=== PATIENT | male | born 1945 | race Caucasian/White ===

== ENCOUNTER 2017-08-14 20:48 | Inpatient (IN) | payer OTHER, MEDICARE ==
[~2017-08-14] VITALS: Ht 182.9 cm; Wt 111.9 kg
[2017-08-14 20:50] VITALS: BP 165/62; PULSE 80; RESP 16; TEMP 97.7; O2SAT 93
[2017-08-14 22:11] VITALS: BP 134/67; PULSE 71; RESP 20; O2SAT 95
--- NOTE | 2017-08-14 22:40 | PD ---
HPI Chief Complaint: Edema Time Seen by Provider: 22:05 Travel History International Travel<30 days: No Contact w/Intl Traveler<30days: No Traveled to known affect area: No History of Present Illness HPI The patient is a 72 year old male who presents to the [facility] emergency department with a history of developing swelling of his legs that began approximately one week ago. The patient reports that the swelling has progressed into scrotal swelling. He reports that he has occult he starting a stream of urine and feels like he is not completely evacuating his bladder. He denies having any prior history of prostate hypertrophy. He reports that his PSA is regularly checked and noted to be 1. The patient reports that he does have shortness of breath with exertion. He denies having any cough or congestion. He reports that he has been diagnosed with COPD in the past. 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 The patient is followed by the [facility] for his primary care. He incidentally also reports that over the last 1-2 months he's had increasing pain in his shoulders and arms that was diagnosed as being related to neuropathy. His [facility] doctor started him on gabapentin which she reports this health, however he then developed constipation. He reports that he last moved his bowels yesterday 5 times after using a stool softener. He denies having any blood in his stool or black or tarry stools. He denies having any numbness or tingling to his arms or legs currently. He denies having any weakness in his arms or legs. He reports that the pain in his shoulders and arms is made worse with lying flat. He reports that the pain comes and goes and is a 10 out of 10 in severity when it occurs. He reports that it feels like he is being stabbed over and over again in his extremities. He denies having any chest pain. On review of systems otherwise, the patient denies having any known recent fevers, abdominal pain, vomiting, or other neurologic symptoms. [facility] Past Medical History Narrative Medical The patient's past medical history is significant for recently being diagnosed with neuropathy, history of having a heart murmur, history of strabismus, history of hypertension, hyperlipidemia, alcohol abuse, COPD High Cholesterol: Yes COPD: Yes Hypertension: Yes Past Surgical History Narrative Surgical The patient's past surgical history is significant for an appendectomy. Appendectomy: Yes Social History Alcohol Use: Yes (2 drinks daily, however related to pain he's been drinking more than usual) Tobacco Use: No Substance Use: No Allergies-Medications (Allergen,Severity, Reaction): Coded Allergies: No Known Allergies (Unverified , 08/14/17) Reported Meds & Prescriptions Reported Meds & Active Scripts Active Review of Systems General / Constitutional: No: Fever Eyes: No: Visual changes HENT: No: Headaches Cardiovascular: Positive: Dyspnea on exertion, Edema, No: Chest Pain or Discomfort Respiratory: Positive: Shortness of Breath Gastrointestinal: Positive: Constipation, Changes in Bowel Habits, No: Nausea, Vomiting, Diarrhea, Abdominal Pain, Indigestion Genitourinary: No: Dysuria Musculoskeletal: Positive: Myalgias, Arthralgias, Edema, Pain, No: Limited ROM Skin: No Rash Neurologic: Positive: Paresthesia, No: Weakness, Focal Abnormalities, Change in Mentation, Slurred Speech, Sensory Disturbance Psychiatric: No: Depression Endocrine: No: Polydipsia Hematologic/Lymphatic: No: Easy Bruising Physical Exam Narrative General: The patient is a well-developed well-nourished male in no acute distress. Head and Neck exam: Head is normocephalic atraumatic. Eyes: Disconjugate gaze with a history of strabismus. Pupils are equal round and reactive to light. Nose: Midline septum with pink mucous membranes Mouth: Dentition unremarkable. Moist mucus membranes. Posterior oropharynx is not erythematous. No tonsillar hypertrophy. Uvula midline. Airway patent. Neck: No palpable lymphadenopathy. No nuchal rigidity. No thyromegaly. No spinous process tenderness to palpation. No step-off or crepitus. No erythema or ecchymosis. Cardiovascular: Irregularly irregular with a rate in the 80s with a 2/6 systolic murmur. The patient reports having a prior history of heart murmur. Lungs: The patient has decreased breath sounds in the right lower lung base. No wheezes, rhonchi, or crackles are audible. Abdomen: Soft, without tenderness to palpation in all 4 quadrants of the abdomen. No guarding, rebound, or rigidity. Normal bowel sounds are audible. No tenderness on palpation of McBurney's point. Extremities: No clubbing or cyanosis. The patient has 1+ nonpitting edema bilateral lower extremities. No calf tenderness on palpation. Back: No spinous process tenderness to palpation. No costovertebral angle tenderness to palpation. Neurologic Exam: Grossly nonfocal. Skin Exam: No rash noted. Intact skin that is warm and dry. Data Data Last Documented VS Vital Signs Date Time Temp Pulse Resp B/P (MAP) Pulse Ox O2 Delivery O2 Flow Rate FiO2 08/14/17 22:11 71 20 134/67 (89) 95 Room Air 08/14/17 20:[address] Brain W/O Iv Contrast(Rout) (08/14/17 22:20) Ct Cerv Spine W/O Contrast (08/14/17 22:20) Electrocardiogram (08/14/17 22:20) Complete Blood Count With Diff (08/14/17 22:20) Comprehensive Metabolic Panel (08/14/17 22:20) Creatine Kinase (Cpk) (08/14/17 22:20) Ckmb (Isoenzyme) Profile (08/14/17 22:20) Troponin I (08/14/17 22:20) B-Type Natriuretic Peptide (08/14/17 22:20) Prothrombin Time / Inr (Pt) (08/14/17 22:20) Act Partial Throm Time (Ptt) (08/14/17 22:20) Lipase (08/14/17 22:20) Urinalysis - C+S If Indicated (08/14/17 22:20) Magnesium (Mg) (08/14/17 22:20) Chest, Single Ap (08/14/17 22:20) Iv Access Insert/Monitor (08/14/17 22:20) Ecg Monitoring (08/14/17 22:20) Oximetry (08/14/17 22:20) Drug Screen, Random Urine (08/14/17 22:20) Alcohol (Ethanol) (08/14/17 22:20) CKMB (08/14/17 22:45) CKMB% (08/14/17 22:45) Furosemide Inj (Lasix Inj) (08/15/17 00:30) Nitroglycerin 2% Oint (Nitroglycerin 2% (08/15/17 00:30) Aspirin Chew (Aspirin Chew) (08/15/17 00:30) Admit Order (Ed Use Only) (08/15/17 00:23) Labs Laboratory Tests Test 08/14/17 22:45 White Blood Count 7.3 TH/MM3 Red Blood Count 3.16 MIL/MM3 Hemoglobin 10.6 GM/DL Hematocrit 31.6 % Mean Corpuscular Volume 100.0 FL Mean Corpuscular Hemoglobin 33.6 PG Mean Corpuscular Hemoglobin Concent 33.6 % Red Cell Distribution Width 15.5 % Platelet Count 214 TH/MM3 Mean Platelet Volume 6.6 FL Neutrophils (%) (Auto) 58.8 % Lymphocytes (%) (Auto) 21.5 % Monocytes (%) (Auto) 16.2 % Eosinophils (%) (Auto) 2.5 % Basophils (%) (Auto) 1.0 % Neutrophils # (Auto) 4.3 TH/MM3 Lymphocytes # (Auto) 1.6 TH/MM3 Monocytes # (Auto) 1.2 TH/MM3 Eosinophils # (Auto) 0.2 TH/MM3 Basophils # (Auto) 0.1 TH/MM3 CBC Comment DIFF FINAL Differential Comment Prothrombin Time 10.7 SEC Prothromb Time International Ratio 1.1 RATIO Activated Partial Thromboplast Time 26.3 SEC Blood Urea Nitrogen 47 MG/DL Creatinine 1.51 MG/DL Random Glucose 119 MG/DL Total Protein 8.2 GM/DL Albumin 3.5 GM/DL Calcium Level 8.2 MG/DL Magnesium Level 2.3 MG/DL Alkaline Phosphatase 123 U/L Aspartate Amino Transf (AST/SGOT) 35 U/L Alanine Aminotransferase (ALT/SGPT) 22 U/L Total Bilirubin 0.3 MG/DL Sodium Level 135 MEQ/L Potassium Level 4.5 MEQ/L Chloride Level 103 MEQ/L Carbon Dioxide Level 21.7 MEQ/L Anion Gap 10 MEQ/L Estimat Glomerular Filtration Rate 45 ML/MIN Total Creatine Kinase 524 U/L Creatine Kinase MB 13.7 NG/ML Creatine Kinase MB % 2.6 % Troponin I 0.14 NG/ML B-Type Natriuretic Peptide 253 PG/ML Lipase 569 U/L Ethyl Alcohol Level 110 MG/DL MDM Medical Decision Making Medical Screen Exam Complete: Yes Emergency Medical Condition: Yes Medical Record Reviewed: Yes Interpretation(s) Last Impressions Head CT 08/14/170 Signed Impressions: Service Date/Time: Monday, August 14, 2017 23:19 - CONCLUSION: Unremarkable noncontrast exam. Haja Bennett MD Chest X-Ray 08/14/172219 Signed Impressions: Service Date/Time: Monday, August 14, 2017 22:49 - CONCLUSION: Small to moderate right pleural effusion. Haja Bennett MD Cervical Spine CT 08/14/172219 Signed Impressions: Service Date/Time: Monday, August 14, 2017 23:19 - CONCLUSION: Negative trauma CT. Haja Bennett MD Differential Diagnosis New-onset congestive heart failure, versus cor pulmonale, versus renal failure, versus hypoalbuminemia, versus valvular abnormalities of the veins in the legs causing peripheral edema Narrative Course During the course of the patients emergency department visit, the patients history, examination, and differential diagnosis were reviewed with the patient. The patient was placed on a telemetry monitor with oximetry and frequent blood pressure monitoring. The patient had IV access obtained and blood work sent for analysis. An ECG was done on arrival that shows atrial fibrillation heart rate of 40, nonspecific ST-T wave abnormalities, no acute ST segment elevation. QRS duration is 106 ms, QTC [address] scan of the head and neck was ordered due to the patient's reported history of falls. The patients laboratory studies were reviewed and remarkable for a CBC that shows a white count of 7.3, hemoglobin 10.6, platelets 214 with 16.2 monocytes, CMP is remarkable for sodium of 135, BUN 47, creatinine 1.51, glucose 119, alkaline phosphatase 123, CPK 524, MB percent 2.6, troponin I is 0.14, lipase 569, PT 10.7, PTT 26.3, alcohol level in 110 The patient was provided aspirin 324 mg by mouth 1, Lasix 40 mg IV, nitroglycerin 1 inch the chest wall. Radiology studies were reviewed and remarkable for a chest x-ray that shows a small to moderate right pleural effusion, CT scan of the brain shows an unremarkable noncontrast exam. CT scan of the C-spine shows no acute traumatic abnormality. The patients results were discussed with the patient, including the plan of care. I explained that further testing and/ or monitoring is indicated based on the patients history, examination, and/ or laboratory findings. Therefore, I recommended admission for additional evaluation. The patient expressed understanding and was agreeable with this plan. The patient was admitted to the hospital in stable condition and [facility] Physician Communication Physician Communication The patient's case including history, pertinent physical examination findings, and laboratory studies were discussed with Dr. Farnsworth. It was agreed that the patient would be [facility]. Diagnosis Primary Impression: CHF (congestive heart failure) Qualified Codes: I50.9 - Heart failure, unspecified Additional Impressions: Elevated troponin A-fib Qualified Codes: I48.91 - Unspecified atrial fibrillation Admitting Information Admitting Physician Requests: Khushboo Summers MD Aug 14, 2017 22:40
[2017-08-14] MEDS ORDERED: ZOFR4TAB3 SL (22:43)
[2017-08-14] MEDS ORDERED: POTA1TAB4 PO (22:43)
[2017-08-14 23:01] LABS: AUTOMATED NEUTROPHIL # 4.3 TH/MM3 (1.8-7.7); BASOPHIL # 0.1 TH/MM3 (0-0.2); EOSINOPHIL # 0.2 TH/MM3 (0-0.4); EOSINOPHIL % 2.5 % (0.0-4.0); HEMATOCRIT 31.6 % (39.0-51.0); HEMO FLAGS DIFF FINAL; LYMPH % 21.5 % (9.0-44.0); LYMPHOCYTE # 1.6 TH/MM3 (1.0-4.8); MEAN CORPUSCULAR HEMOGLOBIN 33.6 PG (27.0-34.0); MEAN CORPUSCULAR HGB CONC 33.6 % (32.0-36.0); MONO % 16.2 % (0.0-8.0); NEUT % 58.8 % (16.0-70.0); PLATELET COUNT 214 TH/MM3 (150-450); RED BLOOD COUNT 3.16 MIL/MM3 (4.50-5.90); RED CELL DISTRIBUTION WIDTH 15.5 % (11.6-17.2); WHITE BLOOD COUNT 7.3 TH/MM3 (4.0-11.0)
[2017-08-14 23:11] LABS: APTT (PATIENT) 26.3 SEC (24.3-30.1); INTERNATIONAL NORMALIZED RATIO 1.1 RATIO; PROTHROMBIN TIME - PATIENT 10.7 SEC (9.8-11.6)
--- NOTE | 2017-08-14 23:12 | RADRPT ---
EXAM DATE/TIME: 08/14/2017 22:49 [facility] COMPARISON: No previous studies available for comparison. INDICATIONS : Shortness of breath. MEDICAL HISTORY : Chronic obstructive pulmonary disease. SURGICAL HISTORY : None. ENCOUNTER: Initial ACUITY: 1 day PAIN SCORE: 0/10 LOCATION: Bilateral chest FINDINGS: Single AP erect view of the chest was obtained and demonstrates a small to moderate right pleural eff usion with blunting of the right costophrenic angle. There is mild patchy opacity at the right lung b ase. Left lung is clear. The heart size appears mildly prominent but no definite perihilar edema. Mil d atherosclerotic calcifications are present in the aorta. The bony thorax is intact. There are overl genie electrocardiogram leads. CONCLUSION: Small to moderate right pleural effusion. Haja Bennett MD on August 14, 2017 at 23:10 Board Certified Radiologist. This report was verified electronically.
[2017-08-14 23:15] LABS: ANION GAP 10 MEQ/L (5-15); AST (GOT) 35 U/L (15-37); BICARBONATE 21.7 MEQ/L (21.0-32.0); BLOOD UREA NITROGEN 47 MG/DL (7-18); CHLORIDE 103 MEQ/L (98-107); GLOMERULAR FILTRATION RATE 45 ML/MIN (>89); MAGNESIUM 2.3 MG/DL (1.5-2.5); POTASSIUM 4.5 MEQ/L (3.5-5.1); SODIUM (NA) 135 MEQ/L (136-145)
[2017-08-14 23:16] LABS: ALT (GPT) 22 U/L (12-78)
[2017-08-14 23:19] LABS: ALKALINE PHOSPHATASE 123 U/L (45-117); CREATINE KINASE 524 U/L (39-308); TOTAL BILIRUBIN ADULT 0.3 MG/DL (0.2-1.0)
[2017-08-14 23:27] LABS: ALCOHOL 110 MG/DL (0-5)
--- NOTE | 2017-08-14 23:31 | RADRPT ---
EXAM DATE/TIME: 08/14/2017 23:19 [facility] COMPARISON: No previous studies available for comparison. INDICATIONS : Neck and shoulder pain. RADIATION DOSE: 52.54 CTDIvol (mGy) MEDICAL HISTORY : Hypertension. Chronic obstructive pulmonary disease. SURGICAL HISTORY : Appendectomy. ENCOUNTER: Initial ACUITY: 1 day PAIN SCALE: 7/10 LOCATION: cranial TECHNIQUE: Multiple contiguous axial images were obtained of the head. Using automated exposure control and adj ustment of the mA and/or kV according to patient size, radiation dose was kept as low as reasonably a chievable to obtain optimal diagnostic quality images. DICOM format image data is available electro nically for review and comparison. FINDINGS: CEREBRUM: The ventricles are normal for age. No evidence of midline shift, mass lesion, hemorrhage or acute in farction. No extra-axial fluid collections are seen. POSTERIOR FOSSA: The cerebellum and brainstem are intact. The 4th ventricle is midline. The cerebellopontine angle i s unremarkable. EXTRACRANIAL: The visualized portion of the orbits is intact. SKULL: The calvaria is intact. No evidence of skull fracture. CONCLUSION: Unremarkable noncontrast exam. Haja Bennett MD on August 14, 2017 at 23:29 Board Certified Radiologist. This report was verified electronically.
--- NOTE | 2017-08-14 23:39 | RADRPT ---
EXAM DATE/TIME: 08/14/2017 23:19 [facility] COMPARISON: No previous studies available for comparison. INDICATIONS : Neck and shoulder pain. Trauma. RADIATION DOSE: 30.64 CTDIvol (mGy) MEDICAL HISTORY : Hypertension. Chronic obstructive pulmonary disease. SURGICAL HISTORY : Appendectomy. ENCOUNTER: Initial ACUITY: 1 day PAIN SCALE: 7/10 LOCATION: neck TECHNIQUE: Volumetric scanning of the cervical spine was performed. Multiplanar reconstructions in the sagittal, coronal and oblique axial planes were performed. Using automated exposure control and adjustment o f the mA and/or kV according to patient size, radiation dose was kept as low as reasonably achievable to obtain optimal diagnostic quality images. DICOM format image data is available electronically f or review and comparison. FINDINGS: The sagittal reconstructions demonstrate normal alignment and normal prevertebral soft tissues. The d ens is intact and there is a normal atlantoaxial relationship. There are degenerative disc changes wi th mild disc space narrowing and hypertrophic change greatest at the C5-6 and C6-7 levels. There is n o osteopenia. Degenerative changes are noted involving the atlantoaxial joint. The axial images demonstrate that the vertebral bodies and posterior elements are intact. The soft ti ssues are within normal limits. There is no evidence of acute fracture or malalignment. There are mil d degenerative changes and facet joints. CONCLUSION: Negative trauma CT. Haja Bennett MD on August 14, 2017 at 23:35 Board Certified Radiologist. This report was verified electronically.
[2017-08-14 23:40] LABS: CKMB 13.7 NG/ML (0.5-3.6)
[2017-08-15] VITALS (14 sets, daily range): BP systolic 104–138; BP diastolic 53–80; PULSE 73–101; RESP 17–20; TEMP 97.2–98.3; O2SAT 92–99
[2017-08-15] MEDS ORDERED: ONDANSETRON HCL 4 MG/2 ML VIAL IVP PRN (00:30)
[2017-08-15] MEDS ORDERED: SODIUM CHLORIDE 0.9% FLUSH 10 ML FLUSH IV FLUSH PRN (00:30)
[2017-08-15] MEDS ORDERED: NITROGLYCERIN 2% OINT 1 GM PACKET TOPICAL ONE (00:30)
[2017-08-15] MEDS ORDERED: BISACODYL 10 MG SUPP RECTAL PRN (00:30)
[2017-08-15] MEDS ORDERED: LACTULOSE SYRUP 20 GM/30 ML CUP PO PRN (00:30)
[2017-08-15] MEDS ORDERED: SENNOSIDES 8.6 MG TAB PO PRN (00:30)
[2017-08-15] MEDS ORDERED: ACETAMINOPHEN 325 MG TAB PO PRN ×2 (00:30→13:15)
[2017-08-15] MEDS ORDERED: MORPHINE SULFATE 4 MG/ML INJ IV PUSH PRN ×2 (00:30→13:15)
[2017-08-15] MEDS ORDERED: ASPIRIN 81 MG CHEW TAB CHEW ONE (00:30)
[2017-08-15] MEDS ORDERED: MAGNESIUM HYDROXIDE SUSP 30 ML CUP PO PRN (00:30)
[2017-08-15] MEDS ORDERED: ACETAMINOPHEN/HYDROcodone 325 MG/5 MG TAB PO PRN (00:30)
[2017-08-15] MEDS ORDERED: FUROSEMIDE 40 MG/4 ML VIAL IV PUSH ONE (00:30)
--- NOTE | 2017-08-15 00:49 | HHI.HP ---
HPI Service [facility] Primary Care Physician [facility] Admission Diagnosis New onset afib, CHF Diagnoses: (1) CHF (congestive heart failure) Diagnosis: Principal (2) Elevated troponin Diagnosis: Principal (3) A-fib Diagnosis: Principal (4) HTN (hypertension) Diagnosis: Principal (5) Neuropathy Diagnosis: Principal (6) Renal insufficiency Diagnosis: Principal (7) Alcohol use Diagnosis: Principal Travel History International Travel<30 Days: No Contact w/Intl Traveler <30 Da: No Traveled to Known Affected Are: No History of Present Illness This is a 72-year-old male with PMH of HTN, Hyperlipidemia and COPD who presented to the ER w/ complaints of bilateral lower extremity and scrotal swelling x1 wk. Notes associated SOB, mostly with exertion. No c/o chest pain or cough. Denies h/o similar symptoms in the past. No fever, chills or sick contacts. On arrival, pt noted to be in A-fib, rate controlled. Pt cannot recall if this is new or if he's had a h/o A-fib in the past. BP 165/62, HR 80 , O2 sat 93% on RA, Afebrile. CBC essentially unremarkable. Creatinine 1.51, no previous labs for comparison. Troponin 0.14. CPK 524. BNP 253. Lipase 569. INR 1.1. Alcohol 110. Reports having 2-3 drinks/day, however has been drinking heavily in the past few days due to c/o shoulder pain for which he was started on Neurontin by the [facility]. CT Head unremarkable. CXR small to moderate right pleural effusion. CT Cervical spine negative. S/p Lasix IV in ER. Review of Systems Except as stated in HPI: all other systems reviewed are Neg ROS: 14 point review of systems otherwise negative. Past Family Social History Past Medical History PMH: HTN, Hyperlipidemia and COPD Past Surgical History PAST SURGICAL HISTORY: Appendectomy Allergies: Coded Allergies: No Known Allergies (Unverified , 08/14/17) Family History PAST FAMILY HISTORY: Reviewed. No h/o DM or CAD Social History PAST SOCIAL HISTORY: Drinks daily. Negative for tobacco or drugs. Physical Exam Vital Signs Vital Signs Date Time Temp Pulse Resp B/P (MAP) Pulse Ox O2 Delivery O2 Flow Rate FiO2 08/14/17 22:11 71 20 134/67 (89) 95 Room Air 08/14/17 20:50 97.7 80 16 165/62 (96) 93 Physical Exam PE: GENERAL: Pleasant elderly white male in no acute distress, looks younger than stated age. HEENT: PERRLA, EOMI. No scleral icterus or conjunctival pallor. No lid lag or facial droop. CARDIOVASCULAR: Irregularly irregular, in A. fib, rate controlled. No obvious murmurs to auscultation. No chest tenderness to palpation. RESPIRATORY: No obvious rhonchi or wheezing. Clear to auscultation. Breath sounds equal bilaterally. GASTROINTESTINAL: Abdomen soft, non-tender, nondistended. BS normal. MUSCULOSKELETAL: Extremities without clubbing, cyanosis, 1+ edema. No obvious deformities. NEUROLOGICAL: Awake, alert and oriented x4. No focal neurologic deficits. Moving both upper and lower extremities spontaneously. Laboratory Laboratory Tests Test 08/14/17 22:45 White Blood Count 7.3 Red Blood Count 3.16 Hemoglobin 10.6 Hematocrit 31.6 Mean Corpuscular Volume 100.0 Mean Corpuscular Hemoglobin 33.6 Mean Corpuscular Hemoglobin Concent 33.6 Red Cell Distribution Width 15.5 Platelet Count 214 Mean Platelet Volume 6.6 Neutrophils (%) (Auto) 58.8 Lymphocytes (%) (Auto) 21.5 Monocytes (%) (Auto) 16.2 Eosinophils (%) (Auto) 2.5 Basophils (%) (Auto) 1.0 Neutrophils # (Auto) 4.3 Lymphocytes # (Auto) 1.6 Monocytes # (Auto) 1.2 Eosinophils # (Auto) 0.2 Basophils # (Auto) 0.1 CBC Comment DIFF FINAL Differential Comment Prothrombin Time 10.7 Prothromb Time International Ratio 1.1 Activated Partial Thromboplast Time 26.3 Blood Urea Nitrogen 47 Creatinine 1.51 Random Glucose 119 Total Protein 8.2 Albumin 3.5 Calcium Level 8.2 Magnesium Level 2.3 Alkaline Phosphatase 123 Aspartate Amino Transf (AST/SGOT) 35 Alanine Aminotransferase (ALT/SGPT) 22 Total Bilirubin 0.3 Sodium Level 135 Potassium Level 4.5 Chloride Level 103 Carbon Dioxide Level 21.7 Anion Gap 10 Estimat Glomerular Filtration Rate 45 Total Creatine Kinase 524 Creatine Kinase MB 13.7 Creatine Kinase MB % 2.6 Troponin I 0.14 B-Type Natriuretic Peptide 253 Lipase 569 Ethyl Alcohol Level 110 Result Diagram: 08/14/17224408/14/172244 [facility] VTE Risk Assessment Caprin VTE Risk Assessment: Mod/High Risk (score >= 2) Caprini Risk Assessment Model Point Value = 1 Point Value = 2 Point Value = 3 Point Value = 5 Age 41-60 Minor surgery BMI > 25 kg/m2 Swollen legs Varicose veins or History of unexplained or recurrent spontaneous Oral contraceptives or hormone replacement Sepsis (< 1 month) Serious lung disease, including pneumonia (< 1 month) Abnormal pulmonary function Acute myocardial infarction Congestive heart failure (< 1 month) History of inflammatory bowel disease Medical patient at bed rest Age 61-74 Arthroscopic surgery Major open surgery (> 45 min) Laparoscopic surgery (> 45 min) Malignancy Confined to bed (> 72 hours) Immobilizing plaster cast Central venous access Age >= 75 History of VTE Family history of VTE Factor V Leiden Prothrombin [id number] Lupus anticoagulant Anticardiolipin antibodies Elevated serum homocysteine Heparin-induced thrombocytopenia Other congenital or acquired thrombophilia Stroke (< 1 month) Elective arthroplasty Hip, pelvis, or leg fracture Acute spinal cord injury (< 1 month) Prophylaxis Regimen Total Risk Factor Score Risk Level Prophylaxis Regimen 0-1 Low Early ambulation 2 Moderate Order ONE of the following: *Sequential Compression Device (SCD) *Heparin 5000 units SQ BID 3-4 Higher Order ONE of the following medications: *Heparin 5000 units SQ TID *Enoxaparin/Lovenox 40 mg SQ daily (WT < 150 kg, CrCl > 30 mL/min) *Enoxaparin/Lovenox 30 mg SQ daily (WT < 150 kg, CrCl > 10-29 mL/min) *Enoxaparin/Lovenox 30 mg SQ BID (WT < 150 kg, CrCl > 30 mL/min) AND/OR *Sequential Compression Device (SCD) 5 or more Highest Order ONE of the following medications: *Heparin 5000 units SQ TID (Preferred with Epidurals) *Enoxaparin/Lovenox 40 mg SQ daily (WT < 150 kg, CrCl > 30 mL/min) *Enoxaparin/Lovenox 30 mg SQ daily (WT < 150 kg, CrCl > 10-29 mL/min) *Enoxaparin/Lovenox 30 mg SQ BID (WT < 150 kg, CrCl > 30 mL/min) AND *Sequential Compression Device (SCD) Assessment and Plan Problem List: (1) CHF (congestive heart failure) ICD Code: I50.9 - Heart failure, unspecified (2) A-fib ICD Code: I48.91 - Unspecified atrial fibrillation (3) Elevated troponin ICD Code: R74.8 - Abnormal levels of other serum enzymes (4) Alcohol use ICD Code: Z78.9 - Other specified health status (5) HTN (hypertension) ICD Code: I10 - Essential (primary) hypertension (6) Renal insufficiency ICD Code: N28.9 - Disorder of kidney and ureter, unspecified (7) Neuropathy ICD Code: G62.9 - Polyneuropathy, unspecified Assessment and Plan A/P: 1. CHF: c/o bilateral lower extremity/scrotal edema x1 wk, BNP 253, CXR w/ right pleural effusion, unclear if previous h/o CHF. S/p Lasix in ER, continue w/ diuresis, monitor I/O. Check Echo. 2. A-fib: Rate Controlled. Unclear if h/o A-fib, pt cannot recall. Will monitor. Start Metoprolol. Check Echo as above. 3. Elevated Trop: Trop 0.14, EKG w/ no acute ischemia, no c/o chest pain, likely secondary to combination of A-fib, CHF and Renal Insufficiency however will r/o underlying ischemia. Check serial cardiac enzymes, Consult Cardiology , ASA, Statin, Metoprolol. NTG/Morphine if needed. 4. HTN: BP 160's on arrival, currently 130's, monitor BP, start Metoprolol as above. 5. Renal Insufficiency: Creatinine 1.51, no previous labs for comparison, will monitor, caution w/ diuresis in light of renal insufficiency, I/O. 6. Neuropathy: c/o neck/bilateral shoulder pain, recently [facility]/ [facility]. CT Head/C-spine w/ no acute findings, images reviewed by me. Continue w/ Neurontin. 7. Alcohol Use: Drinks daily, 2 beers/day however has had heavy alcohol ingestion in the last 1wk due to increased shoulder/neck pain. Alcohol 110. Start CIWA for possible withdrawal, Seizure Precautions, MVT/Thiamine/Folate replacement. 8. DVT Prophylaxis: Heparin 9. Social work for d/c planning as needed. 10. Case discussed w/ ER physician at length. Physician Certification 2 Midnight Certification Type: Admission for Inpatient Services Order for Inpatient Services The services are ordered in accordance with Medicare regulations or non- Medicare payer requirements, as applicable. In the case of services not specified as inpatient-only, they are appropriately provided as inpatient services in accordance with the 2-midnight benchmark. Estimated LOS (days): 2 days is the estimated time the patient will need to remain in the hospital, assuming treatment plan goals are met and no additional complications. Post-Hospital Plan: Not yet determined Quyen Farnsworth MD Aug 15, 2017 00:49
[2017-08-15] MEDS ORDERED: LORazepam 2 MG/ML VIAL IV PUSH PRN ×4 (01:00)
[2017-08-15] MEDS ORDERED: LORazepam 1 MG TAB PO PRN (01:00)
[2017-08-15] MEDS ORDERED: HALOPERIDOL LACTATE 5 MG/ML AMP IM PRN (01:00)
[2017-08-15] MEDS ORDERED: FLUMAZENIL 0.5 MG/5 ML VIAL IV PUSH PRN (01:00)
[2017-08-15] MEDS ORDERED: LORazepam 2 MG TAB PO PRN (01:00)
[2017-08-15] MEDS: DOCUSATE SODIUM 50 MG/SENNA 8.6 MG TAB PO SCH ×2 (08:27→20:54)
[2017-08-15] MEDS: GABAPENTIN 300 MG CAP PO SCH ×2 (08:27→20:54)
[2017-08-15] MEDS: PRAVASTATIN SOD 40 MG TAB PO SCH (08:27)
[2017-08-15] MEDS: MULTIVITAMINS/MINERALS THERAPEUTIC TAB PO SCH (08:27)
[2017-08-15] MEDS: THIAMINE HCL 100 MG TAB PO SCH (08:28)
[2017-08-15] MEDS: ASPIRIN EC 81 MG TABEC PO SCH (08:28)
[2017-08-15] MEDS: METOPROLOL TARTRATE 25 MG TAB PO SCH ×2 (08:29→20:53)
[2017-08-15] MEDS: FOLIC ACID 1 MG TAB PO SCH (08:29)
[2017-08-15] MEDS: FUROSEMIDE 40 MG/4 ML VIAL IV PUSH SCH ×2 (08:30→17:41)
[2017-08-15] MEDS: FAMOTIDINE 20 MG/2 ML VIAL IV PUSH SCH ×2 (08:30→20:53)
[2017-08-15] MEDS: SODIUM CHLORIDE 0.9% FLUSH 10 ML FLUSH IV FLUSH SCH ×2 (08:31→21:00)
[2017-08-15 08:39] LABS: AUTOMATED NEUTROPHIL # 4.7 TH/MM3 (1.8-7.7); BASOPHIL % 0.4 % (0.0-2.0); EOSINOPHIL # 0.1 TH/MM3 (0-0.4); EOSINOPHIL % 1.7 % (0.0-4.0); HEMATOCRIT 30.4 % (39.0-51.0); HEMO FLAGS DIFF FINAL; LYMPH % 15.2 % (9.0-44.0); LYMPHOCYTE # 1.1 TH/MM3 (1.0-4.8); MEAN CELL VOLUME 99.1 FL (80.0-100.0); MEAN CORPUSCULAR HEMOGLOBIN 32.7 PG (27.0-34.0); MONO % 15.2 % (0.0-8.0); NEUT % 67.5 % (16.0-70.0); PLATELET COUNT 216 TH/MM3 (150-450); RED BLOOD COUNT 3.07 MIL/MM3 (4.50-5.90); RED CELL DISTRIBUTION WIDTH 15.6 % (11.6-17.2)
[2017-08-15] MEDS ORDERED: HEPARIN SODIUM - SQ 10,000 UNITS/ML VIAL SQ SCH (09:00)
[2017-08-15 09:09] LABS: ANION GAP 11 MEQ/L (5-15); AST (GOT) 36 U/L (15-37); BICARBONATE 21.5 MEQ/L (21.0-32.0); BLOOD UREA NITROGEN 47 MG/DL (7-18); CHLORIDE 102 MEQ/L (98-107); GLOMERULAR FILTRATION RATE 52 ML/MIN (>89); POTASSIUM 4.3 MEQ/L (3.5-5.1); SODIUM (NA) 134 MEQ/L (136-145)
[2017-08-15 09:16] LABS: ALKALINE PHOSPHATASE 123 U/L (45-117); ALT (GPT) 22 U/L (12-78); TOTAL BILIRUBIN ADULT 0.5 MG/DL (0.2-1.0)
--- NOTE | 2017-08-15 09:41 | PD.CONS ---
HPI Consult Requested By Primary Care Physician [facility] History of Present Illness 72-year-old male with PMH of HTN, Hyperlipidemia and COPD who presented to the ER w/ complaints of bilateral lower extremity and scrotal swelling x1 wk. Notes associated SOB, mostly with exertion. No c/o chest pain or cough. Denies h/o similar symptoms in the past. No fever, chills or sick contacts. On arrival, pt noted to be in A-fib, with adequate ventricular response. CBC essentially unremarkable. Creatinine 1.51. Troponin 0.14. BNP 253. Lipase 569. INR 1.1. Alcohol 110. Reports having 2-3 drinks/day, however has been drinking heavily in the past few days. CT Head unremarkable. CXR small to moderate right pleural effusion. Cardiology consulted because of elevated troponin and new onset HF and Afib. Review of Systems Consitutional: COMPLAINS OF: Weight gain, DENIES: Fatigue, Fever, Chills, Weight loss Eyes: DENIES: Amaurosis Fugax, Change in vision HEENT: DENIES: Lightheadedness, Change in hearing Respiratory: DENIES: See HPI, Cough, Snoring, Shortness of breath, Wheezing, Sputum production Cardiovascular: DENIES: See HPI, Chest pain, Palpitations, Syncope, Tachycardia Gastrointestinal: DENIES: Nausea, Vomiting, Change in bowel habits, Reflux, Bloody stools, Melena Genitourinary: DENIES: Urinary incontinence, Difficulty voiding Integumentary: DENIES: Rash Neurologic: DENIES: Tingling or numbness, Memory problems, Poor Balance, Stroke symptoms Musculoskeletal: DENIES: Joint pain, Muscle pain, Limited range of motion, Back pain Psychiatric: DENIES: Anxiety, Depression, Sleep disturbances Hematologic: DENIES: Bruising tendencies, Bleeding tendencies Endocrine: COMPLAINS OF: Weight gain, DENIES: Weight loss, Thyroid disease Past Family Social History Allergies: Coded Allergies: No Known Allergies (Unverified , 08/14/17) Past Medical History HTN, Hyperlipidemia and COPD Past Surgical History Appendectomy Reported Medications Reported Meds & Active Scripts Active Active Ordered Medications Current Medications Medications (Trade) Dose Ordered Sig/Alejo Route Start Time Stop Time Status Last Admin (Ecotrin Ec) 81 mg DAILY PO 08/15/17 09:00 08/15/17 08:28 (Pravachol) 40 mg DAILY PO 08/15/17 09:00 12/4/17 08:27 (Lopressor) 12.5 mg Q12HR PO 08/15/17 09:00 08/15/17 08:29 (NS Flush) 2 ml UNSCH PRN IV FLUSH 08/15/17 00:30 (NS Flush) 2 ml BID IV FLUSH 08/15/17 09:00 08/15/17 08:31 (Zofran Inj) 4 mg Q6H PRN IVP 08/15/17 00:30 (Heparin Inj) 5,000 units Q12H SQ 08/15/17 09:00 08/15/17 08:31 (Tylenol) 650 mg Q6H PRN PO 08/15/17 00:30 (Cerrillos 5-325 Mg) 1 tab Q4H PRN PO 08/15/17 00:30 (Morphine Inj) 2 mg Q3H PRN IV PUSH 08/15/17 00:30 (Tonya-Colace) 1 tab BID PO 08/15/17 09:00 08/15/17 08:27 (Milk Of Magnesia Liq) 30 ml Q12H PRN PO 08/15/17 00:30 (Senokot) 17.2 mg Q12H PRN PO 08/15/17 00:30 (Dulcolax Supp) 10 mg DAILY PRN RECTAL 08/15/17 00:30 (Lactulose Liq) 30 ml DAILY PRN PO 08/15/17 00:30 (Neurontin) 300 mg Q12H PO 08/15/17 09:00 08/15/17 08:27 (Lasix Inj) 40 mg BID@,18 IV PUSH 08/15/17 09:00 08/15/17 08:30 (Folate) 1 mg DAILY PO 08/15/17 09:00 08/20/17 08:59 08/15/17 08:29 (Vitamin B1) 100 mg DAILY PO 08/15/17 09:00 08/15/17 08:28 (Theragran M Tab) 1 tab DAILY PO 08/15/17 09:00 08/20/17 08:59 08/15/17 08:27 (Romazicon Inj) 0.2 mg Q1M PRN IV PUSH 08/15/17 01:00 (Ativan) 1 mg Q4H PRN PO 08/15/17 01:00 (Ativan Inj) 1 mg Q4H PRN IV PUSH 08/15/17 01:00 (Ativan) 2 mg Q2H PRN PO 08/15/17 01:00 (Ativan Inj) 2 mg Q2H PRN IV PUSH 08/15/17 01:00 (Ativan Inj) 2 mg Q1H PRN IV PUSH 08/15/17 01:00 (Ativan Inj) 2 mg Q15M PRN IV PUSH 08/15/17 01:00 (Haldol Inj) 2 mg Q15M PRN IM 08/15/17 01:00 (Pepcid Inj) 10 mg Q12H IV PUSH 08/15/17 09:00 08/15/17 08:30 (Flu (Quadrivalent) Vaccine Inj) 0.5 ml ONCE ONCE IM 08/16/17 10:00 08/16/17 10:01 Family History No h/o DM or CAD Social History Drinks daily. Negative for tobacco or drugs. Physical Exam Vital Signs Vital Signs Date Time Temp Pulse Resp B/P (MAP) Pulse Ox O2 Delivery O2 Flow Rate FiO2 08/15/17 08:04 97.2 87 20 138/72 (94) 93 08/15/17 05:05 Room Air 08/15/17 04:00 98.2 75 17 104/53 (70) 92 08/15/17 02:49 75 08/15/17 01:15 98.0 73 17 131/65 (87) 95 08/15/17 01:04 08/15/17 01:03 76 18 125/61 (82) 94 Room Air 08/14/17 22:11 71 20 134/67 (89) 95 Room Air 08/14/17 20:50 97.7 80 16 165/62 (96) 93 Physical Exam GENERAL: Well-nourished, well-developed patient. SKIN: Warm and dry. HEAD: Normocephalic. EYES: No scleral icterus. No injection or drainage. NECK: Supple, trachea midline. No JVD or lymphadenopathy. CARDIOVASCULAR: Regular rate and rhythm without murmurs, gallops, or rubs. RESPIRATORY: Breath sounds equal bilaterally. No accessory muscle use. GASTROINTESTINAL: Abdomen soft, non-tender, nondistended. EXTREMITIES: No cyanosis, or + edema. NEUROLOGICAL: Awake, alert, and oriented x 3. Non-focal. Laboratory Laboratory Tests Test 08/14/17 22:45 08/15/17 07:44 White Blood Count 7.3 7.0 Red Blood Count 3.16 3.07 Hemoglobin 10.6 10.0 Hematocrit 31.6 30.4 Mean Corpuscular Volume 100.0 99.1 Mean Corpuscular Hemoglobin 33.6 32.7 Mean Corpuscular Hemoglobin Concent 33.6 33.0 Red Cell Distribution Width 15.5 15.6 Platelet Count 214 216 Mean Platelet Volume 6.6 6.5 Neutrophils (%) (Auto) 58.8 67.5 Lymphocytes (%) (Auto) 21.5 15.2 Monocytes (%) (Auto) 16.2 15.2 Eosinophils (%) (Auto) 2.5 1.7 Basophils (%) (Auto) 1.0 0.4 Neutrophils # (Auto) 4.3 4.7 Lymphocytes # (Auto) 1.6 1.1 Monocytes # (Auto) 1.2 1.1 Eosinophils # (Auto) 0.2 0.1 Basophils # (Auto) 0.1 0.0 CBC Comment DIFF FINAL DIFF FINAL Differential Comment Prothrombin Time 10.7 Prothromb Time International Ratio 1.1 Activated Partial Thromboplast Time 26.3 Blood Urea Nitrogen 47 47 Creatinine 1.51 1.34 Random Glucose 119 110 Total Protein 8.2 8.0 Albumin 3.5 3.4 Calcium Level 8.2 8.4 Magnesium Level 2.3 Alkaline Phosphatase 123 123 Aspartate Amino Transf (AST/SGOT) 35 36 Alanine Aminotransferase (ALT/SGPT) 22 22 Total Bilirubin 0.3 0.5 Sodium Level 135 134 Potassium Level 4.5 4.3 Chloride Level 103 102 Carbon Dioxide Level 21.7 21.5 Anion Gap 10 11 Estimat Glomerular Filtration Rate 45 52 Total Creatine Kinase 524 Creatine Kinase MB 13.7 Creatine Kinase MB % 2.6 Troponin I 0.14 0.21 B-Type Natriuretic Peptide 253 Lipase 569 444 Ethyl Alcohol Level 110 Result Diagram: 08/15/17 0744 08/15/17 0744 Imaging Last Impressions Head CT 08/14/172219 Signed Impressions: Service Date/Time: Monday, August 14, 2017 23:19 - CONCLUSION: Unremarkable noncontrast exam. Haja Bennett MD Chest X-Ray 08/14/172219 Signed Impressions: Service Date/Time: Monday, August 14, 2017 22:49 - CONCLUSION: Small to moderate right pleural effusion. Haja Bennett MD Cervical Spine CT 08/14/172219 Signed Impressions: Service Date/Time: Monday, August 14, 2017 23:19 - CONCLUSION: Negative trauma CT. Haja Bennett MD Assessment and Plan Problem List: (1) CHF (congestive heart failure) ICD Codes: I50.9 - Heart failure, unspecified Plan: 72 y/o M with cardiac risk factors that include HTN, obesity, HLD and age admitted with complaints of overall fatigue, SOB on minimal exertion and LE edema. 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 He reports inhalers does not help his symptoms. EKG Afib. Troponin trending up. Given pt CAD risk factors, elevated troponin and ongoing SOB/?angina equivalent. Recommend LHC for CAD risk stratification. Risk benefits of LHC +/- PCI including but not limited to bleeding, infection, neurovascular trauma, stroke, MILLER, CABG and have been explain to patient. he understand risk and is willing to proceed. Regarding Afib. Cont rate control. Start OAC after cath with Coumadin Plan: Keep NPO for LHC today Cont aggressive medical management for CAD (2) A-fib ICD Codes: I48.91 - Unspecified atrial fibrillation (3) Renal insufficiency ICD Codes: N28.9 - Disorder of kidney and ureter, unspecified (4) HTN (hypertension) ICD Codes: I10 - Essential (primary) hypertension (5) Neuropathy ICD Codes: G62.9 - Polyneuropathy, unspecified (6) Elevated troponin ICD Codes: R74.8 - Abnormal levels of other serum enzymes Jag Tarango MD Aug 15, 2017 09:41
[2017-08-15] MEDS ORDERED: VERAPAMIL HCL 5 MG/2 ML VIAL ONE (11:24)
[2017-08-15] MEDS ORDERED: MIDAZOLAM HCL 2 MG/2 ML VIAL ONE ×2 (11:24→11:59)
[2017-08-15] MEDS ORDERED: HEPARIN-NS/PF INJ 1,000 ML ONE ×2 (11:24→11:56)
[2017-08-15] MEDS ORDERED: NITROGLYCERIN INJ 5 ML ONE (11:25)
[2017-08-15] MEDS ORDERED: HEPARIN SODIUM - IV 10,000 UNITS/10 ML VIAL ONE (11:25)
[2017-08-15] MEDS ORDERED: PROTAMINE SULFATE 50 MG/5 ML VIAL ONE (13:00)
[2017-08-15] MEDS ORDERED: PRASUGREL 10 MG TAB ONE (13:05)
[2017-08-15] MEDS ORDERED: SODIUM CHLOR 0.9% 1000 ML INJ 1,000 ML IV SCH (13:13)
[2017-08-15] MEDS ORDERED: MISC INFORMATION XX ONE (13:15)
[2017-08-15] MEDS ORDERED: PRASUGREL 10 MG TAB PO ONE (13:15)
--- NOTE | 2017-08-15 13:30 | CATHPROC ---
[facility] HIS Report Study Information Study Number Admission Scheduled Start Study Start [id number] Aug 15 2017 12:24AM 08/15/2017 Aug 15 2017 11:10AM [place] [facility] Cardiac Catheterization Admit Source Facility Department Emergency department [facility] - [facility] Physician and Clinical Staff Initial Jag Juarez Candy Spreader Helper Zachery Bermeo,LAURA Candy Spreader HelperWindy Matt RN Candy Spreader Helper Miles SANCHEZ, Nilam Oconnell,RT(R) (BS) Scrub Jere Odell RCIS(BS) Procedures Performed Procedure Location (Site) Vessel Name Coronary Angiograms LCA Left Coronary Coronary Angiograms RCA Right Coronary Drug Eluting Inflatio LAD Prox Left Coronary Drug Eluting Inflatio RCA Mid Right Coronary L Heart Cath LV Gram-hand inj. LV LV Ventricle PTCA ADD ON'S Wire insertion Fem Art (right) Femoral Art Wire insertion Radial (right) Radial Art. Equipment Time Beaver Trapper Description Size Mfg Part Number Used/Scraped COPILOT VALVE, BLEEDBACK [id number] 11:50 [employer] Used CONTROL *[id number] COPILOT VALVE, BLEEDBACK [id number] 13:25 [employer] Used CONTROL *[id number] COPILOT VALVE, BLEEDBACK [id number] 13:25 [employer] Used CONTROL *[id number] COPILOT VALVE, BLEEDBACK [id number] 13:25 [employer] Used CONTROL *[id number] PERCLOSE, PRO GLIDE CLOSER 12:58 [employer] FR 6 78635 *[id number] Used DEVICE PERCLOSE, PRO GLIDE CLOSER 13:04 [employer] FR 6 [id number] *[id number] Used DEVICE [id number] 11:51 [employer] WIRE, ASAHI PROWATER 180CM 180CM Used *[id number] WIRE, BALANCE MIDDLEWEIGHT [id number] 12:17 [employer] 190CM Used 190CM *[id number] 12:26 [employer] WIRE, DOC EXTENSION 145CM 145CM 47033 *[id number] Used [id number] 13:03 [employer] WIRE, SUPERCORE 190CM Used *[id number] TRANSDUCER, TRUWAVE [id number] 11:13 BEAR GUIDRY * Used W/STOCKCOCK *[id number] CARDIOVASCULAR CATHETER, CORONARY CLASSIC DBEC-125 12:31 Used SYSTEM[employer] INC. 1.25MM *[id number] CARDIOVASCULAR WIRE, VIPER ADVANCE [facility]-03100BP- 12:30 Used [employer] CORONARY FLP *[id number] INTRODUCER SET, 12:01 [employer]. FR 5 [id number] *[id number] Used MICROPUNCTURE, STIFFENED 534-520T *0290600 [id number] *[id number] 534-521T *2209314 [id number] 11:13 MOLI [employer] PACK, CCL CUSTOM * Used *2758873 11:13 [employer] SUPPORT, ARTERIAL ADULT 92614 *2280227 Used [id number] 11:54 MEDTRONIC BALLOON, 2.5 X 15MM EUPHORA 15MM Used *0664390 [id number] 12:56 MEDTRONIC STENT, 2.5 18MM [place] 2.5 18MM Used *8107712 12:45 MEDTRONIC STENT, 3.5 22MM [place] 3.5 22MM [id number] Used 12:49 MEDTRONIC STENT, 3.5 26MM [place] 3.5 26MM [id number] Used [id number] 11:50 MEDTR[employer]IC/AVE EBU 3.5 Z2 GUIDE CATHETER FR 6 Used *2651624 [id number] 11:50 [employer] MEDICAL 30 SHERIN INDEFLATOR Used *6244874 BAND, RADIAL COMPRESSION TR [id number] 12:02 [employer] MEDICAL 29CM Used LARGE 29 *6489339 [id number] 11:13 Fierce [employer] Frugal WIRE, 3MMJ .035 180CM 180CM Used *0263411 [id number] 11:13 NAMIC MANIFOLD, 4 PORT * Used *7231088 11:13 NYCOMED OMNIPAQUE, 350 MG, 150ML 150ML [id number] Used [id number] 11:13 JAVIER MEDICAL BLANKET,WARM AIR CCL * Used *[id number] UCT214 12:01 TERUMO [employer] SHEATH, FR6 TERUMO (10CM) FR 6 Used *8708792 SHEATH, FR6 TRANSRADIAL RM*[id number] 11:13 [employer] MEDICAL FR 6 Used SLENDER 10CM *[id number] WIRE, RUNTHROUGH NS FLOPPY 25-1011 11:53 [employer]ICAL 180CM Used .014 180CM *0282309 35-1450 12:27 TERUM[employer] MEDICAL/VARUN CATHETER, FINECROSS 150CM FR 5 Used *[id number] Equipment Model, Serial, Lot Number and Expiration Data Description Model Number Serial Number Lot Number Expiration Da te CATHETER, FINECROSS 150CM [id number] 05-12-2019 INTRODUCER SET, [id number] 06-27-2020 MICROPUNCTURE, STIFFENED STENT, 2.5 18MM [place] [id number] 05-09-2019 [id number] STENT, 3.5 26MM [place] [id number] 05-22-2019 038425` WIRE, VIPER ADVANCE CORONARY [id number] 10-12-2018 History: Current Medications Medication Dosage/Unit Route Frequency Last Date/Time Taken ASA History: Allergies Allergy Reaction No Known Allergies History: Risk Factors Family History of Hypertension Dyslipidemia Previous SC Previous Heart Failure Premature CAD Yes Yes No No No Prior Valve Prior PCI Prior CABG Surgery No No No Cerebrovascular Peripheral Artery Chronic Lung On Dialysis Diabetes Disease Disease Disease No No No Yes No History: Stress Tests Stress or Imaging Studies Performed No History: Other Current Smoker Method Quit Packs a Day Years Used Pack Years No Cigarettes 46 Years Ago 2 15 30 Labs Hgb (g/dl) Hct (%) WBC (l/cumm) Platelets (thousands) 11.60-17.00 35.00-51.00 4.00-11.00 150.00-450.00 10.0 30.4 7 216 Glucose (mg/dl) BUN (mg/dl) Creatinine (mg/dl) BUN:Creatinine (1:x) 74.00-106.00 7.00-18.00 0.50-1.30 10.00-20.00 110 47 1.3 36.2 Na (meq/l) K (meq/l) 136.00-145.00 3.50-5.10 134 4.3 INR (PTT:PT) 0.90-1.10 1.1 Troponin I (ng/ml) CPK-MB (ng/ML) 0.02-0.05 0.50-3.60 0.21 Not Drawn Medication Medication Total Dose (Bolus/Oral) Medication Total Dosage/Unit 1% XYLOCAINE 21 mL EFFIENT 60 mg FENTANYL 200 mcg HEPARIN 8000 units OXYGEN 2 l/min PROTAMINE 50 mg RADIAL COCKTAIL 1 units VERSED 4 mg Medications (Bolus/Oral) Medication Time Given Dosage/Unit Administered By Reason OXYGEN 08/15/2017 11:34:04 AM 2 l/min Windy Hancock 2 l/min OXYGEN given in lab by Windy Hancock RN via Nasal. VERSED 08/15/2017 11:39:16 AM 2 mg Adamy, Windy 2 mg VERSED given in lab by Windy Hancock RN in Left Antecubital via Peripheral IV. FENTANYL 08/15/2017 11:40:19 AM 50 mcg Adamy, Windy 50 mcg FENTANYL given in lab by Windy Hancock RN in Left Antecubital via Peripheral IV. 1% XYLOCAINE 08/15/2017 11:41:07 AM 1 mL Augustin-Lucas, Jag 1 mL 1% XYLOCAINE given in lab by AlemLucas, Jag in Right Radial via Subcutaneous. Ntg 200mcg Verapamil 2.5mg Heparin RADIAL COCKTAIL 08/15/2017 11:42:17 AM 1 units Augustin-Lucas, Jag 2000U 1 units RADIAL COCKTAIL given in lab by Grabiel Tarangoro via Radial. Reason: Ntg 200mcg Verapamil 2. 5mg Heparin 2500U. HEPARIN 08/15/2017 11:52:14 AM 6000 units Janet Hancockfer 6000 units HEPARIN given in lab by Windy Hancock RN in Left Antecubital via Peripheral IV. FENTANYL 08/15/2017 11:55:18 AM 50 mcg Emilianoy, Windy 50 mcg FENTANYL given in lab by Windy Hancock RN in Left Antecubital via Peripheral IV. VERSED 08/15/2017 12:00:14 PM 1 mg Adamy, Windy 1 mg VERSED given in lab by Windy Hancock RN in Left Antecubital via Peripheral IV. 1% XYLOCAINE 08/15/2017 12:06:42 PM 20 mL Augustin-Lucas, Jag 20 mL 1% XYLOCAINE given in lab by Grabiel Tarangoro in Right Groin via Subcutaneous. VERSED 08/15/2017 12:15:43 PM 1 mg Adamy, Windy 1 mg VERSED given in lab by Windy Hancock, LAURA in Left Antecubital via Peripheral IV. FENTANYL 08/15/2017 12:16:50 PM 50 mcg Emilianoy, Windy 50 mcg FENTANYL given in lab by Windy Hancock RN in Left Antecubital via Peripheral IV. HEPARIN 08/15/2017 12:18:44 PM 2000 units Windy Hancock 2000 units HEPARIN given in lab by Windy Hancock RN in Left Antecubital via Peripheral IV. FENTANYL 08/15/2017 12:41:56 PM 25 mcg Joaquin Aquino RN 25 mcg FENTANYL given in lab by Joaquin Aquino RN in Left Antecubital via Peripheral IV. FENTANYL 08/15/2017 12:56:53 PM 25 mcg Joaquin Aquino RN 25 mcg FENTANYL given in lab by Joaquin Aquino RN in Left Antecubital via Peripheral IV. PROTAMINE 08/15/2017 1:04:00 PM 50 mg Joaquin Aquino RN 50 mg PROTAMINE given in lab by Joaquin Aquino RN in Left Antecubital via Peripheral IV. EFFIENT 08/15/2017 1:11:25 PM 60 mg Joaquin Aquino RN 60 mg EFFIENT given in lab by Joaquin Aquino RN via Oral. Medication (Drip) Medication Time Given Dosage/Unit Concentration/Unit Diluent (ml) Solutio n IV Solutions 08/15/2017 11:20:47 AM 0 mL (IV) 500 NaCl .9 IV Solutions given in lab by Zachery Bermeo RN in Left Antecubital via Peripheral IV. Pump/Drip Flow = 30 ml/hr using NaCl .9. Initial Case Assessment Cardiovascular HR Rhythm NIBP Chest Pain 78 a-fib 145/86 0 Edema Present Skin color Skin Severe Normal Warm Dry Circulatory - Right Pulses Dorsalis Pedis Femoral Radial 2 2 2 Scale (0,1,2,3,4,d) Scale (0,1,2,3,4,d) Circulatory - Lower Extremities Color Lower Right Color Lower Left Normal Normal Neurological State Oriented to time-place- Alert Moves all extremities person Respiration - General Respiration Rate SpO2 (%) O2 (lpm) (B/min) 19 95 2 Chronological Log Time Study Chronological Log 11:20:16 Patient arrived via Bed. 11:20:17 Patient Name, D.O.B, / Armband Verified By R.N. 11:20:18 Consent signed by the physician and the patient and verified by the [facility] staff. 11:20:19 Pre-op and post- op instructions given; patient acknowledges understanding of instructions. 11:20:20 Verbal Stimulation=2 Physical Stimulation=2 Airway=2 Respiration=2 TOTAL=8. (0=absent, 1=li mited, 2=present) 11:20:22 Presedation assessment performed by Pig Farmer RN. 11:20:25 Allens test performed on the right radial and ulnar artery. 11:20:40 Patient has been NPO for More than 6Hrs. 11:20:41 Skin Breakdown BLE edema. 11:20:42 Patient Warmer Placed on the Table. 11:20:43 Benji Prominences Protected 11:20:46 A # 20 IV was noted in the Antecubital (left). Grade = 0 IV Solutions given in lab by Zachery Bermeo, RN in Left Antecubital via Peripheral IV. Pump/Dri p Flow = 30 ml/hr using 11:20:47 NaCl .9. 11:20:48 History and physical on the chart or being dictated. Assessment: Initial Case, HR=78 BPM, Rhythm=a-fib, ZBSU=347/86 mmhg, Chest Pain=0, Edema=Severe , Color=Normal, Skin = Warm, Dry Right Pulses: Kirill Ped=2, Femoral=2, Radial=2 11:20:50 Lower Right Extremities: Color=Normal Lower Left Extremities: Color=Normal Neurological: State=Alert, Ox3, CHEUNG Respiration: Resp=19 B/min, SpO2=95 %, O2=2 lpm Vitals capture started with the following parameters, Patient=Adult, Interval=5 min, Initial Pr zhpnsp=298 mmHg, 11:28:19 Deflation Rate=5 mmHg, Cuff placed on Right Arm 11:29:01 HR=75 bpm, MUJW=846/86 mmhg, Resp=8 B/min, Pain=0, Moi=10, Montalvo=2 11:29:03 Reference ECG taken 11:33:56 HR=82 bpm, FXZQ=928/102 mmhg, SpO2=92.0 %, Resp=30 B/min, Pain=0, Moi=10, Montalvo=2 11:34:04 2 l/min OXYGEN given in lab by Windy Hancock, RN via Nasal. 11:34:20 Right Radial and right groin prepped with 2% chlorhexidine, and draped after a 3 min. waiti ng time. 11:36:47 paged 11:38:12 MD responded 11:38:34 MD arrived 11:38:59 HR=71 bpm, LDMK=717/88 mmhg, SpO2=94.0 %, Resp=23 B/min, Pain=0, Moi=10, Montalvo=2 11:39:01 Pressure channel 1 zeroed. 11:39:16 2 mg VERSED given in lab by Windy Hancock, RN in Left Antecubital via Peripheral IV. 11:40:19 50 mcg FENTANYL given in lab by Windy Hancock, LAURA in Left Antecubital via Peripheral IV. Time Out. Correct patient, correct procedure, correct physician, power injector not loaded with contrast with surgical 11:40:24 team present. Time Out Concurred by MD and individual staff in procedure. :40:38 Case Start 11:41:07 1 mL 1% XYLOCAINE given in lab by Jag Tarango in Right Radial via Subcutaneous. 11:41:18 Access site was right Radial Artery. A SHEATH, FR6 TRANSRADIAL SLENDER 10CM FR 6 was advanced into the Radial (right) using the Perc utaneous 11:42:05 technique. 1 units RADIAL COCKTAIL given in lab by Jag Tarango via Radial. Reason: Ntg 200mcg Verapa mil 2.5mg Heparin 11:42:17 2500U. A JR 4.0 INFINITI CATHETER FR 5 was advanced over a wire. OMNIPAQUE, 350 MG, 150ML 150ML was us ed for 11:42:44 injections. 11:44:00 HR=75 bpm, GMYQ=013/69 mmhg, SpO2=91.0 %, Resp=15 B/min, Pain=0, Moi=10, Montalvo=2 11:45:03 The RCA was injected and visualized at various angles. OMNIPAQUE, 350 MG, 150ML 150ML used . Recorded Pressure: Ao, HR=82, Condition=Condition 1 11:45:24 (Aorta) Ao 126/71/96 Recorded Pressure: LV, HR=76, Condition=Condition 1 11:46:18 (Left Ventricle) LV 127/8/26 11:46:24 The LV was manually injected with 8 cc's and visualized. OMNIPAQUE, 350 MG, 150ML 150ML use d. Recorded Pressure: LV, Ao, HR=88, Condition=Condition 1 11:46:49 (Left Ventricle) LV 136/23/26, (Aorta) Ao 120/56/87 After removing the current catheter a JL 4.0 INFINITI CATHETER FR 5 was advanced over a WIRE, 3 MMJ .035 180CM 11:47:33 180CM. 11:48:26 The LCA was injected and visualized at various angles. OMNIPAQUE, 350 MG, 150ML 150ML used . 11:48:57 HR=66 bpm, XCAT=955/68 mmhg, SpO2=94.0 %, Resp=14 B/min, Pain=0, Moi=10, Montalvo=2 11:50:16 Catheter was removed 11:50:24 contrast and 30 SHERIN INDEFLATOR added. A EBU 3.5 Z2 GUIDE CATHETER FR 6 was advanced over a wire. OMNIPAQUE, 350 MG, 150ML 150ML was u sed for 11:52:09 injections. 11:52:14 6000 units HEPARIN given in lab by Windy Hancock RN in Left Antecubital via Peripheral I V. 11:54:31 HR=67 bpm, AHMQ=012/70 mmhg, SpO2=95.0 %, Resp=15 B/min, Pain=0, Moi=10, Montalvo=2 11:55:18 50 mcg FENTANYL given in lab by Windy Hancock RN in Left Antecubital via Peripheral IV. 11:56:26 A WIRE, RUNTHROUGH NS FLOPPY .014 180CM 180CM was inserted via Radial (right). 11:58:57 HR=82 bpm, CJUZ=774/73 mmhg, SpO2=97.0 %, Resp=14 B/min, Pain=0, Moi=10, Montalvo=2 12:00:14 1 mg VERSED given in lab by Windy Hancock, LAURA in Left Antecubital via Peripheral IV. 12:00:56 Wire removed 12:01:01 Catheter was removed 12:02:31 Activated Clotting Time Drawn 12:04:03 HR=72 bpm, OVCA=728/67 mmhg, SpO2=96.0 %, Resp=13 B/min, Pain=0, Moi=10, Montalvo=2 Radial Compression Device Used. 14 mLs of air placed in BAND, RADIAL COMPRESSION TR LARGE 29 29 CM. Affected 12:06:02 hand ~O2 SATURATION~ % O2 saturation. 12:06:42 20 mL 1% XYLOCAINE given in lab by Jag Tarango in Right Groin via Subcutaneous. 12:07:24 ACT (Normal Range 90-180) = 272 12:08:55 HR=66 bpm, ICUA=298/81 mmhg, SpO2=97.0 %, Resp=16 B/min, Pain=0, Moi=10, Montalvo=2 12:12:48 Access site was Right Femoral Artery. A INTRODUCER SET, MICROPUNCTURE, STIFFENED FR 5 was advanced into the Fem Art (right) using the :13:07 Percutaneous technique. A SHEATH, FR6 TERUMO (10CM) FR 6 was exchanged in the Fem Art (right). This was necessary in or caty to 12:13:12 accomodate a larger catheter. 12:14:22 An injection in the Fem Art (right) was made through the SHEATH, FR6 TERUMO (10CM) FR 6. 12:14:27 HR=75 bpm, TMWI=852/82 mmhg, SpO2=98.0 %, Resp=16 B/min, Pain=0, Moi=10, Montalvo=2 A EBU 3.5 Z2 GUIDE CATHETER FR 6 was advanced over a wire. OMNIPAQUE, 350 MG, 150ML 150ML was u sed for 12:14:56 injections. 12:15:43 1 mg VERSED given in lab by Windy Hancock, LAURA in Left Antecubital via Peripheral IV. 12:16:50 50 mcg FENTANYL given in lab by Windy Hancock, LAURA in Left Antecubital via Peripheral IV. 12:17:22 A WIRE, BALANCE MIDDLEWEIGHT 190CM 190CM was inserted via Fem Art (right). 12:18:44 2000 units HEPARIN given in lab by Windy Hancock, LAURA in Left Antecubital via Peripheral I V. 12:19:02 HR=69 bpm, LWAY=253/66 mmhg, SpO2=96.0 %, Resp=11 B/min, Pain=0, Moi=10, Montalvo=2 12:23:57 HR=75 bpm, VTHP=301/81 mmhg, Resp=10 B/min, Pain=0, Moi=10, Montalvo=2 12:28:26 A WIRE, DOC EXTENSION 145CM 145CM was inserted via Fem Art (right). A CATHETER, FINECROSS 150CM FR 5 was advanced over a wire. OMNIPAQUE, 350 MG, 150ML 150ML was u sed for 12:28:46 injections. 12:29:00 HR=77 bpm, TMMZ=872/73 mmhg, SpO2=82.0 %, Resp=11 B/min, Pain=0, Moi=10, Montalvo=2 12:29:47 The previous wire was exchanged for a WIRE, VIPER ADVANCE CORONARY. 12:34:01 HR=66 bpm, GMMK=064/74 mmhg, SpO2=96.0 %, Resp=11 B/min, Pain=0, Moi=10, Montalvo=2 12:35:16 A CSI catheter was advanced over a wire. OMNIPAQUE, 350 MG, 150ML 150ML was used for inject ions. 12:35:41 Activated Clotting Time Drawn 12:37:54 CSI in progress. 12:38:46 CSI in progress. 12:39:02 HR=71 bpm, YARX=407/74 mmhg, SpO2=99.0 %, Resp=12 B/min, Pain=0, Moi=10, Montalvo=2 12:40:17 CSI in progress. 12:40:32 ACT (Normal Range 90-180) = 312 12:41:56 25 mcg FENTANYL given in lab by Joaquin Aquino RN in Left Antecubital via Peripheral IV. 12:43:42 Catheter was removed CSI 12:44:01 HR=74 bpm, NBGN=188/78 mmhg, SpO2=97.0 %, Resp=13 B/min, Pain=0, Moi=10, Montalvo=2 A STENT, 3.5 22MM [place] 3.5 22MM was advanced through a EBU 3.5 Z2 GUIDE CATHETER FR 6 over a WI RE, VIPER 12:44:08 ADVANCE CORONARY. 12:44:40 Stent not deployed. Stent removed and intact. A STENT, 3.5 26MM [place] 3.5 26MM was advanced through a EBU 3.5 Z2 GUIDE CATHETER FR 6 over a WI RE, VIPER 12:46:35 ADVANCE CORONARY. A STENT, 3.5 26MM [place] 3.5 26MM was deployed using a 30 SHERIN INDEFLATOR at 12 atmospheres for 20 seconds in 12:48:45 the LAD Prox. 12:49:02 HR=85 bpm, UUNT=514/80 mmhg, SpO2=87.0 %, Resp=14 B/min, Pain=0, Moi=10, Montalvo=2 12:50:43 Delivery device removed 12:54:03 HR=80 bpm, VIYX=722/71 mmhg, SpO2=98.0 %, Resp=15 B/min, Pain=0, Moi=10, Montalvo=2 A JR 4.0 GUIDE CATHETER FR 6 was advanced over a wire. OMNIPAQUE, 350 MG, 150ML 150ML was used for 12:54:30 injections. 12:54:58 A WIRE, BALANCE MIDDLEWEIGHT 190CM 190CM was inserted via Fem Art (right). A STENT, 2.5 18MM [place] 2.5 18MM was advanced through a JR 4.0 GUIDE CATHETER FR 6 over a WIRE, BALANCE 12:55:49 MIDDLEWEIGHT 190CM 190CM. A STENT, 2.5 18MM [place] 2.5 18MM was deployed using a 30 SHERIN INDEFLATOR at 14 atmospheres for 15 seconds in 12:56:14 the RCA Mid. 12:56:53 25 mcg FENTANYL given in lab by Joaquin Aquino RN in Left Antecubital via Peripheral IV. 12:56:58 Delivery device removed 12:58:04 Wire removed 12:58:10 Catheter was removed 12:59:00 HR=78 bpm, BSCY=956/90 mmhg, SpO2=98.0 %, Resp=23 B/min, Pain=0, Moi=10, Montalvo=2 13:00:26 Catheter(s) removed without difficulty 13:00:31 No case complications noted. 13:04:00 50 mg PROTAMINE given in lab by Joaquin Aquino RN in Left Antecubital via Peripheral IV. 13:04:01 HR=81 bpm, GIDZ=320/90 mmhg, SpO2=98.0 %, Resp=12 B/min, Pain=0, Moi=10, Montalvo=2 13:04:18 PERCLOSE, PRO GLIDE CLOSER DEVICE FR 6 placement in the Fem Art (right) 13:08:41 Case End 13:08:50 Bedside Report will be given. 13:08:51 Implantable Device card placed in patient's chart. 13:08:54 A Left Heart Cath was performed. 13:09:02 HR=83 bpm, LPFD=007/84 mmhg, SpO2=98.0 %, Resp=16 B/min, Pain=0, Moi=10, Montalvo=2 13:11:25 60 mg EFFIENT given in lab by Joaquin Aquino RN via Oral. 13:11:56 DOCU called. Spoke to Raúl. 13:14:03 HR=80 bpm, YLYU=343/92 mmhg, SpO2=97.0 %, Resp=18 B/min, Pain=0, Moi=10, Montalvo=2 13:14:46 KF holding pressure 13:19:02 HR=90 bpm, NEXP=699/93 mmhg, SpO2=96.0 %, Resp=23 B/min, Pain=0, Moi=10, Montalvo=2 13:23:18 Sterile dressing applied to site 13:25:32 [facility] - Contrast Media Used In Study Contrast Total Opened (mL) Total Used (mL) Total Wasted (mL) Omnipaque 150 150 0 End Study - Maximum Contrast Load Max Contrast Load (mL) 425.0 End Study - Radiation Exposure Fluoro Time (minutes) 29.7 End Study - Sheaths Sheaths Pulled By Sheath Hold Time (min) Jag Tarango End Study - Patient Disposition Complications Transferred To Interventional Outcome No [facility] Holding successful
--- NOTE | 2017-08-15 14:49 | MA ---
cc: ROSEANNASHLEE Pang DATE: 08/15/2017 DATE OF : 1945 PROCEDURE PERFORMED 1. Left heart catheterization. 2. Selective right and left coronary angiography. 3. Left ventriculogram. 4. Successful atherectomy with CSI to proximal LAD. 5. Successful PCI to proximal LAD. 6. Successful PCI to the right coronary artery. INDICATION New-onset atrial fibrillation, heart failure and elevated troponins. PROCEDURE DESCRIPTION Consent was signed. The patient was brought into the cardiac laboratory technology teacher in a fasting state. The right groin was prepped and draped in sterile fashion. Using 1% lidocaine for local anesthesia and a micropuncture kit a 5 Icelandic sheath was inserted in the right common femoral artery. Right common femoral angiography was performed to confirm position of the sheath, then selective right and left coronary angiography was performed with JR4 and JL4 diagnostic catheters. Angiography was taken in multiple views. A JR4 diagnostic catheter was introduced to the ventricle over a wire followed by pressure recordings, left ventriculogram and pullback. We identified two significant lesions, one in the mid right coronary artery which is a small vessel, and one in the proximal LAD. The lesion in the LAD was significantly calcified and long measuring 24 mm with heavy calcification. Both lesions were amenable to intervention. Thus we proceeded to fix. For this the 5 Icelandic sheath was upsized to a 6 Icelandic sheath in the right common femoral artery. The left main was engaged with an EBU 3.5 guide. The vessel was wired with a BMW wire which was anchored distally into the LAD. Given the calcification of the artery we exchanged the system over a micro catheter with an Viper wire. This was followed by an atherectomy with a 1.25 CSI device. We performed three passes. We then stented the lesion with a 3.5 x 26 drug-eluting stent. Final angiographic views revealed good apposition and expansion with ZENON-III flow. For the right coronary artery lesion we engaged the RCA with a JR4 guide. This was followed by wiring the vessel with a BMW wire which was anchored distally. Then we directly stented the lesion with 2.5 x 18 drug-eluting stent. Final angiographic views revealed good stent apposition and expansion with ZENON-III flow, nonobstructive coronary artery. The patient tolerated the procedure without complication. Estimated blood loss was less than 20 cc. Total contrast was 150 cc. The right groin access site was closed with a Perclose device. IV heparin was used for anticoagulation during the whole procedure. RESULTS LEFT VENTRICLE The left ventricular pressure was 136/23 with an LVEDP of 26. The aortic pressure was 120/56 with a mean of 87. Left ventriculogram revealed symmetrically jessenia ventricle. Estimated ejection fraction of 50%. There was no gradient upon pullback from the left ventricle to the aorta. ANGIOGRAPHY 1. The right coronary artery is a co-dominant vessel. It has a significant 80% lesion in its midsection. The right coronary artery has proximal calcification throughout from the proximal to the mid right coronary artery. 2. The left main is short, patent, is giving off the left circumflex artery that is a small, ramus and the LAD. 3. The left circumflex artery is a co-dominant vessel giving blood supply to the PDA. It has two OM branches which are small and diffusely diseased, however , patent. The AV groove segment of the left circumflex artery is a prominent artery with minimal luminal irregularities. There is a 10% lesion proximally and no significant obstructive disease. 4. The LAD is a transapical vessel of significant size, is giving off two main diagonal vessels. These diagonals are patent and small. The LAD has a significant proximal calcification from the ostial LAD to the first diagonal. There is a narrowing of 90%. CONCLUSIONS 1. Successful atherectomy to ostial and proximal LAD. 2. Successful PCI/JÚNIOR to proximal LAD. 3. Successful PCI/JÚNIOR to mid right coronary artery. 4. Elevated LVEDP. RECOMMENDATIONS The patient will go back to his room for post-cath care. Will give 125 cc of normal saline for the next 4 hours for hydration. Will continue dual- antiplatelet agents with aspirin and Effient as well as aggressive medical management for secondary prevention of CAD with JASWANT inhibitors, statins, beta blockers as tolerated by blood pressure and heart rate. The patient will be referred to cardiac rehab. He should have an echocardiogram before discharge. MD YAZMIN Post/NEENA /1:21 PM /2:21 PM ANDERSON
[2017-08-15] MEDS ORDERED: IOHEXOL 350 MG/ML 100 ML BTL (for Cath Lab) OTHER ONE (14:52)
[2017-08-15] MEDS ORDERED: IOHEXOL 350 MG/ML 50 ML BTL (for Cath Lab) OTHER ONE (14:52)
--- NOTE | 2017-08-15 18:41 | EKG ---
Date Performed: 08/14/2017 Time Performed: 22:29:38 PTAGE: 72 years EKG: ATRIAL FIBRILLATION NONSPECIFIC ST & T-WAVE ABNORMALITY ABNORMAL RHYTHM ECG NO PREVIOUS TRACING DOCTOR: Comfort Baker Interpretating Date/Time 08/15/2017 18:39:42
[2017-08-16] VITALS (24 sets, daily range): BP systolic 127–150; BP diastolic 65–73; PULSE 78–120; RESP 18–22; TEMP 97.4–98; O2SAT 92–97
--- NOTE | 2017-08-16 07:35 | PD.CARD.PN ---
Subjective Subjective Remarks no complaints no overnight events Objective Medications Current Medications Medications (Trade) Dose Ordered Sig/Alejo Route Start Time Stop Time Status Last Admin (Ecotrin Ec) 81 mg DAILY PO 08/15/17 09:00 08/15/17 08:28 (Pravachol) 40 mg DAILY PO 08/15/17 09:00 08/15/17 08:27 (Lopressor) 12.5 mg Q12HR PO 08/15/17 09:00 08/15/17 20:53 (NS Flush) 2 ml UNSCH PRN IV FLUSH 08/15/17 00:30 (NS Flush) 2 ml BID IV FLUSH 08/15/17 09:00 08/15/17 21:00 (Zofran Inj) 4 mg Q6H PRN IVP 08/15/17 00:30 (Tylenol) 650 mg Q6H PRN PO 08/15/17 00:30 ([place] 5-325 Mg) 1 tab Q4H PRN PO 08/15/17 00:30 (Morphine Inj) 2 mg Q3H PRN IV PUSH 08/15/17 00:30 (Tonya-Colace) 1 tab BID PO 08/15/17 09:00 08/15/17 08:27 (Milk Of Magnesia Liq) 30 ml Q12H PRN PO 08/15/17 00:30 (Senokot) 17.2 mg Q12H PRN PO 08/15/17 00:30 (Dulcolax Supp) 10 mg DAILY PRN RECTAL 08/15/17 00:30 (Lactulose Liq) 30 ml DAILY PRN PO 08/15/17 00:30 (Neurontin) 300 mg Q12H PO 08/15/17 09:00 08/15/17 20:54 (Lasix Inj) 40 mg BID@09,18 IV PUSH 08/15/17 09:00 08/15/17 17:41 (Folate) 1 mg DAILY PO 08/15/17 09:00 08/20/17 08:59 08/15/17 08:29 (Vitamin B1) 100 mg DAILY PO 08/15/17 09:00 08/15/17 08:28 (Theragran M Tab) 1 tab DAILY PO 08/15/17 09:00 08/20/17 08:59 08/15/17 08:27 (Romazicon Inj) 0.2 mg Q1M PRN IV PUSH 08/15/17 01:00 (Ativan) 1 mg Q4H PRN PO 08/15/17 01:00 (Ativan Inj) 1 mg Q4H PRN IV PUSH 08/15/17 01:00 (Ativan) 2 mg Q2H PRN PO 08/15/17 01:00 (Ativan Inj) 2 mg Q2H PRN IV PUSH 08/15/17 01:00 (Ativan Inj) 2 mg Q1H PRN IV PUSH 08/15/17 01:00 (Ativan Inj) 2 mg Q15M PRN IV PUSH 08/15/17 01:00 (Haldol Inj) 2 mg Q15M PRN IM 08/15/17 01:00 (Pepcid Inj) 10 mg Q12H IV PUSH 08/15/17 09:00 08/15/17 20:53 (Flu (Quadrivalent) Vaccine Inj) 0.5 ml ONCE ONCE IM 08/16/17 10:00 08/16/17 10:01 (Tylenol) 325 mg Q4H PRN PO 08/15/17 13:15 (Morphine Inj) 2 mg Q30M PRN IV PUSH 08/15/17 13:15 (Aspirin Chew) 81 mg DAILY PO 08/15/17 13:15 (Effient) 10 mg DAILY PO 08/16/17 09:00 Vital Signs / I&O Vital Signs Date Time Temp Pulse Resp B/P (MAP) Pulse Ox O2 Delivery O2 Flow Rate FiO2 08/16/17 06:00 82 08/16/17 05:00 78 08/16/17 04:00 81 08/16/17 03:00 97.6 103 22 127/72 (90) 93 08/15/17 23:00 81 08/15/17 23:00 97.9 81 20 126/74 (91) 97 08/15/17 19:00 98.3 94 18 124/79 (94) 95 08/15/17 19:00 94 08/15/17 18:00 83 08/15/17 17:00 77 08/15/17 16:00 73 08/15/17 15:30 97.8 81 18 122/80 (94) 96 08/15/17 15:00 76 08/15/17 13:40 93 3.00 08/15/17 12:01 97.6 95 20 107/62 (77) 99 08/15/17 08:04 97.2 87 20 138/72 (94) 93 08/15/17 08:00 101 I/O 08/15/17 08/15/17 08/15/17 08/16/17 08/16/17 08/16/17 07:00 15:00 23:00 07:00 15:00 23:00 Intake Total 240 ml 480 ml 480 ml Output Total 750 ml 1400 ml Balance 240 ml -270 ml -920 ml Intake Oral 240 ml 480 ml 480 ml Output Urine Total 750 ml 1400 ml # Voids 0 # Bowel Movements 0 0 Physical Exam GENERAL: Well-nourished, well-developed patient. SKIN: Warm and dry. HEAD: Normocephalic. EYES: No scleral icterus. No injection or drainage. NECK: Supple, trachea midline. No JVD or lymphadenopathy. CARDIOVASCULAR: Regular rate and rhythm without murmurs, gallops, or rubs. RESPIRATORY: Breath sounds equal bilaterally. No accessory muscle use. GASTROINTESTINAL: Abdomen soft, non-tender, nondistended. EXTREMITIES: No cyanosis, or edema. NEUROLOGICAL: Awake, alert, and oriented x 3. Non-focal. Laboratory Laboratory Tests Test 08/15/17 07:44 White Blood Count 7.0 TH/MM3 Red Blood Count 3.07 MIL/MM3 Hemoglobin 10.0 GM/DL Hematocrit 30.4 % Mean Corpuscular Volume 99.1 FL Mean Corpuscular Hemoglobin 32.7 PG Mean Corpuscular Hemoglobin Concent 33.0 % Red Cell Distribution Width 15.6 % Platelet Count 216 TH/MM3 Mean Platelet Volume 6.5 FL Neutrophils (%) (Auto) 67.5 % Lymphocytes (%) (Auto) 15.2 % Monocytes (%) (Auto) 15.2 % Eosinophils (%) (Auto) 1.7 % Basophils (%) (Auto) 0.4 % Neutrophils # (Auto) 4.7 TH/MM3 Lymphocytes # (Auto) 1.1 TH/MM3 Monocytes # (Auto) 1.1 TH/MM3 Eosinophils # (Auto) 0.1 TH/MM3 Basophils # (Auto) 0.0 TH/MM3 CBC Comment DIFF FINAL Differential Comment Blood Urea Nitrogen 47 MG/DL Creatinine 1.34 MG/DL Random Glucose 110 MG/DL Total Protein 8.0 GM/DL Albumin 3.4 GM/DL Calcium Level 8.4 MG/DL Alkaline Phosphatase 123 U/L Aspartate Amino Transf (AST/SGOT) 36 U/L Alanine Aminotransferase (ALT/SGPT) 22 U/L Total Bilirubin 0.5 MG/DL Sodium Level 134 MEQ/L Potassium Level 4.3 MEQ/L Chloride Level 102 MEQ/L Carbon Dioxide Level 21.5 MEQ/L Anion Gap 11 MEQ/L Estimat Glomerular Filtration Rate 52 ML/MIN Troponin I 0.21 NG/ML Lipase 444 U/L Imaging Last Impressions Head CT 08/14/172219 Signed Impressions: Service Date/Time: Monday, August 14, 2017 23:19 - CONCLUSION: Unremarkable noncontrast exam. Haja Bennett MD Chest X-Ray 08/14/172219 Signed Impressions: Service Date/Time: Monday, August 14, 2017 22:49 - CONCLUSION: Small to moderate right pleural effusion. Haja Bennett MD Cervical Spine CT 08/14/172219 Signed Impressions: Service Date/Time: Monday, August 14, 2017 23:19 - CONCLUSION: Negative trauma CT. Haja Bennett MD Assessment and Plan Problem List: (1) Elevated troponin ICD Codes: R74.8 - Abnormal levels of other serum enzymes Plan: s/p PCI/JÚNIOR to LAD s/p PCI/JÚNIOR to RCA RECS: Cont DAPT BB, statin and Imdur 2decho Cont IV diuresis Cont rate control for Afib Strict I&O Daily weight Encourage ambulation and incentive spirometry (2) CHF (congestive heart failure) ICD Codes: I50.9 - Heart failure, unspecified Status: Acute (3) A-fib ICD Codes: I48.91 - Unspecified atrial fibrillation (4) Renal insufficiency ICD Codes: N28.9 - Disorder of kidney and ureter, unspecified (5) HTN (hypertension) ICD Codes: I10 - Essential (primary) hypertension Status: Chronic (6) Neuropathy ICD Codes: G62.9 - Polyneuropathy, unspecified Status: Chronic Augustin-Jag Zavala MD Aug 16, 2017 07:35
[2017-08-16] MEDS: SODIUM CHLORIDE 0.9% FLUSH 10 ML FLUSH IV FLUSH SCH ×2 (08:57→20:49)
[2017-08-16] MEDS: PRASUGREL 10 MG TAB PO SCH (08:57)
[2017-08-16] MEDS: FUROSEMIDE 40 MG/4 ML VIAL IV PUSH SCH ×2 (08:57→18:01)
[2017-08-16] MEDS: DOCUSATE SODIUM 50 MG/SENNA 8.6 MG TAB PO SCH ×2 (08:57→21:00)
[2017-08-16] MEDS: THIAMINE HCL 100 MG TAB PO SCH (08:58)
[2017-08-16] MEDS: FOLIC ACID 1 MG TAB PO SCH (08:58)
[2017-08-16] MEDS: GABAPENTIN 300 MG CAP PO SCH ×2 (08:58→20:48)
[2017-08-16] MEDS: PRAVASTATIN SOD 40 MG TAB PO SCH (08:58)
[2017-08-16] MEDS: METOPROLOL TARTRATE 25 MG TAB PO SCH ×2 (08:58→20:48)
[2017-08-16] MEDS: MULTIVITAMINS/MINERALS THERAPEUTIC TAB PO SCH (08:58)
[2017-08-16] MEDS: FAMOTIDINE 20 MG/2 ML VIAL IV PUSH SCH ×2 (09:00→20:49)
[2017-08-16] MEDS: ASPIRIN EC 81 MG TABEC PO SCH (09:00)
[2017-08-16] MEDS: ASPIRIN 81 MG CHEW TAB PO SCH (09:00)
[2017-08-16] MEDS ORDERED: INFLUENZA VIRUS VACCINE (QUADRIVALENT) 0.5 ML SYR IM ONE (10:00)
--- NOTE | 2017-08-16 10:10 | HHI.PR ---
Subjective Remarks Mildly short of breath with exertion. Scrotum and legs still edematous. Denies chest pain. Had some right nasal bleeding this morning after nasal cannula was removed has stopped with gauze placed. Objective Vitals Vital Signs Date Time Temp Pulse Resp B/P (MAP) Pulse Ox O2 Delivery O2 Flow Rate FiO2 08/16/17 07:50 97.7 92 19 148/70 (96) 93 08/16/17 07:00 92 08/16/17 06:00 82 08/16/17 05:00 78 08/16/17 04:00 81 08/16/17 03:00 97.6 103 22 127/72 (90) 93 08/15/17 23:00 81 08/15/17 23:00 97.9 81 20 126/74 (91) 97 08/15/17 19:00 98.3 94 18 124/79 (94) 95 08/15/17 19:00 94 08/15/17 18:00 83 08/15/17 17:00 77 08/15/17 16:00 73 08/15/17 15:30 97.8 81 18 122/80 (94) 96 08/15/17 15:00 76 08/15/17 13:40 93 3.00 08/15/17 12:01 97.6 95 20 107/62 (77) 99 I/O 08/15/17 08/15/17 08/15/17 08/16/17 08/16/17 08/16/17 07:00 15:00 23:00 07:00 15:00 23:00 Intake Total 240 ml 480 ml 480 ml Output Total 750 ml 1400 ml Balance 240 ml -270 ml -920 ml Intake Oral 240 ml 480 ml 480 ml Output Urine Total 750 ml 1400 ml # Voids 0 # Bowel Movements 0 0 Result Diagram: 08/15/1774308/15/17743 Objective Remarks GENERAL: Well-nourished, well-developed male patient. SKIN: Warm and dry. HEAD: Normocephalic. EYES: No scleral icterus. No injection or drainage. NECK: Supple, trachea midline. No JVD or lymphadenopathy. CARDIOVASCULAR: Irregularly irregular rate and rhythm without murmurs, gallops, or rubs. RESPIRATORY: Breath sounds equal bilaterally. No wheezes or Rales. No accessory muscle use. GASTROINTESTINAL: Abdomen soft, non-tender, nondistended. EXTREMITIES: 1+ scrotal edema and edema of lower extremities. NEUROLOGICAL: Awake, alert, and oriented x 3. Non-focal. A/P Problem List: (1) CHF (congestive heart failure) ICD Code: I50.9 - Heart failure, unspecified Status: Acute (2) A-fib ICD Code: I48.91 - Unspecified atrial fibrillation (3) Alcohol use ICD Code: Z78.9 - Other specified health status Status: Chronic (4) HTN (hypertension) ICD Code: I10 - Essential (primary) hypertension Status: Chronic (5) Renal insufficiency ICD Code: N28.9 - Disorder of kidney and ureter, unspecified (6) Neuropathy ICD Code: G62.9 - Polyneuropathy, unspecified Status: Chronic (7) NSTEMI (non-ST elevated myocardial infarction) ICD Code: I21.4 - Non-ST elevation (NSTEMI) myocardial infarction Status: Acute Assessment and Plan 1. NSTEMI - s/p stent to RCA, atherectomy with CSI to LAD yesterday with Dr. Augustin. On asa, effient, metoprolol, pravastatin. check lipid profile. 2. Acute CHF: c/o bilateral lower extremity/scrotal edema x1 wk, BNP 253, CXR w / right pleural effusion, unclear if previous h/o CHF. Cont w/ diuresis lasix 40 mg IV BID, monitor I/O and electrolytes. Check Echo. EF 50% per [facility]. 3. A-fib: unknown if new unset or chronic. Rate Controlled. Cont metoprolol. Check TSH and f/u 2d echo. 4. HTN: BP improved. cont metoprolol. consider ACEi if renal function improves. 5. kidney injury, acute vs chronic: Creatinine 1.51, now 1.34. repeat BMP a.m. 6. Neuropathy: c/o neck/bilateral shoulder pain, recently started [facility] w/ some improvement. CT Head/C-spine w/ no acute findings. Continue w/ Neurontin. 7. Alcohol Use: Drinks daily, 2 beers/day however has had heavy alcohol ingestion in the last 1wk due to increased shoulder/neck pain. Alcohol 110. No evidence of withdrawal. on CIWA protocol. 8. +hx tobacco use and 2ndhand exposure - was told he had COPD in [facility] ER - informed patient he needs PFTs as outpatient. no wheezing on exam. 9. DVT Prophylaxis: SCDs. Lala Luna MD Aug 16, 2017 10:10
[2017-08-16] MEDS ORDERED: CHOL10008 PO (11:04)
[2017-08-16] MEDS ORDERED: LISI40TA PO (11:04)
[2017-08-16] MEDS ORDERED: ASCO500T PO (11:04)
[2017-08-16] MEDS ORDERED: PRAV40TA2 PO (11:04)
[2017-08-16] MEDS ORDERED: MAGN400T2 PO (11:04)
[2017-08-16] MEDS ORDERED: FURO20TA PO (11:04)
[2017-08-16] MEDS ORDERED: METO50TA PO (11:04)
[2017-08-16] MEDS ORDERED: FOLI1TAB6 (11:04)
[2017-08-16] MEDS ORDERED: ALLO300T2 PO (11:04)
[2017-08-16] MEDS ORDERED: VIAG100T PO (11:04)
[2017-08-16] MEDS ORDERED: ALBU1AER5 INH (11:04)
[2017-08-16] MEDS ORDERED: CYAN100025 SL (11:04)
[2017-08-16] MEDS ORDERED: MELO15TA20 PO (11:04)
[2017-08-16] MEDS ORDERED: COLE5GRA5 PO (11:04)
[2017-08-16] MEDS ORDERED: VITA100T54 PO (11:04)
[2017-08-16] MEDS ORDERED: ASPI81TA23 PO (11:04)
--- NOTE | 2017-08-16 13:22 | ECHRPT ---
Indication: atrial fib CONCLUSIONS The left ventricular systolic function is mildly reduced with an estimated ejection fraction in the range of 45- 50%. Mild concentric left ventricular hypertrophy. Trace mitral valve regurgitation. Severe calcification of the aortic valve leaflets. Moderate to severe aortic valve stenosis (peak 48, mean 25, SKIP 0.96). There is mild tricuspid valve regurgitation. Mild pulmonary valve regurgitation. BP: / HR: Rhythm: Atrial fibrillation MEASUREMENTS (Male / Female) Normal Values Technical Quality:Fair 2D ECHO LV Diastolic Diameter PLAX 4.1 cm 4.2 - 5.9 / 3.9 - 5.3 cm LV Systolic Diameter PLAX 3.3 cm IVS Diastolic Thickness 1.3 cm 0.6 - 1.0 / 0.6 - 0.9 cm LVPW Diastolic Thickness 1.3 cm 0.6 - 1.0 / 0.6 - 0.9 cm LV Relative Wall Thickness 0.6 LVOT Diameter 1.8 cm LA Systolic Diameter LX 4.1 cm 3.0 - 4.0 / 2.7 - 3.8 cm LV Ejection Fraction MOD 4C 43.8 % LV Ejection Fraction 4C AL 47.2 % M-MODE Aortic Root Diameter MM 2.7 cm LA Systolic Diameter MM 4.1 cm LA Ao Ratio MM 1.5 AV Cusp Separation MM 1.3 cm DOPPLER AV Peak Velocity 336.4 cm/s AV Peak Gradient 45.3 mmHg AV Mean Gradient 22.2 mmHg AV Velocity Time Integral 68.8 cm AI Peak Velocity 133.0 cm/s AI Peak Gradient 7.1 mmHg AI Pressure Half Time 49.0 ms LVOT Peak Velocity 115.0 cm/s LVOT Peak Gradient 5.3 mmHg LVOT Velocity Time Integral 21.6 cm AV Area Cont Eq vti 0.8 cm AV Area Cont Eq pk 0.9 cm TR Peak Velocity 298.7 cm/s TR Peak Gradient 35.7 mmHg Right Atrial Pressure 10.0 mmHg Pulmonary Artery Systolic Pressu 45.7 mmHg Right Ventricular Systolic Press 45.7 mmHg PV Peak Velocity 96.4 cm/s PV Peak Gradient 3.7 mmHg FINDINGS LEFT VENTRICLE The left ventricular systolic function is mildly reduced with an estimated ejection fraction in the range of 45- 50%. Normal left ventricular size. Mild concentric left ventricular hypertrophy. No regional wall motion abnormalities are present. This study was not technically sufficient to allow for evaluation of left ventricular diastolic func tion. RIGHT VENTRICLE The right ventricular size is normal. The right ventricular systoilc function is mildly decreased. LEFT ATRIUM The left atrial size is mildly dilated. RIGHT ATRIUM The right atrial size is normal. ATRIAL SEPTUM Normal atrial septal thickness without atrial level shunting by limited color doppler interrogation. AORTA The aortic root and proximal ascending aorta are normal in size on limited imaging. MITRAL VALVE Mild thickening of the mitral valve leaflets. Trace mitral valve regurgitation. No mitral valve stenosis. AORTIC VALVE Trileaflet aortic valve. Severe calcification of the aortic valve leaflets. Moderate to severe aortic valve stenosis (peak 48, mean 25, SKIP 0.96) No aortic valve regurgitation. TRICUSPID VALVE Structurally normal tricuspid valve. There is mild tricuspid valve regurgitation. The estimated pulmonary arterial pressure is 45.7 mmHg. PULMONARY VALVE Mild pulmonary valve regurgitation. VESSELS The inferior vena cava is normal in size. PERICARDIUM No pericardial effusion. Manuel Jones DO (Electronically Signed) Final Date:16 August 2017 13:21
[2017-08-16 16:31] LABS: HDL CHOLESTEROL 73.5 MG/DL (40.0-60.0)
[2017-08-17] VITALS (11 sets, daily range): BP systolic 124–137; BP diastolic 62–66; PULSE 78–102; RESP 18–20; TEMP 97.7–98.2; O2SAT 93–97
--- NOTE | 2017-08-17 08:49 | PD.CARD.PN ---
Subjective Subjective Remarks no complaints no overnight events Objective Medications Current Medications Medications (Trade) Dose Ordered Sig/Alejo Route Start Time Stop Time Status Last Admin (Ecotrin Ec) 81 mg DAILY PO 08/15/17 09:00 08/15/17 08:28 (Pravachol) 40 mg DAILY PO 08/15/17 09:00 08/16/17 08:58 (Lopressor) 12.5 mg Q12HR PO 08/15/17 09:00 08/16/17 20:48 (NS Flush) 2 ml UNSCH PRN IV FLUSH 08/15/17 00:30 (NS Flush) 2 ml BID IV FLUSH 08/15/17 09:00 08/16/17 20:49 (Zofran Inj) 4 mg Q6H PRN IVP 08/15/17 00:30 (Tylenol) 650 mg Q6H PRN PO 08/15/17 00:30 ([place] 5-325 Mg) 1 tab Q4H PRN PO 08/15/17 00:30 (Morphine Inj) 2 mg Q3H PRN IV PUSH 08/15/17 00:30 (Tonya-Colace) 1 tab BID PO 08/15/17 09:00 08/16/17 08:57 (Milk Of Magnesia Liq) 30 ml Q12H PRN PO 08/15/17 00:30 (Senokot) 17.2 mg Q12H PRN PO 08/15/17 00:30 (Dulcolax Supp) 10 mg DAILY PRN RECTAL 08/15/17 00:30 (Lactulose Liq) 30 ml DAILY PRN PO 08/15/17 00:30 (Neurontin) 300 mg Q12H PO 08/15/17 09:00 08/16/17 20:48 (Lasix Inj) 40 mg BID@09,18 IV PUSH 08/15/17 09:00 08/16/17 18:01 (Folate) 1 mg DAILY PO 08/15/17 09:00 08/20/17 08:59 08/16/17 08:58 (Vitamin B1) 100 mg DAILY PO 08/15/17 09:00 08/16/17 08:58 (Theragran M Tab) 1 tab DAILY PO 08/15/17 09:00 08/20/17 08:59 08/16/17 08:58 (Romazicon Inj) 0.2 mg Q1M PRN IV PUSH 08/15/17 01:00 (Ativan) 1 mg Q4H PRN PO 08/15/17 01:00 (Ativan Inj) 1 mg Q4H PRN IV PUSH 08/15/17 01:00 (Ativan) 2 mg Q2H PRN PO 08/15/17 01:00 (Ativan Inj) 2 mg Q2H PRN IV PUSH 08/15/17 01:00 (Ativan Inj) 2 mg Q1H PRN IV PUSH 08/15/17 01:00 (Ativan Inj) 2 mg Q15M PRN IV PUSH 08/15/17 01:00 (Haldol Inj) 2 mg Q15M PRN IM 08/15/17 01:00 (Tylenol) 325 mg Q4H PRN PO 08/15/17 13:15 (Morphine Inj) 2 mg Q30M PRN IV PUSH 08/15/17 13:15 (Aspirin Chew) 81 mg DAILY PO 08/15/17 13:15 08/16/17 09:00 (Effient) 10 mg DAILY PO 08/16/17 09:00 08/16/17 08:57 (Pepcid Inj) 20 mg Q12H IV PUSH 08/16/17 21:00 08/16/17 20:49 Vital Signs / I&O Vital Signs Date Time Temp Pulse Resp B/P (MAP) Pulse Ox O2 Delivery O2 Flow Rate FiO2 08/17/17 07:47 97.7 91 20 137/66 (89) 93 08/17/17 06:00 90 08/17/17 04:00 102 08/17/17 04:00 98.2 95 18 124/62 (82) 97 08/17/17 03:00 78 08/17/17 02:00 90 08/17/17 01:00 82 08/17/17 00:00 79 08/16/17 23:00 101 08/16/17 22:00 90 08/16/17 21:00 94 08/16/17 20:00 88 08/16/17 20:00 98.0 103 18 139/65 (89) 97 08/16/17 19:00 103 08/16/17 18:12 99 08/16/17 17:45 120 08/16/17 16:05 106 08/16/17 15:25 97.4 98 18 150/65 (93) 92 08/16/17 15:00 95 08/16/17 14:00 86 08/16/17 13:00 104 08/16/17 12:00 84 08/16/17 11:49 97.9 100 18 148/73 (98) 92 08/16/17 11:00 103 08/16/17 10:00 82 08/16/17 09:00 96 I/O 08/16/17 08/16/17 08/16/17 08/17/17 08/17/17 08/17/17 06:59 14:59 22:59 06:59 14:59 22:59 Intake Total 480 ml 1200 ml 480 ml Output Total 1400 ml 1225 ml Balance -920 ml 1200 ml -745 ml Intake Oral 480 ml 1200 ml 480 ml Output Urine Total 1400 ml 1225 ml # Voids 10 # Bowel Movements 0 1 0 Physical Exam GENERAL: Well-nourished, well-developed patient. SKIN: Warm and dry. HEAD: Normocephalic. EYES: No scleral icterus. No injection or drainage. NECK: Supple, trachea midline. No JVD or lymphadenopathy. CARDIOVASCULAR: Regular rate and rhythm without murmurs, gallops, or rubs. RESPIRATORY: Breath sounds equal bilaterally. No accessory muscle use. GASTROINTESTINAL: Abdomen soft, non-tender, nondistended. EXTREMITIES: No cyanosis, or edema. NEUROLOGICAL: Awake, alert, and oriented x 3. Non-focal. Laboratory Laboratory Tests Test 08/16/17 15:43 Triglycerides Level 51 MG/DL Cholesterol Level 111 MG/DL LDL Cholesterol 27 MG/DL HDL Cholesterol 73.5 MG/DL Cholesterol/HDL Ratio 1.51 RATIO Thyroid Stimulating Hormone 3rd Gen 2.260 uIU/ML Imaging Last Impressions Head CT 08/14/172219 Signed Impressions: Service Date/Time: Monday, August 14, 2017 23:19 - CONCLUSION: Unremarkable noncontrast exam. Haja Bennett MD Chest X-Ray 08/14/172219 Signed Impressions: Service Date/Time: Monday, August 14, 2017 22:49 - CONCLUSION: Small to moderate right pleural effusion. Haja Bennett MD Cervical Spine CT 12/3/17 2220 Signed Impressions: Service Date/Time: Monday, August 14, 2017 23:19 - CONCLUSION: Negative trauma CT. Haja Bennett MD Assessment and Plan Problem List: (1) Elevated troponin ICD Codes: R74.8 - Abnormal levels of other serum enzymes Plan: Plan: s/p atherectomy and PCI/JÚNIOR to LAD s/p PCI/JÚNIOR to RCA ECHO shows Preserved EF with Moderate . Off O2 Creat trending down RECS: Cont DAPT ASA and Effient BB, statin and Imdur 2decho Transition to PO diuresis Cont rate control for Afib. CHADS2 >2. Start Coumadin Goal (INR 2-2.5). Strict I&O Daily weight Encourage ambulation and incentive spirometry Follow up with Cardiology upon discharge Tx CIC (2) CHF (congestive heart failure) ICD Codes: I50.9 - Heart failure, unspecified Status: Acute (3) A-fib ICD Codes: I48.91 - Unspecified atrial fibrillation (4) Renal insufficiency ICD Codes: N28.9 - Disorder of kidney and ureter, unspecified (5) HTN (hypertension) ICD Codes: I10 - Essential (primary) hypertension Status: Chronic (6) Neuropathy ICD Codes: G62.9 - Polyneuropathy, unspecified Status: Chronic Augustin-Jag Zavala MD Aug 17, 2017 08:49
[2017-08-17] MEDS: FOLIC ACID 1 MG TAB PO SCH (09:00)
[2017-08-17] MEDS: FUROSEMIDE 40 MG/4 ML VIAL IV PUSH SCH (09:00)
[2017-08-17] MEDS: DOCUSATE SODIUM 50 MG/SENNA 8.6 MG TAB PO SCH (09:00)
[2017-08-17] MEDS: GABAPENTIN 300 MG CAP PO SCH (09:00)
[2017-08-17] MEDS: ASPIRIN EC 81 MG TABEC PO SCH (09:00)
[2017-08-17] MEDS: PRAVASTATIN SOD 40 MG TAB PO SCH (09:00)
[2017-08-17] MEDS: MULTIVITAMINS/MINERALS THERAPEUTIC TAB PO SCH (09:00)
[2017-08-17] MEDS: THIAMINE HCL 100 MG TAB PO SCH (09:00)
[2017-08-17] MEDS: FAMOTIDINE 20 MG/2 ML VIAL IV PUSH SCH (09:00)
[2017-08-17] MEDS: SODIUM CHLORIDE 0.9% FLUSH 10 ML FLUSH IV FLUSH SCH (09:00)
[2017-08-17] MEDS: PRASUGREL 10 MG TAB PO SCH (09:00)
[2017-08-17] MEDS: METOPROLOL TARTRATE 25 MG TAB PO SCH (09:00)
[2017-08-17] MEDS: ASPIRIN 81 MG CHEW TAB PO SCH (09:00)
[2017-08-17] MEDS ORDERED: COUM5TAB PO (09:35)
[2017-08-17] MEDS ORDERED: PRAS10TA PO (09:35)
[2017-08-17] MEDS ORDERED: NEUR300C PO (09:35)
--- NOTE | 2017-08-17 09:37 | HHI.DS ---
Discharge Summary Admission Date Aug 15, 2017 at 00:24 Discharge Date: Aug 17, 2017 Admitting Diagnosis New onset afib, CHF (1) CHF (congestive heart failure) ICD Code: I50.9 - Heart failure, unspecified Status: Acute (2) A-fib ICD Code: I48.91 - Unspecified atrial fibrillation (3) Alcohol use ICD Code: Z78.9 - Other specified health status Status: Chronic (4) HTN (hypertension) ICD Code: I10 - Essential (primary) hypertension Status: Chronic (5) Renal insufficiency ICD Code: N28.9 - Disorder of kidney and ureter, unspecified (6) Neuropathy ICD Code: G62.9 - Polyneuropathy, unspecified Status: Chronic (7) NSTEMI (non-ST elevated myocardial infarction) ICD Code: I21.4 - Non-ST elevation (NSTEMI) myocardial infarction Status: Acute Brief History - From Admission This is a 72-year-old male with PMH of HTN, Hyperlipidemia and COPD who presented to the ER w/ complaints of bilateral lower extremity and scrotal swelling x1 wk. Notes associated SOB, mostly with exertion. No c/o chest pain or cough. Denies h/o similar symptoms in the past. No fever, chills or sick contacts. On arrival, pt noted to be in A-fib, rate controlled. Pt cannot recall if this is new or if he's had a h/o A-fib in the past. BP 165/62, HR 80 , O2 sat 93% on RA, Afebrile. CBC essentially unremarkable. Creatinine 1.51, no previous labs for comparison. Troponin 0.14. CPK 524. BNP 253. Lipase 569. INR 1.1. Alcohol 110. Reports having 2-3 drinks/day, however has been drinking heavily in the past few days due to c/o shoulder pain for which he was [facility] Head unremarkable. CXR small to moderate right pleural effusion. CT Cervical spine negative. S/p Lasix IV in ER. CBC/BMP: 08/15/17 0744 08/15/17 0744 Significant Findings Laboratory Tests Test 08/14/17 22:45 08/15/17 07:44 08/16/17 15:43 Red Blood Count 3.16 MIL/MM3 (4.50-5.90) 3.07 MIL/MM3 (4.50-5.90) Hemoglobin 10.6 GM/DL (13.0-17.0) 10.0 GM/DL (13.0-17.0) Hematocrit 31.6 % (39.0-51.0) 30.4 % (39.0-51.0) Mean Platelet Volume 6.6 FL (7.0-11.0) 6.5 FL (7.0-11.0) Monocytes (%) (Auto) 16.2 % (0.0-8.0) 15.2 % (0.0-8.0) Monocytes # (Auto) 1.2 TH/MM3 (0-0.9) 1.1 TH/MM3 (0-0.9) Blood Urea Nitrogen 47 MG/DL (7-18) 47 MG/DL (7-18) Creatinine 1.51 MG/DL (0.60-1.30) 1.34 MG/DL (0.60-1.30) Random Glucose 119 MG/DL (74-106) 110 MG/DL (74-106) Calcium Level 8.2 MG/DL (8.5-10.1) 8.4 MG/DL (8.5-10.1) Alkaline Phosphatase 123 U/L (45-117) 123 U/L (45-117) Sodium Level 135 MEQ/L (136-145) 134 MEQ/L (136-145) Estimat Glomerular Filtration Rate 45 ML/MIN (>89) 52 ML/MIN (>89) Total Creatine Kinase 524 U/L (39-308) Creatine Kinase MB 13.7 NG/ML (0.5-3.6) Troponin I 0.14 NG/ML (0.02-0.05) 0.21 NG/ML (0.02-0.05) B-Type Natriuretic Peptide 253 PG/ML (0-100) Lipase 569 U/L (73-393) 444 U/L (73-393) Ethyl Alcohol Level 110 MG/DL (0-5) Cholesterol Level 111 MG/DL (120-200) HDL Cholesterol 73.5 MG/DL (40.0-60.0) PE at Discharge GENERAL: Well-nourished, well-developed male patient. SKIN: Warm and dry. HEAD: Normocephalic. EYES: No scleral icterus. No injection or drainage. NECK: Supple, trachea midline. No JVD or lymphadenopathy. CARDIOVASCULAR: Irregularly irregular rate and rhythm without murmurs, gallops, or rubs. RESPIRATORY: Breath sounds equal bilaterally. No wheezes or Rales. No accessory muscle use. GASTROINTESTINAL: Abdomen soft, non-tender, nondistended. EXTREMITIES: 1+ scrotal edema and edema of lower extremities. NEUROLOGICAL: Awake, alert, and oriented x 3. Non-focal. Pt Condition on Discharge: Stable Discharge Disposition: Discharge Home Discharge Instructions DIET: Follow Instructions for: Heart Healthy Diet, Coumadin (Warfarin) Diet Activities you can perform: Regular-No Restrictions Lala Luna MD Aug 17, 2017 09:37
--- NOTE | 2017-08-17 13:28 | HHI.DS ---
Discharge Summary Admission Date Aug 15, 2017 at 00:24 Discharge Date: Aug 17, 2017 Admitting Diagnosis New onset afib, CHF (1) CHF (congestive heart failure) ICD Code: I50.9 - Heart failure, unspecified Status: Acute (2) A-fib ICD Code: I48.91 - Unspecified atrial fibrillation (3) Alcohol use ICD Code: Z78.9 - Other specified health status Status: Chronic (4) HTN (hypertension) ICD Code: I10 - Essential (primary) hypertension Status: Chronic (5) Renal insufficiency ICD Code: N28.9 - Disorder of kidney and ureter, unspecified (6) Neuropathy ICD Code: G62.9 - Polyneuropathy, unspecified Status: Chronic (7) NSTEMI (non-ST elevated myocardial infarction) ICD Code: I21.4 - Non-ST elevation (NSTEMI) myocardial infarction Status: Acute Procedures [facility] Brief History - From Admission This is a 72-year-old male with PMH of HTN, Hyperlipidemia and COPD who presented to the ER w/ complaints of bilateral lower extremity and scrotal swelling x1 wk. Notes associated SOB, mostly with exertion. No c/o chest pain or cough. Denies h/o similar symptoms in the past. No fever, chills or sick contacts. On arrival, pt noted to be in A-fib, rate controlled. Pt cannot recall if this is new or if he's had a h/o A-fib in the past. BP 165/62, HR 80 , O2 sat 93% on RA, Afebrile. CBC essentially unremarkable. Creatinine 1.51, no previous labs for comparison. Troponin 0.14. CPK 524. BNP 253. Lipase 569. INR 1.1. Alcohol 110. Reports having 2-3 drinks/day, however has been drinking heavily in the past few days due to c/o shoulder pain for which he was [facility] Head unremarkable. CXR small to moderate right pleural effusion. CT Cervical spine negative. S/p Lasix IV in ER. CBC/BMP: 08/15/17 0744 08/15/17 0744 Significant Findings Laboratory Tests Test 08/14/17 22:45 08/15/17 07:44 08/16/17 15:43 Red Blood Count 3.16 MIL/MM3 (4.50-5.90) 3.07 MIL/MM3 (4.50-5.90) Hemoglobin 10.6 GM/DL (13.0-17.0) 10.0 GM/DL (13.0-17.0) Hematocrit 31.6 % (39.0-51.0) 30.4 % (39.0-51.0) Mean Platelet Volume 6.6 FL (7.0-11.0) 6.5 FL (7.0-11.0) Monocytes (%) (Auto) 16.2 % (0.0-8.0) 15.2 % (0.0-8.0) Monocytes # (Auto) 1.2 TH/MM3 (0-0.9) 1.1 TH/MM3 (0-0.9) Blood Urea Nitrogen 47 MG/DL (7-18) 47 MG/DL (7-18) Creatinine 1.51 MG/DL (0.60-1.30) 1.34 MG/DL (0.60-1.30) Random Glucose 119 MG/DL (74-106) 110 MG/DL (74-106) Calcium Level 8.2 MG/DL (8.5-10.1) 8.4 MG/DL (8.5-10.1) Alkaline Phosphatase 123 U/L (45-117) 123 U/L (45-117) Sodium Level 135 MEQ/L (136-145) 134 MEQ/L (136-145) Estimat Glomerular Filtration Rate 45 ML/MIN (>89) 52 ML/MIN (>89) Total Creatine Kinase 524 U/L (39-308) Creatine Kinase MB 13.7 NG/ML (0.5-3.6) Troponin I 0.14 NG/ML (0.02-0.05) 0.21 NG/ML (0.02-0.05) B-Type Natriuretic Peptide 253 PG/ML (0-100) Lipase 569 U/L (73-393) 444 U/L (73-393) Ethyl Alcohol Level 110 MG/DL (0-5) Cholesterol Level 111 MG/DL (120-200) HDL Cholesterol 73.5 MG/DL (40.0-60.0) Imaging Last Impressions Head CT 08/14/172219 Signed Impressions: Service Date/Time: Monday, August 14, 2017 23:19 - CONCLUSION: Unremarkable noncontrast exam. Haja Bennett MD Chest X-Ray 08/14/172219 Signed Impressions: Service Date/Time: Monday, August 14, 2017 22:49 - CONCLUSION: Small to moderate right pleural effusion. Haja Bennett MD Cervical Spine CT 08/14/172219 Signed Impressions: Service Date/Time: Monday, August 14, 2017 23:19 - CONCLUSION: Negative trauma CT. Haja Bennett MD PE at Discharge GENERAL: Well-nourished, well-developed male patient. SKIN: Warm and dry. HEAD: Normocephalic. EYES: No scleral icterus. No injection or drainage. NECK: Supple, trachea midline. No JVD or lymphadenopathy. CARDIOVASCULAR: Irregularly irregular rate and rhythm without murmurs, gallops, or rubs. RESPIRATORY: Breath sounds equal bilaterally. No wheezes or Rales. No accessory muscle use. GASTROINTESTINAL: Abdomen soft, non-tender, nondistended. EXTREMITIES: 1+ scrotal edema and edema of lower extremities. NEUROLOGICAL: Awake, alert, and oriented x 3. Non-focal. Hospital Course Patient was admitted to the hospital and underwent left heart catheterization on August [address] Augustin and underwent atherectomy with CSI and a stent to the LAD as well as a stent to the RCA. Patient was diuresed. Patient will need to be on Coumadin in addition to aspirin and Effient as he also has atrial fibrillation. I discussed him with Dr. Augustin today. Patient also on metoprolol and pravastatin. And continued on Lasix. Kidney function remains stable. Patient was counseled on alcohol cessation. Patient will have his INR monitored by the [facility]. He is to follow-up at the [facility] clinic today to obtain his medications. He will follow-up with Dr. Augustin within one week. Pt Condition on Discharge: Stable Discharge Disposition: Discharge Home Discharge Time: > 30 minutes Discharge Instructions DIET: Follow Instructions for: Heart Healthy Diet, Coumadin (Warfarin) Diet Activities you can perform: Regular-No Restrictions Follow up Referrals: PCP Follow-up - 08/17/17 New Medications: Warfarin (Coumadin) 5 Mg Tab 5 MG PO DAILY for Blood Clot Prevention, #30 TAB 0 Refills Gabapentin (Neurontin) 300 Mg Cap 300 MG PO Q12H for Pain Management, #60 CAP Prasugrel (Effient) 10 Mg Tab 10 MG PO DAILY for prevent heart attack, #30 TAB Continued Medications: Albuterol Powder Inh (Proair Respiclick Inh) 90 Mcg/Act Aerp 2 PUFF INH Q6H PRN for SHORTNESS OF BREATH, #1 INHALER 0 Refills Allopurinol (Allopurinol) 300 Mg Tab 300 MG PO DAILY for Gout, #30 TAB 0 Refills Ascorbic Acid (Ascorbic Acid) 500 Mg Tab 1000 MG PO DAILY, TAB Aspirin DR (Aspirin EC) 81 Mg Tabdr 81 MG PO DAILY, TAB 0 Refills Cholecalciferol (Vitamin D3) 1,000 Unit Cap 4000 UNITS PO DAILY for Nutritional Supplement, #1 BOTTLE 0 Refills Colestipol (Colestipol) 5 Gm Pkt 5 GM PO DAILY for Cholesterol Management, #30 PKT 0 Refills 1 packet of granules contains 5 gm of colestipol. Cyanocobalamin (B-12) 1,000 Mcg Subl 1000 MCG SL DAILY for Nutritional Supplement, TAB.SL 0 Refills Folic Acid (Folic Acid) 1 Mg Tablet Furosemide (Furosemide) 20 Mg Tab 60 MG PO DAILY, #30 TAB 0 Refills Lisinopril (Lisinopril) 40 Mg Tab 40 MG PO DAILY for Blood Pressure Management, #30 TAB 0 Refills Magnesium Oxide (Magnesium Oxide) 400 Mg Tab 400 MG PO DAILY for Nutritional Supplement, TAB 0 Refills Metoprolol Tartrate (Metoprolol Tartrate) 50 Mg Tab 25 MG PO BID, #60 TAB 0 Refills Pravastatin (Pravastatin) 40 Mg Tab 40 MG PO HS for Cholesterol Management, #30 TAB 0 Refills Sildenafil (Viagra) 100 Mg Tab 50 MG PO DAILY PRN for ERECTILE DYSFUNCTION, TAB 0 Refills Thiamine (Vitamin B-1) 100 Mg Tab 100 MG PO DAILY for Nutritional Supplement, TAB 0 Refills Discontinued Medications: Meloxicam (Meloxicam) 15 Mg Tab 15 MG PO DAILY for Arthritis Pain, #30 TAB 0 Refills Lala Luna MD Aug 17, 2017 13:28
[2017-08-17] MEDS ORDERED: WARFARIN SOD 5 MG TAB PO SCH (16:00)
== END 2017-08-17 11:40 | disposition home or self-care (01) | DRG 246 ==
LOC: NEPE 20:48 → NEDA 08-15 00:24 → N04B 08-15 01:07 → HCIS 08-15 11:58 → HCPC 08-15 15:20
PROVIDERS: ADMIT Family Medicine; ATTEND Family Medicine
PROC: 02C03ZZ Extirpation of Matter from Coronary Artery, One Artery, Percutaneous Approach (ICD-10-PCS; 2017-08-15)
PROC: 4A023N7 Measurement of Cardiac Sampling and Pressure, Left Heart, Percutaneous Approach (ICD-10-PCS; 2017-08-15)
PROC: B2111ZZ Fluoroscopy of Multiple Coronary Arteries using Low Osmolar Contrast (ICD-10-PCS; 2017-08-15)
PROC: B2151ZZ Fluoroscopy of Left Heart using Low Osmolar Contrast (ICD-10-PCS; 2017-08-15)
PROC: 027135Z Dilation of Coronary Artery, Two Arteries with Two Drug-eluting Intraluminal Devices, Percutaneous Approach (ICD-10-PCS; principal; 2017-08-15 12:30)
DX: I11.0 Hypertensive heart disease with heart failure (principal); I21.4 Non-ST elevation (NSTEMI) myocardial infarction; G62.9 Polyneuropathy, unspecified; I48.91 Unspecified atrial fibrillation; J44.9 Chronic obstructive pulmonary disease, unspecified; E78.5 Hyperlipidemia, unspecified; E66.9 Obesity, unspecified; F10.10 Alcohol abuse, uncomplicated; H50.9 Unspecified strabismus; I50.9 Heart failure, unspecified; I25.118 Atherosclerotic heart disease of native coronary artery with other forms of angina pectoris; R01.1 Cardiac murmur, unspecified; N28.9 Disorder of kidney and ureter, unspecified; I35.0 Nonrheumatic aortic (valve) stenosis; M25.511 Pain in right shoulder; M25.512 Pain in left shoulder; M54.2 Cervicalgia; Y90.5 Blood alcohol level of 100-119 mg/100 ml; R04.0 Epistaxis; Z77.22 Contact with and (suspected) exposure to environmental tobacco smoke (acute) (chronic); Z68.33 Body mass index [BMI] 33.0-33.9, adult; Z91.81 History of falling; Z87.891 Personal history of nicotine dependence
CPT/HCPCS: 70450; 71010; 72125; 80053; 80061; 80307; 82550; 82552; 82948; 83690; 83735; 83880; 84443; 84484; 85002; 85025; 85610; 85730; 92924; 92925; 93005; 93306; 93458; C1714; C1725; C1760; C1769; C1874; C1887; C1893; G0269; J1644; J1940; J2250; J2720; J3010; Q9967

== ENCOUNTER 2017-09-10 09:48 | Observation (INO) | payer MEDICARE, OTHER ==
[~2017-09-10] VITALS: Ht 182.9 cm; Wt 103.0 kg
[~2017-09-10 09:48] MED LIST: ALBU1AER5 INH; ALLO300T2 PO; ASCO500T PO; ASPI81TA23 PO; CHOL10008 PO; COLE5GRA5 PO; COUM5TAB PO; CYAN100025 SL; FOLI1TAB6; FURO20TA PO; LISI40TA PO; MAGN400T2 PO; METO50TA PO; NEUR300C PO; PRAS10TA PO; PRAV40TA2 PO; VIAG100T PO; VITA100T54 PO
[2017-09-10 09:51] VITALS: BP 142/76; PULSE 80; RESP 18; TEMP 97.6; O2SAT 98
[2017-09-10 10:06] VITALS: BP 139/73; PULSE 77; RESP 18; O2SAT 99
[2017-09-10] MEDS ORDERED: SODIUM CHLOR 0.9% 1000 ML INJ 1,000 ML IV SCH (10:12)
[2017-09-10] MEDS ORDERED: SODIUM CHLORIDE 0.9% FLUSH 10 ML FLUSH IVF PRN (10:15)
--- NOTE | 2017-09-10 10:20 | PD ---
HPI Chief Complaint: GI Complaint Time Seen by Provider: 09:59 Travel History International Travel<30 days: No Contact w/Intl Traveler<30days: No Traveled to known affect area: No History of Present Illness HPI The patient is a 72-year-old male who presents emergency department for black tarry stools. The patient has a recent history of cardiac catheterization was performed by Dr. Augustin with placement of 2 stents. The patient was also noted to have atrial fibrillation was placed on Coumadin. The patient states he is mostly vegetarian except for fish products, has difficulty regulating his INR. The patient states his INR recently was 5 on an outpatient basis. The patient had 2 black tarry stools this morning and 5 and 5:30 AM. He denies any vomiting or hematemesis. He denies any lightheadedness, dizziness , shortness of breath with exertion, or orthostatic changes. The patient's primary physician is at the [facility]. He denies any history of previous GI bleed. Symptoms are moderate, possibly exacerbated by oropharynx, and there are no current alleviating factors. PFSH Past Medical History Hx Anticoagulant Therapy: Yes Cancer: No Cardiac Catheterization: Yes (with 2 stents) Cardiovascular Problems: Yes High Cholesterol: Yes COPD: Yes Endocrine: No GERD: Yes Genitourinary: No Hypertension: Yes Immune Disorder: No Musculoskeletal: Yes Neurologic: No Psychiatric: No Reproductive: No Respiratory: Yes Past Surgical History Abdominal Surgery: Yes Appendectomy: Yes Other Surgery: Yes (appendectomy) Social History Alcohol Use: Yes Tobacco Use: No Substance Use: No Allergies-Medications (Allergen,Severity, Reaction): Coded Allergies: No Known Allergies (Unverified , 09/10/17) Reported Meds & Prescriptions Reported Meds & Active Scripts Active Coumadin (Warfarin) 5 Mg Tab 5 Mg PO DAILY Effient (Prasugrel) 10 Mg Tab 10 Mg PO DAILY Neurontin (Gabapentin) 300 Mg Cap 300 Mg PO Q12H Reported Vitamin B-1 (Thiamine HCl) 100 Mg Tab 100 Mg PO DAILY Viagra (Sildenafil Citrate) 100 Mg Tab 50 Mg PO DAILY PRN Pravastatin 40 Mg Tab 40 Mg PO HS Metoprolol Tartrate 50 Mg Tab 25 Mg PO BID Magnesium Oxide 400 Mg Tab 400 Mg PO DAILY Lisinopril 40 Mg Tab 40 Mg PO DAILY Furosemide 20 Mg Tab 60 Mg PO DAILY Folic Acid 1 Mg Tablet B-12 (Cyanocobalamin) 1,000 Mcg Subl 1,000 Mcg SL DAILY Colestipol (Colestipol HCl) 5 Gm Pkt 5 Gm PO DAILY 1 packet of granules contains 5 gm of colestipol. Vitamin D3 (Cholecalciferol) 1,000 Unit Cap 4,000 Units PO DAILY Aspirin EC (Aspirin) 81 Mg Tabdr 81 Mg PO DAILY Ascorbic Acid 500 Mg Tab 1,000 Mg PO DAILY Allopurinol 300 Mg Tab 300 Mg PO DAILY Proair Respiclick Inh (Albuterol Sulfate) 90 Mcg/Act Aerp 2 Puff INH Q6H PRN Review of Systems Except as stated in HPI: all other systems reviewed are Neg HENT: No: Lightheadedness Cardiovascular: No: Chest Pain or Discomfort, Dyspnea on exertion Respiratory: No: Shortness of Breath Gastrointestinal: Positive: Changes in Bowel Habits, No: Nausea, Vomiting, Abdominal Pain, Hematemesis Genitourinary: No: Hematuria Musculoskeletal: Positive: Edema, No: Weakness Neurologic: No: Dizziness Physical Exam Narrative GENERAL: Awake, alert, pleasant 72-year-old male who appears his stated age and is in no acute respiratory distress. SKIN: Focused skin assessment warm/dry. HEAD: Atraumatic. Normocephalic. EYES: No injection or drainage. ENT: No nasal bleeding or discharge. Mucous membranes pink and moist. NECK: Trachea midline. No JVD. CARDIOVASCULAR: Irregularly irregular. No audible murmur. RESPIRATORY: No accessory muscle use. Clear to auscultation. Breath sounds equal bilaterally. GASTROINTESTINAL: Abdomen soft, non-tender, nondistended. No rebound tenderness. Rectal: Dark stool on digital exam, but no gross blood. However, grossly guaiac positive. MUSCULOSKELETAL: No obvious deformities. No clubbing. No cyanosis. No edema. NEUROLOGICAL: Awake and alert. No obvious cranial nerve deficits. Motor grossly within normal limits. Normal speech. PSYCHIATRIC: Appropriate mood and affect; insight and judgment normal. Data Data Last Documented VS Vital Signs Date Time Temp Pulse Resp B/P (MAP) Pulse Ox O2 Delivery O2 Flow Rate FiO2 09/10/17 10:49 74 139/73 (95) 09/10/17 10:06 18 99 09/10/17 09:51 97.6 Room Air Orders Orders Complete Blood Count With Diff (09/10/17 10:12) Comprehensive Metabolic Panel (09/10/17 10:12) Prothrombin Time / Inr (Pt) (09/10/17 10:12) Act Partial Throm Time (Ptt) (09/10/17 10:12) Type And Screen (09/10/17 10:12) Ecg Monitoring (09/10/17 10:12) Iv Access Insert/Monitor (09/10/17 10:12) Oximetry (09/10/17 10:12) Sodium Chlor 0.9% 1000 Ml Inj (Ns 1000 M (09/10/17 10:12) Sodium Chloride 0.9% Flush (Ns Flush) (09/10/17 10:15) Electrocardiogram (09/10/17 ) Pantoprazole Inj (Protonix Inj) (09/10/17 11:30) Admit Order (Ed Use Only) (09/10/17 12:13) Labs Laboratory Tests Test 09/10/17 10:20 White Blood Count 10.1 TH/MM3 Red Blood Count 3.42 MIL/MM3 Hemoglobin 10.7 GM/DL Hematocrit 32.6 % Mean Corpuscular Volume 95.3 FL Mean Corpuscular Hemoglobin 31.2 PG Mean Corpuscular Hemoglobin Concent 32.7 % Red Cell Distribution Width 15.9 % Platelet Count 216 TH/MM3 Mean Platelet Volume 6.8 FL Neutrophils (%) (Auto) 66.7 % Lymphocytes (%) (Auto) 20.3 % Monocytes (%) (Auto) 10.5 % Eosinophils (%) (Auto) 1.8 % Basophils (%) (Auto) 0.7 % Neutrophils # (Auto) 6.7 TH/MM3 Lymphocytes # (Auto) 2.0 TH/MM3 Monocytes # (Auto) 1.1 TH/MM3 Eosinophils # (Auto) 0.2 TH/MM3 Basophils # (Auto) 0.1 TH/MM3 CBC Comment DIFF FINAL Differential Comment Prothrombin Time 37.0 SEC Prothromb Time International Ratio 3.7 RATIO Activated Partial Thromboplast Time 39.3 SEC Blood Urea Nitrogen 38 MG/DL Creatinine 1.28 MG/DL Random Glucose 116 MG/DL Total Protein 8.9 GM/DL Albumin 3.8 GM/DL Calcium Level 9.0 MG/DL Alkaline Phosphatase 123 U/L Aspartate Amino Transf (AST/SGOT) 28 U/L Alanine Aminotransferase (ALT/SGPT) 22 U/L Total Bilirubin 0.5 MG/DL Sodium Level 135 MEQ/L Potassium Level 4.9 MEQ/L Chloride Level 104 MEQ/L Carbon Dioxide Level 24.5 MEQ/L Anion Gap 7 MEQ/L Estimat Glomerular Filtration Rate 55 ML/MIN [facility] Medical Decision Making Medical Screen Exam Complete: Yes Emergency Medical Condition: Yes Medical Record Reviewed: Yes Interpretation(s) EKG reveals atrial fibrillation with a heart rate of 68. Q wave noted in lead 3., R-wave in V2. Nonspecific T wave changes. Laboratory Tests Test 09/10/17 10:20 White Blood Count 10.1 TH/MM3 Red Blood Count 3.42 MIL/MM3 Hemoglobin 10.7 GM/DL Hematocrit 32.6 % Mean Corpuscular Volume 95.3 FL Mean Corpuscular Hemoglobin 31.2 PG Mean Corpuscular Hemoglobin Concent 32.7 % Red Cell Distribution Width 15.9 % Platelet Count 216 TH/MM3 Mean Platelet Volume 6.8 FL Neutrophils (%) (Auto) 66.7 % Lymphocytes (%) (Auto) 20.3 % Monocytes (%) (Auto) 10.5 % Eosinophils (%) (Auto) 1.8 % Basophils (%) (Auto) 0.7 % Neutrophils # (Auto) 6.7 TH/MM3 Lymphocytes # (Auto) 2.0 TH/MM3 Monocytes # (Auto) 1.1 TH/MM3 Eosinophils # (Auto) 0.2 TH/MM3 Basophils # (Auto) 0.1 TH/MM3 CBC Comment DIFF FINAL Differential Comment Prothrombin Time 37.0 SEC Prothromb Time International Ratio 3.7 RATIO Activated Partial Thromboplast Time 39.3 SEC Blood Urea Nitrogen 38 MG/DL Creatinine 1.28 MG/DL Random Glucose 116 MG/DL Total Protein 8.9 GM/DL Albumin 3.8 GM/DL Calcium Level 9.0 MG/DL Alkaline Phosphatase 123 U/L Aspartate Amino Transf (AST/SGOT) 28 U/L Alanine Aminotransferase (ALT/SGPT) 22 U/L Total Bilirubin 0.5 MG/DL Sodium Level 135 MEQ/L Potassium Level 4.9 MEQ/L Chloride Level 104 MEQ/L Carbon Dioxide Level 24.5 MEQ/L Anion Gap 7 MEQ/L Estimat Glomerular Filtration Rate 55 ML/MIN Differential Diagnosis Differential diagnosis includes upper GI bleed, lower GI bleed, coagulopathy, Coumadin toxicity, anemia, peptic ulcer disease, diverticulosis, AV malformation. Narrative Course IV was established, labs are drawn and sent, and the patient was placed on cardiac telemetry monitoring and continuous pulse oximetry monitoring. Rectal exam was performed, dark stool noted on the finger with no visible blood. However, grossly guaiac positive. Therefore, type and screen and CBC were sent to lab. The patient's hemoglobin was 10.7, I reviewed the EMR, this appears to be his baseline. BUN is elevated at 38, previous BUN was elevated at 47, unsure if this is secondary to prerenal azotemia versus upper GI bleed. The patient does have black tarry stools are grossly guaiac positive with elevated INR 3.7. The patient may have bleeding gastritis versus peptic ulcer disease. The patient was administered Protonix 40 mg intravenously. As the patient is currently on Coumadin with elevated INR and grossly guaiac positive with black tarry stools, patient will be 23 hour observation for serial CBC. The patient may benefit from GI evaluation if he continues to have dark colored stools for possible endoscopy. The patient is comfortable with this plan of care. The on- call medical service was paged for admission. [facility] Point of Care Internal Pos. & Neg. Controls: Passed Fecal Specimen Occult Blood: Positive Physician Communication Physician Communication The on-call medical service was paged for 23 hour observation. I discussed the patient with Dr. Rivas who agrees with 23 hour observation. Diagnosis Primary Impression: Upper GI bleed Additional Impression: Coumadin toxicity Qualified Codes: T45.511A - Poisoning by anticoagulants, accidental ( unintentional), initial encounter Admitting Information Admitting Physician Requests: Observation Condition: Stable Ernesto Wayne MD Sep 10, 2017 10:20
[2017-09-10 10:46] LABS: AUTOMATED NEUTROPHIL # 6.7 TH/MM3 (1.8-7.7); BASOPHIL # 0.1 TH/MM3 (0-0.2); BASOPHIL % 0.7 % (0.0-2.0); EOSINOPHIL # 0.2 TH/MM3 (0-0.4); EOSINOPHIL % 1.8 % (0.0-4.0); HEMATOCRIT 32.6 % (39.0-51.0); HEMOGLOBIN 10.7 GM/DL (13.0-17.0); LYMPH % 20.3 % (9.0-44.0); MEAN CELL VOLUME 95.3 FL (80.0-100.0); MEAN CORPUSCULAR HEMOGLOBIN 31.2 PG (27.0-34.0); MEAN CORPUSCULAR HGB CONC 32.7 % (32.0-36.0); MEAN PLATELET VOLUME 6.8 FL (7.0-11.0); MONO % 10.5 % (0.0-8.0); MONOCYTE # 1.1 TH/MM3 (0-0.9); NEUT % 66.7 % (16.0-70.0); PLATELET COUNT 216 TH/MM3 (150-450); RED BLOOD COUNT 3.42 MIL/MM3 (4.50-5.90); RED CELL DISTRIBUTION WIDTH 15.9 % (11.6-17.2); WHITE BLOOD COUNT 10.1 TH/MM3 (4.0-11.0)
[2017-09-10 10:49] VITALS: BP 139/73; PULSE 74
[2017-09-10 10:56] LABS: INTERNATIONAL NORMALIZED RATIO 3.7 RATIO
[2017-09-10 11:07] LABS: ALBUMIN 3.8 GM/DL (3.4-5.0); AST (GOT) 28 U/L (15-37); BICARBONATE 24.5 MEQ/L (21.0-32.0); BLOOD UREA NITROGEN 38 MG/DL (7-18); CHLORIDE 104 MEQ/L (98-107); CREATININE 1.28 MG/DL (0.60-1.30); GLOMERULAR FILTRATION RATE 55 ML/MIN (>89); GLUCOSE,RANDOM 116 MG/DL (74-106); SODIUM (NA) 135 MEQ/L (136-145)
[2017-09-10 11:09] LABS: ALT (GPT) 22 U/L (12-78)
[2017-09-10 11:10] LABS: ALKALINE PHOSPHATASE 123 U/L (45-117); TOTAL BILIRUBIN ADULT 0.5 MG/DL (0.2-1.0); TOTAL PROTEIN 8.9 GM/DL (6.4-8.2)
[2017-09-10] MEDS ORDERED: PANTOPRAZOLE SODIUM 40 MG VIAL IV PUSH ONE (11:30)
--- NOTE | 2017-09-10 12:27 | HHI.HP ---
[facility] Service [facility] Primary Care Physician [facility] Admission Diagnosis Diagnoses: Travel History International Travel<30 Days: No Contact w/Intl Traveler <30 Da: No Traveled to Known Affected Are: No History of Present Illness This is a 72-year-old male who presented to the hospital with the chief complaint of black tarry stools. The patient was admitted to [facility] on August 15 in which she underwent a cardiac catheterization by Dr. Augustin, with placement of 2 stents. Patient was diagnosed with A. fib at that time and was started on Coumadin. He is primarily a vegetarian and so has had a difficult time controlling his INR. Recently had an outpatient his INR was found to be greater than 6, then he held the coumadin and it went down to 5. His INR today is 3.7. States he has been holding his coumadin and is suppose to resume 2.5 mg tomorrow. He notes 2 black tarry stools early this morning, rectal exam performed in the ER was significant for black tarry stools. She denies any abdominal pain, no vomiting, or bright red blood per rectum. Hemoglobin and ER was 10.7, this is the same as his previous hospitalization. BUNs also elevated, but again appears to be a around the patient's baseline. Review of Systems Constitutional: DENIES: Fever, Chills Eyes: DENIES: Blurred vision, Vision loss Respiratory: DENIES: Cough, Hemoptysis, Shortness of breath Cardiovascular: DENIES: Chest pain, Syncope Gastrointestinal: COMPLAINS OF: Black stools, DENIES: Abdominal pain, Bloody stools, Nausea, Vomiting Genitourinary: DENIES: Hematuria Musculoskeletal: DENIES: Joint pain, Muscle aches Hematologic/lymphatic: DENIES: Bruising Neurologic: DENIES: Abnormal gait, Localized weakness Psychiatric: DENIES: Mood changes, Suicidal Ideation Past Family Social History Past Medical History CHF Hypertension Renal insufficiency Neuropathy COPD Past Surgical History Appendectomy Allergies: Coded Allergies: No Known Allergies (Unverified , 09/10/17) Family History Significant family history of coronary artery disease or diabetes Social History Alcohol use daily. Negative for tobacco or illicit drugs. Physical Exam Vital Signs Vital Signs Date Time Temp Pulse Resp B/P (MAP) Pulse Ox O2 Delivery O2 Flow Rate FiO2 09/10/17 10:49 74 139/73 (95) 09/10/17 10:06 77 18 139/73 (95) 99 09/10/17 09:51 97.6 80 18 142/76 (98) 98 Room Air Physical Exam GENERAL: This is a well-nourished, well-developed patient, in no apparent distress. SKIN: No rashes, ecchymoses or lesions. Cool and dry. HEAD: Atraumatic. Normocephalic. No temporal or scalp tenderness. EYES: Pupils equal round and reactive. Extraocular motions intact. No scleral icterus. No injection or drainage. ENT: Nose without bleeding, purulent drainage or septal hematoma. Throat without erythema, tonsillar hypertrophy or exudate. Uvula midline. Airway patent. Hearing aids in place, wearing glasses. NECK: Trachea midline.. Supple, nontender, no meningeal signs. CARDIOVASCULAR: Irregular rhythm without murmurs, gallops, or rubs. RESPIRATORY: Clear to auscultation. Breath sounds equal bilaterally. No wheezes , rales, or rhonchi. GASTROINTESTINAL: Abdomen soft, non-tender, nondistended. No hepato-splenomegaly , or palpable masses. No guarding. MUSCULOSKELETAL: Extremities without clubbing, cyanosis, or edema. No joint tenderness, effusion, or edema noted. No calf tenderness. NEUROLOGICAL: Awake and alert. Motor and sensory grossly within normal limits. Normal speech. Laboratory Laboratory Tests Test 09/10/17 10:20 White Blood Count 10.1 Red Blood Count 3.42 Hemoglobin 10.7 Hematocrit 32.6 Mean Corpuscular Volume 95.3 Mean Corpuscular Hemoglobin 31.2 Mean Corpuscular Hemoglobin Concent 32.7 Red Cell Distribution Width 15.9 Platelet Count 216 Mean Platelet Volume 6.8 Neutrophils (%) (Auto) 66.7 Lymphocytes (%) (Auto) 20.3 Monocytes (%) (Auto) 10.5 Eosinophils (%) (Auto) 1.8 Basophils (%) (Auto) 0.7 Neutrophils # (Auto) 6.7 Lymphocytes # (Auto) 2.0 Monocytes # (Auto) 1.1 Eosinophils # (Auto) 0.2 Basophils # (Auto) 0.1 CBC Comment DIFF FINAL Differential Comment Prothrombin Time 37.0 Prothromb Time International Ratio 3.7 Activated Partial Thromboplast Time 39.3 Blood Urea Nitrogen 38 Creatinine 1.28 Random Glucose 116 Total Protein 8.9 Albumin 3.8 Calcium Level 9.0 Alkaline Phosphatase 123 Aspartate Amino Transf (AST/SGOT) 28 Alanine Aminotransferase (ALT/SGPT) 22 Total Bilirubin 0.5 Sodium Level 135 Potassium Level 4.9 Chloride Level 104 Carbon Dioxide Level 24.5 Anion Gap 7 Estimat Glomerular Filtration Rate 55 Result Diagram: 09/10/17 1020 09/10/17 1020 Caprini VTE Risk Assessment Caprini VTE Risk Assessment: No/Low Risk (score <= 1) VTE Pharm Contraindication: Coagulopathy,INR elevated Caprini Risk Assessment Model Point Value = 1 Point Value = 2 Point Value = 3 Point Value = 5 Age 41-60 Minor surgery BMI > 25 kg/m2 Swollen legs Varicose veins or History of unexplained or recurrent spontaneous Oral contraceptives or hormone replacement Sepsis (< 1 month) Serious lung disease, including pneumonia (< 1 month) Abnormal pulmonary function Acute myocardial infarction Congestive heart failure (< 1 month) History of inflammatory bowel disease Medical patient at bed rest Age 61-74 Arthroscopic surgery Major open surgery (> 45 min) Laparoscopic surgery (> 45 min) Malignancy Confined to bed (> 72 hours) Immobilizing plaster cast Central venous access Age >= 75 History of VTE Family history of VTE Factor V Leiden Prothrombin [id number] Lupus anticoagulant Anticardiolipin antibodies Elevated serum homocysteine Heparin-induced thrombocytopenia Other congenital or acquired thrombophilia Stroke (< 1 month) Elective arthroplasty Hip, pelvis, or leg fracture Acute spinal cord injury (< 1 month) Prophylaxis Regimen Total Risk Factor Score Risk Level Prophylaxis Regimen 0-1 Low Early ambulation 2 Moderate Order ONE of the following: *Sequential Compression Device (SCD) *Heparin 5000 units SQ BID 3-4 Higher Order ONE of the following medications: *Heparin 5000 units SQ TID *Enoxaparin/Lovenox 40 mg SQ daily (WT < 150 kg, CrCl > 30 mL/min) *Enoxaparin/Lovenox 30 mg SQ daily (WT < 150 kg, CrCl > 10-29 mL/min) *Enoxaparin/Lovenox 30 mg SQ BID (WT < 150 kg, CrCl > 30 mL/min) AND/OR *Sequential Compression Device (SCD) 5 or more Highest Order ONE of the following medications: *Heparin 5000 units SQ TID (Preferred with Epidurals) *Enoxaparin/Lovenox 40 mg SQ daily (WT < 150 kg, CrCl > 30 mL/min) *Enoxaparin/Lovenox 30 mg SQ daily (WT < 150 kg, CrCl > 10-29 mL/min) *Enoxaparin/Lovenox 30 mg SQ BID (WT < 150 kg, CrCl > 30 mL/min) AND *Sequential Compression Device (SCD) Assessment and Plan Problem List: (1) CHF (congestive heart failure) ICD Code: I50.9 - Heart failure, unspecified Status: Acute (2) HTN (hypertension) ICD Code: I10 - Essential (primary) hypertension Status: Chronic (3) Coumadin toxicity ICD Code: T45.511A - Poisoning by anticoagulants, accidental (unintentional), initial encounter Status: Acute (4) A-fib ICD Code: I48.91 - Unspecified atrial fibrillation (5) Neuropathy ICD Code: G62.9 - Polyneuropathy, unspecified Status: Chronic Assessment and Plan This is a 72-year-old male with a history of hypertension, coronary disease, with recent heart catheter and recent diagnosis of A. fib on Coumadin, he presented to the ER for black tarry stools Black tarry stools - Hemoglobin is stable - INR supratherapeutic - Protonix 40 mg daily - Patient without any abdominal symptoms at this time - Hold Coumadin, recheck CBC q8hr and INR tomorrow - If hemoglobin remains stable, INR therapeutic between 2-3, he can likely be discharged and followed up as an outpatient with the [facility]. If any drop in hemoglobin will need to consult GI for further workup. COPD - Patient without any symptoms, in fact believes he does not have COPD and shortness of breath was previously due to his cardiac condition. Since his heart catheter with dental placement he has no breathing complaints or concerns. Plan for repeat PFTs as an outpatient Coronary artery disease & CHF - s/p stent to RCA, atherectomy with CSI to LAD in early August - Continue Effient, statin, metoprolol, lisinopril, lasix - Hold aspirin, hold Coumadin Neuropathy - Continue gabapentin DVT prophy: hold chemical prophylaxis given ?GI bleed, supertherapeutic on coumadin, bilat SCDs GI: protonix 40 mg daily Code Status Full Discussed Condition With Dr. Wayne and patient. Problem Qualifiers (1) Coumadin toxicity: Qualified Codes: T45.511A - Poisoning by anticoagulants, accidental ( unintentional), initial encounter Yola Rivas MD Sep 10, 2017 12:27
[2017-09-10] MEDS ORDERED: SODIUM CHLORIDE 0.9% FLUSH 10 ML FLUSH IV FLUSH PRN (12:30)
[2017-09-10] MEDS ORDERED: ONDANSETRON HCL 4 MG/2 ML VIAL IV PUSH PRN (12:30)
[2017-09-10] MEDS ORDERED: ALBUTEROL SULFATE 90 MCG/ACT HFA 8 GM INHALER INH PRN (12:30)
[2017-09-10] MEDS ORDERED: PANTOPRAZOLE SODIUM 40 MG VIAL IV PUSH SCH (12:30)
[2017-09-10] MEDS: GABAPENTIN 300 MG CAP PO SCH (13:00)
[2017-09-10 14:57] VITALS: BP 130/61; PULSE 75; RESP 24; TEMP 97.4; O2SAT 98
[2017-09-10 19:50] VITALS: O2SAT 99
[2017-09-10 20:52] VITALS: BP 123/56; PULSE 85; RESP 16; TEMP 98.3; O2SAT 98
[2017-09-10 20:58] LABS: HEMATOCRIT 28.3 % (39.0-51.0); HEMOGLOBIN 9.4 GM/DL (13.0-17.0)
[2017-09-10] MEDS: METOPROLOL TARTRATE 25 MG TAB PO SCH (21:00)
[2017-09-10] MEDS: SODIUM CHLORIDE 0.9% FLUSH 10 ML FLUSH IV FLUSH SCH (21:00)
[2017-09-10] MEDS ORDERED: PRAVASTATIN SOD 40 MG TAB PO SCH (21:00)
--- NOTE | 2017-09-10 22:24 | EKG ---
Date Performed: 09/10/2017 Time Performed: 11:00:28 PTAGE: 72 years EKG: ATRIAL FIBRILLATION POSSIBLE INFERIOR MYOCARDIAL INFARCTION ABNORMAL RHYTHM ECG PREVIOUS TRACING : 08/14/2017 22.29 Compared to prior tracing no significant change DOCTOR: Manuel Jones Interpretating Date/Time 09/10/2017 22:22:54
[2017-09-11 00:51] VITALS: BP 117/62; PULSE 78; RESP 18; TEMP 97.9; O2SAT 97
[2017-09-11] MEDS: GABAPENTIN 300 MG CAP PO SCH (01:00)
[2017-09-11 03:26] LABS: HEMATOCRIT 28.4 % (39.0-51.0); HEMOGLOBIN 9.6 GM/DL (13.0-17.0)
[2017-09-11 03:35] LABS: INTERNATIONAL NORMALIZED RATIO 2.6 RATIO; PROTHROMBIN TIME - PATIENT 26.2 SEC (9.8-11.6)
[2017-09-11 03:44] LABS: BICARBONATE 25.9 MEQ/L (21.0-32.0); CALCIUM 8.6 MG/DL (8.5-10.1); CREATININE 1.1 MG/DL (0.60-1.30)
[2017-09-11 04:13] VITALS: BP 125/58; PULSE 72; RESP 18; TEMP 98; O2SAT 96
[2017-09-11 07:31] VITALS: BP 137/73; PULSE 75; RESP 18; TEMP 98.2; O2SAT 98
[2017-09-11] MEDS ORDERED: LISINOPRIL 20 MG TAB PO SCH (09:00)
[2017-09-11] MEDS ORDERED: PRASUGREL 10 MG TAB PO SCH (09:00)
[2017-09-11] MEDS ORDERED: FUROSEMIDE 20 MG TAB PO SCH (09:00)
[2017-09-11 09:08] LABS: HEMATOCRIT 30.6 % (39.0-51.0); HEMOGLOBIN 10.2 GM/DL (13.0-17.0)
[2017-09-11] MEDS ORDERED: COUM2.5T PO (09:18)
--- NOTE | 2017-09-11 09:19 | HHI.DCPOC ---
Discharge Care Plan Diagnosis: (1) Coumadin toxicity (2) Upper GI bleed Goals to Promote Your Health * To prevent worsening of your condition and complications * To maintain your health at the optimal level Directions to Meet Your Goals Take your medications as prescribed Follow your dietary instruction Follow activity as directed Keep your appointments as scheduled Take your immunizations and boosters as scheduled If your symptoms worsen call your PCP, if no PCP go to Urgent Care Center or Emergency Room Smoking is Dangerous to Your Health. Avoid second hand smoke Call the 24-hour hour crisis hotline for domestic abuse at Layne Valle PA-C Sep 11, 2017 09:19
--- NOTE | 2017-09-11 09:31 | HHI.PR ---
Subjective Remarks Follow up for coumadin toxicity, GI bleeding. The patient reports feeling well today. He has not had another bowel movement since prior to arrival. He denies any abdominal pain, nausea, or vomiting. He denies any lightheadedness, dizziness, chest pain, or shortness of breath. He wants to go home. He plans to take half his dosing of coumadin today and tomorrow, then has an appointment for INR check on Wednesday 09/13 at the IN. Objective Vitals Vital Signs Date Time Temp Pulse Resp B/P (MAP) Pulse Ox O2 Delivery O2 Flow Rate FiO2 09/11/17 07:31 98.2 75 18 137/73 (94) 98 09/11/17 04:13 98.0 72 18 125/58 (80) 96 09/11/17 00:51 97.9 78 18 117/62 (80) 97 09/10/17 20:52 98.3 85 16 123/56 (78) 98 09/10/17 19:50 99 09/10/17 15:00 09/10/17 14:57 97.4 75 24 130/61 (84) 98 09/10/17 10:49 74 139/73 (95) 09/10/17 10:06 77 18 139/73 (95) 99 09/10/17 09:51 97.6 80 18 142/76 (98) 98 Room Air I/O 09/10/17 09/10/17 09/10/17 09/11/17 09/11/17 09/11/17 07:00 15:00 23:00 07:00 15:00 23:00 Output Total 800 ml Balance -800 ml Output Urine Total 800 ml Result Diagram: 09/11/1730 09/11/17 0215 Objective Remarks GENERAL: Well-nourished, well-developed pleasant elderly male patient in [facility]. SKIN: Warm and dry. No rash. HEENT: Normocephalic. Atraumatic.Pupils equal and round. Mucous membranes pink and moist. CARDIOVASCULAR: Irregular rate and rhythm. S1, S2 noted. No murmur appreciated. RESPIRATORY: No accessory muscle use. Clear to auscultation. Breath sounds equal bilaterally. GASTROINTESTINAL: Abdomen soft, non-tender, nondistended. Normoactive bowel sounds x4. MUSCULOSKELETAL: No obvious deformities. Extremities without clubbing, cyanosis , or edema. NEUROLOGICAL: Awake and alert. No obvious cranial nerve deficits. Motor grossly within normal limits. Normal speech. PSYCHIATRIC: Appropriate mood and affect; insight and judgment normal. Medications and IVs Current Medications Medications (Trade) Dose Ordered Sig/Alejo Route Start Time Stop Time Status Last Admin (NS Flush) 2 ml UNSCH PRN IVF 09/10/17 10:15 (Neurontin) 300 mg Q12H PO 09/10/17 13:00 (Lopressor) 25 mg BID PO 09/10/17 21:00 09/10/17 21:00 (Effient) 10 mg DAILY PO 09/11/17 09:00 (Pravachol) 40 mg HS PO 09/10/17 21:00 09/10/17 21:00 (Proair Hfa Inh) 2 puff Q6H PRN INH 09/10/17 12:30 (Prinivil) 40 mg DAILY PO 09/11/17 09:00 (Lasix) 60 mg DAILY PO 09/11/17 09:00 (NS Flush) 2 ml UNSCH PRN IV FLUSH 09/10/17 12:30 (NS Flush) 2 ml BID IV FLUSH 09/10/17 21:00 09/10/17 21:00 (Zofran Inj) 4 mg Q6H PRN IV PUSH 09/10/17 12:30 (Protonix Inj) 40 mg DAILY IV PUSH 09/11/17 13:00 (Flu (Quadrivalent) Vaccine Inj) 0.5 ml ONCE ONCE IM 09/11/17 10:00 09/11/17 10:01 A/P Problem List: (1) CHF (congestive heart failure) ICD Code: I50.9 - Heart failure, unspecified Status: Acute (2) HTN (hypertension) ICD Code: I10 - Essential (primary) hypertension Status: Chronic (3) Coumadin toxicity ICD Code: T45.511A - Poisoning by anticoagulants, accidental (unintentional), initial encounter Status: Acute (4) A-fib ICD Code: I48.91 - Unspecified atrial fibrillation (5) Neuropathy ICD Code: G62.9 - Polyneuropathy, unspecified Status: Chronic Assessment and Plan 72-year-old male with a history of hypertension, coronary disease, with recent heart catheter and recent diagnosis of A. fib on Coumadin, he presented to the ER for black tarry stools Black tarry stools: suspect secondary to coumadin toxicity - INR supratherapeutic at 3.7, previously over 6 prior to arrival - Hemoglobin monitored x24hrs, stable, Hgb 10.7 --> 9.4 --> 9.6 --> 10.2 - Protonix 40 mg daily - Patient without any abdominal symptoms at this time - Held Coumadin, repeat INR therapeutic at 2.6. - Patient's Hemoglobin stable at 10.2, no further episodes of melena, will discharge, patient plans to take 1/2 of his Coumadin dosing, and has follow up appt scheduled at the IN in 2 days on 09/13/17 COPD - Patient without any symptoms, he believes he does not have COPD and dyspnea was previously due to his cardiac condition. Since his stent placement, he has no breathing complaints or concerns. - Recommend repeat PFTs as an outpatient Coronary artery disease & CHF - s/p stent to RCA, atherectomy with CSI to LAD in early August - Continue Effient, statin, metoprolol, lisinopril, lasix - Initially held aspirin and Coumadin, will restart at discharge Neuropathy - Continue gabapentin DVT prophylaxis: therapeutic on coumadin, SCDs GI: protonix 40 mg daily Discharge Planning Discharge patient to home Condition on discharge: Stable Heart Healthy Diet as tolerated Ad Carolann activity Rx written: Coumadin 2.5mg qd Follow-up with primary care physician within 2-3 days Problem Qualifiers (1) Coumadin toxicity: Qualified Codes: T45.511A - Poisoning by anticoagulants, accidental ( unintentional), initial encounter Layne Valle PA-C Sep 11, 2017 09:31
[2017-09-11] MEDS: METOPROLOL TARTRATE 25 MG TAB PO SCH (09:43)
[2017-09-11] MEDS: SODIUM CHLORIDE 0.9% FLUSH 10 ML FLUSH IV FLUSH SCH (09:45)
[2017-09-11] MEDS ORDERED: INFLUENZA VIRUS VACCINE (QUADRIVALENT) 0.5 ML SYR IM ONE (10:00)
[2017-09-11] MEDS ORDERED: PANTOPRAZOLE SODIUM 40 MG VIAL IV PUSH SCH (13:00)
== END 2017-09-11 10:34 | disposition home or self-care (01) ==
LOC: NEPE 09:48 → NEDA 12:14 → NEPFCDU 14:51
PROVIDERS: ADMIT Hospitalist; ATTEND Hospitalist
DX: T45.511A Poisoning by anticoagulants, accidental (unintentional), initial encounter (principal); K92.2 Gastrointestinal hemorrhage, unspecified; I50.9 Heart failure, unspecified; I11.0 Hypertensive heart disease with heart failure; I48.91 Unspecified atrial fibrillation; J44.9 Chronic obstructive pulmonary disease, unspecified; I25.10 Atherosclerotic heart disease of native coronary artery without angina pectoris; G62.9 Polyneuropathy, unspecified; K21.9 Gastro-esophageal reflux disease without esophagitis; E78.00 Pure hypercholesterolemia, unspecified; Z79.01 Long term (current) use of anticoagulants; Z95.5 Presence of coronary angioplasty implant and graft
CPT/HCPCS: 80048; 80053; 85014; 85018; 85025; 85610; 85730; 86850; 86900; 86901; 93005; 96361; 96374; 99285; C9113; G0378; J7030

== ENCOUNTER 2017-09-13 11:43 | Observation (INO) | payer OTHER ==
[2017-09-13] VITALS (7 sets, daily range): BP systolic 101–134; BP diastolic 56–69; PULSE 64–80; RESP 13–18; TEMP 96.1–98.4; O2SAT 95–99
[~2017-09-13] VITALS: Ht 182.9 cm; Wt 103.2 kg
[~2017-09-13 11:43] MED LIST changes: +COUM2.5T PO; -COUM5TAB PO
[2017-09-13] MEDS ORDERED: PANTOPRAZOLE SODIUM 40 MG VIAL IVP ONE (12:30)
[2017-09-13 12:41] LABS: AUTOMATED NEUTROPHIL # 5.1 TH/MM3 (1.8-7.7); BASOPHIL % 0.4 % (0.0-2.0); EOSINOPHIL # 0.2 TH/MM3 (0-0.4); EOSINOPHIL % 2.2 % (0.0-4.0); HEMATOCRIT 31.9 % (39.0-51.0); HEMOGLOBIN 10.5 GM/DL (13.0-17.0); LYMPH % 19.5 % (9.0-44.0); LYMPHOCYTE # 1.5 TH/MM3 (1.0-4.8); MEAN CELL VOLUME 95.8 FL (80.0-100.0); MEAN CORPUSCULAR HEMOGLOBIN 31.5 PG (27.0-34.0); MEAN CORPUSCULAR HGB CONC 32.8 % (32.0-36.0); MEAN PLATELET VOLUME 6.7 FL (7.0-11.0); MONO % 11.7 % (0.0-8.0); MONOCYTE # 0.9 TH/MM3 (0-0.9); NEUT % 66.2 % (16.0-70.0); PLATELET COUNT 194 TH/MM3 (150-450); RED BLOOD COUNT 3.33 MIL/MM3 (4.50-5.90); RED CELL DISTRIBUTION WIDTH 16.6 % (11.6-17.2); WHITE BLOOD COUNT 7.7 TH/MM3 (4.0-11.0)
[2017-09-13 12:50] LABS: PROTHROMBIN TIME - PATIENT 30.7 SEC (9.8-11.6)
[2017-09-13 12:56] LABS: ALBUMIN 3.8 GM/DL (3.4-5.0); AST (GOT) 29 U/L (15-37); BICARBONATE 24.5 MEQ/L (21.0-32.0); BLOOD UREA NITROGEN 38 MG/DL (7-18); CALCIUM 8.6 MG/DL (8.5-10.1); CHLORIDE 104 MEQ/L (98-107); CREATININE 1.57 MG/DL (0.60-1.30); GLOMERULAR FILTRATION RATE 43 ML/MIN (>89); GLUCOSE,RANDOM 99 MG/DL (74-106); SODIUM (NA) 136 MEQ/L (136-145)
[2017-09-13 12:59] LABS: ALKALINE PHOSPHATASE 117 U/L (45-117); ALT (GPT) 21 U/L (12-78); TOTAL BILIRUBIN ADULT 0.5 MG/DL (0.2-1.0); TOTAL PROTEIN 8.6 GM/DL (6.4-8.2)
[2017-09-13] MEDS ORDERED: NALOXONE HCL 0.4 MG/ML AMP IV PUSH PRN (14:00)
[2017-09-13] MEDS ORDERED: SODIUM CHLORIDE 0.9% FLUSH 10 ML FLUSH IV FLUSH PRN (14:00)
--- NOTE | 2017-09-13 15:28 | PD.CONS ---
HPI History of Present Illness This is a 72 year old M who presented to the ER with complaints of black, tarry stool. Pt was recently evaluated in the hospital last week and discharged on , he was found to have a severely elevated INR after recent adjustment of his Coumadin. Pt thinks he was started on Coumadin approx 3 weeks ago, has been having trouble getting to a therapeutic level of INR, was found to be as high as 6 before his previous admission. Pt was complaining of black, tarry stools during his last admission, however, states he never had a BM during his hospitalization and an EGD was never done. His INR improved and his H/H returned to normal prior to discharge. Pt went to the ID today and was complaining of continued black stools, they sent him to the ER. Pt denies abdominal pain, nausea, vomiting, acid reflux, bright red blood in stool. Pt does report some weight loss but states he has been eating less and thinks it is secondary to this. Pt was found to have positive Hemoccult in the ER. H/H is low, however similar to last H/H the day he was discharged. He denies ever having EGD. Has had colonoscopy approx 4-5 years ago at [facility], he reports exam was normal. He is unsure which doctor preformed the procedure. (Corry Medrano) PFSH Past Medical History Atrial fibrillation COPD HTN Renal insufficiency neuropathy Past Surgical History Appendectomy (Corry Medrano) Coded Allergies: No Known Allergies (Unverified , 09/10/17) Social History Daily ETOH Denies smoking Denies illicit drug use (Corry Medrano) Review of Systems Gastrointestinal: COMPLAINS OF: Black stools, DENIES: Abdominal pain, Bloody stools, Constipation, Diarrhea, Nausea, Vomiting, Difficulty Swallowing, Swelling of Abdomen, Heartburn, Hematemesis (Corry Medrano) GI Exam Vitals I&O Vital Signs Date Time Temp Pulse Resp B/P (MAP) Pulse Ox O2 Delivery O2 Flow Rate FiO2 09/13/17 15:00 09/13/17 11:46 97.7 80 13 132/63 (86) 95 Laboratory Test 09/13/17 12:26 White Blood Count 7.7 TH/MM3 Red Blood Count 3.33 MIL/MM3 Hemoglobin 10.5 GM/DL Hematocrit 31.9 % Mean Corpuscular Volume 95.8 FL Mean Corpuscular Hemoglobin 31.5 PG Mean Corpuscular Hemoglobin Concent 32.8 % Red Cell Distribution Width 16.6 % Platelet Count 194 TH/MM3 Mean Platelet Volume 6.7 FL Neutrophils (%) (Auto) 66.2 % Lymphocytes (%) (Auto) 19.5 % Monocytes (%) (Auto) 11.7 % Eosinophils (%) (Auto) 2.2 % Basophils (%) (Auto) 0.4 % Neutrophils # (Auto) 5.1 TH/MM3 Lymphocytes # (Auto) 1.5 TH/MM3 Monocytes # (Auto) 0.9 TH/MM3 Eosinophils # (Auto) 0.2 TH/MM3 Basophils # (Auto) 0.0 TH/MM3 CBC Comment DIFF FINAL Differential Comment Prothrombin Time 30.7 SEC Prothromb Time International Ratio 3.0 RATIO Activated Partial Thromboplast Time 34.5 SEC Blood Urea Nitrogen 38 MG/DL Creatinine 1.57 MG/DL Random Glucose 99 MG/DL Total Protein 8.6 GM/DL Albumin 3.8 GM/DL Calcium Level 8.6 MG/DL Alkaline Phosphatase 117 U/L Aspartate Amino Transf (AST/SGOT) 29 U/L Alanine Aminotransferase (ALT/SGPT) 21 U/L Total Bilirubin 0.5 MG/DL Sodium Level 136 MEQ/L Potassium Level 4.4 MEQ/L Chloride Level 104 MEQ/L Carbon Dioxide Level 24.5 MEQ/L Anion Gap 8 MEQ/L Estimat Glomerular Filtration Rate 43 ML/MIN Physical Examination HEENT: Normocephalic; atraumatic CHEST: Even/unlabored CARDIAC: Irregular ABDOMEN: Soft, nontender; bowel sounds active x 4. EXTREMITIES: No clubbing, cyanosis, or edema. SKIN: Normal; no rash; no jaundice. 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 (Corry Medrano) Assessment and Plan Plan Assessment: - GIB- Pt complaining of black, tarry stools. Started on Coumadin approx 3 weeks ago for a-fib. INR was recently elevated at 6 before his last admission. INR 3 at this time but continued complaints of black, tarry stool. H/H low but stable since last admission. Currently 10.5/31.9. Denies ever having EGD. Protonix. Plan: - 2 Units of FFP - Repeat INR tomorroinrw - EGD tomorrow - Obtain consents - NPO after MN - Monitor H/H - Transfuse as needed - Continue Protonix - Supportive care - Further recommendations to follow based on results of above Pt has been seen and examined by myself and Dr. Vilchis (Corry Medrano) Physician Comments Seen and examined with DEEPTHI, no active bleeding at this time. Correct INR, egd planned for tomorrow, if -ve colonoscopy. Discussed with pt. Thank you (Yue Greene MD) Corry Medrano Sep 13, 2017 15:28 Yue Greene MD Sep 13, 2017 19:20
[2017-09-13] MEDS ORDERED: diphenhydrAMINE HCL 25 MG CAP PO PRN (15:30)
[2017-09-13] MEDS ORDERED: ACETAMINOPHEN 325 MG TAB PO PRN (15:30)
[2017-09-13] MEDS ORDERED: SODIUM CHLOR 0.9% 250 ML INJ 250 ML IV ONE (15:30)
--- NOTE | 2017-09-13 16:01 | HHI.HP ---
HPI Service [facility] Primary Care Physician [facility] Admission Diagnosis gi bleed Diagnoses: Chief Complaint: Dark stools Travel History International Travel<30 Days: No Contact w/Intl Traveler <30 Da: No Traveled to Known Affected Are: No History of Present Illness Written by Liz Quintana, acting as scribe for Dr. Patrick on 09/13/17 at 16:01. This is a 72-year-old male with a past medical history significant for atrial fibrillation started on Coumadin 3 weeks ago, coronary artery disease status post recent cardiac stent implantation 08/15/17, hypertension, COPD, CHF and renal insufficiency who presents to [facility] with complaints of dark stools. Patient was just admitted to our facility on September 10 with similar complaints of black tarry stools and was found to have a supratherapeutic INR of 3.7. Patient is basically a vegetarian has had difficult time controlling his INR while on Coumadin. Patient's hemoglobin remained stable, his INR decreased to 2.6 and as he was asymptomatic he was discharged the following day with instructions to follow-up as an outpatient with the [place]. Patient states he went to the [facility] today to have his INR drawn and while there mention that he had another episode of black stools yesterday. He was then sent over to our facility from the [place]. Patient has already been seen in consultation by GI who is planning to perform a EGD in the morning. Patient' s hemoglobin remains stable at 10.5 and his INR today is 3.0. He is asymptomatic and denies any complaints of chest pain, dizziness, lightheadedness , shortness of breath, nausea/vomiting, coffee-ground emesis, abdominal pain or hematuria. He has not had any dark stools today. He's never had a previous EGD. Patient reports long history of alcohol consumption but states that he has cut back considerably and now only drinks 4 ounces of vodka daily. Review of Systems Except as stated in HPI: all other systems reviewed are Neg Past Family Social History Past Medical History Atrial fibrillation COPD HTN Renal insufficiency neuropathy Past Surgical History Appendectomy Reported Medications Coumadin (Warfarin) 5 Mg Tab 5 Mg PO DAILY Effient (Prasugrel) 10 Mg Tab 10 Mg PO DAILY Neurontin (Gabapentin) 300 Mg Cap 300 Mg PO Q12H Vitamin B-1 (Thiamine HCl) 100 Mg Tab 100 Mg PO DAILY Viagra (Sildenafil Citrate) 100 Mg Tab 50 Mg PO DAILY PRN Pravastatin 40 Mg Tab 40 Mg PO HS Metoprolol Tartrate 50 Mg Tab 25 Mg PO BID Magnesium Oxide 400 Mg Tab 400 Mg PO DAILY Lisinopril 40 Mg Tab 40 Mg PO DAILY Furosemide 20 Mg Tab 60 Mg PO DAILY Folic Acid 1 Mg Tablet B-12 (Cyanocobalamin) 1,000 Mcg Subl 1,000 Mcg SL DAILY Colestipol (Colestipol HCl) 5 Gm Pkt 5 Gm PO DAILY 1 packet of granules contains 5 gm of colestipol. Vitamin D3 (Cholecalciferol) 1,000 Unit Cap 4,000 Units PO DAILY Aspirin EC (Aspirin) 81 Mg Tabdr 81 Mg PO DAILY Ascorbic Acid 500 Mg Tab 1,000 Mg PO DAILY Allopurinol 300 Mg Tab 300 Mg PO DAILY Proair Respiclick Inh (Albuterol Sulfate) 90 Mcg/Act Aerp 2 Puff INH Q6H PRN Allergies: Coded Allergies: No Known Allergies (Unverified , 09/10/17) Active Ordered Medications Current Medications Medications (Trade) Dose Ordered Sig/Alejo Route Start Time Stop Time Status Last Admin (NS Flush) 2 ml UNSCH PRN IV FLUSH 09/13/17 14:00 (NS Flush) 2 ml BID IV FLUSH 09/13/17 21:00 (Narcan Inj) 0.4 mg UNSCH PRN IV PUSH 09/13/17 14:00 (Protonix Inj) 40 mg Q12H IV PUSH 09/14/17 02:00 Sodium Chloride 250 ml @ 15 mls/hr ONCE ONCE IV 09/13/17 15:30 09/14/17 08:09 (Tylenol) 650 mg Q4H PRN PO 09/13/17 15:30 09/14/17 15:29 (Benadryl) 25 mg Q4H PRN PO 09/13/17 15:30 09/14/17 15:29 Family History Mother, in her 90s, dementia, hypertension Sister, hypertension Social History Daily ETOH use of 4 ounces of vodka He reports remote history tobacco use having quit in 1979. Denies illicit drug use Physical Exam Vital Signs Vital Signs Date Time Temp Pulse Resp B/P (MAP) Pulse Ox O2 Delivery O2 Flow Rate FiO2 09/13/17 15:00 09/13/17 15:00 97.4 64 18 126/59 (81) 99 09/13/17 11:46 97.7 80 13 132/63 (86) 95 Physical Exam GENERAL: This is a well-nourished, well-developed male patient, in no apparent distress. Awake and alert. Appears comfortable. SKIN: No rashes, ecchymoses or lesions. Cool and dry. HEAD: Atraumatic. Normocephalic. No temporal or scalp tenderness. EYES: No scleral icterus. No injection or drainage. ENT: Nose without bleeding or purulent drainage.Airway patent. NECK: Trachea midline. Supple, nontender, no meningeal signs. CARDIOVASCULAR: Regular rate and rhythm. (+) Systolic murmur. RESPIRATORY: Clear to auscultation. Breath sounds equal bilaterally. No wheezes , rales, or rhonchi. GASTROINTESTINAL: Abdomen soft, non-tender, nondistended. no guarding. MUSCULOSKELETAL: Extremities without clubbing or cyanosis. Bilateral lower extremity nonpitting edema. No joint tenderness, effusion, or edema noted. No calf tenderness. NEUROLOGICAL: Awake and alert. Motor and sensory grossly within normal limits. No focal neurologic findings appreciated. Normal speech. Laboratory Laboratory Tests Test 09/13/17 12:26 White Blood Count 7.7 Red Blood Count 3.33 Hemoglobin 10.5 Hematocrit 31.9 Mean Corpuscular Volume 95.8 Mean Corpuscular Hemoglobin 31.5 Mean Corpuscular Hemoglobin Concent 32.8 Red Cell Distribution Width 16.6 Platelet Count 194 Mean Platelet Volume 6.7 Neutrophils (%) (Auto) 66.2 Lymphocytes (%) (Auto) 19.5 Monocytes (%) (Auto) 11.7 Eosinophils (%) (Auto) 2.2 Basophils (%) (Auto) 0.4 Neutrophils # (Auto) 5.1 Lymphocytes # (Auto) 1.5 Monocytes # (Auto) 0.9 Eosinophils # (Auto) 0.2 Basophils # (Auto) 0.0 CBC Comment DIFF FINAL Differential Comment Prothrombin Time 30.7 Prothromb Time International Ratio 3.0 Activated Partial Thromboplast Time 34.5 Blood Urea Nitrogen 38 Creatinine 1.57 Random Glucose 99 Total Protein 8.6 Albumin 3.8 Calcium Level 8.6 Alkaline Phosphatase 117 Aspartate Amino Transf (AST/SGOT) 29 Alanine Aminotransferase (ALT/SGPT) 21 Total Bilirubin 0.5 Sodium Level 136 Potassium Level 4.4 Chloride Level 104 Carbon Dioxide Level 24.5 Anion Gap 8 Estimat Glomerular Filtration Rate 43 Result Diagram: 09/13/17 1226 09/13/17 1226 Caprini VTE Risk Assessment Caprini VTE Risk Assessment: Mod/High Risk (score >= 2) VTE Pharm Contraindication: Active bleeding Caprini Risk Assessment Model Point Value = 1 Point Value = 2 Point Value = 3 Point Value = 5 Age 41-60 Minor surgery BMI > 25 kg/m2 Swollen legs Varicose veins or History of unexplained or recurrent spontaneous Oral contraceptives or hormone replacement Sepsis (< 1 month) Serious lung disease, including pneumonia (< 1 month) Abnormal pulmonary function Acute myocardial infarction Congestive heart failure (< 1 month) History of inflammatory bowel disease Medical patient at bed rest Age 61-74 Arthroscopic surgery Major open surgery (> 45 min) Laparoscopic surgery (> 45 min) Malignancy Confined to bed (> 72 hours) Immobilizing plaster cast Central venous access Age >= 75 History of VTE Family history of VTE Factor V Leiden Prothrombin [id number] Lupus anticoagulant Anticardiolipin antibodies Elevated serum homocysteine Heparin-induced thrombocytopenia Other congenital or acquired thrombophilia Stroke (< 1 month) Elective arthroplasty Hip, pelvis, or leg fracture Acute spinal cord injury (< 1 month) Prophylaxis Regimen Total Risk Factor Score Risk Level Prophylaxis Regimen 0-1 Low Early ambulation 2 Moderate Order ONE of the following: *Sequential Compression Device (SCD) *Heparin 5000 units SQ BID 3-4 Higher Order ONE of the following medications: *Heparin 5000 units SQ TID *Enoxaparin/Lovenox 40 mg SQ daily (WT < 150 kg, CrCl > 30 mL/min) *Enoxaparin/Lovenox 30 mg SQ daily (WT < 150 kg, CrCl > 10-29 mL/min) *Enoxaparin/Lovenox 30 mg SQ BID (WT < 150 kg, CrCl > 30 mL/min) AND/OR *Sequential Compression Device (SCD) 5 or more Highest Order ONE of the following medications: *Heparin 5000 units SQ TID (Preferred with Epidurals) *Enoxaparin/Lovenox 40 mg SQ daily (WT < 150 kg, CrCl > 30 mL/min) *Enoxaparin/Lovenox 30 mg SQ daily (WT < 150 kg, CrCl > 10-29 mL/min) *Enoxaparin/Lovenox 30 mg SQ BID (WT < 150 kg, CrCl > 30 mL/min) AND *Sequential Compression Device (SCD) Assessment and Plan Assessment and Plan 72-year-old male with a past medical history significant for atrial fibrillation started on Coumadin 3 weeks ago, coronary artery disease status post recent cardiac stent implantation 08/15/17, hypertension, COPD, CHF and renal insufficiency who presents to [facility] with complaints of dark stools. GI bleed - Patient reports dark stools yesterday but none today. He is asymptomatic. - GI following, plan for EGD in the a.m. Appreciate assistance. GI has ordered 2 units of FFP. - Monitor H&H closely. Appears stable. - Hold Coumadin and aspirin for now CAD status post recent cardiac stent implants 08/15/17 - Patient has no cardiac complaints at present - Continue patient on Effient - Continuous cardiac monitoring Atrial fibrillation on Coumadin Rate controlled - Hold Coumadin for now secondary to GI bleed - INR 3.0. - Continue to monitor heart rate CHF, chronic, compensated - Continue patient on home dose of metoprolol 25 mg twice a day, lisinopril 40 mg daily and furosemide 60 mg daily. Monitor electrolytes - Monitor for any evidence of fluid overload MILLER on CKD - creatinine 1.57, unsure of patient's baseline but previous creatinine level 1.10 09/11/17 - Avoid nephrotoxic agent - Continue to monitor kidney function Hypertension - Well-controlled - Continue patient on antihypertensives as stated above - Monitor BP and adjust treatment accordingly COPD, not in acute exacerbation - DuoNeb nebs as needed - Monitor respiratory status Neuropathy - Continue patient on home dose of gabapentin 300 mg by mouth twice a day Dyslipidemia - Continue patient on home dose of pravastatin 40 mg daily and Colestipol 5gm daily Hypomagnesemia - Patient on magnesium supplementation at home. Repeat mag level. Daily alcohol use - [facility] protocol - Monitor for signs of DTs - Multivitamin/folic acid/vitamin daily DVT prophylaxis - Chemoprophylaxis contraindicated secondary to active GI bleed - Bilateral SCD/DIMA shortye This note was transcribed by scribe [Liz Mittal]. I, Dr. Jesica Patrick personally performed the history, physical exam, and medical decision making; and confirmed the accuracy of the information in the transcribed note. Authenticated by Dr. Jesica Patrick on 09/13/17 at 16:01. Discussed Condition With Patient, nursing staff, ER Liz Ybarra Sep 13, 2017 16:01 Jesica Patrick MD Sep 13, 2017 19:39
[2017-09-13] MEDS ORDERED: LORazepam 2 MG TAB PO PRN (16:30)
[2017-09-13] MEDS ORDERED: FLUMAZENIL 0.5 MG/5 ML VIAL IV PUSH PRN (16:30)
[2017-09-13] MEDS ORDERED: LORazepam 1 MG TAB PO PRN (16:30)
[2017-09-13] MEDS ORDERED: LORazepam 2 MG/ML VIAL IV PUSH PRN ×4 (16:30)
[2017-09-13] MEDS ORDERED: GABAPENTIN 300 MG CAP PO SCH (16:30)
[2017-09-13] MEDS ORDERED: RESP: ALBUTEROL 2.5 MG/IPRATROPIUM 0.5 MG NEB (PRN) NEB (16:45)
[2017-09-13] MEDS ORDERED: METOPROLOL TARTRATE 25 MG TAB PO PRN (17:00)
[2017-09-13] MEDS ORDERED: POVIDONE IODINE 5% (ANTISEPSIS KIT) 4 APPLICATIONS EACH NARE PRN (17:00)
[2017-09-13] MEDS ORDERED: CHLORHEXIDINE GLUCONATE 2 % 1 PACK (2 CLOTHS) TOPICAL PRN (17:00)
[2017-09-13] MEDS ORDERED: SODIUM CHLORID 0.9% 500 ML IV PRN (17:00)
[2017-09-13] MEDS ORDERED: LACTATED RINGER'S 1000 ML IV PRN (17:00)
[2017-09-13] MEDS ORDERED: GABA300C5 PO (17:11)
--- NOTE | 2017-09-13 17:24 | PD ---
HPI Chief Complaint: Medical Clearance Time Seen by Provider: 12:06 Travel History International Travel<30 days: No Contact w/Intl Traveler<30days: No Traveled to known affect area: No History of Present Illness HPI This is a 72-year-old male was recently started on Coumadin who presents to the emergency department with dark black stools, the last episode being yesterday, moderate severity, intermittent, with no associated abdominal pain, lightheadedness or dizziness. He was just hospitalized for this. It was thought to be due to his supratherapeutic INR is his INR was 6 at the time. His INR normalized and his hemoglobin stayed stable so he was discharged. He went back to the [place] and reported his continued black stools and was sent here for further evaluation. PFSH Past Medical History Hx Anticoagulant Therapy: Yes (on coumadin) Asthma: No Blood Disorders: No Anxiety: No Depression: Yes Heart Rhythm Problems: Yes (AFIB) Cancer: No Cardiac Catheterization: Yes (with 2 stents) Cardiovascular Problems: Yes (CARIDAC CATH 08/15 W/2 STENTS PLACED) High Cholesterol: Yes Chemotherapy: No Chest Pain: No Congestive Heart Failure: No COPD: No Diabetes: No Endocrine: No Gastrointestinal Disorders: Yes GERD: Yes Genitourinary: Yes (RENAL INSUFFICIENCY) Hypertension: Yes Immune Disorder: No Musculoskeletal: Yes Neurologic: No Psychiatric: No Reproductive: No Respiratory: Yes Radiation Therapy: No Sleep Apnea: No Thyroid Disease: No Past Surgical History Abdominal Surgery: Yes Appendectomy: Yes Other Surgery: Yes (appendectomy) Social History Alcohol Use: Yes Tobacco Use: No Substance Use: No Allergies-Medications (Allergen,Severity, Reaction): Coded Allergies: No Known Allergies (Unverified , 09/10/17) Reported Meds & Prescriptions Reported Meds & Active Scripts Active Coumadin (Warfarin) 2.5 Mg Tab 2.5 Mg PO DAILY Effient (Prasugrel) 10 Mg Tab 10 Mg PO DAILY Reported Gabapentin 300 Mg Cap 300 Mg PO DAILY Vitamin B-1 (Thiamine HCl) 100 Mg Tab 100 Mg PO DAILY Viagra (Sildenafil Citrate) 100 Mg Tab 50 Mg PO DAILY PRN Pravastatin 40 Mg Tab 40 Mg PO HS Metoprolol Tartrate 50 Mg Tab 25 Mg PO BID Magnesium Oxide 400 Mg Tab 400 Mg PO DAILY Lisinopril 40 Mg Tab 20 Mg PO BID Furosemide 20 Mg Tab 60 Mg PO DAILY Folic Acid 1 Mg Tablet B-12 (Cyanocobalamin) 1,000 Mcg Subl 1,000 Mcg SL DAILY Colestipol (Colestipol HCl) 5 Gm Pkt 5 Gm PO DAILY 1 packet of granules contains 5 gm of colestipol. Vitamin D3 (Cholecalciferol) 1,000 Unit Cap 4,000 Units PO DAILY Aspirin EC (Aspirin) 81 Mg Tabdr 81 Mg PO DAILY Ascorbic Acid 500 Mg Tab 1,000 Mg PO DAILY Allopurinol 300 Mg Tab 300 Mg PO DAILY Proair Respiclick Inh (Albuterol Sulfate) 90 Mcg/Act Aerp 2 Puff INH Q6H PRN Review of Systems Except as stated in HPI: all other systems reviewed are Neg Physical Exam Narrative GENERAL:Well appearing, no acute distress SKIN: Focused skin assessment warm and dry. HEAD: Atraumatic. Normocephalic. EYES: Pupils equal and round. No injection or drainage. ENT: Moist mucous membranes NECK: Trachea midline. CARDIOVASCULAR: Regular rate and rhythm. No murmur appreciated. RESPIRATORY: Clear to auscultation. Breath sounds equal bilaterally. GASTROINTESTINAL: Abdomen soft, non-tender, nondistended. MUSCULOSKELETAL: No obvious deformities. NEUROLOGICAL: Awake and alert. No obvious cranial nerve deficits. Moving all extremities. PSYCHIATRIC: Appropriate mood and affect; insight and judgment normal. Data Data Last Documented VS Vital Signs Date Time Temp Pulse Resp B/P (MAP) Pulse Ox O2 Delivery O2 Flow Rate FiO2 09/13/17 11:46 97.7 80 13 132/63 (86) 95 Orders Orders Complete Blood Count With Diff (09/13/17 12:21) Comprehensive Metabolic Panel (09/13/17 12:21) Prothrombin Time / Inr (Pt) (09/13/17 12:21) Act Partial Throm Time (Ptt) (09/13/17 12:21) Pantoprazole Inj (Protonix Inj) (09/13/17 12:30) ^ Insert Iv (09/13/17 12:21) Admit Order (Ed Use Only) (09/13/17 13:56) Labs Laboratory Tests Test 09/13/17 12:26 White Blood Count 7.7 TH/MM3 Red Blood Count 3.33 MIL/MM3 Hemoglobin 10.5 GM/DL Hematocrit 31.9 % Mean Corpuscular Volume 95.8 FL Mean Corpuscular Hemoglobin 31.5 PG Mean Corpuscular Hemoglobin Concent 32.8 % Red Cell Distribution Width 16.6 % Platelet Count 194 TH/MM3 Mean Platelet Volume 6.7 FL Neutrophils (%) (Auto) 66.2 % Lymphocytes (%) (Auto) 19.5 % Monocytes (%) (Auto) 11.7 % Eosinophils (%) (Auto) 2.2 % Basophils (%) (Auto) 0.4 % Neutrophils # (Auto) 5.1 TH/MM3 Lymphocytes # (Auto) 1.5 TH/MM3 Monocytes # (Auto) 0.9 TH/MM3 Eosinophils # (Auto) 0.2 TH/MM3 Basophils # (Auto) 0.0 TH/MM3 CBC Comment DIFF FINAL Differential Comment Prothrombin Time 30.7 SEC Prothromb Time International Ratio 3.0 RATIO Activated Partial Thromboplast Time 34.5 SEC Blood Urea Nitrogen 38 MG/DL Creatinine 1.57 MG/DL Random Glucose 99 MG/DL Total Protein 8.6 GM/DL Albumin 3.8 GM/DL Calcium Level 8.6 MG/DL Alkaline Phosphatase 117 U/L Aspartate Amino Transf (AST/SGOT) 29 U/L Alanine Aminotransferase (ALT/SGPT) 21 U/L Total Bilirubin 0.5 MG/DL Sodium Level 136 MEQ/L Potassium Level 4.4 MEQ/L Chloride Level 104 MEQ/L Carbon Dioxide Level 24.5 MEQ/L Anion Gap 8 MEQ/L Estimat Glomerular Filtration Rate 43 ML/MIN MDM Medical Decision Making Medical Screen Exam Complete: Yes Emergency Medical Condition: Yes Interpretation(s) Afebrile, no tachycardia, normotensive Anemia Renal insufficiency BUN is 38 INR is 3 Differential Diagnosis Peptic ulcer disease, gastritis, polyp, diverticulosis, AVM Narrative Course This is a 72-year-old male who presents to the emergency department with dark stools. He is on Coumadin. He was placed on a monitor and an IV was established. Labs were obtained which demonstrate anemia which is similar to prior. Patient's Hemoccult was positive today. His INR is 3. Given his INR has normalized and the patient continues to have bleeding, I think patient requires GI evaluation. He'll be admitted Diagnosis Primary Impression: GI bleed Qualified Codes: K92.2 - Gastrointestinal hemorrhage, unspecified Admitting Information Admitting Physician Requests: Katerin Ramon MD Sep 13, 2017 17:24
[2017-09-13] MEDS: SODIUM CHLORIDE 0.9% FLUSH 10 ML FLUSH IV FLUSH SCH (19:23)
[2017-09-13] MEDS: METOPROLOL TARTRATE 25 MG TAB PO SCH (20:14)
[2017-09-13] MEDS: PRAVASTATIN SOD 40 MG TAB PO SCH (20:15)
[2017-09-14] VITALS (9 sets, daily range): BP systolic 99–128; BP diastolic 56–74; PULSE 59–79; RESP 17–18; TEMP 97.4–97.8; O2SAT 94–98
[2017-09-14] MEDS: PANTOPRAZOLE SODIUM 40 MG VIAL IV PUSH SCH ×2 (03:16→14:00)
[2017-09-14 05:57] LABS: AUTOMATED NEUTROPHIL # 2.9 TH/MM3 (1.8-7.7); BASOPHIL % 0.5 % (0.0-2.0); EOSINOPHIL # 0.2 TH/MM3 (0-0.4); EOSINOPHIL % 3.4 % (0.0-4.0); HEMATOCRIT 27.8 % (39.0-51.0); HEMOGLOBIN 9.2 GM/DL (13.0-17.0); LYMPHOCYTE # 1.4 TH/MM3 (1.0-4.8); MEAN CELL VOLUME 96.1 FL (80.0-100.0); MEAN CORPUSCULAR HEMOGLOBIN 31.9 PG (27.0-34.0); MEAN CORPUSCULAR HGB CONC 33.2 % (32.0-36.0); MEAN PLATELET VOLUME 6.7 FL (7.0-11.0); MONO % 13.9 % (0.0-8.0); MONOCYTE # 0.7 TH/MM3 (0-0.9); NEUT % 55.2 % (16.0-70.0); PLATELET COUNT 171 TH/MM3 (150-450); RED CELL DISTRIBUTION WIDTH 16.1 % (11.6-17.2); WHITE BLOOD COUNT 5.2 TH/MM3 (4.0-11.0)
[2017-09-14 06:07] LABS: PROTHROMBIN TIME - PATIENT 20.3 SEC (9.8-11.6)
[2017-09-14 06:18] LABS: BICARBONATE 26.8 MEQ/L (21.0-32.0); CALCIUM 8.6 MG/DL (8.5-10.1); CREATININE 1.43 MG/DL (0.60-1.30); MAGNESIUM 2.3 MG/DL (1.5-2.5)
[2017-09-14] MEDS ORDERED: LISINOPRIL 20 MG TAB PO SCH (09:00)
[2017-09-14] MEDS: COLESTIPOL HCL 5 GM PACKET PO SCH (09:00)
[2017-09-14] MEDS: PRASUGREL 10 MG TAB PO SCH (09:00)
[2017-09-14] MEDS ORDERED: INFLUENZA VIRUS VACCINE (QUADRIVALENT) 0.5 ML SYR IM ONE (10:00)
[2017-09-14] MEDS: FOLIC ACID 1 MG TAB PO SCH (12:00)
[2017-09-14] MEDS: SODIUM CHLORIDE 0.9% FLUSH 10 ML FLUSH IV FLUSH SCH ×2 (12:00→21:15)
[2017-09-14] MEDS: PRAVASTATIN SOD 40 MG TAB PO SCH (12:01)
[2017-09-14] MEDS: ALLOPURINOL 300 MG TAB PO SCH (12:01)
[2017-09-14] MEDS: LISINOPRIL 20 MG TAB PO SCH (12:01)
[2017-09-14] MEDS: METOPROLOL TARTRATE 25 MG TAB PO SCH ×2 (12:01→21:15)
[2017-09-14] MEDS: MULTIVITAMIN TAB PO SCH (12:01)
[2017-09-14] MEDS: THIAMINE HCL 100 MG TAB PO SCH (12:01)
[2017-09-14] MEDS: GABAPENTIN 300 MG CAP PO SCH (12:02)
[2017-09-14] MEDS: FUROSEMIDE 20 MG TAB PO SCH (12:03)
--- NOTE | 2017-09-14 12:06 | HHI.PR ---
Subjective Remarks in no acute distress. no abdominal pain. says that had a couple of bowel movements earlier today with no blood. no nausea or vomiting. Objective Vitals Vital Signs Date Time Temp Pulse Resp B/P (MAP) Pulse Ox O2 Delivery O2 Flow Rate FiO2 09/14/17 11:45 97.5 79 18 127/63 (84) 97 09/14/17 07:29 97.8 78 18 99/74 (82) 98 09/14/17 03:17 97.7 69 17 116/61 (79) 97 09/14/17 00:00 66 09/13/17 23:47 98.4 68 17 101/58 (72) 96 09/13/17 21:45 97.0 72 18 134/69 97 09/13/17 21:29 96.1 65 16 115/56 95 09/13/17 20:00 78 09/13/17 19:25 97.2 72 18 134/61 98 09/13/17 15:00 09/13/17 15:00 97.4 64 18 126/59 (81) 99 I/O 09/13/17 09/13/17 09/13/17 09/14/17 09/14/17 09/14/17 07:00 15:00 23:00 07:00 15:00 23:00 Intake Total 232 ml 938 ml Balance 232 ml 938 ml Intake IV Total 15 ml FFP 223 ml 923 ml Blood Product IV Normal Saline Flush 9 ml # Voids 1 Result Diagram: 09/14/17 0530 09/14/17 0530 Objective Remarks GENERAL: This is a well-nourished, well-developed patient, in no apparent distress. CARDIOVASCULAR: Regular rate and regular rhythm without murmurs, gallops, or rubs. RESPIRATORY: Clear to auscultation. Breath sounds equal bilaterally. No wheezes , rales, or rhonchi. GASTROINTESTINAL: Abdomen soft, non-tender, nondistended. Normal, active bowel sounds MUSCULOSKELETAL: Extremities without clubbing, cyanosis, or edema. NEURO: Alert & Oriented x4 to person, place, time, situation. Moves all ext x4 Medications and IVs Inpatient Medications Acetaminophen (Tylenol) 650 mg Q4H PRN PO SEE LABEL COMMENTS Last administered on 09/13/17at 20:14; Start 09/13/17 at 15:30; Stop 09/14/17 at 15:29 Albuterol/ Ipratropium (Duoneb Neb) 1 ampule Q6HR NEB PRN NEB cough, wheezing, dyspnea; Start 09/13/17 at 16:45 Allopurinol (Zyloprim) 300 mg DAILY PO ; Start 09/14/17 at 09:00 Chlorhexidine Gluconate (Chlorhexidine 2% Cloth) 3 pack RAILROAD CRANE OPERATOR PRN TOPICAL SEE LABEL COMMENTS; Start 09/13/17 at 17:00; Stop 09/16/17 at 16:59 Colestipol HCl (Colestipol Pkt) 5 gm DAILY PO ; Start 09/14/17 at 09:00 Diphenhydramine HCl (Benadryl) 25 mg Q4H PRN PO SEE LABEL COMMENTS Last administered on 09/13/17at 20:14; Start 09/13/17 at 15:30; Stop 09/14/17 at 15:29 Flumazenil (Romazicon Inj) 0.2 mg Q1M PRN IV PUSH SEE LABEL COMMENTS; Start 09/13/17 at 16:30 Folic Acid (Folate) 1 mg DAILY PO ; Start 09/14/17 at 09:00 Furosemide (Lasix) 60 mg DAILY PO ; Start 09/14/17 at 09:00 Gabapentin (Neurontin) 300 mg DAILY PO ; Start 09/14/17 at 09:00 Lactated Ringer's 1,000 ml @ 30 mls/hr Q24H PRN IV SEE LABEL COMMENTS; Start at 17:00; Stop 09/16/17 at 16:59 Lisinopril (Prinivil) 20 mg DAILY PO ; Start 09/14/17 at 09:00 Lorazepam (Ativan Inj) 2 mg Q15M PRN IV PUSH CIWA > 20; Start 09/13/17 at 16:30 Lorazepam (Ativan) 2 mg Q2H PRN PO CIWA 11-14; Start 09/13/17 at 16:30 Metoprolol Tartrate (Lopressor) 25 mg RAILROAD CRANE OPERATOR PRN PO SEE LABEL COMMENTS; Start 09/13/17 at 17:00; Stop 09/16/17 at 16:59 Multivitamins (Theragran) 1 tab DAILY PO ; Start 09/14/17 at 09:00 Naloxone HCl (Narcan Inj) 0.4 mg UNSCH PRN IV PUSH SEE LABEL COMMENTS; Start at 14:00 Pantoprazole Sodium (Protonix Inj) 40 mg Q12H IV PUSH Last administered on at 03:16; Start 09/14/17 at 02:00 Povidone Iodine (Betadine 5% Antisepsis Kit) 1 applic RAILROAD CRANE OPERATOR PRN EACH NARE SEE LABEL COMMENTS; Start 09/13/17 at 17:00; Stop 09/16/17 at 16:59 Prasugrel (Effient) 10 mg DAILY PO ; Start 09/14/17 at 09:00 Pravastatin Sodium (Pravachol) 40 mg HS PO Last administered on 09/13/17at 20:15 ; Start 09/13/17 at 21:00 Sodium Chloride 500 ml @ 30 mls/hr [id number] PRN IV SEE LABEL COMMENTS; Start 09/13/17 at 17:00; Stop 09/16/17 at 16:59 Sodium Chloride (NS Flush) 2 ml BID IV FLUSH Last administered on 09/13/17at 19: 23; Start 09/13/17 at 21:00 Thiamine HCl (Vitamin B1) 100 mg DAILY PO ; Start 09/14/17 at 09:00 A/P Assessment and Plan A/P GI bleed - Patient reports dark stools but none today. He is asymptomatic. - GI following, plan for EGD. Appreciate assistance. - Monitor H&H closely. Appears stable. - Hold Coumadin and aspirin for now CAD status post recent cardiac stent implants 08/15/17 - Patient has no cardiac complaints at present - Continue patient on Effient - Continuous cardiac monitoring -cardiology consulted for clearance prior to the procedure. Atrial fibrillation on Coumadin Rate controlled - Hold Coumadin for now secondary to GI bleed -received FFP. - INR 2 today. - Continue to monitor heart rate CHF, chronic, compensated - Continue patient on home dose of metoprolol 25 mg twice a day, lisinopril 40 mg daily and furosemide 60 mg daily. Monitor electrolytes - Monitor for any evidence of fluid overload MILLER on CKD - creatinine 1.57, unsure of patient's baseline but previous creatinine level 1.10 09/11/17 - Avoid nephrotoxic agent - Continue to monitor kidney function Hypertension - Well-controlled - Continue patient on antihypertensives as stated above - Monitor BP and adjust treatment accordingly COPD, not in acute exacerbation - DuoNeb nebs as needed - Monitor respiratory status Neuropathy - Continue patient on home dose of gabapentin 300 mg by mouth twice a day Dyslipidemia - Continue patient on home dose of pravastatin 40 mg daily and Colestipol 5gm daily Hypomagnesemia - Patient on magnesium supplementation at home. Repeat mag level. Daily alcohol use - [facility] protocol - Monitor for signs of DTs - Multivitamin/folic acid/vitamin daily DVT prophylaxis - Chemoprophylaxis contraindicated secondary to active GI bleed - Bilateral SCD/DIMA hose Discharge Planning when cleared by GI. Brad Castellano MD Sep 14, 2017 12:06
--- NOTE | 2017-09-14 12:23 | PD.CONS ---
HPI Consult Requested By Primary Care Physician [facility] History of Present Illness This is a 72 year old M, known to me, who presented to the ER with complaints of black, tarry stools. Past medical history significant for CAD s/p PCI to LAD and RCA in the setting of new onset HF and Afib at that time discharged on ASA, Effient and Warfarin. He was recently evaluated in the hospital last week for severely elevated INR. He is complaining of black, tarry stools. Pt denies abdominal pain, nausea, vomiting, acid reflux, bright red blood in stool. Pt was found to have positive Hemoccult in the ER. H/H is low. Had had colonoscopy approx 4-5 years ago at [facility], he reports exam was normal. He denies chest pain, SOB, palpitations, syncope, nausea, vomiting. Review of Systems Consitutional: DENIES: Fatigue, Fever, Chills, Weight gain, Weight loss Eyes: DENIES: Amaurosis Fugax, Change in vision HEENT: DENIES: Lightheadedness, Change in hearing Respiratory: DENIES: See HPI, Cough, Snoring, Shortness of breath, Wheezing, Sputum production Cardiovascular: DENIES: See HPI, Chest pain, Palpitations, Syncope, Tachycardia Gastrointestinal: DENIES: Nausea, Vomiting, Change in bowel habits, Reflux, Bloody stools, Melena Genitourinary: DENIES: Urinary incontinence, Difficulty voiding Integumentary: DENIES: Rash Neurologic: DENIES: Tingling or numbness, Memory problems, Poor Balance, Stroke symptoms Musculoskeletal: DENIES: Joint pain, Muscle pain, Limited range of motion, Back pain Psychiatric: DENIES: Anxiety, Depression, Sleep disturbances Hematologic: DENIES: Bruising tendencies, Bleeding tendencies Endocrine: DENIES: Weight gain, Weight loss, Thyroid disease Past Family Social History Allergies: Coded Allergies: No Known Allergies (Unverified , 09/10/17) Past Medical History HTN, Hyperlipidemia COPD CAD PCI to LAD and RCA . Past Surgical History Appendectomy Reported Medications Reported Meds & Active Scripts Active Coumadin (Warfarin) 2.5 Mg Tab 2.5 Mg PO DAILY Effient (Prasugrel) 10 Mg Tab 10 Mg PO DAILY Reported Gabapentin 300 Mg Cap 300 Mg PO DAILY Vitamin B-1 (Thiamine HCl) 100 Mg Tab 100 Mg PO DAILY Viagra (Sildenafil Citrate) 100 Mg Tab 50 Mg PO DAILY PRN Pravastatin 40 Mg Tab 40 Mg PO HS Metoprolol Tartrate 50 Mg Tab 25 Mg PO BID Magnesium Oxide 400 Mg Tab 400 Mg PO DAILY Lisinopril 40 Mg Tab 20 Mg PO BID Furosemide 20 Mg Tab 60 Mg PO DAILY Folic Acid 1 Mg Tablet B-12 (Cyanocobalamin) 1,000 Mcg Subl 1,000 Mcg SL DAILY Colestipol (Colestipol HCl) 5 Gm Pkt 5 Gm PO DAILY 1 packet of granules contains 5 gm of colestipol. Vitamin D3 (Cholecalciferol) 1,000 Unit Cap 4,000 Units PO DAILY Aspirin EC (Aspirin) 81 Mg Tabdr 81 Mg PO DAILY Ascorbic Acid 500 Mg Tab 1,000 Mg PO DAILY Allopurinol 300 Mg Tab 300 Mg PO DAILY Proair Respiclick Inh (Albuterol Sulfate) 90 Mcg/Act Aerp 2 Puff INH Q6H PRN Active Ordered Medications Current Medications Medications (Trade) Dose Ordered Sig/Alejo Route Start Time Stop Time Status Last Admin (NS Flush) 2 ml UNSCH PRN IV FLUSH 09/13/17 14:00 (NS Flush) 2 ml BID IV FLUSH 09/13/17 21:00 09/14/17 12:00 (Narcan Inj) 0.4 mg UNSCH PRN IV PUSH 09/13/17 14:00 (Protonix Inj) 40 mg Q12H IV PUSH 09/14/17 02:00 09/14/17 03:16 (Tylenol) 650 mg Q4H PRN PO 09/13/17 15:30 09/14/17 15:29 09/13/17 20:14 (Benadryl) 25 mg Q4H PRN PO 09/13/17 15:30 09/14/17 15:29 09/13/17 20:14 (Zyloprim) 300 mg DAILY PO 09/14/17 09:00 09/14/17 12:01 (Colestipol Pkt) 5 gm DAILY PO 09/14/17 09:00 (Lasix) 60 mg DAILY PO 09/14/17 09:00 09/14/17 12:03 (Lopressor) 25 mg BID PO 09/13/17 21:00 09/14/17 12:01 (Effient) 10 mg DAILY PO 1/3/18 09:00 09/14/17 09:00 (Pravachol) 40 mg HS PO 09/13/17 21:00 09/14/17 12:01 (Romazicon Inj) 0.2 mg Q1M PRN IV PUSH 09/13/17 16:30 (Ativan) 1 mg Q4H PRN PO 09/13/17 16:30 (Ativan Inj) 1 mg Q4H PRN IV PUSH 09/13/17 16:30 (Ativan) 2 mg Q2H PRN PO 09/13/17 16:30 (Ativan Inj) 2 mg Q2H PRN IV PUSH 09/13/17 16:30 (Ativan Inj) 2 mg Q1H PRN IV PUSH 09/13/17 16:30 (Ativan Inj) 2 mg Q15M PRN IV PUSH 09/13/17 16:30 (Vitamin B1) 100 mg DAILY PO 09/14/17 09:00 09/14/17 12:01 (Folate) 1 mg DAILY PO 09/14/17 09:00 09/14/17 12:00 (Theragran) 1 tab DAILY PO 09/14/17 09:00 09/14/17 12:01 (Duoneb Neb) 1 ampule Q6HR NEB PRN NEB 09/13/17 16:45 Lactated Ringer's 1,000 ml @ 30 mls/hr Q24H PRN IV 09/13/17 17:00 09/16/17 16:59 Sodium Chloride 500 ml @ 30 mls/hr [id number] PRN IV 09/13/17 17:00 09/16/17 16:59 (Lopressor) 25 mg PROGRAM DIRECTOR/TRAFFIC DIRECTOR PRN PO 09/13/17 17:00 09/16/17 16:59 (Betadine 5% Antisepsis Kit) 1 applic PROGRAM DIRECTOR/TRAFFIC DIRECTOR PRN EACH NARE 09/13/17 17:00 09/16/17 16:59 (Chlorhexidine 2% Cloth) 3 pack PROGRAM DIRECTOR/TRAFFIC DIRECTOR PRN TOPICAL 09/13/17 17:00 09/16/17 16:59 (Neurontin) 300 mg DAILY PO 09/14/17 09:00 09/14/17 12:02 (Prinivil) 20 mg DAILY PO 09/14/17 09:00 09/14/17 12:01 Family History No h/o DM or CAD Social History Drinks daily. Negative for tobacco or drugs Physical Exam Vital Signs Vital Signs Date Time Temp Pulse Resp B/P (MAP) Pulse Ox O2 Delivery O2 Flow Rate FiO2 09/14/17 11:45 97.5 79 18 127/63 (84) 97 09/14/17 07:29 97.8 78 18 99/74 (82) 98 09/14/17 03:17 97.7 69 17 116/61 (79) 97 09/14/17 00:00 66 09/13/17 23:47 98.4 68 17 101/58 (72) 96 09/13/17 21:45 97.0 72 18 134/69 97 09/13/17 21:29 96.1 65 16 115/56 95 09/13/17 20:00 78 09/13/17 19:25 97.2 72 18 134/61 98 09/13/17 15:00 09/13/17 15:00 97.4 64 18 126/59 (81) 99 Physical Exam GENERAL: Well-nourished, well-developed patient. SKIN: Warm and dry. HEAD: Normocephalic. EYES: No scleral icterus. No injection or drainage. NECK: Supple, trachea midline. No JVD or lymphadenopathy. CARDIOVASCULAR: Regular rate and rhythm without murmurs, gallops, or rubs. RESPIRATORY: Breath sounds equal bilaterally. No accessory muscle use. GASTROINTESTINAL: Abdomen soft, non-tender, nondistended. EXTREMITIES: No cyanosis, or edema. NEUROLOGICAL: Awake, alert, and oriented x 3. Non-focal. Laboratory Laboratory Tests Test 09/13/17 12:26 09/14/17 05:30 White Blood Count 7.7 5.2 Red Blood Count 3.33 2.90 Hemoglobin 10.5 9.2 Hematocrit 31.9 27.8 Mean Corpuscular Volume 95.8 96.1 Mean Corpuscular Hemoglobin 31.5 31.9 Mean Corpuscular Hemoglobin Concent 32.8 33.2 Red Cell Distribution Width 16.6 16.1 Platelet Count 194 171 Mean Platelet Volume 6.7 6.7 Neutrophils (%) (Auto) 66.2 55.2 Lymphocytes (%) (Auto) 19.5 27.0 Monocytes (%) (Auto) 11.7 13.9 Eosinophils (%) (Auto) 2.2 3.4 Basophils (%) (Auto) 0.4 0.5 Neutrophils # (Auto) 5.1 2.9 Lymphocytes # (Auto) 1.5 1.4 Monocytes # (Auto) 0.9 0.7 Eosinophils # (Auto) 0.2 0.2 Basophils # (Auto) 0.0 0.0 CBC Comment DIFF FINAL DIFF FINAL Differential Comment Prothrombin Time 30.7 20.3 Prothromb Time International Ratio 3.0 2.0 Activated Partial Thromboplast Time 34.5 Blood Urea Nitrogen 38 34 Creatinine 1.57 1.43 Random Glucose 99 97 Total Protein 8.6 Albumin 3.8 Calcium Level 8.6 8.6 Alkaline Phosphatase 117 Aspartate Amino Transf (AST/SGOT) 29 Alanine Aminotransferase (ALT/SGPT) 21 Total Bilirubin 0.5 Sodium Level 136 140 Potassium Level 4.4 4.2 Chloride Level 104 105 Carbon Dioxide Level 24.5 26.8 Anion Gap 8 8 Estimat Glomerular Filtration Rate 43 48 Magnesium Level 2.3 Result Diagram: 09/14/1730 09/14/17 0530 Assessment and Plan Problem List: (1) GI bleed ICD Codes: K92.2 - Gastrointestinal hemorrhage, unspecified Status: Acute Plan: 72 y/o M s/p PCI/JÚNIOR to LAD and RCA and Afib on triple anticoagulation therapy (ASA, Effient and Coumadin) complaining of GI bleeding. Hemodynamically stable. No CV complaints. Scheduled for EGD. Appreciate GI recs. Recommendations: 1. Must continue DAPT, ASA and Effient, given recent STENTS 2. HOLD WARFARIN 3. Agree with EGD/Colonoscopy. 4. Follow H&H and transfuse was needed (2) HTN (hypertension) ICD Codes: I10 - Essential (primary) hypertension Status: Chronic (3) A-fib ICD Codes: I48.91 - Unspecified atrial fibrillation Problem Qualifiers (1) GI bleed: Qualified Codes: K92.2 - Gastrointestinal hemorrhage, unspecified Jag Tarango MD Sep 14, 2017 12:22
[2017-09-14] MEDS: ASPIRIN EC 81 MG TABEC PO SCH (14:00)
--- NOTE | 2017-09-14 14:26 | HHI.GIFU ---
Subjective Remarks Pt resting in bed. No black stool today. Objective Vitals I&O Vital Signs Date Time Temp Pulse Resp B/P (MAP) Pulse Ox O2 Delivery O2 Flow Rate FiO2 09/14/17 11:45 97.5 79 18 127/63 (84) 97 09/14/17 07:29 97.8 78 18 99/74 (82) 98 09/14/17 03:17 97.7 69 17 116/61 (79) 97 09/14/17 00:00 66 09/13/17 23:47 98.4 68 17 101/58 (72) 96 09/13/17 21:45 97.0 72 18 134/69 97 09/13/17 21:29 96.1 65 16 115/56 95 09/13/17 20:00 78 09/13/17 19:25 97.2 72 18 134/61 98 09/13/17 15:00 09/13/17 15:00 97.4 64 18 126/59 (81) 99 I/O 09/13/17 09/13/17 09/13/17 09/14/17 09/14/17 09/14/17 07:00 15:00 23:00 07:00 15:00 23:00 Intake Total 232 ml 938 ml Balance 232 ml 938 ml Intake IV Total 15 ml FFP 223 ml 923 ml Blood Product IV Normal Saline Flush 9 ml # Voids 1 Laboratory Laboratory Tests Test 09/14/17 05:30 White Blood Count 5.2 Red Blood Count 2.90 Hemoglobin 9.2 Hematocrit 27.8 Mean Corpuscular Volume 96.1 Mean Corpuscular Hemoglobin 31.9 Mean Corpuscular Hemoglobin Concent 33.2 Red Cell Distribution Width 16.1 Platelet Count 171 Mean Platelet Volume 6.7 Neutrophils (%) (Auto) 55.2 Lymphocytes (%) (Auto) 27.0 Monocytes (%) (Auto) 13.9 Eosinophils (%) (Auto) 3.4 Basophils (%) (Auto) 0.5 Neutrophils # (Auto) 2.9 Lymphocytes # (Auto) 1.4 Monocytes # (Auto) 0.7 Eosinophils # (Auto) 0.2 Basophils # (Auto) 0.0 CBC Comment DIFF FINAL Differential Comment Prothrombin Time 20.3 Prothromb Time International Ratio 2.0 Blood Urea Nitrogen 34 Creatinine 1.43 Random Glucose 97 Calcium Level 8.6 Magnesium Level 2.3 Sodium Level 140 Potassium Level 4.2 Chloride Level 105 Carbon Dioxide Level 26.8 Anion Gap 8 Estimat Glomerular Filtration Rate 48 Physical Exam HEENT: PERRL; normocephalic; atraumatic; no jaundice. CHEST: CTA CARDIAC: irr HR + murmur ABDOMEN: Soft, protuberant, nontender; no hepatosplenomegaly; bowel sounds are present in all four quadrants. EXTREMITIES: No clubbing, cyanosis SKIN: Normal; no rash; no jaundice. BOARD SAW RUNNER: No focal deficits; alert and oriented times three. Assessment and Plan Plan Assessment: - GIB- Pt complaining of black, tarry stools. Started on Coumadin approx 3 weeks ago for a-fib. INR was recently elevated at 6 before his last admission. Never had EGD. no black tarry stool today, BM was brown. mild decrease Hgb. INR 2.0 cardiology has cleared for endoscopy with recs to d/c coumadin and continue on DAPT w/ asa and effient. will do EGD tomorrow. Plan: - EGD tomorrow - Obtain consents - NPO after MN - Monitor H/H - Transfuse as needed - Continue Protonix - Supportive care - Further recommendations to follow based on results of above Pt discussed with Dr Celestin and this note written on his behalf Charisse Abbott Sep 14, 2017 14:26
[2017-09-14 15:06] LABS: HEMATOCRIT 29.5 % (39.0-51.0); HEMOGLOBIN 9.6 GM/DL (13.0-17.0)
[2017-09-15] VITALS (9 sets, daily range): BP systolic 99–116; BP diastolic 55–74; PULSE 59–78; RESP 12–20; TEMP 95.6–97.8; O2SAT 96–98
[2017-09-15] MEDS: PANTOPRAZOLE SODIUM 40 MG VIAL IV PUSH SCH ×2 (03:19→13:51)
[2017-09-15] MEDS: PRASUGREL 10 MG TAB PO SCH (08:36)
[2017-09-15] MEDS: LISINOPRIL 20 MG TAB PO SCH (08:36)
[2017-09-15] MEDS: FUROSEMIDE 20 MG TAB PO SCH (08:36)
[2017-09-15] MEDS: ASPIRIN EC 81 MG TABEC PO SCH (08:37)
[2017-09-15] MEDS: METOPROLOL TARTRATE 25 MG TAB PO SCH (08:37)
[2017-09-15] MEDS: SODIUM CHLORIDE 0.9% FLUSH 10 ML FLUSH IV FLUSH SCH (08:37)
[2017-09-15] MEDS: GABAPENTIN 300 MG CAP PO SCH (10:30)
[2017-09-15] MEDS: MULTIVITAMIN TAB PO SCH (10:30)
[2017-09-15] MEDS: FOLIC ACID 1 MG TAB PO SCH (10:31)
[2017-09-15] MEDS: THIAMINE HCL 100 MG TAB PO SCH (10:31)
[2017-09-15] MEDS: ALLOPURINOL 300 MG TAB PO SCH (10:31)
[2017-09-15] MEDS ORDERED: ZANT300T PO (11:43)
[2017-09-15] MEDS ORDERED: PROT40TA PO (11:44)
[2017-09-15] MEDS ORDERED: PHENYLEPH/NS 1000 MCG/10 ML SYR IV ONE (12:00)
[2017-09-15] MEDS ORDERED: PROPOFOL 200 MG/20 ML AMP IV ONE (12:00)
[2017-09-15] MEDS: COLESTIPOL HCL 5 GM PACKET PO SCH (12:08)
[2017-09-15] MEDS ORDERED: WARFARIN SOD 2.5 MG TAB PO ONE (13:00)
--- NOTE | 2017-09-15 13:00 | HHI.PR ---
Subjective Remarks in no acute distress. no further GI bleed. no chest pain or sob. wants to go home today. Objective Vitals Vital Signs Date Time Temp Pulse Resp B/P (MAP) Pulse Ox O2 Delivery O2 Flow Rate FiO2 09/15/17 12:27 95.6 68 15 114/57 (76) 98 09/15/17 10:05 96/47 (63) 09/15/17 10:01 97.5 64 18 90/51 (64) 97 09/15/17 08:45 97.8 78 20 99/74 (82) 98 09/15/17 07:29 96.0 71 12 116/55 (75) 98 09/15/17 04:36 97.8 70 18 112/66 (81) 96 09/15/17 04:00 66 09/15/17 00:39 97.8 68 18 111/57 (75) 96 09/15/17 00:00 66 09/14/17 21:51 97.6 65 18 111/56 (74) 98 09/14/17 20:00 78 09/14/17 17:07 97.4 78 18 128/60 (82) 94 I/O 09/14/17 09/14/17 09/14/17 09/15/17 09/15/17 09/15/17 07:00 15:00 23:00 07:00 15:00 23:00 Intake Total 938 ml 600 ml Balance 938 ml 600 ml Intake IV Total 15 ml 200 ml FFP 923 ml Other 400 ml # Voids 1 2 Result Diagram: 09/14/17 1447 09/14/17 0530 Objective Remarks GENERAL: This is a well-nourished, well-developed patient, in no apparent distress. CARDIOVASCULAR: Regular rate and regular rhythm without murmurs, gallops, or rubs. RESPIRATORY: Clear to auscultation. Breath sounds equal bilaterally. No wheezes , rales, or rhonchi. GASTROINTESTINAL: Abdomen soft, non-tender, nondistended. Normal, active bowel sounds MUSCULOSKELETAL: Extremities without clubbing, cyanosis, or edema. NEURO: Alert & Oriented x4 to person, place, time, situation. Moves all ext x4 Medications and IVs Inpatient Medications Acetaminophen (Tylenol) 650 mg Q4H PRN PO SEE LABEL COMMENTS Last administered on 09/13/17at 20:14; Start 09/13/17 at 15:30; Stop 09/14/17 at 15:29; Status DC Albuterol/ Ipratropium (Duoneb Neb) 1 ampule Q6HR NEB PRN NEB cough, wheezing, dyspnea; Start 09/13/17 at 16:45 Allopurinol (Zyloprim) 300 mg DAILY PO Last administered on 09/15/17 10:31; Start 09/14/17 at 09:00 Aspirin (Ecotrin Ec) 81 mg DAILY PO Last administered on 09/15/17at 08:37; Start 09/14/17 at 14:00 Chlorhexidine Gluconate (Chlorhexidine 2% Cloth) 3 pack BASKET MACHINE OPERATOR PRN TOPICAL SEE LABEL COMMENTS; Start 09/13/17 at 17:00; Stop 09/16/17 at 16:59 Colestipol HCl (Colestipol Pkt) 5 gm DAILY PO Last administered on 09/15/17at 12: 08; Start 09/14/17 at 09:00 Diphenhydramine HCl (Benadryl) 25 mg Q4H PRN PO SEE LABEL COMMENTS Last administered on 09/13/17 20:14; Start 09/13/17 at 15:30; Stop 09/14/17 at 15:29; Status DC Flumazenil (Romazicon Inj) 0.2 mg Q1M PRN IV PUSH SEE LABEL COMMENTS; Start 09/13/17 at 16:30 Folic Acid (Folate) 1 mg DAILY PO Last administered on 09/15/17 10:31; Start at 09:00 Furosemide (Lasix) 60 mg DAILY PO Last administered on 09/15/17at 08:36; Start at 09:00 Gabapentin (Neurontin) 300 mg DAILY PO Last administered on 09/15/17 10:30; Start 09/14/17 at 09:00 Lactated Ringer's 1,000 ml @ 30 mls/hr Q24H PRN IV SEE LABEL COMMENTS Last administered on 09/15/17 08:37; Start 09/13/17 at 17:00; Stop 09/16/17 at 16:59 Lisinopril (Prinivil) 20 mg DAILY PO Last administered on 09/15/17at 08:36; Start 09/14/17 at 09:00 Lorazepam (Ativan Inj) 2 mg Q15M PRN IV PUSH CIWA > 20; Start 09/13/17 at 16:30 Lorazepam (Ativan) 2 mg Q2H PRN PO CIWA 11-14; Start 09/13/17 at 16:30 Metoprolol Tartrate (Lopressor) 25 mg BASKET MACHINE OPERATOR PRN PO SEE LABEL COMMENTS; Start 09/13/17 at 17:00; Stop 09/16/17 at 16:59 Multivitamins (Theragran) 1 tab DAILY PO Last administered on 09/15/17at 10:30; Start 09/14/17 at 09:00 Naloxone HCl (Narcan Inj) 0.4 mg UNSCH PRN IV PUSH SEE LABEL COMMENTS; Start at 14:00 Pantoprazole Sodium (Protonix Inj) 40 mg Q12H IV PUSH Last administered on at 03:19; Start 09/14/17 at 02:00 Patient Medication Teaching (Coumadin Booklet) 1 ONCE ONCE OTHER ; Start at 13:00; Stop 09/15/17 at 13:01 Povidone Iodine (Betadine 5% Antisepsis Kit) 1 applic BASKET MACHINE OPERATOR PRN EACH NARE SEE LABEL COMMENTS; Start 09/13/17 at 17:00; Stop 09/16/17 at 16:59 Prasugrel (Effient) 10 mg DAILY PO Last administered on 09/15/17at 08:36; Start 09/14/17 at 09:00 Pravastatin Sodium (Pravachol) 40 mg HS PO Last administered on 09/14/17at 12:01 ; Start 09/13/17 at 21:00 Sodium Chloride 500 ml @ 30 mls/hr [id number] PRN IV SEE LABEL COMMENTS; Start 09/13/17 at 17:00; Stop 09/16/17 at 16:59 Sodium Chloride (NS Flush) 2 ml BID IV FLUSH Last administered on 09/15/17at 08: 37; Start 09/13/17 at 21:00 Thiamine HCl (Vitamin B1) 100 mg DAILY PO Last administered on 09/15/17at 10:31; Start 09/14/17 at 09:00 Warfarin Sodium (Coumadin) 2.5 mg ONCE ONCE PO ; Start 09/15/17 at 13:00; Stop 09/15/17 at 13:01 A/P Assessment and Plan A/P GI bleed - Patient reports dark stools but none today. He is asymptomatic. -s/p EGD with duodenal ulcer. -continue PPI -f/u with GI as outpatient. - H/H stable. -ok to resume coumadin per GI. CAD status post recent cardiac stent implants 08/15/17 - Patient has no cardiac complaints at present - Continue patient on Effient - Continuous cardiac monitoring -cardiology consult appreciated. Atrial fibrillation on Coumadin Rate controlled - resume Coumadin . -PT/INR monitoring as outpatient. CHF, chronic, compensated - Continue patient on home dose of metoprolol 25 mg twice a day, lisinopril 40 mg daily and furosemide 60 mg daily. Monitor electrolytes - Monitor for any evidence of fluid overload MILLER on CKD - creatinine 1.57, unsure of patient's baseline but previous creatinine level 1.10 09/11/17 - Avoid nephrotoxic agent - Continue to monitor kidney function Hypertension - Well-controlled - Continue patient on antihypertensives as stated above - Monitor BP and adjust treatment accordingly COPD, not in acute exacerbation - DuoNeb nebs as needed - Monitor respiratory status Neuropathy - Continue patient on home dose of gabapentin 300 mg by mouth twice a day Dyslipidemia - Continue patient on home dose of pravastatin 40 mg daily and Colestipol 5gm daily Hypomagnesemia - Patient on magnesium supplementation at home. Repeat mag level. Daily alcohol use - [facility] protocol - Monitor for signs of DTs - Multivitamin/folic acid/vitamin daily DVT prophylaxis - Chemoprophylaxis contraindicated secondary to active GI bleed - Bilateral SCD/DIMA hose Discharge Planning dc home today. f/u;pcp, GI and cardiology. see med list. d/w the patient and his . d/w the GI. Brad Castellano MD Sep 15, 2017 13:00
== END 2017-09-15 14:33 | disposition home or self-care (01) ==
LOC: NEPD 11:43 → NEDA 13:57 → NEPGCP 15:09
PROVIDERS: ADMIT Internal Medicine; ATTEND Internal Medicine
DX: K92.1 Melena (principal); Z95.5 Presence of coronary angioplasty implant and graft; I25.10 Atherosclerotic heart disease of native coronary artery without angina pectoris; I48.91 Unspecified atrial fibrillation; Z79.01 Long term (current) use of anticoagulants; Z79.899 Other long term (current) drug therapy; I50.9 Heart failure, unspecified; I13.0 Hypertensive heart and chronic kidney disease with heart failure and stage 1 through stage 4 chronic kidney disease, or unspecified chronic kidney disease; J44.9 Chronic obstructive pulmonary disease, unspecified; G62.9 Polyneuropathy, unspecified; E78.5 Hyperlipidemia, unspecified; E83.42 Hypomagnesemia; F32.9 Major depressive disorder, single episode, unspecified; E78.00 Pure hypercholesterolemia, unspecified; K21.9 Gastro-esophageal reflux disease without esophagitis; R79.1 Abnormal coagulation profile; D50.9 Iron deficiency anemia, unspecified; K29.70 Gastritis, unspecified, without bleeding; K26.9 Duodenal ulcer, unspecified as acute or chronic, without hemorrhage or perforation
CPT/HCPCS: 00731; 36430; 43235; 80048; 80053; 83735; 85014; 85018; 85025; 85610; 85730; 86850; 86900; 86901; 86927; 96361; 96374; 96376; 97161; 99285; C9113; G0378; G8987; G8988; J2370; J7050; J7120; P9017

== ENCOUNTER 2017-10-11 10:17 | Inpatient (IN) | payer OTHER ==
[~2017-10-11] VITALS: Ht 182.9 cm; Wt 104.0 kg
[2017-10-11] VITALS (10 sets, daily range): BP systolic 104–158; BP diastolic 50–96; PULSE 70–92; RESP 14–20; TEMP 96.2–97.5; O2SAT 93–98
[~2017-10-11 10:17] MED LIST changes: +GABA300C5 PO; -NEUR300C PO; +PROT40TA PO; +ZANT300T PO
--- NOTE | 2017-10-11 10:46 | PD ---
HPI Chief Complaint: Abnormal Results Time Seen by Provider: 10:44 Travel History International Travel<30 days: No Contact w/Intl Traveler<30days: No Traveled to known affect area: No History of Present Illness HPI 72-year-old male came to the emergency room with history of abnormal blood test result [facility] him here because his hemoglobin was down to 7. Patient is on Coumadin. Patient says that he has been short of breath and feeling weak for past few days. Patient has atrial fibrillation for which he takes Coumadin. His is there was giving additional history and mentions that today he was diagnosed with gastric ulcer. Patient himself has not noticed any blood in his stool or vomit. No history of abdominal pain. Vital signs were relatively stable. No history of chest pain. PFSH Past Medical History Narrative Medical List of his past medical, surgical, social and family history is reviewed from the nursing note. Hx Anticoagulant Therapy: Yes (on coumadin) Asthma: No Blood Disorders: No Anxiety: No Depression: Yes Heart Rhythm Problems: Yes (AFIB) Cancer: No Cardiac Catheterization: Yes (with 2 stents) Cardiovascular Problems: Yes (CARIDAC CATH 08/15 W/2 STENTS PLACED) High Cholesterol: Yes Chemotherapy: No Chest Pain: No Congestive Heart Failure: No COPD: No Diabetes: No Endocrine: No Gastrointestinal Disorders: Yes GERD: Yes Genitourinary: Yes (RENAL INSUFFICIENCY) Hypertension: Yes Immune Disorder: No Musculoskeletal: Yes Neurologic: No Psychiatric: No Reproductive: No Respiratory: Yes Radiation Therapy: No Sleep Apnea: No Thyroid Disease: No Past Surgical History Abdominal Surgery: Yes Appendectomy: Yes Other Surgery: Yes (appendectomy) Social History Alcohol Use: Yes Tobacco Use: No Substance Use: No Allergies-Medications (Allergen,Severity, Reaction): Coded Allergies: No Known Allergies (Unverified , 10/11/17) Comments No known drug allergies. Reported Meds & Prescriptions Reported Meds & Active Scripts Active Reported Gabapentin 300 Mg Cap 300 Mg PO DAILY Vitamin B-1 (Thiamine HCl) 100 Mg Tab 100 Mg PO DAILY Pravastatin 40 Mg Tab 40 Mg PO HS Metoprolol Tartrate 50 Mg Tab 25 Mg PO BID Magnesium Oxide 400 Mg Tab 400 Mg PO DAILY Lisinopril 40 Mg Tab 40 Mg PO DAILY Folic Acid 1 Mg Tablet B-12 (Cyanocobalamin) 1,000 Mcg Subl 1,000 Mcg SL DAILY Colestipol (Colestipol HCl) 5 Gm Pkt 5 Gm PO DAILY 1 packet of granules contains 5 gm of colestipol. Vitamin D3 (Cholecalciferol) 1,000 Unit Cap 4,000 Units PO DAILY Ascorbic Acid 500 Mg Tab 1,000 Mg PO DAILY Allopurinol 300 Mg Tab 300 Mg PO DAILY Narrative Medication List of his home medications reviewed from the nursing note. Review of Systems Except as stated in HPI: all other systems reviewed are Neg Respiratory: Positive: Shortness of Breath Physical Exam Narrative GENERAL: Awake, alert, obese, mild distress SKIN: Focused skin assessment warm/dry. HEAD: Atraumatic. Normocephalic. EYES: Pupils equal and round. No scleral icterus. No injection or drainage. ENT: No nasal bleeding or discharge. Mucous membranes pink and moist. NECK: Trachea midline. No JVD. CARDIOVASCULAR: Regular rate and rhythm. No murmur appreciated. RESPIRATORY: No accessory muscle use. Clear to auscultation. Breath sounds equal bilaterally. GASTROINTESTINAL: Abdomen soft, non-tender, nondistended. Hepatic and splenic margins not palpable. MUSCULOSKELETAL: No obvious deformities. No clubbing. No cyanosis. Pedal edema. NEUROLOGICAL: Awake and alert. No obvious cranial nerve deficits. Motor grossly within normal limits. Normal speech. PSYCHIATRIC: Appropriate mood and affect; insight and judgment normal. Data Data Last Documented VS Vital Signs Date Time Temp Pulse Resp B/P (MAP) Pulse Ox O2 Delivery O2 Flow Rate FiO2 10/11/17 10:21 87 18 142/67 (92) 93 Orders Orders Basic Metabolic Panel (Bmp) (10/11/17 10:59) Complete Blood Count With Diff (10/11/17 10:59) Type And Screen (10/11/17 10:59) Red Blood Cells (Rbc) (10/11/17 10:59) Ecg Monitoring (10/11/17 10:59) Iv Access Insert/Monitor (10/11/17 10:59) Oximetry (10/11/17 10:59) Sodium Chloride 0.9% Flush (Ns Flush) (10/11/17 11:00) Prothrombin Time / Inr (Pt) (10/11/17 12:04) Sodium Chloride 0.9... W/Pantoprazole In (10/11/17 13:05) Sodium Chloride 0.9... W/Pantoprazole In (10/11/17 13:05) Admit Order (Ed Use Only) (10/11/17 12:32) Labs Laboratory Tests Test 10/11/17 11:30 White Blood Count 9.1 TH/MM3 Red Blood Count 2.39 MIL/MM3 Hemoglobin 7.8 GM/DL Hematocrit 23.3 % Mean Corpuscular Volume 97.2 FL Mean Corpuscular Hemoglobin 32.7 PG Mean Corpuscular Hemoglobin Concent 33.6 % Red Cell Distribution Width 20.2 % Platelet Count 217 TH/MM3 Mean Platelet Volume 6.7 FL Neutrophils (%) (Auto) 72.6 % Lymphocytes (%) (Auto) 15.2 % Monocytes (%) (Auto) 10.1 % Eosinophils (%) (Auto) 1.5 % Basophils (%) (Auto) 0.6 % Neutrophils # (Auto) 6.6 TH/MM3 Lymphocytes # (Auto) 1.4 TH/MM3 Monocytes # (Auto) 0.9 TH/MM3 Eosinophils # (Auto) 0.1 TH/MM3 Basophils # (Auto) 0.1 TH/MM3 CBC Comment DIFF FINAL Differential Comment Prothrombin Time 26.1 SEC Prothromb Time International Ratio 2.6 RATIO Blood Urea Nitrogen 49 MG/DL Creatinine 1.53 MG/DL Random Glucose 108 MG/DL Calcium Level 8.2 MG/DL Sodium Level 136 MEQ/L Potassium Level 5.0 MEQ/L Chloride Level 104 MEQ/L Carbon Dioxide Level 25.2 MEQ/L Anion Gap 7 MEQ/L Estimat Glomerular Filtration Rate 45 ML/MIN MDM Medical Decision Making Medical Screen Exam Complete: Yes Emergency Medical Condition: Yes Medical Record Reviewed: Yes Differential Diagnosis Symptomatic anemia, GI bleed Narrative Course 12:03 PM blood test results of back and hemoglobin is 7.8. Given his cardiac history of have ordered 2 units of blood transfusion. I will order Protonix bolus and drip as well. Patient will need to be admitted so that he can be seen by GI and scoped. Critical Care Narrative Aggregate critical care time was 30 minutes. Time to perform other separately billable procedures was not included in the critical care time. My time did not include minutes spent treating any other patients simultaneously or on activities that did not directly contribute to the patient's treatment. The services I provided to this patient were to treat and/or prevent clinically significant deterioration that could result in: Symptomatic anemia, blood transfusion, GI bleed, Protonix bolus and drip I provided critical care services requiring my management, as noted below: Chart data review, documentation time, medication orders and management, vital sign assessments/reviewing monitor data, ordering and reviewing lab tests, ordering and interpreting/reviewing x-rays and diagnostic studies, care of the patient and discussion of the patient with the admitting physicians. Procedures EKG Prior to Arrival: No HemaPrompt Point of Care Internal Pos. & Neg. Controls: Passed Fecal Specimen Occult Blood: Positive Diagnosis Primary Impression: GI bleed Qualified Codes: K92.2 - Gastrointestinal hemorrhage, unspecified Additional Impression: Symptomatic anemia Admitting Information Admitting Physician Requests: Admit Scripts Torsemide (Torsemide) 10 Mg Tab 10 MG PO BID for Fluid, #60 TAB 0 Refills Prov: Uche Georges DO 10/12/17 Pantoprazole (Protonix) 40 Mg Tab 40 MG PO DAILY for Ulcer Prevention, #30 TAB 6 Refills Prov: Uche Georges DO 10/12/17 Ferrous Sulfate (Ferrous Sulfate) 325 Mg (65 Mg Iron) Tablet 325 MG PO BID for Nutritional Supplement, #60 TAB 6 Refills Take it with small amount of orange juice. Prov: Uche Georges DO 10/12/17 Apixaban (Eliquis) 5 Mg Tab 5 MG PO BID for Blood Clot Prevention, #60 TAB 6 Refills START on 10/13/2017 Prov: Uche Georges DO 10/12/17 Prasugrel (Effient) 10 Mg Tab 10 MG PO DAILY for Blood Clot Prevention, #90 TAB 3 Refills Prov: Uche Georges DO 10/12/17 Colleen Colon MD Oct 11, 2017 10:46
[2017-10-11] MEDS ORDERED: SODIUM CHLORIDE 0.9% FLUSH 10 ML FLUSH IVF PRN (11:00)
[2017-10-11 11:41] LABS: AUTOMATED NEUTROPHIL # 6.6 TH/MM3 (1.8-7.7); BASOPHIL # 0.1 TH/MM3 (0-0.2); BASOPHIL % 0.6 % (0.0-2.0); EOSINOPHIL # 0.1 TH/MM3 (0-0.4); EOSINOPHIL % 1.5 % (0.0-4.0); HEMATOCRIT 23.3 % (39.0-51.0); HEMOGLOBIN 7.8 GM/DL (13.0-17.0); LYMPH % 15.2 % (9.0-44.0); LYMPHOCYTE # 1.4 TH/MM3 (1.0-4.8); MEAN CELL VOLUME 97.2 FL (80.0-100.0); MEAN CORPUSCULAR HEMOGLOBIN 32.7 PG (27.0-34.0); MEAN CORPUSCULAR HGB CONC 33.6 % (32.0-36.0); MEAN PLATELET VOLUME 6.7 FL (7.0-11.0); MONO % 10.1 % (0.0-8.0); MONOCYTE # 0.9 TH/MM3 (0-0.9); NEUT % 72.6 % (16.0-70.0); PLATELET COUNT 217 TH/MM3 (150-450); RED BLOOD COUNT 2.39 MIL/MM3 (4.50-5.90); RED CELL DISTRIBUTION WIDTH 20.2 % (11.6-17.2); WHITE BLOOD COUNT 9.1 TH/MM3 (4.0-11.0)
[2017-10-11 11:54] LABS: BICARBONATE 25.2 MEQ/L (21.0-32.0); CALCIUM 8.2 MG/DL (8.5-10.1); CREATININE 1.53 MG/DL (0.60-1.30)
[2017-10-11 12:25] LABS: INTERNATIONAL NORMALIZED RATIO 2.6 RATIO; PROTHROMBIN TIME - PATIENT 26.1 SEC (9.8-11.6)
[2017-10-11] MEDS ORDERED: LACTULOSE SYRUP 20 GM/30 ML CUP PO PRN (12:45)
[2017-10-11] MEDS ORDERED: NALOXONE HCL 0.4 MG/ML AMP IV PUSH PRN (12:45)
[2017-10-11] MEDS ORDERED: ACETAMINOPHEN 325 MG TAB PO PRN (12:45)
[2017-10-11] MEDS ORDERED: MAGNESIUM HYDROXIDE SUSP 30 ML CUP PO PRN (12:45)
[2017-10-11] MEDS ORDERED: SENNOSIDES 8.6 MG TAB PO PRN (12:45)
[2017-10-11] MEDS ORDERED: SODIUM CHLORIDE 0.9% FLUSH 10 ML FLUSH IV FLUSH PRN (12:45)
[2017-10-11] MEDS ORDERED: BISACODYL 10 MG SUPP RECTAL PRN (12:45)
[2017-10-11] MEDS ORDERED: ONDANSETRON HCL 4 MG/2 ML VIAL IVP PRN (12:45)
[2017-10-11] MEDS ORDERED: PANTOPRAZOLE INJ 80 MG in SODIUM CHLORIDE 0.9% INJ 100 ML IV SCH (13:05)
[2017-10-11] MEDS ORDERED: PANTOPRAZOLE INJ 80 MG in SODIUM CHLORIDE 0.9% INJ 35 ML IV ONE (13:05)
[2017-10-11] MEDS ORDERED: FERR325T18 PO (13:20)
[2017-10-11] MEDS ORDERED: OMEP20TA93 PO (13:20)
[2017-10-11] MEDS ORDERED: COUM1TAB PO ×2 (13:20)
[2017-10-11] MEDS ORDERED: MELO15TA20 PO (13:20)
[2017-10-11] MEDS ORDERED: PLAV75TA29 PO (13:20)
--- NOTE | 2017-10-11 16:13 | PD.CONS ---
HPI History of Present Illness This is a 72 year old male with hx duodenal ulcer and AF on coumadin and effient and ASA, stent placement 6 weeks ago, who [facility] His hgb here is 7.8 on admission. Admits intermittent dark stool, takes iron. Denies jose l red blood in stool. Denies n/v, abd pain. He was evaluated by us earlier this month for blood in stool, says he had supratherapeutic INR at that time, and had EGD with Dr Celestin 09/15/17 found mild gastritis, small duodenal ulcer. Last colonoscopy 2013 at [facility] was normal. (Charisse Abbott) PFSH Past Medical History AF duodenal ulcer HLD HTN Past Surgical History stent placement 6 wks go appendectomy (Charisse Abbott) Coded Allergies: No Known Allergies (Unverified , 10/11/17) Family History denies Social History daily ETOH consumption amt varies denies tobacco, quit smoking 1979 denies illicit drug use (Charisse Abbott) Review of Systems Constitutional: DENIES: Fever, Weight loss Endocrine: DENIES: Polydipsia Eyes: DENIES: Blurred vision Ears, nose, mouth, throat: DENIES: Hearing loss Respiratory: DENIES: Cough Cardiovascular: DENIES: Chest pain Gastrointestinal: COMPLAINS OF: Black stools, DENIES: Abdominal pain, Bloody stools, Constipation, Diarrhea, Nausea, Vomiting, Hematemesis Genitourinary: DENIES: Hematuria Musculoskeletal: DENIES: Joint Swelling Hematologic/lymphatic: DENIES: Bruising Neurologic: DENIES: Abnormal gait Psychiatric: DENIES: Confusion (Charisse Abbott) GI Exam Vitals I&O Vital Signs Date Time Temp Pulse Resp B/P (MAP) Pulse Ox O2 Delivery O2 Flow Rate FiO2 10/11/17 15:35 97.5 72 20 153/74 98 10/11/17 15:23 97.5 71 16 150/76 98 10/11/17 13:57 97.5 92 18 104/50 98 10/11/17 13:42 97.5 70 16 158/85 98 10/11/17 13:37 97.5 80 14 158/58 (91) 97 10/11/17 13:10 88 16 135/61 (85) 95 10/11/17 10:21 87 18 142/67 (92) 93 I/O 10/10/17 10/10/17 10/10/17 10/11/17 10/11/17 10/11/17 07:00 15:00 23:00 07:00 15:00 23:00 Intake Total 50 ml 480 ml Balance 50 ml 480 ml Intake Packed Cells 400 ml Blood Product IV Normal Saline Flush 50 ml 80 ml Laboratory Test 10/11/17 11:30 White Blood Count 9.1 TH/MM3 Red Blood Count 2.39 MIL/MM3 Hemoglobin 7.8 GM/DL Hematocrit 23.3 % Mean Corpuscular Volume 97.2 FL Mean Corpuscular Hemoglobin 32.7 PG Mean Corpuscular Hemoglobin Concent 33.6 % Red Cell Distribution Width 20.2 % Platelet Count 217 TH/MM3 Mean Platelet Volume 6.7 FL Neutrophils (%) (Auto) 72.6 % Lymphocytes (%) (Auto) 15.2 % Monocytes (%) (Auto) 10.1 % Eosinophils (%) (Auto) 1.5 % Basophils (%) (Auto) 0.6 % Neutrophils # (Auto) 6.6 TH/MM3 Lymphocytes # (Auto) 1.4 TH/MM3 Monocytes # (Auto) 0.9 TH/MM3 Eosinophils # (Auto) 0.1 TH/MM3 Basophils # (Auto) 0.1 TH/MM3 CBC Comment DIFF FINAL Differential Comment Prothrombin Time 26.1 SEC Prothromb Time International Ratio 2.6 RATIO Blood Urea Nitrogen 49 MG/DL Creatinine 1.53 MG/DL Random Glucose 108 MG/DL Calcium Level 8.2 MG/DL Sodium Level 136 MEQ/L Potassium Level 5.0 MEQ/L Chloride Level 104 MEQ/L Carbon Dioxide Level 25.2 MEQ/L Anion Gap 7 MEQ/L Estimat Glomerular Filtration Rate 45 ML/MIN Physical Examination HEENT: PERRL; normocephalic; atraumatic; no jaundice. CHEST: CTA CARDIAC: RRR ABDOMEN: Soft, protuberant, nontender; no hepatosplenomegaly; bowel sounds are present in all four quadrants. EXTREMITIES: No clubbing, cyanosis, or edema. SKIN: Normal; no rash; no jaundice. WEB WORKER: No focal deficits; alert and oriented times three. (Charisse Abbott) Assessment and Plan Plan ASSESSMENT - anemia, heme pos stool - hgb 7.8 on admission. anemia symptomatic, normocytic. EGD 09/14/17 showed duodenal ulcer. has been on BID PPI and carafate. intermittent black stools but takes iron. has been on coumadin, efffient, ASA since cardiac stent placement 6 weeks ago blood transfusion pending. INR 2.6 PLAN - EGD - obtain consent - NPO after MN tuesday - BID protonix - hold his coumadin - continue DAPT with effient and ASA - monitor HH - await transfusion - PRABHU - further recs to follow pt seen by myself and Dr Mcconnell and this note is written on his behalf (Charisse Abbott) Plan patient was seen and examined, agree with above note, plan for EGD, off anticoagulation (Royal Mcconnell MD) Charisse Abbott Oct 11, 2017 16:13 Royal Mcconnell MD Oct 12, 2017 15:11
[2017-10-11] MEDS ORDERED: PHYTONADIONE 5 MG TAB PO ONE (16:30)
--- NOTE | 2017-10-11 17:25 | HHI.HP ---
HPI Service [facility] Primary Care Physician [facility] Admission Diagnosis symptomatic anemia, GI bleed Diagnoses: Chief Complaint: Anemia Travel History International Travel<30 Days: No Contact w/Intl Traveler <30 Da: No Traveled to Known Affected Are: No History of Present Illness Written by Adeline Crocker, acting as scribe for Dr. Georges on 10/11/17 at 17:25. This note was transcribed by [email or web address] Garces. I, Dr. Navneet Georges personally performed the history, physical exam, and medical decision making; and confirmed the accuracy of the information in the transcribed note. Authenticated by Dr. Navneet Georges on 10/11/17 at 17:35. Patient is a 72-year-old male with primary medical history of A. fib, CHF, HTN, renal insufficiency, COPD, hyperlipidemia came into the hospital as advised by the [facility] secondary to low H&H at 7. Patient states he is on Coumadin, Effient, aspirin. States that he has no dizziness, no headaches and feeling fine. He complains about shortness of breath that has been ongoing for the past days and weeks. States he has previous history of GI bleed the last one was September or in he came in with his Coumadin level was on the high side. Patient states he had an EGD done prior. Patient reports he is 95% vegetarian and has difficulty controlling his INR. Reports he noticed dark stools but it becomes normal again. He was started on iron pills and was told that his stools will be dark and he doesn't know how to distinguish between bleeding or not. Denies pain and discomfort. Denies chest pain, palpitations. Denies fevers, chills, n/v/d. Denies hematuria, dysuria. Review of Systems Except as stated in HPI: all other systems reviewed are Neg Past Family Social History Past Medical History AF duodenal ulcer HLD HTN Past Surgical History stent placement 6 wks go appendectomy Allergies: Coded Allergies: No Known Allergies (Unverified , 10/11/17) Active Ordered Medications Current Medications Medications (Trade) Dose Ordered Sig/Alejo Route Start Time Stop Time Status Last Admin (NS Flush) 2 ml UNSCH PRN IV FLUSH 10/11/17 12:45 (NS Flush) 2 ml BID IV FLUSH 10/11/17 21:00 (Tylenol) 650 mg Q4H PRN PO 10/11/17 12:45 (Zofran Inj) 4 mg Q6H PRN IVP 10/11/17 12:45 (Narcan Inj) 0.4 mg UNSCH PRN IV PUSH 10/11/17 12:45 (Milk Of Magnesia Liq) 30 ml Q12H PRN PO 10/11/17 12:45 (Senokot) 17.2 mg Q12H PRN PO 10/11/17 12:45 (Dulcolax Supp) 10 mg DAILY PRN RECTAL 10/11/17 12:45 (Lactulose Liq) 30 ml DAILY PRN PO 10/11/17 12:45 (Protonix) 40 mg Q12HR PO 10/11/17 21:00 Family History denies CAD or family history of diabetes. Mother age 94 with dementia. Father in an operation for abdominal surgery. Social History daily ETOH consumption amt varies denies tobacco, quit smoking 1979 denies illicit drug use Physical Exam Vital Signs Vital Signs Date Time Temp Pulse Resp B/P (MAP) Pulse Ox O2 Delivery O2 Flow Rate FiO2 10/11/17 15:54 97.5 83 16 141/61 95 10/11/17 15:35 97.5 72 20 153/74 98 10/11/17 15:23 97.5 71 16 150/76 98 10/11/17 13:57 97.5 92 18 104/50 98 10/11/17 13:42 97.5 70 16 158/85 98 10/11/17 13:37 97.5 80 14 158/58 (91) 97 10/11/17 13:10 88 16 135/61 (85) 95 10/11/17 10:21 87 18 142/67 (92) 93 Physical Exam GENERAL: This is a well-nourished, well-developed patient, in no apparent distress. SKIN: Warm and dry. Bilateral lower extremity appears to have chronic stasis dermatitis. HEAD: Normocephalic. EYES: Pupils equal round and reactive. Extraocular motions intact. No scleral icterus. No injection or drainage. ENT: Nose without bleeding. Throat without erythema. Uvula midline. Airway patent. NECK: Trachea midline. No JVD or lymphadenopathy. Supple, nontender, no meningeal signs. CARDIOVASCULAR: Regular rate and rhythm without murmurs, gallops, or rubs. RESPIRATORY: Clear to auscultation. Breath sounds equal bilaterally. No wheezes , rales, or rhonchi. GASTROINTESTINAL: Abdomen soft, non-tender. Bowel sounds active 4 No guarding. MUSCULOSKELETAL: Extremities without clubbing, cyanosis. Bilateral lower extremity trace edema. NEUROLOGICAL: Awake and alert. Motor and sensory grossly within normal limits. Normal speech. Laboratory Laboratory Tests Test 10/11/17 11:30 White Blood Count 9.1 Red Blood Count 2.39 Hemoglobin 7.8 Hematocrit 23.3 Mean Corpuscular Volume 97.2 Mean Corpuscular Hemoglobin 32.7 Mean Corpuscular Hemoglobin Concent 33.6 Red Cell Distribution Width 20.2 Platelet Count 217 Mean Platelet Volume 6.7 Neutrophils (%) (Auto) 72.6 Lymphocytes (%) (Auto) 15.2 Monocytes (%) (Auto) 10.1 Eosinophils (%) (Auto) 1.5 Basophils (%) (Auto) 0.6 Neutrophils # (Auto) 6.6 Lymphocytes # (Auto) 1.4 Monocytes # (Auto) 0.9 Eosinophils # (Auto) 0.1 Basophils # (Auto) 0.1 CBC Comment DIFF FINAL Differential Comment Prothrombin Time 26.1 Prothromb Time International Ratio 2.6 Blood Urea Nitrogen 49 Creatinine 1.53 Random Glucose 108 Calcium Level 8.2 Sodium Level 136 Potassium Level 5.0 Chloride Level 104 Carbon Dioxide Level 25.2 Anion Gap 7 Estimat Glomerular Filtration Rate 45 Result Diagram: 10/11/17 1130 10/11/17 1130 Caprini VTE Risk Assessment Caprini VTE Risk Assessment: Mod/High Risk (score >= 2) VTE Pharm Contraindication: High risk for bleeding Caprini Risk Assessment Model Point Value = 1 Point Value = 2 Point Value = 3 Point Value = 5 Age 41-60 Minor surgery BMI > 25 kg/m2 Swollen legs Varicose veins or History of unexplained or recurrent spontaneous Oral contraceptives or hormone replacement Sepsis (< 1 month) Serious lung disease, including pneumonia (< 1 month) Abnormal pulmonary function Acute myocardial infarction Congestive heart failure (< 1 month) History of inflammatory bowel disease Medical patient at bed rest Age 61-74 Arthroscopic surgery Major open surgery (> 45 min) Laparoscopic surgery (> 45 min) Malignancy Confined to bed (> 72 hours) Immobilizing plaster cast Central venous access Age >= 75 History of VTE Family history of VTE Factor V Leiden Prothrombin [id number] Lupus anticoagulant Anticardiolipin antibodies Elevated serum homocysteine Heparin-induced thrombocytopenia Other congenital or acquired thrombophilia Stroke (< 1 month) Elective arthroplasty Hip, pelvis, or leg fracture Acute spinal cord injury (< 1 month) Prophylaxis Regimen Total Risk Factor Score Risk Level Prophylaxis Regimen 0-1 Low Early ambulation 2 Moderate Order ONE of the following: *Sequential Compression Device (SCD) *Heparin 5000 units SQ BID 3-4 Higher Order ONE of the following medications: *Heparin 5000 units SQ TID *Enoxaparin/Lovenox 40 mg SQ daily (WT < 150 kg, CrCl > 30 mL/min) *Enoxaparin/Lovenox 30 mg SQ daily (WT < 150 kg, CrCl > 10-29 mL/min) *Enoxaparin/Lovenox 30 mg SQ BID (WT < 150 kg, CrCl > 30 mL/min) AND/OR *Sequential Compression Device (SCD) 5 or more Highest Order ONE of the following medications: *Heparin 5000 units SQ TID (Preferred with Epidurals) *Enoxaparin/Lovenox 40 mg SQ daily (WT < 150 kg, CrCl > 30 mL/min) *Enoxaparin/Lovenox 30 mg SQ daily (WT < 150 kg, CrCl > 10-29 mL/min) *Enoxaparin/Lovenox 30 mg SQ BID (WT < 150 kg, CrCl > 30 mL/min) AND *Sequential Compression Device (SCD) Assessment and Plan Problem List: (1) Symptomatic anemia ICD Code: D64.9 - Anemia, unspecified Status: Acute (2) GI bleed ICD Code: K92.2 - Gastrointestinal hemorrhage, unspecified Status: Acute (3) A-fib ICD Code: I48.91 - Unspecified atrial fibrillation (4) HTN (hypertension) ICD Code: I10 - Essential (primary) hypertension Status: Chronic (5) Alcohol use ICD Code: Z78.9 - Other specified health status Status: Chronic Assessment and Plan Patient is a 72-year-old male with primary medical history of A. fib, CHF, HTN, renal insufficiency, COPD, hyperlipidemia [facility] H&H at 7. Acute GI bleed - Patient's H&H 7.8/23.3. Increasing shortness of breath - Patient is on Coumadin, Prasugrel, aspirin for A. fib and stent - Hold Coumadin. - Will continue Prasugrel. GI is okay with this as well. Since patient has had more than 4 weeks (since 08/15/2017) DAPT (Prasugrel and ASA), we may be able to d/c Aspirin. - 2 units packed RBC - Protonix drip can be discontinued. We will continue Protonix BID. - GI consult. EGD tomorrow - Nothing by mouth after midnight - Monitor H&H A. fib, chronic HTN HLD CHF, not on exacerbation Chronic anticoagulation - Will hold Coumadin. Discuss with patient possible switching over from Coumadin to continue other anticoagulants. - It may be reasonable to switch from Warfarin to Apixaban given better safety profile and more predictable anticoagulation. - Continue metoprolol 50 mg, lisinopril 40 mg - Monitor BP trend CAD s/p JÚNIOR stents in Prox LAD and RCA - Patient has been on Warfarin as well as DAPT since 08/15/2017. - Given risk of GI bleed, it would be reasonable to stop Aspirin (usual recommendations is to continue tripple therapy for 1-3 months). Full code. On warfarin. INR 2.6. Code Status Full code Discussed Condition With Patient, nursing, ED attending Physician Certification 2 Midnight Certification Type: Admission for Inpatient Services Order for Inpatient Services The services are ordered in accordance with Medicare regulations or non- Medicare payer requirements, as applicable. In the case of services not specified as inpatient-only, they are appropriately provided as inpatient services in accordance with the 2-midnight benchmark. Estimated LOS (days): 2 days is the estimated time the patient will need to remain in the hospital, assuming treatment plan goals are met and no additional complications. Post-Hospital Plan: Home Problem Qualifiers (1) GI bleed: Qualified Codes: K92.2 - Gastrointestinal hemorrhage, unspecified Adeline Batista Oct 11, 2017 17:25 Uche Georges DO Oct 11, 2017 17:25
[2017-10-11] MEDS: PANTOPRAZOLE SOD 40 MG DELAYED RELEASE TAB PO SCH (20:59)
[2017-10-11] MEDS: METOPROLOL TARTRATE 50 MG TAB PO SCH (20:59)
[2017-10-11] MEDS ORDERED: PRAVASTATIN SOD 40 MG TAB PO SCH (21:00)
[2017-10-11] MEDS: SODIUM CHLORIDE 0.9% FLUSH 10 ML FLUSH IV FLUSH SCH (21:02)
[2017-10-11] MEDS ORDERED: METOPROLOL TARTRATE 25 MG TAB PO PRN (22:15)
[2017-10-11] MEDS ORDERED: SODIUM CHLORID 0.9% 500 ML IV PRN (22:15)
[2017-10-11] MEDS ORDERED: POVIDONE IODINE 5% (ANTISEPSIS KIT) 4 APPLICATIONS EACH NARE PRN (22:15)
[2017-10-11] MEDS ORDERED: LACTATED RINGER'S 1000 ML IV PRN (22:15)
[2017-10-11] MEDS ORDERED: INSULIN HUMAN REGULAR 1,000 UNITS/10 ML VIAL SQ PRN (22:15)
[2017-10-11] MEDS ORDERED: CHLORHEXIDINE GLUCONATE 2 % 1 PACK (2 CLOTHS) TOPICAL PRN (22:15)
[2017-10-12] VITALS: BP 117/66; PULSE 75; RESP 16; TEMP 97; O2SAT 94
[2017-10-12 07:41] LABS: AUTOMATED NEUTROPHIL # 3.5 TH/MM3 (1.8-7.7); BASOPHIL % 0.6 % (0.0-2.0); EOSINOPHIL # 0.1 TH/MM3 (0-0.4); EOSINOPHIL % 2.2 % (0.0-4.0); HEMATOCRIT 24.8 % (39.0-51.0); HEMOGLOBIN 8.4 GM/DL (13.0-17.0); LYMPH % 17.9 % (9.0-44.0); MEAN CELL VOLUME 94.4 FL (80.0-100.0); MEAN CORPUSCULAR HGB CONC 33.9 % (32.0-36.0); MEAN PLATELET VOLUME 6.4 FL (7.0-11.0); MONO % 14.5 % (0.0-8.0); MONOCYTE # 0.8 TH/MM3 (0-0.9); NEUT % 64.8 % (16.0-70.0); PLATELET COUNT 165 TH/MM3 (150-450); RED BLOOD COUNT 2.63 MIL/MM3 (4.50-5.90); RED CELL DISTRIBUTION WIDTH 19.1 % (11.6-17.2); WHITE BLOOD COUNT 5.3 TH/MM3 (4.0-11.0)
[2017-10-12 07:47] LABS: INTERNATIONAL NORMALIZED RATIO 1.7 RATIO; PROTHROMBIN TIME - PATIENT 17.2 SEC (9.8-11.6)
[2017-10-12 07:52] LABS: BICARBONATE 25.2 MEQ/L (21.0-32.0); CALCIUM 8.5 MG/DL (8.5-10.1); CREATININE 1.48 MG/DL (0.60-1.30)
[2017-10-12] MEDS: PANTOPRAZOLE SOD 40 MG DELAYED RELEASE TAB PO SCH (07:57)
[2017-10-12] MEDS: METOPROLOL TARTRATE 50 MG TAB PO SCH (07:57)
[2017-10-12] MEDS: SODIUM CHLORIDE 0.9% FLUSH 10 ML FLUSH IV FLUSH SCH (07:58)
[2017-10-12 08:00] VITALS: BP 133/72; PULSE 71; RESP 20; TEMP 96.6; O2SAT 93
[2017-10-12] MEDS ORDERED: MAGNESIUM OXIDE 400 MG TAB PO SCH (09:00)
[2017-10-12] MEDS ORDERED: ASPIRIN EC 81 MG TABEC PO SCH (09:00)
[2017-10-12] MEDS ORDERED: CYANOCOBALAMIN 1,000 MCG TAB PO SCH (09:00)
[2017-10-12] MEDS ORDERED: LISINOPRIL 20 MG TAB PO SCH (09:00)
[2017-10-12] MEDS ORDERED: FUROSEMIDE 20 MG TAB PO SCH (09:00)
[2017-10-12] MEDS ORDERED: ALLOPURINOL 300 MG TAB PO SCH (09:00)
[2017-10-12] MEDS ORDERED: THIAMINE HCL 100 MG TAB PO SCH (09:00)
[2017-10-12] MEDS ORDERED: CHOLECALCIFEROL (VIT D3) 1000 UNIT TAB PO SCH (09:00)
[2017-10-12] MEDS ORDERED: GABAPENTIN 300 MG CAP PO SCH (09:00)
[2017-10-12] MEDS ORDERED: ASCORBIC ACID 500 MG TAB PO SCH (09:00)
[2017-10-12] MEDS ORDERED: FERROUS SULFATE 325 MG (65 MG ELEMENTAL IRON) TAB PO SCH (09:00)
[2017-10-12] MEDS ORDERED: PRASUGREL 10 MG TAB PO SCH (09:00)
--- NOTE | 2017-10-12 09:39 | EKG ---
Date Performed: 10/11/2017 Time Performed: 22:04:24 PTAGE: 72 years EKG: ATRIAL FIBRILLATION MINIMAL ST DEPRESSION ABNORMAL RHYTHM ECG Since the prior tracing, ther e has been no significant change PREVIOUS TRACING : 09/10/2017 11.00 DOCTOR: Adriano Manzano Interpretating Date/Time 10/12/2017 09:38:24
[2017-10-12] MEDS ORDERED: INFLUENZA VIRUS VACCINE (QUADRIVALENT) 0.5 ML SYR IM ONE (10:00)
--- NOTE | 2017-10-12 11:43 | GIPROC ---
[facility] [address] [facility]. [facility] [place], [address] EGD PROCEDURE REPORT EXAM DATE: 10/12/2017 PATIENT NAME: Ramsey Mailk MR #: [id number] BIRTHDATE: 1945 ATTENDING: Yue Greene MD ORDER #: [id number] DRINK BOX MECHANIC: Maritza Guerin and Di Burch STATUS: inpatient INDICATIONS: The patient is a 72 yr old male here for an EGD due to history of esophageal reflux and acute post hemorrhagic anemia PROCEDURE PERFORMED: EGD, diagnostic MEDICATIONS: None and Per Anesthesia. TOPICAL ANESTHETIC: CONSENT: The patient understands the risks and benefits of the procedure and understands that these risks include, but are not limited to: sedation, allergic reaction, infection, perforation and/or bleeding. Alternative means of evaluation and treatment include, among others: physical exam, x-rays, and/or surgical intervention. The patient elects to proceed with this endoscopic procedure. medical equipment was checked for proper function. Hand hygiene and appropriate measures for infection prevention was taken. After the risks, benefits and alternatives of the procedure were thoroughly explained, Informed consent was verified, confirmed and timeout was successfully executed by the treatment team. The patient was anesthetized with topical anesthesia and the Pentax [id number] endoscope was introduced through the mouth and advanced to the second portion of the duodenum. Retroflexed views revealed a hiatal hernia The gastroscope was then slowly withdrawn and removed. 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 The length of circumferential Evans's was 1cm ([place] C1) and the length of Maximal extent of Evans's was 2cm ([place] M2). There was no nodular mucosa noted in the Evans's segment. STOMACH: There was erythematous moderate gastritis in the gastric antrum. A small angiodysplastic lesion was found in the gastric fundus. DUODENUM: A small non-bleeding, shallow and clean-based ulcer was found in the duodenal bulb. ADVERSE EVENTS: There were no complications. IMPRESSIONS: 1. 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 There was erythematous gastritis in the gastric antrum 3. Angiodysplastic lesion in the gastric fundus 4. Small ulcer was found in the duodenal bulb 5. Retroflexed views revealed a hiatal hernia RECOMMENDATIONS: 1. Anti-reflux regimen 2. Continue PPI 3. Avoid NSAIDS PATIENT CONDITION: stable DISPOSITION: Inpatient REPEAT EXAM: Return 1 month EGD Off of coumadin Yue Greene MD eSigned: Yue Greene MD 10/12/2017 11:42 AM cc: PATIENT NAME: Ramsey Malik MR#: [id number]
[2017-10-12 11:49] VITALS: BP 105/51; PULSE 70; RESP 16; TEMP 97.5; O2SAT 97
[2017-10-12] MEDS ORDERED: APIX5TAB PO (12:54)
[2017-10-12] MEDS ORDERED: PRAS10TA PO (12:54)
[2017-10-12] MEDS ORDERED: FERR325T18 PO (13:26)
[2017-10-12] MEDS ORDERED: PROT40TA PO (13:26)
[2017-10-12] MEDS ORDERED: TORS10TA2 PO (13:26)
--- NOTE | 2017-10-12 15:27 | HHI.PR ---
Subjective Remarks Follow-up for GI bleed related anemia. Patient is currently doing well. He underwent EGD studies. No acute concerns. Tolerating diet well. Objective Vitals Vital Signs Date Time Temp Pulse Resp B/P (MAP) Pulse Ox O2 Delivery O2 Flow Rate FiO2 10/12/17 11:49 97.5 70 16 105/51 (69) 97 10/12/17 08:00 96.6 71 20 133/72 (92) 93 10/12/17 00:00 97.0 75 16 117/66 (83) 94 10/11/17 20:00 96.4 89 18 146/96 (113) 96 10/11/17 17:39 96.2 85 18 157/75 (102) 96 10/11/17 15:54 97.5 83 16 141/61 95 10/11/17 15:35 97.5 72 20 153/74 98 10/11/17 15:23 97.5 71 16 150/76 98 I/O 10/11/17 10/11/17 10/11/17 10/12/17 10/12/17 10/12/17 07:00 15:00 23:00 07:00 15:00 23:00 Intake Total 50 ml 890 ml 500 ml Balance 50 ml 890 ml 500 ml Packed Cells 800 ml Blood Product IV Normal Saline Flush 50 ml 90 ml Other 500 ml # Bowel Movements 1 Result Diagram: 10/12/17 0658 10/12/17 0658 Objective Remarks GENERAL: Alert, oriented 3, NAD. SKIN: Warm and dry. HEAD: Normocephalic. EYES: No scleral icterus. No injection or drainage. NECK: Supple, trachea midline. No JVD or lymphadenopathy. CARDIOVASCULAR: Regular rate and rhythm without murmurs, gallops, or rubs. RESPIRATORY: Breath sounds equal bilaterally. No accessory muscle use. GASTROINTESTINAL: Abdomen soft, non-tender, nondistended. MUSCULOSKELETAL: No cyanosis, or edema. BACK: Nontender without obvious deformity. No CVA tenderness. Procedures EGD 10/12/2017 1. 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 There was erythematous gastritis in the gastric antrum 3. Angiodysplastic lesion in the gastric fundus 4. Small ulcer was found in the duodenal bulb 5. Retroflexed views revealed a hiatal hernia RECOMMENDATIONS: 1. Anti-reflux regimen 2. Continue PPI 3. Avoid NSAIDS PATIENT CONDITION: stable DISPOSITION: Inpatient REPEAT EXAM: Return 1 month EGD Off of coumadin A/P Problem List: (1) Symptomatic anemia ICD Code: D64.9 - Anemia, unspecified Status: Acute (2) GI bleed ICD Code: K92.2 - Gastrointestinal hemorrhage, unspecified Status: Acute (3) A-fib ICD Code: I48.91 - Unspecified atrial fibrillation (4) HTN (hypertension) ICD Code: I10 - Essential (primary) hypertension Status: Chronic (5) Alcohol use ICD Code: Z78.9 - Other specified health status Status: Chronic Assessment and Plan Patient is a 72-year-old male with primary medical history of A. fib, CHF, HTN, renal insufficiency, COPD, hyperlipidemia [facility] to low H&H at 7. Acute GI bleed - Patient's H&H 7.8 --> 8.4 - Patient was on Coumadin, Prasugrel, aspirin for A. fib and stent - Received 2 units packed RBC - Continue Protonix 40 mg daily - Status post EGD. GI recommends repeat EGD in 1 month. A. fib, chronic HTN HLD CHF, not on exacerbation Chronic anticoagulation - Patient's INR was 1.7 today. After discussing with GI, we advised patient to start apixaban 5 mg twice a day starting 10/13/2017. Continue Prasugrel - Discontinue warfarin and aspirin. - Continue metoprolol 50 mg, lisinopril 40 mg CAD s/p JÚNIOR stents in Prox LAD and RCA - Patient has been on Warfarin as well as DAPT since 08/15/2017. - Given risk of GI bleed, it would be reasonable to stop Aspirin (usual recommendations is to continue tripple therapy for 1-3 months). - Patient will continue Prasugrel and apixaban. Apixaban starting 10/13/2017. Full code. Discussed extensively with Patient twice, also discussed with GI. Also discussed with Model Engine Mechanic who originally placed stent on 08/15/2018 (Dr. Augustin). Discharge patient to home Condition on discharge: Improved Regular Diet as tolerated Ad Carolann activity Rx written: Apixaban 5 mg by mouth twice a day starting 10/13/2017 Protonix 40 mg by mouth daily Prasugrel 10 mg by mouth daily Torsemide 10 mg by mouth twice a day Stop aspirin, furosemide, warfarin. Plavix was listed as a home medication. However, patient was actually taking Prasugrel. Plavix is not one of his home meds. Follow-up with primary care physician in one week and gastroenterology in 1 month. Problem Qualifiers (1) GI bleed: Qualified Codes: K92.2 - Gastrointestinal hemorrhage, unspecified Uche Georges DO Oct 12, 2017 3:27 pm
== END 2017-10-12 14:22 | disposition home or self-care (01) | DRG 811 ==
LOC: NEPC 10:17 → NEDA 12:33 → N06A 17:41
PROVIDERS: ADMIT Hospitalist; ATTEND Hospitalist
PROC: 30233N1 Transfusion of Nonautologous Red Blood Cells into Peripheral Vein, Percutaneous Approach (ICD-10-PCS; principal; 2017-10-11)
PROC: 0DJ08ZZ Inspection of Upper Intestinal Tract, Via Natural or Artificial Opening Endoscopic (ICD-10-PCS; 2017-10-12)
DX: D62 Acute posthemorrhagic anemia (principal); K29.71 Gastritis, unspecified, with bleeding; K31.811 Angiodysplasia of stomach and duodenum with bleeding; I50.9 Heart failure, unspecified; I11.0 Hypertensive heart disease with heart failure; I48.2 Chronic atrial fibrillation; K26.9 Duodenal ulcer, unspecified as acute or chronic, without hemorrhage or perforation; J44.9 Chronic obstructive pulmonary disease, unspecified; I25.10 Atherosclerotic heart disease of native coronary artery without angina pectoris; K21.9 Gastro-esophageal reflux disease without esophagitis; E78.5 Hyperlipidemia, unspecified; K22.70 Barrett's esophagus without dysplasia; K44.9 Diaphragmatic hernia without obstruction or gangrene; F32.9 Major depressive disorder, single episode, unspecified; Z79.01 Long term (current) use of anticoagulants; Z87.11 Personal history of peptic ulcer disease; Z95.5 Presence of coronary angioplasty implant and graft
CPT/HCPCS: 36430; 80048; 85025; 85610; 86850; 86900; 86901; 86920; 93005; 99291; C9113; P9016

== ENCOUNTER 2017-10-20 14:39 | Inpatient (IN) | payer OTHER, MEDICARE ==
[~2017-10-20] VITALS: Ht 182.9 cm; Wt 104.0 kg
[2017-10-20] VITALS (9 sets, daily range): BP systolic 102–140; BP diastolic 52–65; PULSE 70–98; RESP 16–20; TEMP 96.5–98.4; O2SAT 95–100
[~2017-10-20 14:39] MED LIST changes: -ALBU1AER5 INH; +APIX5TAB PO; -ASPI81TA23 PO; -COUM2.5T PO; +FERR325T18 PO; -FURO20TA PO; +TORS10TA2 PO; -VIAG100T PO; -ZANT300T PO
[2017-10-20 17:07] LABS: AUTOMATED NEUTROPHIL # 4.6 TH/MM3 (1.8-7.7); BASOPHIL % 0.6 % (0.0-2.0); EOSINOPHIL # 0.1 TH/MM3 (0-0.4); EOSINOPHIL % 1.2 % (0.0-4.0); HEMATOCRIT 21.3 % (39.0-51.0); HEMOGLOBIN 7.2 GM/DL (13.0-17.0); LYMPH % 17.5 % (9.0-44.0); LYMPHOCYTE # 1.2 TH/MM3 (1.0-4.8); MEAN CELL VOLUME 96.9 FL (80.0-100.0); MEAN CORPUSCULAR HEMOGLOBIN 32.5 PG (27.0-34.0); MEAN CORPUSCULAR HGB CONC 33.6 % (32.0-36.0); MEAN PLATELET VOLUME 6.5 FL (7.0-11.0); MONO % 14.1 % (0.0-8.0); NEUT % 66.6 % (16.0-70.0); PLATELET COUNT 224 TH/MM3 (150-450); RED CELL DISTRIBUTION WIDTH 19.8 % (11.6-17.2); WHITE BLOOD COUNT 6.9 TH/MM3 (4.0-11.0)
[2017-10-20 17:17] LABS: INTERNATIONAL NORMALIZED RATIO 1.2 RATIO; PROTHROMBIN TIME - PATIENT 11.7 SEC (9.8-11.6)
[2017-10-20 17:25] LABS: ALBUMIN 3.5 GM/DL (3.4-5.0); AST (GOT) 29 U/L (15-37); BICARBONATE 23.1 MEQ/L (21.0-32.0); BLOOD UREA NITROGEN 43 MG/DL (7-18); CALCIUM 8.4 MG/DL (8.5-10.1); CHLORIDE 108 MEQ/L (98-107); CREATININE 1.29 MG/DL (0.60-1.30); GLOMERULAR FILTRATION RATE 54 ML/MIN (>89); GLUCOSE,RANDOM 92 MG/DL (74-106); SODIUM (NA) 138 MEQ/L (136-145)
[2017-10-20 17:27] LABS: ALT (GPT) 17 U/L (12-78)
[2017-10-20 17:28] LABS: ALKALINE PHOSPHATASE 101 U/L (45-117); TOTAL BILIRUBIN ADULT 0.3 MG/DL (0.2-1.0); TOTAL PROTEIN 7.9 GM/DL (6.4-8.2)
--- NOTE | 2017-10-20 17:58 | PD ---
HPI Chief Complaint: Abnormal Results Time Seen by Provider: 17:14 Travel History International Travel<30 days: No Contact w/Intl Traveler<30days: No Traveled to known affect area: No History of Present Illness HPI Patient comes to the emergency department complaining of low hemoglobin. Patient reports he went to the [place] had his hemoglobin checked today was told it was 6.5. And was instructed to come back to the emergency department. Patient reports he was just admitted to the hospital last month for low hemoglobin. He states he is no longer taking the Coumadin. Patient denies any pain anywhere. Denies any fevers. Patient states he does noted his stool to be dark but is on iron. Patient reports she has been taking medication as instructed from his previous visit. Patient states she has noticed some shortness of breath that he believes started prior to him coming to the emergency department last time. Patient states he has a history of COPD but after having cardiac stents placed about 6 weeks ago he has not needed his inhalers. Patient reports trying to use his inhalers with no improvement of symptoms. Dyspnea is worse on exertion. Patient denies any fevers, fatigue, chest pain, abdominal pain, headaches, or lightheadedness. Patient does report he is on Eliquis. PFSH Past Medical History Hx Anticoagulant Therapy: Yes Arthritis: Yes Asthma: No Autoimmune Disease: No Blood Disorders: No Anxiety: No Depression: No Heart Rhythm Problems: Yes (AFIB) Cancer: No Cardiac Catheterization: Yes (with 2 stents) Cardiovascular Problems: Yes (CARIDAC CATH 08/15/17 W/2 STENTS PLACED) High Cholesterol: Yes Chemotherapy: No Chest Pain: No Congestive Heart Failure: No COPD: Yes (RESOLVED AFTER CARDIAC STENTS PLACED PER PATIENT) Cerebrovascular Accident: No Diabetes: No Endocrine: No Gastrointestinal Disorders: Yes GERD: Yes Genitourinary: No Hiatal Hernia: No Hypertension: Yes Immune Disorder: No Kidney Stones: No Musculoskeletal: Yes (ARTHRITIS) Neurologic: Yes Psychiatric: No Reproductive: No Respiratory: Yes Migraines: No Radiation Therapy: No Renal Failure: No Seizures: No Sickle Cell Disease: No Sleep Apnea: No Thyroid Disease: No Ulcer: Yes Past Surgical History Abdominal Surgery: Yes (APPY) AICD: No Appendectomy: Yes Body Medical Devices: CARDIAC STENTS Cardiac Surgery: Yes (CARDIAC CATH WITH STENTS) Ear Surgery: No Endocrine Surgery: No Eye Surgery: Yes (CATARACT SX) Genitourinary Surgery: No Gynecologic Surgery: No Oral Surgery: Yes (TONSILLECTOMY) Pacemaker: No Thoracic Surgery: No Other Surgery: Yes (appendectomy) Social History Alcohol Use: Yes Tobacco Use: No Substance Use: No Allergies-Medications (Allergen,Severity, Reaction): Coded Allergies: No Known Allergies (Unverified , 10/11/17) Reported Meds & Prescriptions Reported Meds & Active Scripts Active Torsemide 10 Mg Tab 10 Mg PO BID Protonix (Pantoprazole Sodium) 40 Mg Tab 40 Mg PO DAILY Ferrous Sulfate 325 Mg (65 Mg Iron) Tablet 325 Mg PO BID Take it with small amount of orange juice. Eliquis (Apixaban) 5 Mg Tab 5 Mg PO BID START on 10/13/2017 Reported Plavix (Clopidogrel Bisulfate) 75 Mg Tab 75 Mg PO DAILY Gabapentin 300 Mg Cap 300 Mg PO DAILY Vitamin B-1 (Thiamine HCl) 100 Mg Tab 100 Mg PO DAILY Pravastatin 40 Mg Tab 40 Mg PO HS Metoprolol Tartrate 50 Mg Tab 25 Mg PO BID Magnesium Oxide 400 Mg Tab 400 Mg PO DAILY Lisinopril 40 Mg Tab 40 Mg PO DAILY Folic Acid 1 Mg Tablet B-12 (Cyanocobalamin) 1,000 Mcg Subl 1,000 Mcg SL DAILY Colestipol (Colestipol HCl) 5 Gm Pkt 5 Gm PO DAILY 1 packet of granules contains 5 gm of colestipol. Vitamin D3 (Cholecalciferol) 1,000 Unit Cap 4,000 Units PO DAILY Ascorbic Acid 500 Mg Tab 1,000 Mg PO DAILY Allopurinol 300 Mg Tab 300 Mg PO DAILY Review of Systems Except as stated in HPI: all other systems reviewed are Neg Physical Exam Narrative GENERAL: Well-developed, overly nourished, in no acute distress, and non-ill appearing. SKIN: Focused skin assessment warm and dry. HEAD: Atraumatic. Normocephalic. EYES: Pupils equal and round. EOMI. No scleral icterus. No injection or drainage. ENT: No nasal bleeding or discharge. Mucous membranes pink and moist. NECK: Trachea midline. Supple. No nuclear rigidity. CARDIOVASCULAR: Regular rate and rhythm. Murmur appreciated. RESPIRATORY: No accessory muscle use. No respiratory distress. Faint wheezing throughout. Breath sounds equal bilaterally. GASTROINTESTINAL: Abdomen soft, non-tender, nondistended, and no guarding. Hepatic and splenic margins not palpable. Normal bowel sounds x4. No pulsatile mass. RECTAL EXAM: No masses or tenderness, stool is black. No external hemorrhoids appreciated. MUSCULOSKELETAL: No obvious deformities. No clubbing. No cyanosis. No edema. Full range of motion. NEUROLOGICAL: Awake and alert. No obvious cranial nerve deficits. Motor grossly within normal limits. Normal speech. PSYCHIATRIC: Appropriate mood and affect; insight and judgment normal. Data Data Last Documented VS Vital Signs Date Time Temp Pulse Resp B/P (MAP) Pulse Ox O2 Delivery O2 Flow Rate FiO2 10/20/17 18:01 77 18 130/59 (82) 99 Nasal Cannula 2.00 10/20/17 14:42 97.4 Orders Orders Complete Blood Count With Diff (10/20/17 15:29) Comprehensive Metabolic Panel (10/20/17 15:29) Prothrombin Time / Inr (Pt) (10/20/17 15:29) Act Partial Throm Time (Ptt) (10/20/17 15:29) Type And Screen (10/20/17 15:29) Chest, Single Ap (10/20/17 ) Red Blood Cells (Rbc) (10/20/17 17:52) Blood Product Administration (10/20/17 17:52) Lactic Acid Sepsis Protocol (10/20/17 18:13) Blood Culture (10/20/17 18:13) Sodium Chloride 0.9% Flush (Ns Flush) (10/20/17 18:15) Piperacil-Tazo 4.5 Gm Premix (Zosyn 4.5 (10/20/17 18:15) Cefepime Inj (Maxipime Inj) (10/20/17 18:15) Albuterol-Ipratropium Neb (Duoneb Neb) (10/20/17 18:30) Consult Gastroenterology (10/20/17 ) Pantoprazole Inj (Protonix Inj) (10/20/17 18:30) (Hub Use Only)Inp Phy Cons/Ref (10/20/17 ) Admit Order (Ed Use Only) (10/20/17 ) Select Banker / Telemetry FRITZ.Q8H (10/20/17 18:50) Vital Signs (Adult) Q4H (10/20/17 18:50) Activity Oob With Assistance (10/20/17 18:50) Notify Dr: Other (10/20/17 18:50) Labs Laboratory Tests Test 10/20/17 16:35 10/20/17 18:32 White Blood Count 6.9 TH/MM3 Red Blood Count 2.20 MIL/MM3 Hemoglobin 7.2 GM/DL Hematocrit 21.3 % Mean Corpuscular Volume 96.9 FL Mean Corpuscular Hemoglobin 32.5 PG Mean Corpuscular Hemoglobin Concent 33.6 % Red Cell Distribution Width 19.8 % Platelet Count 224 TH/MM3 Mean Platelet Volume 6.5 FL Neutrophils (%) (Auto) 66.6 % Lymphocytes (%) (Auto) 17.5 % Monocytes (%) (Auto) 14.1 % Eosinophils (%) (Auto) 1.2 % Basophils (%) (Auto) 0.6 % Neutrophils # (Auto) 4.6 TH/MM3 Lymphocytes # (Auto) 1.2 TH/MM3 Monocytes # (Auto) 1.0 TH/MM3 Eosinophils # (Auto) 0.1 TH/MM3 Basophils # (Auto) 0.0 TH/MM3 CBC Comment DIFF FINAL Differential Comment Prothrombin Time 11.7 SEC Prothromb Time International Ratio 1.2 RATIO Activated Partial Thromboplast Time 24.7 SEC Blood Urea Nitrogen 43 MG/DL Creatinine 1.29 MG/DL Random Glucose 92 MG/DL Total Protein 7.9 GM/DL Albumin 3.5 GM/DL Calcium Level 8.4 MG/DL Alkaline Phosphatase 101 U/L Aspartate Amino Transf (AST/SGOT) 29 U/L Alanine Aminotransferase (ALT/SGPT) 17 U/L Total Bilirubin 0.3 MG/DL Sodium Level 138 MEQ/L Potassium Level 4.4 MEQ/L Chloride Level 108 MEQ/L Carbon Dioxide Level 23.1 MEQ/L Anion Gap 7 MEQ/L Estimat Glomerular Filtration Rate 54 ML/MIN Lactic Acid Level 1.5 mmol/L [facility] Medical Decision Making Medical Screen Exam Complete: Yes Emergency Medical Condition: Yes Interpretation(s) Last Impressions Chest X-Ray 10/20/17 0000 Signed Impressions: Service Date/Time: October 17:41 - CONCLUSION: Consolidation and small to moderate pleural effusion at the right lung base, slightly improved Martin Davila MD Differential Diagnosis GI bleed, anemia, pneumonia, dyspnea, pneumothorax Narrative Course Patient seen and examined. Initial laboratory radiological studies were ordered. Blood transfusion was ordered. Patient was started on Protonix. Discussed patient with GI who is agreeable to consult on patient. Upon review of the chest x-ray patient was started on antibiotics for hospital-acquired pneumonia. Discussed all findings and plan of care with patient, who is agreeable for the admission. All questions were answered. Discussed patient with Dr. Phan, who is in agreement plan of care and disposition. Discussed patient with hospitalist, who is agreeable to admit the patient. Patient remained stable throughout ED course HemaPrompt Point of Care Internal Pos. & Neg. Controls: Passed Fecal Specimen Occult Blood: Positive Comment Verbal consent was obtained. Digital rectal exam was performed. Stool specimen applied and test interpreted between 1 and 3 minutes of application and the result was positive. Internal Controls: Both positive and negative controls were validated. flame planer Martin was present during this exam. Physician Communication Physician Communication [address] Brooks, who recommends 40 mg Protonix IV twice daily clear liquid diet, n.p.o. after midnight, and GI consult with admission to medicine. [address] Patrick, who is agreeable to admit the patient. Diagnosis Primary Impression: GI bleed Qualified Codes: K92.2 - Gastrointestinal hemorrhage, unspecified Additional Impression: HCAP (healthcare-associated pneumonia) Admitting Information Admitting Physician Requests: Observation Condition: Stable Cole Rae Oct 20, 2017 17:58
--- NOTE | 2017-10-20 18:00 | RADRPT ---
EXAM DATE/TIME: 10/20/2017 17:41 [facility] COMPARISON: CHEST SINGLE AP, August 14, 2017, 22:49. INDICATIONS : Short of breath. MEDICAL HISTORY : Hypercholesterolemia. Hypertension. Chronic obstructive pulmonary disease. SURGICAL HISTORY : Appendectomy. ENCOUNTER: Initial ACUITY: 2 months PAIN SCORE: 0/10 LOCATION: Bilateral chest FINDINGS: Small to moderate right pleural effusion, slightly smaller than before. There is mild right base cons olidation. Left lung reasonably clear. No pneumothorax on either side. Heart size stable, upper limits of normal. CONCLUSION: Consolidation and small to moderate pleural effusion at the right lung base, slightly improved Martin Davila MD on October 20, 2017 at 17:57 Board Certified Radiologist. This report was verified electronically.
[2017-10-20] MEDS ORDERED: PLAV75TA29 PO (18:04)
[2017-10-20] MEDS ORDERED: PIPERACIL-TAZO 4.5 GM PREMIX 100 ML IV ONE (18:15)
[2017-10-20] MEDS ORDERED: SODIUM CHLORIDE 0.9% FLUSH 10 ML FLUSH IVF PRN (18:15)
[2017-10-20] MEDS ORDERED: CEFEPIME INJ 2,000 MG in SODIUM CHLORIDE 0.9% INJ 100 ML IV ONE (18:15)
[2017-10-20] MEDS ORDERED: RESP: ALBUTEROL 2.5 MG/IPRATROPIUM 0.5 MG NEB (SCH) INH ONE (18:30)
[2017-10-20] MEDS ORDERED: PANTOPRAZOLE SODIUM 40 MG VIAL IV PUSH SCH (18:30)
[2017-10-20] MEDS ORDERED: NALOXONE HCL 0.4 MG/ML AMP IV PUSH PRN (19:00)
--- NOTE | 2017-10-20 19:05 | PD ---
Physical Exam Narrative I, Dr. Phan, have reviewed the advance practice practitioner's documentation and am in agreement, met with the patient face to face, made the diagnosis, and the medical decision making was done by me. *My assessment and Findings: Patient is a 72-year-old male who comes in complaining of a low hemoglobin. He said he went to the [place] and was told that his hemoglobin was 6.5. He says he has been feeling overall weak. Exam shows stool to be positive for blood, is brown in color. Abdomen is soft and nontender. Data Data Last Documented VS Vital Signs Date Time Temp Pulse Resp B/P (MAP) Pulse Ox O2 Delivery O2 Flow Rate FiO2 10/20/17 18:01 77 18 130/59 (82) 99 Nasal Cannula 2.00 10/20/17 14:42 97.4 Orders Orders Complete Blood Count With Diff (10/20/17 15:29) Comprehensive Metabolic Panel (10/20/17 15:29) Prothrombin Time / Inr (Pt) (10/20/17 15:29) Act Partial Throm Time (Ptt) (10/20/17 15:29) Type And Screen (10/20/17 15:29) Chest, Single Ap (10/20/17 ) Red Blood Cells (Rbc) (10/20/17 17:52) Blood Product Administration (10/20/17 17:52) Lactic Acid Sepsis Protocol (10/20/17 18:13) Blood Culture (10/20/17 18:13) Sodium Chloride 0.9% Flush (Ns Flush) (10/20/17 18:15) Piperacil-Tazo 4.5 Gm Premix (Zosyn 4.5 (10/20/17 18:15) Cefepime Inj (Maxipime Inj) (10/20/17 18:15) Albuterol-Ipratropium Neb (Duoneb Neb) (10/20/17 18:30) Consult Gastroenterology (10/20/17 ) Pantoprazole Inj (Protonix Inj) (10/20/17 18:30) (Hub Use Only)Inp Phy Cons/Ref (10/20/17 ) Admit Order (Ed Use Only) (10/20/17 ) Transfer Car Operator Drier / Telemetry FRITZ.Q8H (10/20/17 18:50) Vital Signs (Adult) Q4H (10/20/17 18:50) Activity Oob With Assistance (10/20/17 18:50) Notify Dr: Other (10/20/17 18:50) Labs Laboratory Tests Test 10/20/17 16:35 10/20/17 18:32 White Blood Count 6.9 TH/MM3 Red Blood Count 2.20 MIL/MM3 Hemoglobin 7.2 GM/DL Hematocrit 21.3 % Mean Corpuscular Volume 96.9 FL Mean Corpuscular Hemoglobin 32.5 PG Mean Corpuscular Hemoglobin Concent 33.6 % Red Cell Distribution Width 19.8 % Platelet Count 224 TH/MM3 Mean Platelet Volume 6.5 FL Neutrophils (%) (Auto) 66.6 % Lymphocytes (%) (Auto) 17.5 % Monocytes (%) (Auto) 14.1 % Eosinophils (%) (Auto) 1.2 % Basophils (%) (Auto) 0.6 % Neutrophils # (Auto) 4.6 TH/MM3 Lymphocytes # (Auto) 1.2 TH/MM3 Monocytes # (Auto) 1.0 TH/MM3 Eosinophils # (Auto) 0.1 TH/MM3 Basophils # (Auto) 0.0 TH/MM3 CBC Comment DIFF FINAL Differential Comment Prothrombin Time 11.7 SEC Prothromb Time International Ratio 1.2 RATIO Activated Partial Thromboplast Time 24.7 SEC Blood Urea Nitrogen 43 MG/DL Creatinine 1.29 MG/DL Random Glucose 92 MG/DL Total Protein 7.9 GM/DL Albumin 3.5 GM/DL Calcium Level 8.4 MG/DL Alkaline Phosphatase 101 U/L Aspartate Amino Transf (AST/SGOT) 29 U/L Alanine Aminotransferase (ALT/SGPT) 17 U/L Total Bilirubin 0.3 MG/DL Sodium Level 138 MEQ/L Potassium Level 4.4 MEQ/L Chloride Level 108 MEQ/L Carbon Dioxide Level 23.1 MEQ/L Anion Gap 7 MEQ/L Estimat Glomerular Filtration Rate 54 ML/MIN Lactic Acid Level 1.5 mmol/L MDM Supervised Visit with DARRYL: Yes Narrative Course Labs show hemoglobin of 7.2. Patient was transfused 2 units. X-rays also concerning for pneumonia. He is covered with antibiotics. He will be admitted for further management. Tara Phan MD Oct 20, 2017 19:05
--- NOTE | 2017-10-20 19:59 | HHI.HP ---
HPI Service [facility] Primary Care Physician [facility] Admission Diagnosis GI bleed, pneumonia Diagnoses: Travel History International Travel<30 Days: No Contact w/Intl Traveler <30 Da: No Traveled to Known Affected Are: No History of Present Illness 72-year-old male with a past medical history significant for atrial fibrillation (anticoagulated on Eliquis), CHF, hypertension, CKD, COPD and hyperlipidemia presents to the emergency department after being evaluated at the [facility] earlier today. The patient reports that his lab work at the [facility] showed a hemoglobin of 6.5. The patient was recently discharged from the hospital where he was evaluated for GI bleed. He is status post EGD/colonoscopy which revealed no source of bleeding. He reports that he is no longer taking his Coumadin. States he had dark, tarry stools today only but is on iron. The patient reports feeling extreme fatigue with accompanying shortness of breath. He denies chest pain. Denies nausea/vomiting/diarrhea. Denies abdominal pain. No lower extremity edema. Review of Systems Except as stated in HPI: all other systems reviewed are Neg Past Family Social History Past Medical History atrial fibrillation (anticoagulated on Eliquis), CHF, hypertension, CKD, COPD and hyperlipidemia Past Surgical History stent placement appendectomy Reported Medications Reported Meds & Active Scripts Active Torsemide 10 Mg Tab 10 Mg PO BID Protonix (Pantoprazole Sodium) 40 Mg Tab 40 Mg PO DAILY Ferrous Sulfate 325 Mg (65 Mg Iron) Tablet 325 Mg PO BID Take it with small amount of orange juice. Eliquis (Apixaban) 5 Mg Tab 5 Mg PO BID START on 10/13/2017 Reported Plavix (Clopidogrel Bisulfate) 75 Mg Tab 75 Mg PO DAILY Gabapentin 300 Mg Cap 300 Mg PO DAILY Vitamin B-1 (Thiamine HCl) 100 Mg Tab 100 Mg PO DAILY Pravastatin 40 Mg Tab 40 Mg PO HS Metoprolol Tartrate 50 Mg Tab 25 Mg PO BID Magnesium Oxide 400 Mg Tab 400 Mg PO DAILY Lisinopril 40 Mg Tab 40 Mg PO DAILY Folic Acid 1 Mg Tablet B-12 (Cyanocobalamin) 1,000 Mcg Subl 1,000 Mcg SL DAILY Colestipol (Colestipol HCl) 5 Gm Pkt 5 Gm PO DAILY 1 packet of granules contains 5 gm of colestipol. Vitamin D3 (Cholecalciferol) 1,000 Unit Cap 4,000 Units PO DAILY Ascorbic Acid 500 Mg Tab 1,000 Mg PO DAILY Allopurinol 300 Mg Tab 300 Mg PO DAILY Allergies: Coded Allergies: No Known Allergies (Unverified , 10/11/17) Family History denies CAD or family history of diabetes. Mother age 94 with dementia. Father in an operation for abdominal surgery. Social History daily ETOH consumption amt varies denies tobacco, quit smoking 1979 denies illicit drug use Physical Exam Vital Signs Vital Signs Date Time Temp Pulse Resp B/P (MAP) Pulse Ox O2 Delivery O2 Flow Rate FiO2 10/20/17 19:31 97.7 98 16 107/52 100 10/20/17 19:29 97.7 87 16 107/52 (70) 100 Nasal Cannula 2.00 10/20/17 18:01 77 18 130/59 (82) 99 Nasal Cannula 2.00 10/20/17 17:55 97 18 97 Nasal Cannula 2.00 10/20/17 14:42 97.4 93 18 140/62 (88) 96 Room Air Physical Exam GENERAL: This is a well-nourished, well-developed patient, in no apparent distress. SKIN: Warm and dry. Bilateral lower extremity appears to have chronic stasis dermatitis. HEAD: Normocephalic. EYES: Pupils equal round and reactive. Extraocular motions intact. No scleral icterus. No injection or drainage. ENT: Nose without bleeding. Throat without erythema. Uvula midline. Airway patent. NECK: Trachea midline. No JVD or lymphadenopathy. Supple, nontender, no meningeal signs. CARDIOVASCULAR: Regular rate and rhythm. 3/5 ЮЛИЯ RESPIRATORY: Clear to auscultation. Breath sounds equal bilaterally. No wheezes , rales, or rhonchi. GASTROINTESTINAL: Abdomen soft, non-tender. Bowel sounds active 4 No guarding. MUSCULOSKELETAL: Extremities without clubbing, cyanosis. Bilateral lower extremity trace edema. NEUROLOGICAL: Awake and alert. Motor and sensory grossly within normal limits. Normal speech. Laboratory Laboratory Tests Test 10/20/17 16:35 10/20/17 18:32 White Blood Count 6.9 Red Blood Count 2.20 Hemoglobin 7.2 Hematocrit 21.3 Mean Corpuscular Volume 96.9 Mean Corpuscular Hemoglobin 32.5 Mean Corpuscular Hemoglobin Concent 33.6 Red Cell Distribution Width 19.8 Platelet Count 224 Mean Platelet Volume 6.5 Neutrophils (%) (Auto) 66.6 Lymphocytes (%) (Auto) 17.5 Monocytes (%) (Auto) 14.1 Eosinophils (%) (Auto) 1.2 Basophils (%) (Auto) 0.6 Neutrophils # (Auto) 4.6 Lymphocytes # (Auto) 1.2 Monocytes # (Auto) 1.0 Eosinophils # (Auto) 0.1 Basophils # (Auto) 0.0 CBC Comment DIFF FINAL Differential Comment Prothrombin Time 11.7 Prothromb Time International Ratio 1.2 Activated Partial Thromboplast Time 24.7 Blood Urea Nitrogen 43 Creatinine 1.29 Random Glucose 92 Total Protein 7.9 Albumin 3.5 Calcium Level 8.4 Alkaline Phosphatase 101 Aspartate Amino Transf (AST/SGOT) 29 Alanine Aminotransferase (ALT/SGPT) 17 Total Bilirubin 0.3 Sodium Level 138 Potassium Level 4.4 Chloride Level 108 Carbon Dioxide Level 23.1 Anion Gap 7 Estimat Glomerular Filtration Rate 54 Lactic Acid Level 1.5 Date/Time Source Procedure Growth Status 10/20/17 18:32 Blood Peripheral Aerobic Blood Culture Pending Received 10/20/17 18:32 Blood Peripheral Anaerobic Blood Culture Pending Received Result Diagram: 10/20/17 1635 10/20/17 1635 Caprini VTE Risk Assessment Caprini VTE Risk Assessment: Mod/High Risk (score >= 2) Caprini Risk Assessment Model Point Value = 1 Point Value = 2 Point Value = 3 Point Value = 5 Age 41-60 Minor surgery BMI > 25 kg/m2 Swollen legs Varicose veins or History of unexplained or recurrent spontaneous Oral contraceptives or hormone replacement Sepsis (< 1 month) Serious lung disease, including pneumonia (< 1 month) Abnormal pulmonary function Acute myocardial infarction Congestive heart failure (< 1 month) History of inflammatory bowel disease Medical patient at bed rest Age 61-74 Arthroscopic surgery Major open surgery (> 45 min) Laparoscopic surgery (> 45 min) Malignancy Confined to bed (> 72 hours) Immobilizing plaster cast Central venous access Age >= 75 History of VTE Family history of VTE Factor V Leiden Prothrombin [id number] Lupus anticoagulant Anticardiolipin antibodies Elevated serum homocysteine Heparin-induced thrombocytopenia Other congenital or acquired thrombophilia Stroke (< 1 month) Elective arthroplasty Hip, pelvis, or leg fracture Acute spinal cord injury (< 1 month) Prophylaxis Regimen Total Risk Factor Score Risk Level Prophylaxis Regimen 0-1 Low Early ambulation 2 Moderate Order ONE of the following: *Sequential Compression Device (SCD) *Heparin 5000 units SQ BID 3-4 Higher Order ONE of the following medications: *Heparin 5000 units SQ TID *Enoxaparin/Lovenox 40 mg SQ daily (WT < 150 kg, CrCl > 30 mL/min) *Enoxaparin/Lovenox 30 mg SQ daily (WT < 150 kg, CrCl > 10-29 mL/min) *Enoxaparin/Lovenox 30 mg SQ BID (WT < 150 kg, CrCl > 30 mL/min) AND/OR *Sequential Compression Device (SCD) 5 or more Highest Order ONE of the following medications: *Heparin 5000 units SQ TID (Preferred with Epidurals) *Enoxaparin/Lovenox 40 mg SQ daily (WT < 150 kg, CrCl > 30 mL/min) *Enoxaparin/Lovenox 30 mg SQ daily (WT < 150 kg, CrCl > 10-29 mL/min) *Enoxaparin/Lovenox 30 mg SQ BID (WT < 150 kg, CrCl > 30 mL/min) AND *Sequential Compression Device (SCD) Assessment and Plan Assessment and Plan Assessment/plan: 1. Anemia/concern for repeat GI bleed Transfuse 2 units packed red blood cells IV Protonix Gastroenterology consulted, appreciate recommendations 2. Hospital-acquired pneumonia Chest x-ray significant for consolidation with pleural effusion at the right lung base, personally reviewed Cefepime/Zosyn Blood cultures pending Patient without leukocytosis, cough or fever Monitor cultures and de-escalate antibiotics as appropriate 3. CKD Creatinine 1.29, baseline 1.5 Monitor renal function 4. A. fib, chronic HTN HLD CHF, not on exacerbation Chronic anticoagulation - Will hold Eliquis - Continue metoprolol 50 mg, lisinopril 40 mg - Monitor BP trend CAD s/p JÚNIOR stents in Prox LAD and RCA - Holding ASA/Plavix FEN NPO Electrolytes: monitor and replete prn Holding pharmacologic anticoagulation secondary to GI bleed Physician Certification 2 Midnight Certification Type: Admission for Inpatient Services Order for Inpatient Services The services are ordered in accordance with Medicare regulations or non- Medicare payer requirements, as applicable. In the case of services not specified as inpatient-only, they are appropriately provided as inpatient services in accordance with the 2-midnight benchmark. Estimated LOS (days): 2 2 days is the estimated time the patient will need to remain in the hospital, assuming treatment plan goals are met and no additional complications. Post-Hospital Plan: Not yet determined Windy Gonzalez MD Oct 20, 2017 19:59
[2017-10-20] MEDS: TORSEMIDE 5 MG TAB PO SCH (21:46)
[2017-10-20] MEDS: FERROUS SULFATE 325 MG (65 MG ELEMENTAL IRON) TAB PO SCH (21:47)
[2017-10-20] MEDS: PRAVASTATIN SOD 40 MG TAB PO SCH (21:48)
[2017-10-20] MEDS: METOPROLOL TARTRATE 25 MG TAB PO SCH (21:48)
[2017-10-20] MEDS: SODIUM CHLORIDE 0.9% FLUSH 10 ML FLUSH IV FLUSH SCH (21:49)
[2017-10-21] VITALS (9 sets, daily range): BP systolic 102–146; BP diastolic 57–70; PULSE 38–87; RESP 17–20; TEMP 96–97.5; O2SAT 93–97
[2017-10-21] MEDS: PIPERACIL-TAZO 4.5 GM PREMIX 100 ML IV SCH ×5 (01:40→23:39)
[2017-10-21] MEDS: CEFEPIME INJ 2,000 MG in SODIUM CHLORIDE 0.9% INJ 100 ML IV SCH ×2 (03:49→10:45)
[2017-10-21 05:24] LABS: AUTOMATED NEUTROPHIL # 3.6 TH/MM3 (1.8-7.7); BASOPHIL % 0.4 % (0.0-2.0); EOSINOPHIL # 0.1 TH/MM3 (0-0.4); EOSINOPHIL % 1.9 % (0.0-4.0); HEMATOCRIT 24.5 % (39.0-51.0); HEMOGLOBIN 8.3 GM/DL (13.0-17.0); LYMPH % 18.3 % (9.0-44.0); MEAN CELL VOLUME 91.8 FL (80.0-100.0); MEAN CORPUSCULAR HEMOGLOBIN 31.2 PG (27.0-34.0); MEAN PLATELET VOLUME 6.3 FL (7.0-11.0); MONO % 13.6 % (0.0-8.0); MONOCYTE # 0.7 TH/MM3 (0-0.9); NEUT % 65.8 % (16.0-70.0); PLATELET COUNT 180 TH/MM3 (150-450); RED BLOOD COUNT 2.66 MIL/MM3 (4.50-5.90); RED CELL DISTRIBUTION WIDTH 20.9 % (11.6-17.2); WHITE BLOOD COUNT 5.4 TH/MM3 (4.0-11.0)
[2017-10-21 05:46] LABS: BICARBONATE 22.4 MEQ/L (21.0-32.0); CREATININE 1.22 MG/DL (0.60-1.30)
[2017-10-21] MEDS ORDERED: DIATRIZOATE MEGLUM/DIATRIZOATE SOD 9 ML CUP PO ONE (09:00)
[2017-10-21] MEDS ORDERED: PANTOPRAZOLE SOD 40 MG DELAYED RELEASE TAB PO SCH (09:00)
[2017-10-21] MEDS: COLESTIPOL HCL 5 GM PACKET PO SCH (09:00)
--- NOTE | 2017-10-21 09:11 | PD.CONS ---
HPI History of Present Illness This is a 72 year old M with medical history significant for atrial fibrillation and recent stent placement (anticoagulated with Eliquis), CHF, HTN , CKD, COPD, and hyperlipidemia who was sent by the [facility] for evaluation of low hemoglobin. Pts hgb was found to be 6.5 at the [facility]. Pt also reports history of black stools that began yesterday. Of note, he is on iron supplements and he attributed the dark stool to this. Pt was recently evaluated by our service for dark stools. 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 There was erythematous gastritis in the gastric antrum. Angiodysplastic lesion in the gastric fundus. Small ulcer was found in the duodenal bulb. Retroflexed views revealed a hiatal hernia. No source of bleeding was found. Pt has long history of GIB, reports multiple episodes of GIB since being on anticoagulation for a-fib. Pt previously on Coumadin, was switched to Eliquis during last hospitalization, last dosage was yesterday. Pt denies any other GI symptoms at this time, including abdominal pain, nausea, vomiting, heartburn. He does reports SOB and fatigue. H/H was 7.2/21.3 on admission, currently 8.3/24.5 S/P 2 U PRBCs. Reports last colonoscopy was in 2013 and states normal exam. Stopped smoking 46 years ago. ETOH, vodka daily, 3-5 drinks a day. Denies family history significant for colon cancer. (Corry Medrano) PFSH Past Medical History atrial fibrillation (anticoagulated on Eliquis), CHF, hypertension, CKD, COPD and hyperlipidemia Past Surgical History stent placement appendectomy EGD Colonoscopy- 2013 (Corry Medrano) Coded Allergies: No Known Allergies (Unverified , 10/11/17) Family History denies CAD or family history of diabetes. Mother age 94 with dementia. Father in an operation for abdominal surgery. Social History daily ETOH consumption Vodka 2-5 drinks a day denies tobacco, quit smoking 1979 denies illicit drug use (Corry Medrano) Review of Systems Gastrointestinal: COMPLAINS OF: Black stools, DENIES: Abdominal pain, Bloody stools, Constipation, Diarrhea, Nausea, Vomiting, Difficulty Swallowing, Odynophagia, Swelling of Abdomen, Heartburn, Hematemesis (Corry Medrano DIRECTOR OF PSYCHIATRY) GI Exam Vitals I&O Vital Signs Date Time Temp Pulse Resp B/P (MAP) Pulse Ox O2 Delivery O2 Flow Rate FiO2 10/21/17 08:05 95 10/21/17 08:00 96.8 80 18 113/65 (81) 97 10/21/17 06:46 38 10/21/17 04:39 97.2 87 20 118/58 (78) 95 10/21/17 01:30 97.3 85 17 102/60 97 10/21/17 00:03 97.5 68 20 115/60 (78) 96 10/20/17 22:18 97.4 84 17 128/58 99 10/20/17 21:42 96.5 96 18 123/58 96 10/20/17 20:48 97.0 70 20 114/65 (81) 95 10/20/17 19:57 10/20/17 19:42 98.4 92 16 102/59 100 10/20/17 19:38 100 Nasal Cannula 2.00 10/20/17 19:31 97.7 98 16 107/52 100 10/20/17 19:29 97.7 87 16 107/52 (70) 100 Nasal Cannula 2.00 10/20/17 18:01 77 18 130/59 (82) 99 Nasal Cannula 2.00 10/20/17 17:55 97 18 97 Nasal Cannula 2.00 10/20/17 14:42 97.4 93 18 140/62 (88) 96 Room Air I/O 10/20/17 10/20/17 10/20/17 10/21/17 10/21/17 10/21/17 07:00 15:00 23:00 07:00 15:00 23:00 Intake Total 620 ml 400 ml Output Total 600 ml Balance 620 ml -200 ml Intake IV Total 200 ml Packed Cells 400 ml 400 ml Blood Product IV Normal Saline Flush 20 ml Output Urine Total 600 ml Imaging Last Impressions Chest X-Ray 10/20/17 0000 Signed Impressions: Service Date/Time: October 17:41 - CONCLUSION: Consolidation and small to moderate pleural effusion at the right lung base, slightly improved Martin Davila MD Laboratory Test 2/8/18 16:35 10/20/17 18:32 10/21/17 03:38 White Blood Count 6.9 TH/MM3 5.4 TH/MM3 Red Blood Count 2.20 MIL/MM3 2.66 MIL/MM3 Hemoglobin 7.2 GM/DL 8.3 GM/DL Hematocrit 21.3 % 24.5 % Mean Corpuscular Volume 96.9 FL 91.8 FL Mean Corpuscular Hemoglobin 32.5 PG 31.2 PG Mean Corpuscular Hemoglobin Concent 33.6 % 34.0 % Red Cell Distribution Width 19.8 % 20.9 % Platelet Count 224 TH/MM3 180 TH/MM3 Mean Platelet Volume 6.5 FL 6.3 FL Neutrophils (%) (Auto) 66.6 % 65.8 % Lymphocytes (%) (Auto) 17.5 % 18.3 % Monocytes (%) (Auto) 14.1 % 13.6 % Eosinophils (%) (Auto) 1.2 % 1.9 % Basophils (%) (Auto) 0.6 % 0.4 % Neutrophils # (Auto) 4.6 TH/MM3 3.6 TH/MM3 Lymphocytes # (Auto) 1.2 TH/MM3 1.0 TH/MM3 Monocytes # (Auto) 1.0 TH/MM3 0.7 TH/MM3 Eosinophils # (Auto) 0.1 TH/MM3 0.1 TH/MM3 Basophils # (Auto) 0.0 TH/MM3 0.0 TH/MM3 CBC Comment DIFF FINAL DIFF FINAL Differential Comment Prothrombin Time 11.7 SEC Prothromb Time International Ratio 1.2 RATIO Activated Partial Thromboplast Time 24.7 SEC Blood Urea Nitrogen 43 MG/DL 33 MG/DL Creatinine 1.29 MG/DL 1.22 MG/DL Random Glucose 92 MG/DL 111 MG/DL Total Protein 7.9 GM/DL Albumin 3.5 GM/DL Calcium Level 8.4 MG/DL 8.0 MG/DL Alkaline Phosphatase 101 U/L Aspartate Amino Transf (AST/SGOT) 29 U/L Alanine Aminotransferase (ALT/SGPT) 17 U/L Total Bilirubin 0.3 MG/DL Sodium Level 138 MEQ/L 139 MEQ/L Potassium Level 4.4 MEQ/L 4.2 MEQ/L Chloride Level 108 MEQ/L 108 MEQ/L Carbon Dioxide Level 23.1 MEQ/L 22.4 MEQ/L Anion Gap 7 MEQ/L 9 MEQ/L Estimat Glomerular Filtration Rate 54 ML/MIN 58 ML/MIN Lactic Acid Level 1.5 mmol/L Date/Time Source Procedure Growth Status 10/20/17 18:32 Blood Peripheral Aerobic Blood Culture Pending Received 10/20/17 18:32 Blood Peripheral Anaerobic Blood Culture Pending Received Physical Examination HEENT: Normocephalic; atraumatic CHEST: Even/unlabored CARDIAC: Irregular ABDOMEN: Distended, firm, nontender, bowel sounds active SKIN: Normal; no rash; no jaundice. 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 (Corry Medrano) Assessment and Plan Plan Assessment - Upper GIB- Black stools began again yesterday after recent hospital admission for same. 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 There was erythematous gastritis in the gastric antrum. Angiodysplastic lesion in the gastric fundus. Small ulcer was found in the duodenal bulb. Retroflexed views revealed a hiatal hernia. No source of bleeding was found. He went to the [facility] to have H/H checked because of the dark stools and was sent to the hospital for evaluation. H/H 7.2/21.3 on admission now S/P 2 U PRBCs. - ETOH abuse- 3-5 glasses of vodka daily - Atrial fibrillation- previously on Coumadin, switched to Eliquis during previous hospitalization- recent stent placed in Jul/Aug? 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 Would like to be informed when anticoagulation can be restarted. Plan: EGD today Obtain consents CT abdomen w pelvis Protonix Monitor H/H Transfuse to keep hgb over 8 Hold anticoagulation Further recommendations to follow based on results of above Pt has been seen and examined by myself and Dr. Brooks and this note is written on her behalf (Corry Medrano) Physician Comments seen, examined agree with above (Anjali Brooks MD) Corry Medrano Oct 21, 2017 09:11 Anjali Brooks MD Oct 21, 2017 20:14
[2017-10-21] MEDS: METOPROLOL TARTRATE 25 MG TAB PO SCH ×2 (09:20→21:39)
[2017-10-21] MEDS: TORSEMIDE 5 MG TAB PO SCH ×2 (09:20→21:39)
[2017-10-21] MEDS: SODIUM CHLORIDE 0.9% FLUSH 10 ML FLUSH IV FLUSH SCH ×2 (09:21→21:37)
[2017-10-21] MEDS: ALLOPURINOL 300 MG TAB PO SCH (09:21)
[2017-10-21] MEDS: FERROUS SULFATE 325 MG (65 MG ELEMENTAL IRON) TAB PO SCH ×2 (09:21→21:39)
[2017-10-21] MEDS: LISINOPRIL 20 MG TAB PO SCH (09:21)
[2017-10-21] MEDS: GABAPENTIN 300 MG CAP PO SCH (09:21)
[2017-10-21] MEDS: PANTOPRAZOLE SODIUM 40 MG VIAL IV PUSH SCH ×2 (09:29→21:37)
[2017-10-21] MEDS: SODIUM CHLORIDE 0.9% FLUSH 10 ML FLUSH IV FLUSH PRN ×2 (10:46→16:27)
--- NOTE | 2017-10-21 11:05 | HHI.PR ---
Subjective Remarks Follow-up GI bleed, anemia. The patient has no complaints at this time. Continues to have blood in his stool. Denies abdominal pain or nausea or vomiting. Does report some dyspnea, worse with exertion. No chest pain. Objective Vitals Vital Signs Date Time Temp Pulse Resp B/P (MAP) Pulse Ox O2 Delivery O2 Flow Rate FiO2 10/21/17 08:05 95 10/21/17 08:00 96.8 80 18 113/65 (81) 97 10/21/17 06:46 38 10/21/17 04:39 97.2 87 20 118/58 (78) 95 10/21/17 01:30 97.3 85 17 102/60 97 10/21/17 00:03 97.5 68 20 115/60 (78) 96 10/20/17 22:18 97.4 84 17 128/58 99 10/20/17 21:42 96.5 96 18 123/58 96 10/20/17 20:48 97.0 70 20 114/65 (81) 95 10/20/17 19:57 10/20/17 19:42 98.4 92 16 102/59 100 10/20/17 19:38 100 Nasal Cannula 2.00 10/20/17 19:31 97.7 98 16 107/52 100 10/20/17 19:29 97.7 87 16 107/52 (70) 100 Nasal Cannula 2.00 10/20/17 18:01 77 18 130/59 (82) 99 Nasal Cannula 2.00 10/20/17 17:55 97 18 97 Nasal Cannula 2.00 10/20/17 14:42 97.4 93 18 140/62 (88) 96 Room Air I/O 10/20/17 10/20/17 10/20/17 10/21/17 10/21/17 10/21/17 07:00 15:00 23:00 07:00 15:00 23:00 Intake Total 620 ml 400 ml Output Total 600 ml Balance 620 ml -200 ml Intake IV Total 200 ml Packed Cells 400 ml 400 ml Blood Product IV Normal Saline Flush 20 ml Output Urine Total 600 ml Result Diagram: 10/21/17 0338 10/21/17 0338 Imaging Last Impressions Chest X-Ray 10/20/17 0000 Signed Impressions: Service Date/Time: October 17:41 - CONCLUSION: Consolidation and small to moderate pleural effusion at the right lung base, slightly improved Martin Davila MD Objective Remarks General: Elderly male in no acute distress. Heart: Regular rate and rhythm. No murmur. Lungs: Clear to auscultation bilaterally. No wheezes, rales, or rhonchi. Breathing is nonlabored. Abdomen: Soft, nontender, nondistended. Extremities: No lower extremity edema. Psych: Alert and oriented. Procedures None Urinary Catheter: No Vascular Central Line Catheter: No A/P Assessment and Plan 1. Recurrent GI bleed: Appreciate gastroenterology recommendations. Planning for endoscopy this afternoon. Continue IV Protonix. Eliquis, aspirin, Plavix on hold. 2. Anemia secondary to acute blood loss: Received transfusion of 2 units PRBCs overnight. Monitor H&H. 3. Healthcare associated pneumonia: Continue IV antibiotics. Blood cultures are pending. 4. Chronic kidney disease: Stable. 5. Coronary artery disease: Status post placement of drug-eluting stent and proximal LAD and RCA. Aspirin and Plavix are on hold. Effient discontinued. Consult patient's air defense specialist for further recommendations. 6. Hypertension: Continue metoprolol, lisinopril. 7. DVT prophylaxis: DIMA Woodall. Avoid chemical prophylaxis secondary to GI bleed, anemia. Kwame Corral MD Oct 21, 2017 11:05
[2017-10-21] MEDS ORDERED: LIDOCAINE HCL 1% PF 5 ML SYRINGE OTHER ONE (12:00)
[2017-10-21] MEDS ORDERED: PROPOFOL 200 MG/20 ML AMP IV ONE (12:00)
[2017-10-21] MEDS ORDERED: CHLORHEXIDINE GLUCONATE 2 % 1 PACK (2 CLOTHS) TOPICAL PRN (13:00)
[2017-10-21] MEDS ORDERED: METOPROLOL TARTRATE 25 MG TAB PO PRN (13:00)
[2017-10-21] MEDS ORDERED: LACTATED RINGER'S 1000 ML IV PRN (13:00)
[2017-10-21] MEDS ORDERED: SODIUM CHLORID 0.9% 500 ML IV PRN (13:00)
[2017-10-21] MEDS ORDERED: POVIDONE IODINE 5% (ANTISEPSIS KIT) 4 APPLICATIONS EACH NARE PRN (13:00)
--- NOTE | 2017-10-21 14:36 | GIPROC ---
[facility] [address] [facility]. [facility], [address] EGD PROCEDURE REPORT EXAM DATE: 10/21/2017 PATIENT NAME: Ramsey Malik MR #: [id number] BIRTHDATE: 1945 ATTENDING: Anjali Brooks MD ORDER #: [id number] SUPPLY CRIB ATTENDANT: Maritza Guerin and Margaret Sherman STATUS: inpatient INDICATIONS: The patient is a 72 yr old male here for an EGD due to gi bleeding anemia PROCEDURE PERFORMED: EGD w/ control of bleeding EGD w/ ablation MEDICATIONS: None and Per Anesthesia. TOPICAL ANESTHETIC: none CONSENT: The patient understands the risks and benefits of the procedure and understands that these risks include, but are not limited to: sedation, allergic reaction, infection, perforation and/or bleeding. Alternative means of evaluation and treatment include, among others: physical exam, x-rays, and/or surgical intervention. The patient elects to proceed with this endoscopic procedure. medical equipment was checked for proper function. Hand hygiene and appropriate measures for infection prevention was taken. After the risks, benefits and alternatives of the procedure were thoroughly explained, Informed consent was verified, confirmed and timeout was successfully executed by the treatment team. The patient was anesthetized with topical anesthesia and the Pentax EG-[id number] endoscope was introduced through the mouth and advanced to the second portion of the duodenum. Retroflexed views revealed a hiatal hernia The gastroscope was then slowly withdrawn and removed. Evans's esophagus avm in fundus-multiple s/p cautery using balltip. ADVERSE EVENTS: There were no complications. IMPRESSIONS: 1. Evans's esophagus avm in fundus-multiple s/p cautery using balltip 2. Retroflexed views revealed a hiatal hernia RECOMMENDATIONS: 1. Continue PPI 2. Avoid NSAIDS 3. Soft diet ct abdomen/pelvis capsule endoscopy op PATIENT CONDITION: stable DISPOSITION: Inpatient REPEAT EXAM: Return 2 weeks EGD Anjali Brooks MD eSigned: Anjali Brooks MD 10/21/2017 2:35 PM cc: PATIENT NAME: Ramsey Malik MR#: [id number]
--- NOTE | 2017-10-21 15:43 | RADRPT ---
EXAM DATE/TIME: 10/21/2017 15:26 [facility] COMPARISON: No previous studies available for comparison. INDICATIONS : Diffuse abdomen pain with GI bleed and anemia. ORAL CONTRAST: Prescribed oral contrast ingested. RADIATION DOSE: 12.75 CTDIvol (mGy) MEDICAL HISTORY : Cardiovascular disease. Hypertension. SURGICAL HISTORY : Appendectomy. ENCOUNTER: Initial ACUITY: 1 day PAIN SCALE: 3/10 LOCATION: Bilateral upper quadrant TECHNIQUE: Volumetric scanning of the abdomen and pelvis was performed. Using automated exposure control and ad justment of the mA and/or kV according to patient size, radiation dose was kept as low as reasonably achievable to obtain optimal diagnostic quality images. DICOM format image data is available electro nically for review and comparison. FINDINGS: LOWER LUNGS: Consolidative changes right lower lobe with large right pleural effusion. Trace effusion on the left . There is no air in the lower mediastinum Moderate coronary calcifications are noted The liver is small and shrunken Spleen and pancreas are unremarkable Adrenal glands are normal Right kidney is small but unremarkable Nonobstructing 3 mm stone left kidney No adenopathy Moderate vascular calcifications Diverticuli in the sigmoid colon without diverticulitis Prominent prostate and bladder Abdominal wall intact No free fluid or free air. Degenerative changes lumbar spine. CONCLUSION: 1. Nonobstructing left renal stone 2. Consolidation right lower lobe with large right pleural effusion 3. No ascites, mass or adenopathy. 4. Diverticuli sigmoid colon without diverticulitis. Israel Martinez MD FACR on October 21, 2017 at 15:38 Board Certified Radiologist. This report was verified electronically.
[2017-10-21 18:30] LABS: HEMATOCRIT 26.6 % (39.0-51.0); HEMOGLOBIN 8.9 GM/DL (13.0-17.0)
[2017-10-21] MEDS: PRAVASTATIN SOD 40 MG TAB PO SCH (21:40)
[2017-10-22] VITALS (7 sets, daily range): BP systolic 114–134; BP diastolic 54–64; PULSE 68–97; RESP 17–20; TEMP 96.2–97.1; O2SAT 94–98
[2017-10-22] MEDS: PIPERACIL-TAZO 4.5 GM PREMIX 100 ML IV SCH ×4 (05:07→23:38)
[2017-10-22] MEDS: SODIUM CHLORIDE 0.9% FLUSH 10 ML FLUSH IV FLUSH PRN (05:08)
[2017-10-22 08:28] LABS: BASOPHIL % 0.7 % (0.0-2.0); EOSINOPHIL # 0.2 TH/MM3 (0-0.4); EOSINOPHIL % 3.5 % (0.0-4.0); HEMATOCRIT 26.8 % (39.0-51.0); HEMOGLOBIN 9.1 GM/DL (13.0-17.0); MEAN CELL VOLUME 92.8 FL (80.0-100.0); MEAN CORPUSCULAR HEMOGLOBIN 31.3 PG (27.0-34.0); MEAN CORPUSCULAR HGB CONC 33.8 % (32.0-36.0); MONO % 14.3 % (0.0-8.0); MONOCYTE # 0.9 TH/MM3 (0-0.9); NEUT % 65.5 % (16.0-70.0); PLATELET COUNT 184 TH/MM3 (150-450); RED BLOOD COUNT 2.89 MIL/MM3 (4.50-5.90); RED CELL DISTRIBUTION WIDTH 21.6 % (11.6-17.2); WHITE BLOOD COUNT 6.1 TH/MM3 (4.0-11.0)
[2017-10-22] MEDS: GABAPENTIN 300 MG CAP PO SCH (08:34)
[2017-10-22] MEDS: ALLOPURINOL 300 MG TAB PO SCH (08:34)
[2017-10-22] MEDS: LISINOPRIL 20 MG TAB PO SCH (08:34)
[2017-10-22] MEDS: FERROUS SULFATE 325 MG (65 MG ELEMENTAL IRON) TAB PO SCH ×2 (08:35→20:35)
[2017-10-22] MEDS: METOPROLOL TARTRATE 25 MG TAB PO SCH ×2 (08:35→20:34)
[2017-10-22] MEDS: PANTOPRAZOLE SODIUM 40 MG VIAL IV PUSH SCH ×2 (08:37→20:34)
[2017-10-22 08:38] LABS: BICARBONATE 23.7 MEQ/L (21.0-32.0); CALCIUM 8.8 MG/DL (8.5-10.1); CREATININE 1.4 MG/DL (0.60-1.30)
[2017-10-22] MEDS: COLESTIPOL HCL 5 GM PACKET PO SCH (08:38)
[2017-10-22] MEDS: TORSEMIDE 5 MG TAB PO SCH ×2 (08:44→20:35)
[2017-10-22] MEDS: SODIUM CHLORIDE 0.9% FLUSH 10 ML FLUSH IV FLUSH SCH ×2 (09:00→20:35)
--- NOTE | 2017-10-22 09:46 | MB ---
cc: ALONSO MYERS DO DATE OF CONSULTATION: 10/21/2017. REASON FOR CONSULTATION: GI bleed on antiplatelet and anticoagulation. HISTORY OF PRESENT ILLNESS: Ramsey Colmenares is a pleasant 72-year-old male who presented to [facility] on October 20, 2017 after being evaluated at the OR earlier today. Apparently the OR's lab work showed a hemoglobin of 6.5. On arrival here, he was redrawn showing a hemoglobin of 7.2. He was given 2 units of blood. Apparently on looking back, the patient has had multiple GI bleeds while on different regimens of antiplatelet and anticoagulation including originally aspirin, Effient and Coumadin and then he had further episodes of GI bleeding and so he was switched to Plavix and Eliquis and he comes in this time on Plavix and Eliquis with another GI bleed. I was asked to see the patient for further considerations on his antiplatelet and anticoagulation regimen. On seeing him, he is currently hemodynamically stable without chest pain or shortness of breath. Apparently he has had dark tarry stools for the past day or two but was on iron. He has noticed some fatigue more than anything. PAST MEDICAL HISTORY: 1. Atrial fibrillation 2. Congestive heart failure. 3. Coronary artery disease. 4. Hypertension. 5. Chronic kidney disease. 6. COPD. 7. Hyperlipidemia. PAST SURGICAL HISTORY: 1. Cardiac catheterization (August 15, 2017): The left main is short with no significant disease. The LAD has ostial to proximal 90% lesion status post CSI and stenting with a drug-eluting stent (3.5 x 26). The left circumflex is codominant with two obtuse marginals, which are small and diffusely diseased. The RCA is codominant with an 80% lesion in the midportion status post drug-eluting stent (2.5 x 18). 2. Appendectomy. ALLERGIES: NO KNOWN DRUG ALLERGIES. MEDICATIONS: 1. Iron 325 milligrams twice a day 2. Eliquis 5 milligrams twice a day. 3. Plavix 75 milligrams daily 4. Colestipol 5 grams daily. 5. Pravastatin 40 milligrams every night 6. Metoprolol tartrate 25 milligrams twice a day. 7. Lisinopril 40 milligrams daily 8. Gabapentin 300 milligrams daily 9. Torsemide 10 milligrams twice a day. 10. Magnesium oxide 400 milligrams daily 11. Protonix 40 milligrams daily 12. Allopurinol 300 milligrams daily. FAMILY HISTORY: Denies premature coronary artery disease or sudden cardiac within the family. SOCIAL HISTORY: The patient admits to drinking alcohol daily and this varies based on the day. Denies tobacco, previously smoked but quit in 1979. Denies illicit drug abuse. REVIEW OF SYSTEMS Fourteen systems were reviewed including osteopathic with pertinent positives and negatives as above; otherwise negative. PHYSICAL EXAMINATION: VITAL SIGNS: Temperature 96.2, heart rate 82, blood pressure 115/69, respirations 16, pulse ox 100% on 2 liters. GENERAL: In general, the patient appears well and in no acute distress, alert awake and oriented x3. Extraocular muscles intact. Mucous membranes moist. NECK: Supple. No JVD at 45 degrees. No carotid bruits heard bilaterally. Carotid upstroke is brisk in nature. HEART: Irregularly irregular rate and rhythm. Positive first and second heart sounds. LUNGS: Clear to auscultation bilaterally. No wheezes, rales or rhonchi. ABDOMEN: The abdomen is soft, nontender and nondistended. No organomegaly noted. EXTREMITIES: No clubbing, cyanosis or edema. Femoral and distal pulses are intact bilaterally. NEUROLOGIC: No focal deficits. SKIN: Warm, dry and intact. OSTEOPATHIC: Osteopathically, no kyphoscoliosis, lordosis or paraspinal tender points. LABORATORY WORK: Hemoglobin 8.3, hematocrit 24.5, platelets 180,000. Potassium 4.2, BUN 33, creatinine 1.22.. IMPRESSION: 1. GI bleed on Plavix and Eliquis. 2. History of atrial fibrillation. 3. Coronary artery disease as above. 4. Congestive heart failure. 5. Hypertension. 6. COPD. 7. Chronic kidney disease. RECOMMENDATIONS: 1. Mr. Colmenares appears to have had another GI bleed and we have stopped his antiplatelet as well as anticoagulation as recommended. 2. He will be seen by GI for scoping. Depending on the results of this, we will discuss with him the possibility of restarting him on only antiplatelets was either an aspirin, Plavix, or both. Overall he needs this for his coronary artery disease if possible. 3. We will plan on stopping his anticoagulation, which does put him at a risk of stroke but obviously he has been unable to stay on anticoagulation due to his GI bleeds. Further recommendations will be made based on the hospital course. Thank you for allowing me to see Ramsey Colmenares. If there are any questions, please do not hesitate to call. Alonso Myers DO VGP/JCC /8:53 AM /9:18 AM
--- NOTE | 2017-10-22 12:11 | PD.CARD.PN ---
Subjective Subjective Remarks Post-EGD yesterday, AVMs cauterized Doing well, no CP/SOB Objective Medications Current Medications Medications (Trade) Dose Ordered Sig/Alejo Route Start Time Stop Time Status Last Admin (NS Flush) 2 ml UNSCH PRN IVF 10/20/17 18:15 (NS Flush) 2 ml UNSCH PRN IV FLUSH 10/20/17 19:00 10/22/17 05:08 (NS Flush) 2 ml BID IV FLUSH 10/20/17 21:00 10/22/17 09:00 (Narcan Inj) 0.4 mg UNSCH PRN IV PUSH 10/20/17 19:00 (Zyloprim) 300 mg DAILY PO 10/21/17 09:00 10/22/17 08:34 (Colestipol Pkt) 5 gm DAILY PO 10/21/17 09:00 10/22/17 08:38 (Ferrous Sulfate) 325 mg BID PO 10/20/17 21:00 10/22/17 08:35 (Neurontin) 300 mg DAILY PO 10/21/17 09:00 10/22/17 08:34 (Lopressor) 25 mg BID PO 10/20/17 21:00 10/22/17 08:35 (Pravachol) 40 mg HS PO 10/20/17 21:00 10/21/17 21:40 (Demadex) 10 mg BID PO 10/20/17 21:00 10/21/17 21:39 (Prinivil) 40 mg DAILY PO 10/21/17 09:00 10/22/17 08:34 Piperacillin Sod/ Tazobactam Sod 100 ml @ 200 mls/hr Q6H IV 10/21/17 00:00 10/22/17 05:07 (Protonix Inj) 40 mg Q12HR IV PUSH 10/21/17 09:15 10/22/17 08:37 Lactated Ringer's 1,000 ml @ 30 mls/hr Q24H PRN IV 10/21/17 13:00 10/24/17 12:59 Sodium Chloride 500 ml @ 30 mls/hr [id number] PRN IV 10/21/17 13:00 10/24/17 12:59 (Lopressor) 25 mg [employer] PRN PO 10/21/17 13:00 10/24/17 12:59 (Betadine 5% Antisepsis Kit) 1 applic [employer] PRN EACH NARE 10/21/17 13:00 10/24/17 12:59 (Chlorhexidine 2% Cloth) 3 pack [employer] PRN TOPICAL 10/21/17 13:00 10/24/17 12:59 Vital Signs / I&O Vital Signs Date Time Temp Pulse Resp B/P (MAP) Pulse Ox O2 Delivery O2 Flow Rate FiO2 10/22/17 12:00 96.2 83 18 126/64 (84) 94 10/22/17 08:00 96.2 75 18 134/64 (87) 95 10/22/17 04:56 96.4 78 20 114/63 (80) 96 10/22/17 00:00 68 10/22/17 00:00 96.4 72 17 116/57 (76) 98 10/21/17 20:00 96.8 75 20 129/60 (83) 96 10/21/17 16:00 96.0 77 18 124/57 (79) 95 10/21/17 14:42 96.2 82 16 115/69 (84) 100 I/O 10/21/17 10/21/17 10/21/17 10/22/17 10/22/17 10/22/17 07:00 15:00 23:00 07:00 15:00 23:00 Intake Total 400 ml 100 ml 360 ml 960 ml 100 ml Output Total 600 ml 1500 ml Balance -200 ml 100 ml 360 ml -540 ml 100 ml Intake Oral 360 ml 760 ml IV Total 200 ml 100 ml Packed Cells 400 ml Other 100 ml Output Urine Total 600 ml 1500 ml # Voids 3 # Bowel Movements 0 Physical Exam GENERAL: NAD, AAOx3 SKIN: Warm and dry. HEAD: Atraumatic. Normocephalic. EYES: Pupils equal and round. No scleral icterus. No injection or drainage. ENT: No nasal bleeding or discharge. Mucous membranes pink and moist. NECK: Trachea midline. No JVD. CARDIOVASCULAR: Irregularly irregular RESPIRATORY: No accessory muscle use. Clear to auscultation. Breath sounds equal bilaterally. GASTROINTESTINAL: Abdomen soft, non-tender, nondistended. Hepatic and splenic margins not palpable. MUSCULOSKELETAL: Extremities without clubbing, cyanosis, or edema. No obvious deformities. NEUROLOGICAL: Awake and alert. No obvious cranial nerve deficits. Motor grossly within normal limits. Five out of 5 muscle strength in the arms and legs. Normal speech. PSYCHIATRIC: Appropriate mood and affect; insight and judgment normal. Laboratory Laboratory Tests Test 10/21/17 16:05 10/22/17 07:37 Hemoglobin 8.9 GM/DL 9.1 GM/DL Hematocrit 26.6 % 26.8 % White Blood Count 6.1 TH/MM3 Red Blood Count 2.89 MIL/MM3 Mean Corpuscular Volume 92.8 FL Mean Corpuscular Hemoglobin 31.3 PG Mean Corpuscular Hemoglobin Concent 33.8 % Red Cell Distribution Width 21.6 % Platelet Count 184 TH/MM3 Mean Platelet Volume 6.0 FL Neutrophils (%) (Auto) 65.5 % Lymphocytes (%) (Auto) 16.0 % Monocytes (%) (Auto) 14.3 % Eosinophils (%) (Auto) 3.5 % Basophils (%) (Auto) 0.7 % Neutrophils # (Auto) 4.0 TH/MM3 Lymphocytes # (Auto) 1.0 TH/MM3 Monocytes # (Auto) 0.9 TH/MM3 Eosinophils # (Auto) 0.2 TH/MM3 Basophils # (Auto) 0.0 TH/MM3 CBC Comment DIFF FINAL Differential Comment Blood Urea Nitrogen 23 MG/DL Creatinine 1.40 MG/DL Random Glucose 96 MG/DL Calcium Level 8.8 MG/DL Sodium Level 137 MEQ/L Potassium Level 4.2 MEQ/L Chloride Level 106 MEQ/L Carbon Dioxide Level 23.7 MEQ/L Anion Gap 7 MEQ/L Estimat Glomerular Filtration Rate 50 ML/MIN Assessment and Plan Problem List: (1) GI bleed ICD Codes: K92.2 - Gastrointestinal hemorrhage, unspecified Status: Acute (2) A-fib ICD Codes: I48.91 - Unspecified atrial fibrillation (3) Alcohol use ICD Codes: Z78.9 - Other specified health status Status: Chronic (4) CHF (congestive heart failure) ICD Codes: I50.9 - Heart failure, unspecified Status: Acute Assessment and Plan 1) Multiple GI bleeds Found to have AVMs which were cauterized 2) Afib Rates controlled Previously on Coumadin then Eliquis 3) CAD s/p recent JÚNIOR 4) Due to multiple GI bleeds with anti-platelet and anti-coagulation on board, will attempt to decrease risk of bleeding Discussed with GI, we know he's a high risk of GI bleed and will most likely need future cauterizations but needs to be on ASA/Plavix Will plan to stop anti-coagulation all together, and he understands this puts him at some risk for CVA, but he continues to have bleeds on Coumadin/ Plavix or Eliquis/Plavix Will start ASA/Plavix today Problem Qualifiers (1) GI bleed: Qualified Codes: K92.2 - Gastrointestinal hemorrhage, unspecified Manuel Jones DO Oct 22, 2017 12:11
[2017-10-22] MEDS: ASPIRIN 81 MG CHEW TAB CHEW SCH (12:55)
[2017-10-22] MEDS: CLOPIDOGREL 75 MG TAB PO SCH (12:55)
--- NOTE | 2017-10-22 13:16 | HHI.PR ---
Subjective Remarks Follow-up GI bleed, pneumonia. The patient has no specific complaints at this time. No further bleeding. No chest pain or dyspnea. Objective Vitals Vital Signs Date Time Temp Pulse Resp B/P (MAP) Pulse Ox O2 Delivery O2 Flow Rate FiO2 10/22/17 12:00 96.2 83 18 126/64 (84) 94 10/22/17 08:00 96.2 75 18 134/64 (87) 95 10/22/17 04:56 96.4 78 20 114/63 (80) 96 10/22/17 00:00 68 10/22/17 00:00 96.4 72 17 116/57 (76) 98 10/21/17 20:00 96.8 75 20 129/60 (83) 96 10/21/17 16:00 96.0 77 18 124/57 (79) 95 10/21/17 14:42 96.2 82 16 115/69 (84) 100 I/O 10/21/17 10/21/17 10/21/17 10/22/17 10/22/17 10/22/17 07:00 15:00 23:00 07:00 15:00 23:00 Intake Total 400 ml 100 ml 360 ml 960 ml 100 ml Output Total 600 ml 1500 ml Balance -200 ml 100 ml 360 ml -540 ml 100 ml Intake Oral 360 ml 760 ml IV Total 200 ml 100 ml Packed Cells 400 ml Other 100 ml Output Urine Total 600 ml 1500 ml # Voids 3 # Bowel Movements 0 Result Diagram: 10/22/17 0737 10/22/17 0737 Imaging Last Impressions Abdomen/Pelvis CT 10/21/17 0000 Signed Impressions: Service Date/Time: Saturday, October 21, 2017 15:26 - CONCLUSION: 1. Nonobstructing left renal stone 2. Consolidation right lower lobe with large right pleural effusion 3. No ascites, mass or adenopathy. 4. Diverticuli sigmoid colon without diverticulitis. Israel Martinez MD FACR Chest X-Ray 10/20/17 0000 Signed Impressions: Service Date/Time: October 17:41 - CONCLUSION: Consolidation and small to moderate pleural effusion at the right lung base, slightly improved Martin Davila MD Objective Remarks General: Elderly male in no acute distress. Heart: Regular rate and rhythm. No murmur. Lungs: Clear to auscultation bilaterally. No wheezes, rales, or rhonchi. Breathing is nonlabored. Abdomen: Soft, nontender, nondistended. Extremities: No lower extremity edema. Psych: Alert and oriented. Procedures 10/21/17 EGD Urinary Catheter: No Vascular Central Line Catheter: No A/P Assessment and Plan 1. Recurrent GI bleed: Appreciate gastroenterology recommendations. Status post EGD. AVM in the fundus cauterized. H&H improving. 2. Anemia secondary to acute blood loss: Received transfusion of 2 units PRBCs upon admission. Monitor H&H. 3. Healthcare associated pneumonia: Continue IV antibiotics. Blood cultures are negative so far. 4. Chronic kidney disease: Stable. 5. Coronary artery disease: Status post placement of drug-eluting stent and proximal LAD and RCA. Appreciate cardiology recommendations. Aspirin and Plavix restarted. Will avoid full anticoagulation secondary to bleeding risk. 6. Hypertension: Continue metoprolol, lisinopril. 7. DVT prophylaxis: DIMA Woodall. Discharge Planning Possible discharge home tomorrow if cleared by GI. Kwame Corral MD Oct 22, 2017 13:16
--- NOTE | 2017-10-22 15:59 | HHI.GIFU ---
Subjective Remarks Pt resting in bed, no GI complaints at this time. Has not had BM since procedure. Tolerating diet. (Corry Medrano) Objective Vitals I&O Vital Signs Date Time Temp Pulse Resp B/P (MAP) Pulse Ox O2 Delivery O2 Flow Rate FiO2 10/22/17 12:00 96.2 83 18 126/64 (84) 94 10/22/17 08:00 96.2 75 18 134/64 (87) 95 10/22/17 04:56 96.4 78 20 114/63 (80) 96 10/22/17 00:00 68 10/22/17 00:00 96.4 72 17 116/57 (76) 98 10/21/17 20:00 96.8 75 20 129/60 (83) 96 10/21/17 16:00 96.0 77 18 124/57 (79) 95 I/O 10/21/17 10/21/17 10/21/17 10/22/17 10/22/17 10/22/17 07:00 15:00 23:00 07:00 15:00 23:00 Intake Total 400 ml 100 ml 360 ml 960 ml 100 ml Output Total 600 ml 1500 ml Balance -200 ml 100 ml 360 ml -540 ml 100 ml Intake Oral 360 ml 760 ml IV Total 200 ml 100 ml Packed Cells 400 ml Other 100 ml Output Urine Total 600 ml 1500 ml # Voids 3 # Bowel Movements 0 Laboratory Laboratory Tests Test 10/21/17 16:05 10/22/17 07:37 Hemoglobin 8.9 9.1 Hematocrit 26.6 26.8 White Blood Count 6.1 Red Blood Count 2.89 Mean Corpuscular Volume 92.8 Mean Corpuscular Hemoglobin 31.3 Mean Corpuscular Hemoglobin Concent 33.8 Red Cell Distribution Width 21.6 Platelet Count 184 Mean Platelet Volume 6.0 Neutrophils (%) (Auto) 65.5 Lymphocytes (%) (Auto) 16.0 Monocytes (%) (Auto) 14.3 Eosinophils (%) (Auto) 3.5 Basophils (%) (Auto) 0.7 Neutrophils # (Auto) 4.0 Lymphocytes # (Auto) 1.0 Monocytes # (Auto) 0.9 Eosinophils # (Auto) 0.2 Basophils # (Auto) 0.0 CBC Comment DIFF FINAL Differential Comment Blood Urea Nitrogen 23 Creatinine 1.40 Random Glucose 96 Calcium Level 8.8 Sodium Level 137 Potassium Level 4.2 Chloride Level 106 Carbon Dioxide Level 23.7 Anion Gap 7 Estimat Glomerular Filtration Rate 50 Date/Time Source Procedure Growth Status 10/20/17 18:32 Blood Peripheral Aerobic Blood Culture - Preliminary NO GROWTH IN 2 DAYS Resulted 10/20/17 18:32 Blood Peripheral Anaerobic Blood Culture - Preliminary NO GROWTH IN 2 DAYS Resulted Imaging Last Impressions Abdomen/Pelvis CT 10/21/17 0000 Signed Impressions: Service Date/Time: Saturday, October 21, 2017 15:26 - CONCLUSION: 1. Nonobstructing left renal stone 2. Consolidation right lower lobe with large right pleural effusion 3. No ascites, mass or adenopathy. 4. Diverticuli sigmoid colon without diverticulitis. Israel Martinez MD FACR Chest X-Ray 10/20/17 0000 Signed Impressions: Service Date/Time: October 17:41 - CONCLUSION: Consolidation and small to moderate pleural effusion at the right lung base, slightly improved Martin Davila MD Physical Exam HEENT: Normocephalic; atraumatic CHEST: Even/unlabored CARDIAC: Irregularly irregular ABDOMEN: Distended, soft, nontender, bowel sounds active EXTREMITIES: No clubbing, cyanosis, or edema. SKIN: Normal; no rash; (+) jaundice [employer]: No focal deficits; alert and oriented times three. (Corry Medrano) Assessment and Plan Plan Assessment - Upper GIB- Black stools began again yesterday after recent hospital admission for same. 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 There was erythematous gastritis in the gastric antrum. Angiodysplastic lesion in the gastric fundus. Small ulcer was found in the duodenal bulb. Retroflexed views revealed a hiatal hernia. No source of bleeding was found. [facility] because of the [facility] stools and was sent to the hospital for evaluation. H/H 7.2/21.3 on admission now S/P 2 U PRBCs. - ETOH abuse- 3-5 glasses of vodka daily - Atrial fibrillation- previously on Coumadin, switched to Eliquis during previous hospitalization- recent stent placed in Jul/Aug? --> Spoke with scheduling manager who is considering Plavix/ASA after GI bleed resolved. Would like to be informed when anticoagulation can be restarted. (10/22) S/P EGD yesterday --> Barretts esophagus. AVM in fundus-multiple s/p cautery Hiatal hernia. CT abdomen and pelvis (10/21) --> No ascites mass or adenopathy. Diverticula sigmoid colon without diverticulitis. Pt has been started on Plavix/ASA. High risk for rebleeding, however recent stent placement outweighs risk of rebleeding. Recommended close monitoring of CBC. Protonix. Plan: OK to start Plavix/ASA-discussed with cardiology Close monitoring of CBC Protonix ETOH cessation Capsule endoscopy outpatient GI will sign off, please reconsult as needed Have pt follow up with GI after discharge Pt has been seen and examined by myself and Dr. Arango and this note is written on his behalf (Corry Medrano) Physician Comments Patient seen and examined Agree with above Continue with current supportive care Monitor labs We will sign off (Donovan Arango MD) Corry Medrano Oct 22, 2017 15:59 Donovan Arango MD Oct 22, 2017 23:27
[2017-10-22] MEDS: PRAVASTATIN SOD 40 MG TAB PO SCH (20:34)
[2017-10-23] VITALS: BP 131/71; PULSE 85; RESP 18; TEMP 96.7; O2SAT 94
[2017-10-23 00:09] VITALS: PULSE 80
[2017-10-23 04:00] VITALS: BP 113/59; PULSE 74; RESP 18; TEMP 97.3; O2SAT 94
[2017-10-23] MEDS: PIPERACIL-TAZO 4.5 GM PREMIX 100 ML IV SCH ×2 (05:05→12:05)
[2017-10-23 08:00] VITALS: BP 111/53; PULSE 79; RESP 18; TEMP 97.1; O2SAT 94
[2017-10-23] MEDS: FERROUS SULFATE 325 MG (65 MG ELEMENTAL IRON) TAB PO SCH (08:33)
[2017-10-23] MEDS: ALLOPURINOL 300 MG TAB PO SCH (08:33)
[2017-10-23] MEDS: PANTOPRAZOLE SODIUM 40 MG VIAL IV PUSH SCH (08:33)
[2017-10-23] MEDS: METOPROLOL TARTRATE 25 MG TAB PO SCH (08:33)
[2017-10-23] MEDS: GABAPENTIN 300 MG CAP PO SCH (08:34)
[2017-10-23] MEDS: LISINOPRIL 20 MG TAB PO SCH (08:34)
[2017-10-23] MEDS: SODIUM CHLORIDE 0.9% FLUSH 10 ML FLUSH IV FLUSH SCH (08:34)
[2017-10-23] MEDS: CLOPIDOGREL 75 MG TAB PO SCH (08:34)
[2017-10-23] MEDS: ASPIRIN 81 MG CHEW TAB CHEW SCH (08:34)
[2017-10-23] MEDS: COLESTIPOL HCL 5 GM PACKET PO SCH (08:35)
[2017-10-23] MEDS: TORSEMIDE 5 MG TAB PO SCH (08:41)
[2017-10-23] MEDS ORDERED: RESP: ALBUTEROL 2.5 MG/IPRATROPIUM 0.5 MG NEB (SCH) NEB ONE (11:00)
--- NOTE | 2017-10-23 11:01 | HHI.PR ---
Subjective Remarks Follow up GI bleed, pneumonia. Patient reports dyspnea, worse with exertion. Denies chest pain. No bleeding noted. Objective Vitals Vital Signs Date Time Temp Pulse Resp B/P (MAP) Pulse Ox O2 Delivery O2 Flow Rate FiO2 10/23/17 08:00 97.1 79 18 111/53 (72) 94 10/23/17 04:00 97.3 74 18 113/59 (77) 94 10/23/17 00:09 80 10/23/17 00:00 96.7 85 18 131/71 (91) 94 10/22/17 20:00 96.6 97 18 125/54 (77) 96 10/22/17 19:55 82 10/22/17 16:00 97.1 69 18 125/58 (80) 94 10/22/17 12:00 96.2 83 18 126/64 (84) 94 I/O 10/22/17 10/22/17 10/22/17 10/23/17 10/23/17 10/23/17 07:00 15:00 23:00 07:00 15:00 23:00 Intake Total 960 ml 100 ml 1160 ml 460 ml Output Total 1500 ml 600 ml Balance -540 ml 100 ml 560 ml 460 ml Intake Oral 760 ml 960 ml 360 ml IV Total 200 ml 100 ml 200 ml 100 ml Output Urine Total 1500 ml 600 ml # Voids 5 # Bowel Movements 0 1 Result Diagram: 10/22/17 0737 10/22/17 0737 Imaging Last Impressions Abdomen/Pelvis CT 10/21/17 0000 Signed Impressions: Service Date/Time: Saturday, October 21, 2017 15:26 - CONCLUSION: 1. Nonobstructing left renal stone 2. Consolidation right lower lobe with large right pleural effusion 3. No ascites, mass or adenopathy. 4. Diverticuli sigmoid colon without diverticulitis. Israel Martinez MD FACR Chest X-Ray 10/20/17 0000 Signed Impressions: Service Date/Time: October 17:41 - CONCLUSION: Consolidation and small to moderate pleural effusion at the right lung base, slightly improved Martin Davila MD Objective Remarks General: Elderly male in no acute distress. Heart: Regular rate and rhythm. No murmur. Lungs: Clear to auscultation bilaterally. No wheezes, rales, or rhonchi. Breathing is nonlabored. Abdomen: Soft, nontender, nondistended. Extremities: No lower extremity edema. Psych: Alert and oriented. Procedures 10/21/17 EGD Urinary Catheter: No Vascular Central Line Catheter: No A/P Assessment and Plan 1. Recurrent GI bleed: Appreciate gastroenterology recommendations. Status post EGD. AVM in the fundus cauterized. H&H improving. Labs are pending today. 2. Anemia secondary to acute blood loss: Received transfusion of 2 units PRBCs upon admission. Monitor H&H. Labs are pending today. 3. Healthcare associated pneumonia: Continue IV antibiotics. Blood cultures are negative so far. 4. Chronic kidney disease: Stable. 5. Coronary artery disease: Status post placement of drug-eluting stent and proximal LAD and RCA. Appreciate cardiology recommendations. Aspirin and Plavix restarted. Will avoid full anticoagulation secondary to bleeding risk. Discussed with Dr. Jones. 6. Hypertension: Continue metoprolol, lisinopril. 7. DVT prophylaxis: DIMA Woodall. 8. Dyspnea: Likely COPD. O2 stable on room air. Add Duoneb. Would benefit from outpatient pulmonology evaluation. Discharge Planning Possible discharge home today pending labs and respiratory status. Kwame Corral MD Oct 23, 2017 11:01
--- NOTE | 2017-10-23 11:03 | HHI.DCPOC ---
Discharge Care Plan Diagnosis: (1) Coronary artery disease (2) Dyspnea (3) A-fib (4) HCAP (healthcare-associated pneumonia) (5) GI bleed (6) HTN (hypertension) Goals to Promote Your Health * To prevent worsening of your condition and complications * To maintain your health at the optimal level Directions to Meet Your Goals Take your medications as prescribed Follow your dietary instruction Follow activity as directed Keep your appointments as scheduled Take your immunizations and boosters as scheduled If your symptoms worsen call your PCP, if no PCP go to Urgent Care Center or Emergency Room Smoking is Dangerous to Your Health. Avoid second hand smoke Call the 24-hour hour crisis hotline for domestic abuse at Kwame Corral MD Oct 23, 2017 11:03
[2017-10-23] MEDS ORDERED: ASPI81 CHEW (11:07)
[2017-10-23] MEDS ORDERED: AUGM875T3 PO (11:07)
[2017-10-23 12:00] VITALS: BP 115/53; PULSE 66; RESP 18; TEMP 96.2; O2SAT 93
--- NOTE | 2017-10-23 12:22 | PD.CARD.PN ---
Subjective Subjective Remarks Doing well, no CP/SOB Objective Medications Current Medications Medications (Trade) Dose Ordered Sig/Alejo Route Start Time Stop Time Status Last Admin (NS Flush) 2 ml UNSCH PRN IVF 10/20/17 18:15 (NS Flush) 2 ml UNSCH PRN IV FLUSH 10/20/17 19:00 10/22/17 05:08 (NS Flush) 2 ml BID IV FLUSH 10/20/17 21:00 10/23/17 08:34 (Narcan Inj) 0.4 mg UNSCH PRN IV PUSH 10/20/17 19:00 (Zyloprim) 300 mg DAILY PO 10/21/17 09:00 10/23/17 08:33 (Colestipol Pkt) 5 gm DAILY PO 10/21/17 09:00 10/23/17 08:35 (Ferrous Sulfate) 325 mg BID PO 10/20/17 21:00 10/23/17 08:33 (Neurontin) 300 mg DAILY PO 10/21/17 09:00 10/23/17 08:34 (Lopressor) 25 mg BID PO 10/20/17 21:00 10/23/17 08:33 (Pravachol) 40 mg HS PO 10/20/17 21:00 10/22/17 20:34 (Demadex) 10 mg BID PO 10/20/17 21:00 10/21/17 21:39 (Prinivil) 40 mg DAILY PO 10/21/17 09:00 10/23/17 08:34 Piperacillin Sod/ Tazobactam Sod 100 ml @ 200 mls/hr Q6H IV 10/21/17 00:00 10/23/17 12:05 (Protonix Inj) 40 mg Q12HR IV PUSH 10/21/17 09:15 10/23/17 08:33 Lactated Ringer's 1,000 ml @ 30 mls/hr Q24H PRN IV 10/21/17 13:00 10/24/17 12:59 Sodium Chloride 500 ml @ 30 mls/hr [id number] PRN IV 10/21/17 13:00 10/24/17 12:59 (Lopressor) 25 mg INTRAVENOUS THERAPY NURSE PRN PO 10/21/17 13:00 10/24/17 12:59 (Betadine 5% Antisepsis Kit) 1 applic INTRAVENOUS THERAPY NURSE PRN EACH NARE 10/21/17 13:00 10/24/17 12:59 (Chlorhexidine 2% Cloth) 3 pack INTRAVENOUS THERAPY NURSE PRN TOPICAL 10/21/17 13:00 10/24/17 12:59 (Aspirin Chew) 81 mg DAILY CHEW 10/22/17 12:15 10/23/17 08:34 (Plavix) 75 mg DAILY PO 10/22/17 12:15 10/23/17 08:34 Vital Signs / I&O Vital Signs Date Time Temp Pulse Resp B/P (MAP) Pulse Ox O2 Delivery O2 Flow Rate FiO2 10/23/17 08:00 97.1 79 18 111/53 (72) 94 10/23/17 04:00 97.3 74 18 113/59 (77) 94 10/23/17 00:09 80 10/23/17 00:00 96.7 85 18 131/71 (91) 94 10/22/17 20:00 96.6 97 18 125/54 (77) 96 10/22/17 19:55 82 10/22/17 16:00 97.1 69 18 125/58 (80) 94 I/O 10/22/17 10/22/17 10/22/17 10/23/17 10/23/17 10/23/17 07:00 15:00 23:00 07:00 15:00 23:00 Intake Total 960 ml 100 ml 1160 ml 460 ml Output Total 1500 ml 600 ml Balance -540 ml 100 ml 560 ml 460 ml Intake Oral 760 ml 960 ml 360 ml IV Total 200 ml 100 ml 200 ml 100 ml Output Urine Total 1500 ml 600 ml # Voids 5 # Bowel Movements 0 1 Physical Exam GENERAL: NAD, AAOx3 SKIN: Warm and dry. HEAD: Atraumatic. Normocephalic. EYES: Pupils equal and round. No scleral icterus. No injection or drainage. ENT: No nasal bleeding or discharge. Mucous membranes pink and moist. NECK: Trachea midline. No JVD. CARDIOVASCULAR: Irregularly irregular RESPIRATORY: No accessory muscle use. Clear to auscultation. Breath sounds equal bilaterally. GASTROINTESTINAL: Abdomen soft, non-tender, nondistended. Hepatic and splenic margins not palpable. MUSCULOSKELETAL: Extremities without clubbing, cyanosis, or edema. No obvious deformities. NEUROLOGICAL: Awake and alert. No obvious cranial nerve deficits. Motor grossly within normal limits. Five out of 5 muscle strength in the arms and legs. Normal speech. PSYCHIATRIC: Appropriate mood and affect; insight and judgment normal. Assessment and Plan Problem List: (1) GI bleed ICD Codes: K92.2 - Gastrointestinal hemorrhage, unspecified Status: Acute (2) A-fib ICD Codes: I48.91 - Unspecified atrial fibrillation (3) Alcohol use ICD Codes: Z78.9 - Other specified health status Status: Chronic (4) CHF (congestive heart failure) ICD Codes: I50.9 - Heart failure, unspecified Status: Acute Assessment and Plan 1) Multiple GI bleeds Found to have AVMs which were cauterized 2) Afib Rates controlled Previously on Coumadin then Eliquis 3) CAD s/p recent JÚNIOR 4) Due to multiple GI bleeds with anti-platelet and anti-coagulation on board, will attempt to decrease risk of bleeding Discussed with GI, we know he's a high risk of GI bleed and will most likely need future cauterizations but needs to be on ASA/Plavix Will plan to stop anti-coagulation all together, and he understands this puts him at some risk for CVA, but he continues to have bleeds on Coumadin/ Plavix or Eliquis/Plavix Will start ASA/Plavix Will see in the office and discuss possible Watchman procedure as a consideration to decrease his CVA risk Problem Qualifiers (1) GI bleed: Qualified Codes: K92.2 - Gastrointestinal hemorrhage, unspecified Manuel Jones DO Oct 23, 2017 12:22
[2017-10-23 13:33] LABS: AUTOMATED NEUTROPHIL # 3.6 TH/MM3 (1.8-7.7); BASOPHIL % 0.8 % (0.0-2.0); EOSINOPHIL # 0.2 TH/MM3 (0-0.4); EOSINOPHIL % 3.3 % (0.0-4.0); HEMATOCRIT 27.5 % (39.0-51.0); HEMOGLOBIN 9.2 GM/DL (13.0-17.0); LYMPH % 17.3 % (9.0-44.0); MEAN CELL VOLUME 93.3 FL (80.0-100.0); MEAN CORPUSCULAR HEMOGLOBIN 31.2 PG (27.0-34.0); MEAN CORPUSCULAR HGB CONC 33.5 % (32.0-36.0); MEAN PLATELET VOLUME 6.2 FL (7.0-11.0); MONO % 15.5 % (0.0-8.0); MONOCYTE # 0.9 TH/MM3 (0-0.9); NEUT % 63.1 % (16.0-70.0); PLATELET COUNT 202 TH/MM3 (150-450); RED BLOOD COUNT 2.95 MIL/MM3 (4.50-5.90); RED CELL DISTRIBUTION WIDTH 21.6 % (11.6-17.2); WHITE BLOOD COUNT 5.7 TH/MM3 (4.0-11.0)
[2017-10-23 13:54] LABS: BICARBONATE 26.2 MEQ/L (21.0-32.0); CALCIUM 8.3 MG/DL (8.5-10.1); CREATININE 1.16 MG/DL (0.60-1.30)
[2017-10-23] MEDS ORDERED: IPRASOL INH (15:01)
[2017-10-23] MEDS ORDERED: NEBULIZER1 MI1 (15:01)
--- NOTE | 2017-10-23 15:05 | HHI.DS ---
Discharge Summary Admission Date Oct 20, 2017 at 18:58 Discharge Date: Oct 23, 2017 Admitting Diagnosis GI bleed, pneumonia (1) CHF (congestive heart failure) ICD Code: I50.9 - Heart failure, unspecified Status: Acute (2) HCAP (healthcare-associated pneumonia) ICD Code: J18.9 - Pneumonia, unspecified organism Status: Acute (3) HTN (hypertension) ICD Code: I10 - Essential (primary) hypertension Status: Chronic (4) A-fib ICD Code: I48.91 - Unspecified atrial fibrillation (5) Coronary artery disease ICD Code: I25.10 - Atherosclerotic heart disease of [place] coronary artery without angina pectoris (6) Dyspnea ICD Code: R06.00 - Dyspnea, unspecified Procedures 10/21/17 EGD Brief History - From Admission 72-year-old male with a past medical history significant for atrial fibrillation (anticoagulated on Eliquis), CHF, hypertension, CKD, COPD and hyperlipidemia presents to the emergency department after being evaluated at the [facility] earlier today. The patient reports that his lab work at the [facility] showed a hemoglobin of 6.5. The patient was recently discharged from the hospital where he was evaluated for GI bleed. He is status post EGD/colonoscopy which revealed no source of bleeding. He reports that he is no longer taking his Coumadin. States he had dark, tarry stools today only but is on iron. The patient reports feeling extreme fatigue with accompanying shortness of breath. He denies chest pain. Denies nausea/vomiting/diarrhea. Denies abdominal pain. No lower extremity edema. CBC/BMP: 10/23/17 1251 10/23/17 1251 Significant Findings Laboratory Tests Test 10/20/17 16:35 10/20/17 18:32 10/21/17 03:38 10/21/17 16:05 Red Blood Count 2.20 MIL/MM3 (4.50-5.90) 2.66 MIL/MM3 (4.50-5.90) Hemoglobin 7.2 GM/DL (13.0-17.0) 8.3 GM/DL (13.0-17.0) 8.9 GM/DL (13.0-17.0) Hematocrit 21.3 % (39.0-51.0) 24.5 % (39.0-51.0) 26.6 % (39.0-51.0) Red Cell Distribution Width 19.8 % (11.6-17.2) 20.9 % (11.6-17.2) Mean Platelet Volume 6.5 FL (7.0-11.0) 6.3 FL (7.0-11.0) Monocytes (%) (Auto) 14.1 % (0.0-8.0) 13.6 % (0.0-8.0) Monocytes # (Auto) 1.0 TH/MM3 (0-0.9) Prothrombin Time 11.7 SEC (9.8-11.6) Blood Urea Nitrogen 43 MG/DL (7-18) 33 MG/DL (7-18) Calcium Level 8.4 MG/DL (8.5-10.1) 8.0 MG/DL (8.5-10.1) Chloride Level 108 MEQ/L (98-107) 108 MEQ/L (98-107) Estimat Glomerular Filtration Rate 54 ML/MIN (>89) 58 ML/MIN (>89) Random Glucose 111 MG/DL (74-106) Test 10/22/17 07:37 10/23/17 12:51 Red Blood Count 2.89 MIL/MM3 (4.50-5.90) 2.95 MIL/MM3 (4.50-5.90) Hemoglobin 9.1 GM/DL (13.0-17.0) 9.2 GM/DL (13.0-17.0) Hematocrit 26.8 % (39.0-51.0) 27.5 % (39.0-51.0) Red Cell Distribution Width 21.6 % (11.6-17.2) 21.6 % (11.6-17.2) Mean Platelet Volume 6.0 FL (7.0-11.0) 6.2 FL (7.0-11.0) Monocytes (%) (Auto) 14.3 % (0.0-8.0) 15.5 % (0.0-8.0) Blood Urea Nitrogen 23 MG/DL (7-18) Creatinine 1.40 MG/DL (0.60-1.30) Estimat Glomerular Filtration Rate 50 ML/MIN (>89) 62 ML/MIN (>89) Random Glucose 112 MG/DL (74-106) Calcium Level 8.3 MG/DL (8.5-10.1) Imaging Last Impressions Abdomen/Pelvis CT 10/21/17 0000 Signed Impressions: Service Date/Time: Saturday, October 21, 2017 15:26 - CONCLUSION: 1. Nonobstructing left renal stone 2. Consolidation right lower lobe with large right pleural effusion 3. No ascites, mass or adenopathy. 4. Diverticuli sigmoid colon without diverticulitis. Israel Martinez MD FACR Chest X-Ray 10/20/17 0000 Signed Impressions: Service Date/Time: October 17:41 - CONCLUSION: Consolidation and small to moderate pleural effusion at the right lung base, slightly improved Martin Davila MD PE at Discharge General: Elderly male in no acute distress. Heart: Regular rate and rhythm. No murmur. Lungs: Clear to auscultation bilaterally. No wheezes, rales, or rhonchi. Breathing is nonlabored. Abdomen: Soft, nontender, nondistended. Extremities: No lower extremity edema. Psych: Alert and oriented. Hospital Course The patient was admitted for management of anemia secondary to likely GI bleed as well as treatment of hospital-acquired pneumonia. The patient was continued on antibiotics. Hemoglobin was monitored closely. Anticoagulation was held. Gastroenterology was consulted. Patient had EGD which showed gastritis and hiatal hernia. Hemoglobin remained stable. Cardiology was consulted for recommendations regarding anticoagulation given the patient's coronary artery disease and recent coronary artery stenting. The patient was started on aspirin and Plavix once cleared by gastroenterology. He had shortness of breath at times during the hospitalization. Symptoms improved with DuoNeb. The patient was cleared for discharge by cardiology, gastroenterology. He was felt to be stable for discharge home. Pt Condition on Discharge: Stable Discharge Disposition: Discharge Home Discharge Time: > 30 minutes Discharge Instructions DIET: Follow Instructions for: Heart Healthy Diet Activities you can perform: Regular-No Restrictions Follow up Referrals: Cardiology - 2 Weeks with Jag Tarango MD Gastroenterology - 2 Weeks with Anjali Brooks MD PCP Follow-up - 1 Week with [facility] - 2 Weeks New Orders: Physical Therapy New Medications: Amoxicillin-Clavulanate (Augmentin) 875-125 Mg Tab 1 TAB PO BID for Infection, #10 TAB 0 Refills Ipratropium-Albuterol Neb (Duoneb) 0.5-2.5 Mg/3 Ml Neb 1 NEBULE INH Q6HR NEB PRN for DYSPNEA, #120 NEBULE 0 Refills Nebulizer (Nebulizer) 1 Mis Mis EA .XX DIRECTED for Breathing Treatment, #1 0 Refills Aspirin (Tgt Aspirin) 81 Mg Chw 81 MG CHEW DAILY for Blood Clot Prevention, #30 EA 0 Refills Continued Medications: Allopurinol (Allopurinol) 300 Mg Tab 300 MG PO DAILY for Gout, #30 TAB 0 Refills Ascorbic Acid (Ascorbic Acid) 500 Mg Tab 1000 MG PO DAILY, TAB Cholecalciferol (Vitamin D3) 1,000 Unit Cap 4000 UNITS PO DAILY for Nutritional Supplement, #1 BOTTLE 0 Refills Clopidogrel (Plavix) 75 Mg Tab 75 MG PO DAILY for Blood Clot Prevention, #30 TAB 0 Refills Colestipol (Colestipol) 5 Gm Pkt 5 GM PO DAILY for Cholesterol Management, #30 PKT 0 Refills 1 packet of granules contains 5 gm of colestipol. Cyanocobalamin (B-12) 1,000 Mcg Subl 1000 MCG SL DAILY for Nutritional Supplement, TAB.SL 0 Refills Ferrous Sulfate (Ferrous Sulfate) 325 Mg (65 Mg Iron) Tablet 325 MG PO BID for Nutritional Supplement, #60 TAB 6 Refills Take it with small amount of orange juice. Folic Acid (Folic Acid) 1 Mg Tablet Gabapentin (Gabapentin) 300 Mg Cap 300 MG PO DAILY, #60 CAP 0 Refills Lisinopril (Lisinopril) 40 Mg Tab 40 MG PO DAILY for Blood Pressure Management, #30 TAB 0 Refills Magnesium Oxide (Magnesium Oxide) 400 Mg Tab 400 MG PO DAILY for Nutritional Supplement, TAB 0 Refills Metoprolol Tartrate (Metoprolol Tartrate) 50 Mg Tab 25 MG PO BID, #60 TAB 0 Refills Pantoprazole (Protonix) 40 Mg Tab 40 MG PO DAILY for Ulcer Prevention, #30 TAB 6 Refills Pravastatin (Pravastatin) 40 Mg Tab 40 MG PO HS for Cholesterol Management, #30 TAB 0 Refills Thiamine (Vitamin B-1) 100 Mg Tab 100 MG PO DAILY for Nutritional Supplement, TAB 0 Refills Torsemide (Torsemide) 10 Mg Tab 10 MG PO BID for Fluid, #60 TAB 0 Refills Discontinued Medications: Apixaban (Eliquis) 5 Mg Tab 5 MG PO BID for Blood Clot Prevention, #60 TAB 6 Refills START on 10/13/2017 Kwame Corral MD Oct 23, 2017 15:05
== END 2017-10-23 16:10 | disposition home or self-care (01) | DRG 377 ==
LOC: NEPC 14:39 → NEDA 18:52 → OBSVTOIN 18:58 → N07A 20:11
PROVIDERS: ADMIT Family Medicine; ATTEND Family Medicine
PROC: 30233N1 Transfusion of Nonautologous Red Blood Cells into Peripheral Vein, Percutaneous Approach (ICD-10-PCS; 2017-10-20)
PROC: 0D568ZZ Destruction of Stomach, Via Natural or Artificial Opening Endoscopic (ICD-10-PCS; principal; 2017-10-21 13:50)
DX: K55.21 Angiodysplasia of colon with hemorrhage (principal); J18.9 Pneumonia, unspecified organism; I13.0 Hypertensive heart and chronic kidney disease with heart failure and stage 1 through stage 4 chronic kidney disease, or unspecified chronic kidney disease; I48.91 Unspecified atrial fibrillation; I50.9 Heart failure, unspecified; J44.0 Chronic obstructive pulmonary disease with (acute) lower respiratory infection; D62 Acute posthemorrhagic anemia; K22.70 Barrett's esophagus without dysplasia; K29.70 Gastritis, unspecified, without bleeding; K44.9 Diaphragmatic hernia without obstruction or gangrene; E78.5 Hyperlipidemia, unspecified; N18.9 Chronic kidney disease, unspecified; I25.10 Atherosclerotic heart disease of native coronary artery without angina pectoris; R19.5 Other fecal abnormalities; K21.9 Gastro-esophageal reflux disease without esophagitis; M19.90 Unspecified osteoarthritis, unspecified site; F10.10 Alcohol abuse, uncomplicated; Y95 Nosocomial condition; Z79.01 Long term (current) use of anticoagulants; Z87.891 Personal history of nicotine dependence; Z95.5 Presence of coronary angioplasty implant and graft; K57.30 Diverticulosis of large intestine without perforation or abscess without bleeding
CPT/HCPCS: 36430; 43270; 71045; 74176; 80048; 80053; 83605; 85014; 85018; 85025; 85610; 85730; 86850; 86900; 86901; 86920; 87040; 94640; 94664; 99285; C9113; J0692; J2543; P9016; Q9963

== ENCOUNTER 2017-11-27 12:10 | Emergency (ER) | payer MEDICARE, OTHER ==
[~2017-11-27] VITALS: Ht 182.9 cm; Wt 103.0 kg
[~2017-11-27 12:10] MED LIST changes: -APIX5TAB PO; +ASPI81 CHEW; +AUGM875T3 PO; +IPRASOL INH; +NEBULIZER1 MI1; +PLAV75TA29 PO; -PRAS10TA PO
[2017-11-27 12:13] VITALS: BP 124/81; PULSE 93; RESP 17; TEMP 97.3; O2SAT 97
--- NOTE | 2017-11-27 14:46 | PD ---
HPI Chief Complaint: Medical Clearance Time Seen by Provider: 12:57 Travel History International Travel<30 days: No Contact w/Intl Traveler<30days: No Traveled to known affect area: No History of Present Illness HPI Patient comes in complaining of increased frequency, patient also gives a history of recent change of his diuretic to Demadex Past medical history significant for atrial fibrillation, congestive heart failure, ACS, PFSH Past Medical History Hx Anticoagulant Therapy: Yes Arthritis: Yes Asthma: No Autoimmune Disease: No Blood Disorders: No Anxiety: No Depression: No Heart Rhythm Problems: Yes (AFIB) Cancer: No Cardiac Catheterization: Yes (with 2 stents) Cardiovascular Problems: Yes High Cholesterol: Yes Chemotherapy: No Chest Pain: No Congestive Heart Failure: No COPD: Yes (RESOLVED AFTER CARDIAC STENTS PLACED PER PATIENT) Cerebrovascular Accident: No Diabetes: No Endocrine: No Gastrointestinal Disorders: Yes GERD: Yes Genitourinary: No Headaches: No Hiatal Hernia: No Hypertension: Yes Immune Disorder: No Implanted Vascular Access Dvce: Yes Kidney Stones: No Musculoskeletal: Yes (ARTHRITIS) Neurologic: Yes Psychiatric: No Reproductive: No Respiratory: Yes Migraines: No Radiation Therapy: No Renal Failure: No Seizures: No Sickle Cell Disease: No Sleep Apnea: No Thyroid Disease: No Ulcer: Yes Past Surgical History Abdominal Surgery: Yes (APPY) AICD: No Appendectomy: Yes Body Medical Devices: CARDIAC STENTS Cardiac Surgery: Yes (CARDIAC CATH WITH STENTS) Ear Surgery: No Endocrine Surgery: No Eye Surgery: Yes (CATARACT SX) Genitourinary Surgery: No Gynecologic Surgery: No Neurologic Surgery: No Oral Surgery: Yes (TONSILLECTOMY) Pacemaker: No Thoracic Surgery: No Other Surgery: Yes (appendectomy) Social History Alcohol Use: Yes Tobacco Use: No Substance Use: No Allergies-Medications (Allergen,Severity, Reaction): Coded Allergies: No Known Allergies (Unverified , 11/27/17) Reported Meds & Prescriptions Reported Meds & Active Scripts Active Duoneb (Ipratropium-Albuterol Neb) 0.5-2.5 Mg/3 Ml Neb 1 Nebule INH Q6HR NEB PRN Nebulizer 1 Mis Mis Ea .XX DIRECTED Tgt Aspirin (Aspirin) 81 Mg Chw 81 Mg CHEW DAILY Torsemide 10 Mg Tab 10 Mg PO BID Protonix (Pantoprazole Sodium) 40 Mg Tab 40 Mg PO DAILY Ferrous Sulfate 325 Mg (65 Mg Iron) Tablet 325 Mg PO BID Take it with small amount of orange juice. Reported Plavix (Clopidogrel Bisulfate) 75 Mg Tab 75 Mg PO DAILY Gabapentin 300 Mg Cap 300 Mg PO DAILY Vitamin B-1 (Thiamine HCl) 100 Mg Tab 100 Mg PO DAILY Pravastatin 40 Mg Tab 40 Mg PO HS Metoprolol Tartrate 50 Mg Tab 25 Mg PO BID Magnesium Oxide 400 Mg Tab 400 Mg PO DAILY Lisinopril 40 Mg Tab 40 Mg PO DAILY Folic Acid 1 Mg Tablet B-12 (Cyanocobalamin) 1,000 Mcg Subl 1,000 Mcg SL DAILY Colestipol (Colestipol HCl) 5 Gm Pkt 5 Gm PO DAILY 1 packet of granules contains 5 gm of colestipol. Vitamin D3 (Cholecalciferol) 1,000 Unit Cap 4,000 Units PO DAILY Ascorbic Acid 500 Mg Tab 1,000 Mg PO DAILY Allopurinol 300 Mg Tab 300 Mg PO DAILY Review of Systems General / Constitutional: No: Fever Eyes: No: Visual changes HENT: No: Headaches Cardiovascular: No: Chest Pain or Discomfort Respiratory: No: Shortness of Breath Gastrointestinal: No: Abdominal Pain Genitourinary: Positive: Frequency Musculoskeletal: No: Pain Skin: No Rash Neurologic: No: Weakness Psychiatric: No: Depression Endocrine: No: Polydipsia Hematologic/Lymphatic: No: Easy Bruising Physical Exam Narrative GENERAL: SKIN: Warm and dry. HEAD: Atraumatic. Normocephalic. EYES: Pupils equal and round. No scleral icterus. No injection or drainage. ENT: No nasal bleeding or discharge. Mucous membranes pink and moist. NECK: Trachea midline. No JVD. CARDIOVASCULAR: Regular rate and rhythm. RESPIRATORY: No accessory muscle use. Clear to auscultation. Breath sounds equal bilaterally. GASTROINTESTINAL: Abdomen soft, non-tender, nondistended. MUSCULOSKELETAL: Extremities without clubbing, cyanosis, 2+pitting edema without cellulitis. No obvious deformities. NEUROLOGICAL: Awake and alert. No obvious cranial nerve deficits. Motor grossly within normal limits. Five out of 5 muscle strength in the arms and legs. Normal speech. PSYCHIATRIC: Appropriate mood and affect; insight and judgment normal. Data Data Last Documented VS Vital Signs Date Time Temp Pulse Resp B/P (MAP) Pulse Ox O2 Delivery O2 Flow Rate FiO2 11/27/17 12:13 97.3 93 17 124/81 (95) 97 Orders Orders Urinalysis - C+S If Indicated (11/27/17 12:19) Urine Culture (11/27/17 14:30) Labs Laboratory Tests Test 11/27/17 14:30 Urine Color YELLOW Urine Turbidity CLEAR Urine pH 5.0 Urine Specific [place] 1.010 Urine Protein NEG mg/dL Urine Glucose (UA) NEG mg/dL Urine Ketones NEG mg/dL Urine Occult Blood NEG Urine Nitrite NEG Urine Bilirubin NEG Urine Urobilinogen LESS THAN 2.0 MG/DL Urine Leukocyte Esterase LARGE Urine RBC 1 /hpf Urine WBC 29 /hpf Urine Squamous Epithelial Cells <1 /hpf Urine Bacteria MANY /hpf Urine Hyaline Casts 6 /lpf Microscopic Urinalysis Comment CULTURE INDICATED MDM Medical Decision Making Medical Screen Exam Complete: Yes Emergency Medical Condition: Yes Medical Record Reviewed: Yes Differential Diagnosis UTI versus diuretic effect Narrative Course UA consistent with a UTI Diagnosis Primary Impression: UTI Patient Instructions: General Instructions, Torsemide (By mouth), Urinary Tract Infection in Men (ED) Additional Instructions: please see your primary care doctors for further adjustment of your medications Scripts Nitrofurantoin Monohydrate Macrocrystals (Macrobid) 100 Mg Capsule 100 MG PO BID for Infection for 10 Days, #20 CAP 0 Refills Prov: Saeid Stout MD 11/27/17 Disposition: 01 DISCHARGE HOME Condition: Stable Saeid Stout MD Nov 27, 2017 14:46
[2017-11-27 15:25] LABS: BACTERIA, URINE MANY /hpf; BILIRUBIN, URINE NEG (NEG); BLOOD, URINE NEG (NEG); GLUCOSE,URINE NEG (NEG); HYALINE CAST, URINE 6 /lpf (RARE); KETONE, URINE NEG (NEG); NITRITE,URINE NEG (NEG); SQUAMOUS EPITHELIAL CELL URINE <1 /hpf (0-5); URINE COLOR YELLOW (YELLW/STRAW); URINE LEUKOCYTE ESTERASE LARGE (NEG)
[2017-11-27] MEDS ORDERED: MACR100C2 PO (15:39)
[2017-11-27 15:51] VITALS: BP 126/68
== END 2017-11-27 15:52 | disposition home or self-care (01) ==
LOC: NEPD 12:10
DX: N39.0 Urinary tract infection, site not specified (principal); B96.89 Other specified bacterial agents as the cause of diseases classified elsewhere; I10 Essential (primary) hypertension; I48.91 Unspecified atrial fibrillation; Z79.01 Long term (current) use of anticoagulants
CPT/HCPCS: 81001; 87077; 87086; 87186; 99283

== ENCOUNTER 2017-12-31 14:06 | Observation (INO) | payer MEDICARE, OTHER ==
[2017-12-31] VITALS (8 sets, daily range): BP systolic 121–176; BP diastolic 60–78; PULSE 71–104; RESP 16–26; TEMP 97.8–97.9; O2SAT 95–99
[~2017-12-31] VITALS: Ht 182.9 cm; Wt 100.0 kg
[~2017-12-31 14:06] MED LIST changes: -AUGM875T3 PO; -FOLI1TAB6; +FOLI1TAB6 PO; +MACR100C2 PO
[2017-12-31] MEDS ORDERED: SODIUM CHLORIDE 0.9% FLUSH 10 ML FLUSH IV FLUSH PRN ×2 (14:45→17:15)
--- NOTE | 2017-12-31 14:50 | PD ---
HPI Chief Complaint: GI Complaint Time Seen by Provider: 14:17 Travel History International Travel<30 days: No Contact w/Intl Traveler<30days: No Traveled to known affect area: No History of Present Illness HPI Patient 72-year-old male not on anticoagulation presents emergency department with dark stool for undetermined length of time, patient states she has had many GI consult here has been having colonoscopies and endoscopies fairly frequently, he states the last time a female doctor was able to cauterize the problem with an upper endoscopy. Is covered by his significant other, he states he checks his stool very frequently but she states that notes 100% sure as to when the bleeding started. He does also take iron pills and was wondering that his dark stool was from that, denies any bright red blood denies any nausea vomiting abdominal pain shortness of breath. He does not have a GI doctor he follows with as an outpatient. He also was started on a diuretic recently: Torsemide, he states he drinks water fairly frequently because he is always thirsty because of the new medication. Denies any chest pain shortness of breath abdominal pain nausea vomiting, symptoms moderate, unknown duration, context as above PFSH Past Medical History Hx Anticoagulant Therapy: Yes Arthritis: Yes Asthma: No Autoimmune Disease: No Blood Disorders: No Anxiety: No Depression: No Heart Rhythm Problems: Yes (AFIB) Cancer: No Cardiac Catheterization: Yes (with 2 stents) Cardiovascular Problems: Yes High Cholesterol: Yes Chemotherapy: No Chest Pain: No Congestive Heart Failure: No COPD: Yes (RESOLVED AFTER CARDIAC STENTS PLACED PER PATIENT) Cerebrovascular Accident: No Diabetes: No Endocrine: No Gastrointestinal Disorders: Yes GERD: Yes Genitourinary: No Headaches: No Hiatal Hernia: No Hypertension: Yes Immune Disorder: No Implanted Vascular Access Dvce: Yes Kidney Stones: No Musculoskeletal: Yes (ARTHRITIS) Neurologic: Yes Psychiatric: No Reproductive: No Respiratory: Yes Migraines: No Radiation Therapy: No Renal Failure: No Seizures: No Sickle Cell Disease: No Sleep Apnea: No Thyroid Disease: No Ulcer: Yes Past Surgical History Abdominal Surgery: Yes (APPY) AICD: No Appendectomy: Yes Body Medical Devices: CARDIAC STENTS Cardiac Surgery: Yes (CARDIAC CATH WITH STENTS) Ear Surgery: No Endocrine Surgery: No Eye Surgery: Yes (CATARACT SX) Genitourinary Surgery: No Gynecologic Surgery: No Neurologic Surgery: No Oral Surgery: Yes (TONSILLECTOMY) Pacemaker: No Thoracic Surgery: No Other Surgery: Yes (appendectomy) Social History Alcohol Use: Yes Tobacco Use: No Substance Use: No Allergies-Medications (Allergen,Severity, Reaction): Coded Allergies: No Known Allergies (Unverified , 12/31/17) Reported Meds & Prescriptions Reported Meds & Active Scripts Active Duoneb (Ipratropium-Albuterol Neb) 0.5-2.5 Mg/3 Ml Neb 1 Nebule INH Q6HR NEB PRN Tgt Aspirin (Aspirin) 81 Mg Chw 81 Mg CHEW DAILY Torsemide 10 Mg Tab 10 Mg PO BID Protonix (Pantoprazole Sodium) 40 Mg Tab 40 Mg PO DAILY Ferrous Sulfate 325 Mg (65 Mg Iron) Tablet 325 Mg PO BID Take it with small amount of orange juice. Reported Plavix (Clopidogrel Bisulfate) 75 Mg Tab 75 Mg PO DAILY Gabapentin 300 Mg Cap 300 Mg PO DAILY Vitamin B-1 (Thiamine HCl) 100 Mg Tab 100 Mg PO DAILY Pravastatin 40 Mg Tab 40 Mg PO HS Metoprolol Tartrate 50 Mg Tab 25 Mg PO BID Magnesium Oxide 400 Mg Tab 800 Mg PO DAILY Lisinopril 40 Mg Tab 20 Mg PO BID Folic Acid 1 Mg Tablet 1 Mg PO DAILY B-12 (Cyanocobalamin) 1,000 Mcg Subl 1,000 Mcg SL DAILY Colestipol (Colestipol HCl) 5 Gm Pkt 5 Gm PO DAILY 1 packet of granules contains 5 gm of colestipol. Vitamin D3 (Cholecalciferol) 1,000 Unit Cap 4,000 Units PO DAILY Ascorbic Acid 500 Mg Tab 1,000 Mg PO DAILY Allopurinol 300 Mg Tab 300 Mg PO DAILY Review of Systems Except as stated in HPI: all other systems reviewed are Neg Physical Exam Narrative GENERAL: Well-developed well-nourished, no obvious distress SKIN: Focused skin assessment warm/dry. HEAD: Atraumatic. Normocephalic. EYES: Pupils equal and round. No scleral icterus. No injection or drainage. ENT: No nasal bleeding or discharge. Mucous membranes pink and moist. NECK: Trachea midline. No JVD. CARDIOVASCULAR: Regular rate and rhythm. No murmur appreciated. RESPIRATORY: No accessory muscle use. Clear to auscultation. Breath sounds equal bilaterally. GASTROINTESTINAL: Abdomen soft, non-tender, nondistended. Hepatic and splenic margins not palpable. RECTAL: Patient is significant dark stool on my finger during exam, no hemorrhoid, no fissure, no mass, prostate smooth, this is fecal occult positive and strongly positive. MUSCULOSKELETAL: No obvious deformities. No clubbing. No cyanosis. No edema. NEUROLOGICAL: Awake and alert. No obvious cranial nerve deficits. Motor grossly within normal limits. Normal speech. PSYCHIATRIC: Appropriate mood and affect; insight and judgment normal. Data Data Last Documented VS Vital Signs Date Time Temp Pulse Resp B/P (MAP) Pulse Ox O2 Delivery O2 Flow Rate FiO2 12/31/17 15:15 71 20 155/66 (95) 98 Room Air 12/31/17 14:14 97.8 Orders Orders Complete Blood Count With Diff (12/31/17 14:32) Comprehensive Metabolic Panel (12/31/17 14:32) Prothrombin Time / Inr (Pt) (12/31/17 14:32) Act Partial Throm Time (Ptt) (12/31/17 14:32) Iv Access Insert/Monitor (12/31/17 14:32) Ecg Monitoring (12/31/17 14:32) Oximetry (12/31/17 14:32) Sodium Chloride 0.9% Flush (Ns Flush) (12/31/17 14:45) Electrocardiogram (12/31/17 ) Sodium Chlorid 0.9% 500 Ml Inj (Ns 500 M (12/31/17 17:00) Admit Order (Ed Use Only) (12/31/17 ) Labs Laboratory Tests Test 12/31/17 15:10 White Blood Count 6.2 TH/MM3 Red Blood Count 3.69 MIL/MM3 Hemoglobin 11.4 GM/DL Hematocrit 33.6 % Mean Corpuscular Volume 91.2 FL Mean Corpuscular Hemoglobin 30.8 PG Mean Corpuscular Hemoglobin Concent 33.8 % Red Cell Distribution Width 18.2 % Platelet Count 188 TH/MM3 Mean Platelet Volume 6.5 FL Neutrophils (%) (Auto) 68.4 % Lymphocytes (%) (Auto) 15.4 % Monocytes (%) (Auto) 14.5 % Eosinophils (%) (Auto) 1.1 % Basophils (%) (Auto) 0.6 % Neutrophils # (Auto) 4.2 TH/MM3 Lymphocytes # (Auto) 1.0 TH/MM3 Monocytes # (Auto) 0.9 TH/MM3 Eosinophils # (Auto) 0.1 TH/MM3 Basophils # (Auto) 0.0 TH/MM3 CBC Comment DIFF FINAL Differential Comment Prothrombin Time 11.0 SEC Prothromb Time International Ratio 1.1 RATIO Activated Partial Thromboplast Time 25.2 SEC Blood Urea Nitrogen 61 MG/DL Creatinine 1.69 MG/DL Random Glucose 100 MG/DL Total Protein 8.6 GM/DL Albumin 3.7 GM/DL Calcium Level 8.6 MG/DL Alkaline Phosphatase 105 U/L Aspartate Amino Transf (AST/SGOT) 30 U/L Alanine Aminotransferase (ALT/SGPT) 18 U/L Total Bilirubin 0.6 MG/DL Sodium Level 132 MEQ/L Potassium Level 5.2 MEQ/L Chloride Level 98 MEQ/L Carbon Dioxide Level 25.0 MEQ/L Anion Gap 9 MEQ/L Estimat Glomerular Filtration Rate 40 ML/MIN [facility] Medical Decision Making Medical Screen Exam Complete: Yes Emergency Medical Condition: Yes Interpretation(s) EKG shows normal sinus rhythm normal axis normal R-wave progression, no concerning ST segment changes, no changes consistent with hyperkalemia. Differential Diagnosis Acute kidney injury, dehydration, hyperkalemia, anemia, GI bleeding, upper GI bleeding, lower GI bleeding. Narrative Course Patient room to the emergency department, hemodynamically stable he appears well , his stool is grossly melanotic and fecal occult positive and strongly positive. Patient does have significant laboratory findings of creatinine 1.6 which is new for him, he is also had a potassium elevated at 5.2 without EKG changes. He is given 1/2 L normal saline, discussed with him need observation status for further workup and hemoglobin trending in a minimum. He verbalized understanding and agreement. Discussed with Dr. Soriano Diagnosis Primary Impression: Anemia Additional Impressions: Acute kidney injury Hyperkalemia GI bleeding Admitting Information Admitting Physician Requests: Admit Condition: Stable Tyrese Iverson MD Dec 31, 2017 14:50
[2017-12-31 15:28] LABS: AUTOMATED NEUTROPHIL # 4.2 TH/MM3 (1.8-7.7); BASOPHIL % 0.6 % (0.0-2.0); EOSINOPHIL # 0.1 TH/MM3 (0-0.4); EOSINOPHIL % 1.1 % (0.0-4.0); HEMATOCRIT 33.6 % (39.0-51.0); HEMOGLOBIN 11.4 GM/DL (13.0-17.0); LYMPH % 15.4 % (9.0-44.0); MEAN CELL VOLUME 91.2 FL (80.0-100.0); MEAN CORPUSCULAR HEMOGLOBIN 30.8 PG (27.0-34.0); MEAN CORPUSCULAR HGB CONC 33.8 % (32.0-36.0); MEAN PLATELET VOLUME 6.5 FL (7.0-11.0); MONO % 14.5 % (0.0-8.0); MONOCYTE # 0.9 TH/MM3 (0-0.9); NEUT % 68.4 % (16.0-70.0); PLATELET COUNT 188 TH/MM3 (150-450); RED BLOOD COUNT 3.69 MIL/MM3 (4.50-5.90); RED CELL DISTRIBUTION WIDTH 18.2 % (11.6-17.2); WHITE BLOOD COUNT 6.2 TH/MM3 (4.0-11.0)
[2017-12-31 15:37] LABS: INTERNATIONAL NORMALIZED RATIO 1.1 RATIO
[2017-12-31 15:52] LABS: ALKALINE PHOSPHATASE 105 U/L (45-117); TOTAL BILIRUBIN ADULT 0.6 MG/DL (0.2-1.0); TOTAL PROTEIN 8.6 GM/DL (6.4-8.2)
[2017-12-31 15:55] LABS: ALBUMIN 3.7 GM/DL (3.4-5.0); ALT (GPT) 18 U/L (12-78); AST (GOT) 30 U/L (15-37); BLOOD UREA NITROGEN 61 MG/DL (7-18); CALCIUM 8.6 MG/DL (8.5-10.1); CHLORIDE 98 MEQ/L (98-107); CREATININE 1.69 MG/DL (0.60-1.30); GLOMERULAR FILTRATION RATE 40 ML/MIN (>89); GLUCOSE,RANDOM 100 MG/DL (74-106); SODIUM (NA) 132 MEQ/L (136-145)
[2017-12-31] MEDS ORDERED: SODIUM CHLORID 0.9% 500 ML INJ 500 ML IV ONE (17:00)
[2017-12-31] MEDS ORDERED: MAGNESIUM HYDROXIDE SUSP 30 ML CUP PO PRN (17:15)
[2017-12-31] MEDS ORDERED: NALOXONE HCL 0.4 MG/ML AMP IV PUSH PRN (17:15)
[2017-12-31] MEDS ORDERED: LACTULOSE SYRUP 20 GM/30 ML CUP PO PRN (17:15)
[2017-12-31] MEDS ORDERED: BISACODYL 10 MG SUPP RECTAL PRN (17:15)
[2017-12-31] MEDS ORDERED: ACETAMINOPHEN 325 MG TAB PO PRN (17:15)
[2017-12-31] MEDS ORDERED: SENNOSIDES 8.6 MG TAB PO PRN (17:15)
[2017-12-31] MEDS ORDERED: ONDANSETRON HCL 4 MG/2 ML VIAL IVP PRN (17:15)
--- NOTE | 2017-12-31 17:20 | HHI.HP ---
[facility] Admission Diagnosis MILLER, Mild Hyperkalemia, GI bleeding Diagnoses: (1) Melena Diagnosis: Principal (2) Acute kidney injury (3) A-fib (4) HTN (hypertension) (5) Anemia Chief Complaint: I had a very dark stool Travel History International Travel<30 Days: No Contact w/Intl Traveler <30 Da: No Traveled to Known Affected Are: No History of Present Illness Written by Rohit Dang, acting as scribe for Dr. Prather on 12/31/17 at 17:10. 72-year-old male with past medical history significant for atrial fibrillation, CHF, HTN, CKD, HLD, CAD, COPD, and recurrent GI bleeds. Who presented to the emergency department today with complaints of dark stools. Patient reports that he has had a total of 3 upper endoscopies in the past several months with the last one resulting in cautery of bleeds. He states that due to recurrent GI bleeds as well as taking oral iron he is constantly checking his stools. He states that today he moved his bowels several times and noticed that his stool was especially dark. He is aware that iron will make his stools dark however felt that there was something wrong going on this time. He reports taking both aspirin and Plavix previously. He repots taking ASA BID according to the bottle that he has. He did not realize that he was only suppose to be taking one tablet a day. He denies any nausea, vomiting, chest pain, palpitations, constipation, diarrhea, or abdominal pain. He does repots SOB, but was told that this could be normal. He does have a history of COPD, but does not take any medications for this. Reports that he is constantly peeing about 24hrs a day, he states that the water pill is very strong. Review of Systems Gastrointestinal: COMPLAINS OF: Black stools, DENIES: Bloody stools, Nausea, Vomiting Except as stated in HPI: all other systems reviewed are Neg Past Family Social History Past Medical History atrial fibrillation CHF hypertension CAD with PCI to LAD and RCA CKD COPD hyperlipidemia GIB Past Surgical History Cardiac stents Appendectomy Reported Medications Reported Meds & Active Scripts Active Duoneb (Ipratropium-Albuterol Neb) 0.5-2.5 Mg/3 Ml Neb 1 Nebule INH Q6HR NEB PRN Tgt Aspirin (Aspirin) 81 Mg Chw 81 Mg CHEW DAILY Torsemide 10 Mg Tab 10 Mg PO BID Protonix (Pantoprazole Sodium) 40 Mg Tab 40 Mg PO DAILY Ferrous Sulfate 325 Mg (65 Mg Iron) Tablet 325 Mg PO BID Take it with small amount of orange juice. Reported Plavix (Clopidogrel Bisulfate) 75 Mg Tab 75 Mg PO DAILY Gabapentin 300 Mg Cap 300 Mg PO DAILY Vitamin B-1 (Thiamine HCl) 100 Mg Tab 100 Mg PO DAILY Pravastatin 40 Mg Tab 40 Mg PO HS Metoprolol Tartrate 50 Mg Tab 25 Mg PO BID Magnesium Oxide 400 Mg Tab 800 Mg PO DAILY Lisinopril 40 Mg Tab 20 Mg PO BID Folic Acid 1 Mg Tablet 1 Mg PO DAILY B-12 (Cyanocobalamin) 1,000 Mcg Subl 1,000 Mcg SL DAILY Colestipol (Colestipol HCl) 5 Gm Pkt 5 Gm PO DAILY 1 packet of granules contains 5 gm of colestipol. Vitamin D3 (Cholecalciferol) 1,000 Unit Cap 4,000 Units PO DAILY Ascorbic Acid 500 Mg Tab 1,000 Mg PO DAILY Allopurinol 300 Mg Tab 300 Mg PO DAILY Allergies: Coded Allergies: No Known Allergies (Unverified , 12/31/17) Family History Mother: dementia Father: of abdominal surgery Social History Alcohol: Daily drinker, amount varies denies tobacco, quit smoking 1979 denies illicit drug use Physical Exam Vital Signs Vital Signs Date Time Temp Pulse Resp B/P (MAP) Pulse Ox O2 Delivery O2 Flow Rate FiO2 12/31/17 15:15 71 20 155/66 (95) 98 Room Air 12/31/17 15:13 98 Room Air 12/31/17 14:14 97.8 104 19 176/76 (109) 95 Physical Exam GENERAL: This is a well-nourished, well-developed patient, in no apparent distress. SKIN: No rashes, ecchymoses or lesions. Cool and dry. HEAD: Atraumatic. Normocephalic. No temporal or scalp tenderness. EYES: Pupils equal round and reactive. Extraocular motions intact. No scleral icterus. No injection or drainage. ENT: Nose without bleeding, purulent drainage or septal hematoma. Throat without erythema, tonsillar hypertrophy or exudate. Uvula midline. Airway patent. NECK: Trachea midline. No JVD or lymphadenopathy. Supple, nontender, no meningeal signs. CARDIOVASCULAR: Regular rate and rhythm without murmurs, gallops, or rubs. RESPIRATORY: Clear to auscultation. Breath sounds equal bilaterally. No wheezes , rales, or rhonchi. GASTROINTESTINAL: Abdomen soft, non-tender, nondistended. No hepato-splenomegaly , or palpable masses. No guarding. MUSCULOSKELETAL: Extremities without clubbing, cyanosis, or edema. No joint tenderness, effusion, or edema noted. No calf tenderness. Negative Homans sign bilaterally. NEUROLOGICAL: Awake and alert. Cranial nerves II through XII intact. Motor and sensory grossly within normal limits. Five out of 5 muscle strength in all muscle groups. Normal speech. Laboratory Laboratory Tests Test 12/31/17 15:10 White Blood Count 6.2 Red Blood Count 3.69 Hemoglobin 11.4 Hematocrit 33.6 Mean Corpuscular Volume 91.2 Mean Corpuscular Hemoglobin 30.8 Mean Corpuscular Hemoglobin Concent 33.8 Red Cell Distribution Width 18.2 Platelet Count 188 Mean Platelet Volume 6.5 Neutrophils (%) (Auto) 68.4 Lymphocytes (%) (Auto) 15.4 Monocytes (%) (Auto) 14.5 Eosinophils (%) (Auto) 1.1 Basophils (%) (Auto) 0.6 Neutrophils # (Auto) 4.2 Lymphocytes # (Auto) 1.0 Monocytes # (Auto) 0.9 Eosinophils # (Auto) 0.1 Basophils # (Auto) 0.0 CBC Comment DIFF FINAL Differential Comment Prothrombin Time 11.0 Prothromb Time International Ratio 1.1 Activated Partial Thromboplast Time 25.2 Blood Urea Nitrogen 61 Creatinine 1.69 Random Glucose 100 Total Protein 8.6 Albumin 3.7 Calcium Level 8.6 Alkaline Phosphatase 105 Aspartate Amino Transf (AST/SGOT) 30 Alanine Aminotransferase (ALT/SGPT) 18 Total Bilirubin 0.6 Sodium Level 132 Potassium Level 5.2 Chloride Level 98 Carbon Dioxide Level 25.0 Anion Gap 9 Estimat Glomerular Filtration Rate 40 Result Diagram: 12/31/17 1510 12/31/17 1510 Caprini VTE Risk Assessment Caprini VTE Risk Assessment: Mod/High Risk (score >= 2) Caprini Risk Assessment Model Point Value = 1 Point Value = 2 Point Value = 3 Point Value = 5 Age 41-60 Minor surgery BMI > 25 kg/m2 Swollen legs Varicose veins or History of unexplained or recurrent spontaneous Oral contraceptives or hormone replacement Sepsis (< 1 month) Serious lung disease, including pneumonia (< 1 month) Abnormal pulmonary function Acute myocardial infarction Congestive heart failure (< 1 month) History of inflammatory bowel disease Medical patient at bed rest Age 61-74 Arthroscopic surgery Major open surgery (> 45 min) Laparoscopic surgery (> 45 min) Malignancy Confined to bed (> 72 hours) Immobilizing plaster cast Central venous access Age >= 75 History of VTE Family history of VTE Factor V Leiden Prothrombin [id number] Lupus anticoagulant Anticardiolipin antibodies Elevated serum homocysteine Heparin-induced thrombocytopenia Other congenital or acquired thrombophilia Stroke (< 1 month) Elective arthroplasty Hip, pelvis, or leg fracture Acute spinal cord injury (< 1 month) Prophylaxis Regimen Total Risk Factor Score Risk Level Prophylaxis Regimen 0-1 Low Early ambulation 2 Moderate Order ONE of the following: *Sequential Compression Device (SCD) *Heparin 5000 units SQ BID 3-4 Higher Order ONE of the following medications: *Heparin 5000 units SQ TID *Enoxaparin/Lovenox 40 mg SQ daily (WT < 150 kg, CrCl > 30 mL/min) *Enoxaparin/Lovenox 30 mg SQ daily (WT < 150 kg, CrCl > 10-29 mL/min) *Enoxaparin/Lovenox 30 mg SQ BID (WT < 150 kg, CrCl > 30 mL/min) AND/OR *Sequential Compression Device (SCD) 5 or more Highest Order ONE of the following medications: *Heparin 5000 units SQ TID (Preferred with Epidurals) *Enoxaparin/Lovenox 40 mg SQ daily (WT < 150 kg, CrCl > 30 mL/min) *Enoxaparin/Lovenox 30 mg SQ daily (WT < 150 kg, CrCl > 10-29 mL/min) *Enoxaparin/Lovenox 30 mg SQ BID (WT < 150 kg, CrCl > 30 mL/min) AND *Sequential Compression Device (SCD) Assessment and Plan Assessment and Plan Assessment/plan: Anemia/concern for repeat GI bleed - IV Protonix -Gastroenterology consulted, appreciate recommendations 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 fib, chronic HTN HLD CHF, not on exacerbation Chronic anticoagulation - Will hold Plavix - Continue metoprolol 50 mg, Hold lisinopril and Torsemide due to MILLER - Monitor BP trend CAD s/p JÚNIOR stents in Prox LAD and RCA - Holding ASA/Plavix DVT prophylaxis- SCD's/DIMA's. Holding pharmacologic anticoagulation secondary to GI bleed This note was transcribed by DEEPTHI Fatima. I, Dr. Rajni Prather personally performed the history, physical exam, and medical decision making; and confirmed the accuracy of the information in the transcribed note. Authenticated by Dr. Rajni Prather on 12/31/17 at 17:10. Rohit Dang Dec 31, 2017 17:20 Rajni Prather MD Dec 31, 2017 18:00
[2017-12-31] MEDS ORDERED: SODIUM POLYSTYRENE SULFONATE SUSP 15 GM/60 ML CUP PO ONE (17:30)
[2017-12-31] MEDS ORDERED: RESP: ALBUTEROL 2.5 MG/IPRATROPIUM 0.5 MG NEB (PRN) NEB (17:30)
[2017-12-31] MEDS ORDERED: SODIUM CHLOR 0.9% 1000 ML INJ 1,000 ML IV SCH (18:00)
[2017-12-31] MEDS ORDERED: LISINOPRIL 20 MG TAB PO SCH (21:00)
[2017-12-31] MEDS ORDERED: LISINOPRIL 20 MG PO SCH (21:00)
[2017-12-31] MEDS ORDERED: TORSEMIDE 5 MG TAB PO SCH (21:00)
[2017-12-31] MEDS: DOCUSATE SODIUM 50 MG/SENNA 8.6 MG TAB PO SCH (21:47)
[2017-12-31] MEDS: METOPROLOL TARTRATE 25 MG TAB PO SCH (21:50)
[2017-12-31] MEDS: SODIUM CHLORIDE 0.9% FLUSH 10 ML FLUSH IV FLUSH SCH (21:50)
[2017-12-31] MEDS: FERROUS SULFATE 325 MG (65 MG ELEMENTAL IRON) TAB PO SCH (21:50)
[2017-12-31] MEDS: PRAVASTATIN SOD 40 MG TAB PO SCH (21:50)
[2018-01-01] VITALS (7 sets, daily range): BP systolic 120–151; BP diastolic 52–75; PULSE 71–85; RESP 16–20; TEMP 96–97.9; O2SAT 95–100
[2018-01-01 06:20] LABS: AUTOMATED NEUTROPHIL # 3.3 TH/MM3 (1.8-7.7); BASOPHIL % 0.7 % (0.0-2.0); EOSINOPHIL # 0.1 TH/MM3 (0-0.4); EOSINOPHIL % 1.8 % (0.0-4.0); LYMPH % 20.3 % (9.0-44.0); LYMPHOCYTE # 1.1 TH/MM3 (1.0-4.8); MEAN CORPUSCULAR HEMOGLOBIN 30.7 PG (27.0-34.0); MEAN CORPUSCULAR HGB CONC 33.4 % (32.0-36.0); MEAN PLATELET VOLUME 6.5 FL (7.0-11.0); NEUT % 59.2 % (16.0-70.0); PLATELET COUNT 168 TH/MM3 (150-450); RED BLOOD COUNT 3.59 MIL/MM3 (4.50-5.90); RED CELL DISTRIBUTION WIDTH 18.4 % (11.6-17.2); WHITE BLOOD COUNT 5.5 TH/MM3 (4.0-11.0)
[2018-01-01 06:58] LABS: ALBUMIN 3.4 GM/DL (3.4-5.0); ALKALINE PHOSPHATASE 92 U/L (45-117); ALT (GPT) 16 U/L (12-78); AST (GOT) 21 U/L (15-37); BLOOD UREA NITROGEN 50 MG/DL (7-18); CALCIUM 8.7 MG/DL (8.5-10.1); CHLORIDE 105 MEQ/L (98-107); CREATININE 1.36 MG/DL (0.60-1.30); GLOMERULAR FILTRATION RATE 51 ML/MIN (>89); GLUCOSE,RANDOM 93 MG/DL (74-106); SODIUM (NA) 137 MEQ/L (136-145); TOTAL BILIRUBIN ADULT 0.6 MG/DL (0.2-1.0)
--- NOTE | 2018-01-01 08:40 | HHI.PR ---
Subjective Remarks in no acute distress. denies chest pain, sob or dizziness. Objective Vitals Vital Signs Date Time Temp Pulse Resp B/P (MAP) Pulse Ox O2 Delivery O2 Flow Rate FiO2 01/01/18 07:43 97.2 75 18 151/71 (97) 98 01/01/18 07:31 96 21 01/01/18 04:36 97.7 75 16 134/62 (86) 95 01/01/18 01:43 97.9 71 16 137/64 (88) 98 12/31/17 21:52 97.9 81 16 147/67 (93) 98 12/31/17 20:41 12/31/17 18:30 76 18 121/60 (80) 98 Room Air 12/31/17 17:44 99 12/31/17 17:30 84 26 133/78 (96) 99 Room Air 12/31/17 16:30 72 24 147/75 (99) 98 Room Air 12/31/17 15:15 71 20 155/66 (95) 98 Room Air 12/31/17 15:13 98 Room Air 12/31/17 14:14 97.8 104 19 176/76 (109) 95 Result Diagram: 01/01/18 0540 01/01/18 0540 Objective Remarks GENERAL: This is a well-nourished, well-developed patient, in no apparent distress. CARDIOVASCULAR: Regular rate and regular rhythm without murmurs, gallops, or rubs. RESPIRATORY: Clear to auscultation. Breath sounds equal bilaterally. No wheezes , rales, or rhonchi. GASTROINTESTINAL: Abdomen soft, non-tender, nondistended. Normal, active bowel sounds MUSCULOSKELETAL: Extremities without clubbing, cyanosis, or edema. NEURO: Alert & Oriented x4 to person, place, time, situation. Moves all ext x4 Medications and IVs Inpatient Medications Acetaminophen (Tylenol) 650 mg Q4H PRN PO TEMP > 100.4; Start 12/31/17 at 17:15 Albuterol/ Ipratropium (Duoneb Neb) 1 ampule Q6HR NEB PRN NEB DYSPNEA Last administered on 12/31/17at 17:42; Start 12/31/17 at 17:30 Allopurinol (Zyloprim) 300 mg DAILY PO ; Start 01/01/18 at 09:00 Ascorbic Acid (Vitamin C) 1,000 mg DAILY PO ; Start 01/01/18 at 09:00 Bisacodyl (Dulcolax Supp) 10 mg DAILY PRN RECTAL SEVERE CONSITIPATION; Start at 17:15 Cholecalciferol (Vitamin D3) 4,000 units DAILY PO ; Start 01/01/18 at 09:00 Colestipol HCl (Colestipol Pkt) 5 gm DAILY PO ; Start 01/01/18 at 09:00 Cyanocobalamin (Vitamin B12) 1,000 mcg DAILY PO ; Start 01/01/18 at 09:00 Ferrous Sulfate (Ferrous Sulfate) 325 mg BID PO Last administered on 12/31/17at 21:50; Start 12/31/17 at 21:00 Folic Acid (Folate) 1 mg DAILY PO ; Start 01/01/18 at 09:00 Gabapentin (Neurontin) 300 mg DAILY PO ; Start 01/01/18 at 09:00 Lactulose (Lactulose Liq) 30 ml DAILY PRN PO SEVERE CONSITIPATION; Start at 17:15 Lisinopril (Prinivil) 20 mg BID PO ; Start 12/31/17 at 21:00; Stop 12/31/17 at 21:00; Status DC Magnesium Hydroxide (Milk Of Magnesia Liq) 30 ml Q12H PRN PO Mild constipation ; Start 12/31/17 at 17:15 Metoprolol Tartrate (Lopressor) 25 mg BID PO Last administered on 12/31/17at 21: 50; Start 12/31/17 at 21:00 Naloxone HCl (Narcan Inj) 0.4 mg UNSCH PRN IV PUSH SEE LABEL COMMENTS; Start at 17:15 Non-Formulary Medication 20 mg BID PO ; Start 12/31/17 at 21:00; Stop 12/31/17 at 21:00; Status DC Ondansetron HCl (Zofran Inj) 4 mg Q6H PRN IVP NAUSEA OR VOMITING; Start at 17:15 Pantoprazole Sodium (Protonix) 40 mg DAILY PO ; Start 01/01/18 at 09:00 Pravastatin Sodium (Pravachol) 40 mg HS PO Last administered on 12/31/17at 21:50 ; Start 12/31/17 at 21:00 Senna/Docusate Sodium (Tonya-Colace) 1 tab BID PO ; Start 12/31/17 at 21:00 Sennosides (Senokot) 17.2 mg Q12H PRN PO Moderate constipation; Start 12/31/17 at 17:15 Sodium Polystyrene Sulfonate (Kayexalate Liq) 15 gm ONCE ONCE PO Last administered on 12/31/17at 18:29; Start 12/31/17 at 17:30; Stop 12/31/17 at 17:31 ; Status DC Sodium Chloride 1,000 ml @ 84 mls/hr [id number] IV ; Start 12/31/17 at 18:00; Stop 12/31/17 at 18:00; Status DC Sodium Chloride (NS Flush) 2 ml BID IV FLUSH Last administered on 12/31/17at 21: 50; Start 12/31/17 at 21:00 Thiamine HCl (Vitamin B1) 100 mg DAILY PO ; Start 01/01/18 at 09:00 Torsemide (Demadex) 10 mg BID PO ; Start 12/31/17 at 21:00; Stop 12/31/17 at 21: 00; Status DC A/P Problem List: (1) Melena ICD Code: K92.1 - Melena (2) Acute kidney injury ICD Code: N17.9 - Acute kidney failure, unspecified Status: Acute (3) A-fib ICD Code: I48.91 - Unspecified atrial fibrillation (4) HTN (hypertension) ICD Code: I10 - Essential (primary) hypertension Status: Chronic (5) Anemia ICD Code: D64.9 - Anemia, unspecified Status: Acute Assessment and Plan A/P Anemia/concern for repeat GI bleed -H/H stable. 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 Mild hyponatremia NA 132 on admission secondary to Torsemide use - Creatinine 1.69, baseline 1.5 - Monitor renal function A. fib, chronic HTN HLD CHF, not on exacerbation - Will hold Plavix - Continue metoprolol 50 mg, Hold lisinopril and Torsemide due to MILLER -was evaluated by cardiology last admission and was taken off anticoagulation due to GI bleed - Monitor BP trend CAD s/p JÚNIOR stents in Prox LAD and RCA - resume ASA/Plavix soon if no active GI bleed. DVT prophylaxis- SCD's/DIMA's. Holding pharmacologic anticoagulation secondary to GI bleed Discharge Planning awaiting GI evaluation. Brad Castellano MD Jan 01, 2018 08:40
[2018-01-01] MEDS ORDERED: NON-FORMULARY DRUG (Cyanocobalamin (B-12) 1,000 MCG) SL SCH (09:00)
[2018-01-01] MEDS ORDERED: PANTOPRAZOLE SOD 40 MG DELAYED RELEASE TAB PO SCH (09:00)
--- NOTE | 2018-01-01 09:47 | PD.CONS ---
HPI History of Present Illness his is a 72 year old M with medical history significant for atrial fibrillation and recent stent placement (anticoagulated with Eliquis), CHF, HTN, CKD, COPD, and hyperlipidemia who has been previously evaluated by our service for evaluation of low hemoglobin and UGIB. During last admission, pt was sent from the [place] with a hgb of 6.5, EGD done on 10/21 --> Evans's esophagus, AVM in fundus -multiple cautery, hiatal hernia. Pt has been having black stools for a long time because he is on iron supplements. States his stool changed in consistency yesterday, had 3 loose stools yesterday morning and another 2 last night. Hemoccult positive by ER doctor. Pts H/H currently , he was seen at the [place] [facility] 5 weeks ago and states hgb was 11.4 then. Pt has long history of GIB, reports multiple episodes of GIB since being on anticoagulation for a- fib. Pt previously on Coumadin, was switched to Eliquis during a previous admission, and most recently switched to Plavix with his last dose being yesterday. Pt denies any other GI symptoms at this time, including abdominal pain, nausea, vomiting, heartburn. Reports last colonoscopy was approximately 4 years ago and states normal exam. Stopped smoking 46 years ago. ETOH, vodka daily, 3-5 drinks a day. Denies family history significant for colon cancer. (Corry Medrano) PFSH Past Medical History atrial fibrillation CHF hypertension CAD with PCI to LAD and RCA CKD COPD hyperlipidemia GIB Past Surgical History Cardiac stents Appendectomy (Corry Medrano) Coded Allergies: No Known Allergies (Unverified , 12/31/17) Family History Mother: dementia Father: of abdominal surgery Social History Alcohol: Daily drinker, amount varies denies tobacco, quit smoking 1979 denies illicit drug use (Corry Medrano) Review of Systems Gastrointestinal: COMPLAINS OF: Black stools, Diarrhea, DENIES: Abdominal pain , Bloody stools, Constipation, Nausea, Vomiting, Difficulty Swallowing, Anorexia , Odynophagia, Swelling of Abdomen, Heartburn, Hematemesis (Corry Medrano ) GI Exam Vitals I&O Vital Signs Date Time Temp Pulse Resp B/P (MAP) Pulse Ox O2 Delivery O2 Flow Rate FiO2 01/01/18 07:43 97.2 75 18 151/71 (97) 98 01/01/18 07:31 96 21 01/01/18 04:36 97.7 75 16 134/62 (86) 95 01/01/18 01:43 97.9 71 16 137/64 (88) 98 12/31/17 21:52 97.9 81 16 147/67 (93) 98 12/31/17 20:41 12/31/17 18:30 76 18 121/60 (80) 98 Room Air 12/31/17 17:44 99 12/31/17 17:30 84 26 133/78 (96) 99 Room Air 12/31/17 16:30 72 24 147/75 (99) 98 Room Air 12/31/17 15:15 71 20 155/66 (95) 98 Room Air 12/31/17 15:13 98 Room Air 12/31/17 14:14 97.8 104 19 176/76 (109) 95 Laboratory Test 12/31/17 15:10 01/01/18 05:40 White Blood Count 6.2 TH/MM3 5.5 TH/MM3 Red Blood Count 3.69 MIL/MM3 3.59 MIL/MM3 Hemoglobin 11.4 GM/DL 11.0 GM/DL Hematocrit 33.6 % 33.0 % Mean Corpuscular Volume 91.2 FL 92.0 FL Mean Corpuscular Hemoglobin 30.8 PG 30.7 PG Mean Corpuscular Hemoglobin Concent 33.8 % 33.4 % Red Cell Distribution Width 18.2 % 18.4 % Platelet Count 188 TH/MM3 168 TH/MM3 Mean Platelet Volume 6.5 FL 6.5 FL Neutrophils (%) (Auto) 68.4 % 59.2 % Lymphocytes (%) (Auto) 15.4 % 20.3 % Monocytes (%) (Auto) 14.5 % 18.0 % Eosinophils (%) (Auto) 1.1 % 1.8 % Basophils (%) (Auto) 0.6 % 0.7 % Neutrophils # (Auto) 4.2 TH/MM3 3.3 TH/MM3 Lymphocytes # (Auto) 1.0 TH/MM3 1.1 TH/MM3 Monocytes # (Auto) 0.9 TH/MM3 1.0 TH/MM3 Eosinophils # (Auto) 0.1 TH/MM3 0.1 TH/MM3 Basophils # (Auto) 0.0 TH/MM3 0.0 TH/MM3 CBC Comment DIFF FINAL DIFF FINAL Differential Comment Prothrombin Time 11.0 SEC Prothromb Time International Ratio 1.1 RATIO Activated Partial Thromboplast Time 25.2 SEC Blood Urea Nitrogen 61 MG/DL 50 MG/DL Creatinine 1.69 MG/DL 1.36 MG/DL Random Glucose 100 MG/DL 93 MG/DL Total Protein 8.6 GM/DL 8.0 GM/DL Albumin 3.7 GM/DL 3.4 GM/DL Calcium Level 8.6 MG/DL 8.7 MG/DL Alkaline Phosphatase 105 U/L 92 U/L Aspartate Amino Transf (AST/SGOT) 30 U/L 21 U/L Alanine Aminotransferase (ALT/SGPT) 18 U/L 16 U/L Total Bilirubin 0.6 MG/DL 0.6 MG/DL Sodium Level 132 MEQ/L 137 MEQ/L Potassium Level 5.2 MEQ/L 4.1 MEQ/L Chloride Level 98 MEQ/L 105 MEQ/L Carbon Dioxide Level 25.0 MEQ/L 23.0 MEQ/L Anion Gap 9 MEQ/L 9 MEQ/L Estimat Glomerular Filtration Rate 40 ML/MIN 51 ML/MIN Physical Examination HEENT: Normocephalic; atraumatic CHEST: Even/unlabored CARDIAC: RRR ABDOMEN: Distended, semi-firm, nontender, bowel sounds active SKIN: Normal; no rash; no jaundice. 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 (Corry Medrano) Assessment and Plan Plan Assessment: - Anemia with reports of black stools- FOBT +- Has chronic black stools because he is on iron supplements but states yesterday his stools became loose and he had multiple stools, 3 in the morning and 2 last night. Has not had BM today. Denies nausea, vomiting, abdominal pain, acid reflux, heartburn Extensive history of GIB, has tried multiple anticoagulants for a-fib, previously on Coumadin, then Eliquis, and presently Plavix. Cardiac stents x 2. Seen by our service previously, last EGD in October -->Evans's esophagus, AVM in fundus- multiple cautery, hiatal hernia. H/H stable, currently 08/03 [facility] and states hgb was 11.4 - ETOH abuse- reports daily alcohol consumption Ct abdomen (10/21) The liver is small and shrunken LFTs, platelets and INR WNL. - A-fib, chronic, CAD S/P stent x 2, HTN, HLD, CHF per attending Plan: EGD tomorrow Obtain consent OK for clear liquids today NPO after MN Protonix Continue to hold Plavix Monitor H/H Transfuse as needed Further recommendations based on findings of above Pt has been seen and examined by myself and Dr. Arango and this note is written on his behalf (Corry Medrano) Physician Comments Patient seen and examined Agree with above Continue with current supportive care Monitor labs EGD tomorrow (Donovan Arango MD) Corry Medrano Jan 01, 2018 09:47 Donovan Arango MD Jan 01, 2018 23:34
[2018-01-01] MEDS: THIAMINE HCL 100 MG TAB PO SCH (09:58)
[2018-01-01] MEDS: FERROUS SULFATE 325 MG (65 MG ELEMENTAL IRON) TAB PO SCH ×2 (09:58→21:14)
[2018-01-01] MEDS: METOPROLOL TARTRATE 25 MG TAB PO SCH ×2 (09:59→21:14)
[2018-01-01] MEDS: CYANOCOBALAMIN 1,000 MCG TAB PO SCH (09:59)
[2018-01-01] MEDS: FOLIC ACID 1 MG TAB PO SCH (09:59)
[2018-01-01] MEDS: ALLOPURINOL 300 MG TAB PO SCH (09:59)
[2018-01-01] MEDS: GABAPENTIN 300 MG CAP PO SCH (09:59)
[2018-01-01] MEDS: CHOLECALCIFEROL (VIT D3) 1000 UNIT TAB PO SCH (09:59)
[2018-01-01] MEDS: COLESTIPOL HCL 5 GM PACKET PO SCH (10:00)
[2018-01-01] MEDS: SODIUM CHLORIDE 0.9% FLUSH 10 ML FLUSH IV FLUSH SCH ×2 (10:00→21:14)
[2018-01-01] MEDS: ASCORBIC ACID 500 MG TAB PO SCH (10:00)
[2018-01-01] MEDS: DOCUSATE SODIUM 50 MG/SENNA 8.6 MG TAB PO SCH ×2 (10:00→21:00)
[2018-01-01 13:18] LABS: HEMATOCRIT 32.1 % (39.0-51.0); HEMOGLOBIN 10.7 GM/DL (13.0-17.0)
[2018-01-01] MEDS: ASPIRIN 81 MG CHEW TAB CHEW SCH (15:56)
[2018-01-01] MEDS: PANTOPRAZOLE SODIUM 40 MG VIAL IV PUSH SCH (21:15)
[2018-01-01] MEDS: PRAVASTATIN SOD 40 MG TAB PO SCH (21:17)
[2018-01-02] VITALS: BP 108/66; PULSE 76; RESP 20; TEMP 96; O2SAT 97
--- NOTE | 2018-01-02 00:36 | EKG ---
Date Performed: 12/31/2017 Time Performed: 16:26:06 PTAGE: 72 years EKG: ATRIAL FIBRILLATION INFERIOR MYOCARDIAL INFARCTION ABNORMAL ECG PREVIOUS TRACING : 10/11/2017 22.04 Since the previous tracing, no significant change noted DOCTOR: Manuel Jones Interpretating Date/Time 01/02/2018 00:35:13
[2018-01-02 01:49] LABS: AUTOMATED NEUTROPHIL # 3.8 TH/MM3 (1.8-7.7); BASOPHIL # 0.1 TH/MM3 (0-0.2); BASOPHIL % 0.9 % (0.0-2.0); EOSINOPHIL # 0.1 TH/MM3 (0-0.4); EOSINOPHIL % 2.2 % (0.0-4.0); HEMATOCRIT 31.3 % (39.0-51.0); HEMOGLOBIN 10.3 GM/DL (13.0-17.0); LYMPH % 22.2 % (9.0-44.0); LYMPHOCYTE # 1.5 TH/MM3 (1.0-4.8); MEAN CELL VOLUME 91.2 FL (80.0-100.0); MEAN CORPUSCULAR HEMOGLOBIN 30.2 PG (27.0-34.0); MEAN CORPUSCULAR HGB CONC 33.1 % (32.0-36.0); MEAN PLATELET VOLUME 6.2 FL (7.0-11.0); MONO % 17.3 % (0.0-8.0); MONOCYTE # 1.1 TH/MM3 (0-0.9); NEUT % 57.4 % (16.0-70.0); PLATELET COUNT 176 TH/MM3 (150-450); RED BLOOD COUNT 3.43 MIL/MM3 (4.50-5.90); RED CELL DISTRIBUTION WIDTH 18.6 % (11.6-17.2); WHITE BLOOD COUNT 6.6 TH/MM3 (4.0-11.0)
[2018-01-02 02:28] LABS: BICARBONATE 26.6 MEQ/L (21.0-32.0); CALCIUM 9.1 MG/DL (8.5-10.1); CREATININE 1.14 MG/DL (0.60-1.30)
[2018-01-02 04:37] VITALS: BP 134/74; PULSE 83; RESP 16; TEMP 98; O2SAT 94
[2018-01-02 07:50] VITALS: BP 140/79; PULSE 79; RESP 16; TEMP 98.6; O2SAT 98
--- NOTE | 2018-01-02 08:25 | HHI.PR ---
Subjective Remarks in no acute distress. no active GI bleed. no abdominal pain, nausea or vomiting. awaiting EGD. Objective Vitals Vital Signs Date Time Temp Pulse Resp B/P (MAP) Pulse Ox O2 Delivery O2 Flow Rate FiO2 01/02/18 07:50 98.6 79 16 140/79 (99) 98 01/02/18 04:37 98.0 83 16 134/74 (94) 94 01/02/18 00:00 96.0 76 20 108/66 (80) 97 01/01/18 20:00 96.0 85 20 135/75 (95) 98 01/01/18 14:57 96.0 84 18 120/62 (81) 100 01/01/18 11:27 97.3 81 20 143/52 (82) 99 I/O 01/01/18 01/01/18 01/01/18 01/02/18 01/02/18 01/02/18 07:00 15:00 23:00 07:00 15:00 23:00 Intake Total 1100 ml Balance 1100 ml Intake Oral 1100 ml # Voids 6 # Bowel Movements 0 Result Diagram: 01/02/18 0142 01/02/18 0142 Objective Remarks GENERAL: This is a well-nourished, well-developed patient, in no apparent distress. CARDIOVASCULAR: Regular rate and regular rhythm without murmurs, gallops, or rubs. RESPIRATORY: Clear to auscultation. Breath sounds equal bilaterally. No wheezes , rales, or rhonchi. GASTROINTESTINAL: Abdomen soft, non-tender, nondistended. Normal, active bowel sounds MUSCULOSKELETAL: Extremities without clubbing, cyanosis, or edema. NEURO: Alert & Oriented x4 to person, place, time, situation. Moves all ext x4 Medications and IVs Inpatient Medications Acetaminophen (Tylenol) 650 mg Q4H PRN PO TEMP > 100.4; Start 12/31/17 at 17:15 Albuterol/ Ipratropium (Duoneb Neb) 1 ampule Q6HR NEB PRN NEB DYSPNEA Last administered on 12/31/17at 17:42; Start 12/31/17 at 17:30 Allopurinol (Zyloprim) 300 mg DAILY PO Last administered on 01/01/18at 09:59; Start 01/01/18 at 09:00 Ascorbic Acid (Vitamin C) 1,000 mg DAILY PO Last administered on 01/01/18at 10: 00; Start 01/01/18 at 09:00 Aspirin (Aspirin Chew) 81 mg DAILY CHEW Last administered on 01/01/18at 15:56; Start 01/01/18 at 13:00 Bisacodyl (Dulcolax Supp) 10 mg DAILY PRN RECTAL SEVERE CONSITIPATION; Start at 17:15 Cholecalciferol (Vitamin D3) 4,000 units DAILY PO Last administered on at 09:59; Start 01/01/18 at 09:00 Colestipol HCl (Colestipol Pkt) 5 gm DAILY PO Last administered on 01/01/18at 10 :00; Start 01/01/18 at 09:00 Cyanocobalamin (Vitamin B12) 1,000 mcg DAILY PO Last administered on 01/01/18at 09:59; Start 01/01/18 at 09:00 Ferrous Sulfate (Ferrous Sulfate) 325 mg BID PO Last administered on 01/01/18at 21:14; Start 12/31/17 at 21:00 Folic Acid (Folate) 1 mg DAILY PO Last administered on 01/01/18at 09:59; Start 01/01/18 at 09:00 Gabapentin (Neurontin) 300 mg DAILY PO Last administered on 01/01/18at 09:59; Start 01/01/18 at 09:00 Lactulose (Lactulose Liq) 30 ml DAILY PRN PO SEVERE CONSITIPATION; Start at 17:15 Lisinopril (Prinivil) 20 mg BID PO ; Start 12/31/17 at 21:00; Stop 12/31/17 at 21:00; Status DC Magnesium Hydroxide (Milk Of Magnesia Liq) 30 ml Q12H PRN PO Mild constipation ; Start 12/31/17 at 17:15 Metoprolol Tartrate (Lopressor) 25 mg BID PO Last administered on 01/01/18at 21: 14; Start 12/31/17 at 21:00 Naloxone HCl (Narcan Inj) 0.4 mg UNSCH PRN IV PUSH SEE LABEL COMMENTS; Start at 17:15 Non-Formulary Medication 20 mg BID PO ; Start 12/31/17 at 21:00; Stop 12/31/17 at 21:00; Status DC Ondansetron HCl (Zofran Inj) 4 mg Q6H PRN IVP NAUSEA OR VOMITING; Start at 17:15 Pantoprazole Sodium (Protonix Inj) 40 mg Q12H IV PUSH Last administered on 01/01at 21:15; Start 01/01/18 at 22:00 Pantoprazole Sodium (Protonix) 40 mg DAILY PO Last administered on 01/01/18at 09 :59; Start 01/01/18 at 09:00; Stop 01/01/18 at 10:26; Status DC Pravastatin Sodium (Pravachol) 40 mg HS PO Last administered on 01/01/18at 21:17 ; Start 12/31/17 at 21:00 Senna/Docusate Sodium (Tonya-Colace) 1 tab BID PO ; Start 12/31/17 at 21:00 Sennosides (Senokot) 17.2 mg Q12H PRN PO Moderate constipation; Start 12/31/17 at 17:15 Sodium Polystyrene Sulfonate (Kayexalate Liq) 15 gm ONCE ONCE PO Last administered on 12/31/17at 18:29; Start 12/31/17 at 17:30; Stop 12/31/17 at 17:31 ; Status DC Sodium Chloride 1,000 ml @ 84 mls/hr [id number] IV ; Start 12/31/17 at 18:00; Stop 12/31/17 at 18:00; Status DC Sodium Chloride (NS Flush) 2 ml BID IV FLUSH Last administered on 01/01/18at 21: 14; Start 12/31/17 at 21:00 Thiamine HCl (Vitamin B1) 100 mg DAILY PO Last administered on 01/01/18at 09:58 ; Start 01/01/18 at 09:00 Torsemide (Demadex) 10 mg BID PO ; Start 12/31/17 at 21:00; Stop 12/31/17 at 21: 00; Status DC A/P Problem List: (1) Melena ICD Code: K92.1 - Melena (2) Acute kidney injury ICD Code: N17.9 - Acute kidney failure, unspecified Status: Acute (3) A-fib ICD Code: I48.91 - Unspecified atrial fibrillation (4) HTN (hypertension) ICD Code: I10 - Essential (primary) hypertension Status: Chronic (5) Anemia ICD Code: D64.9 - Anemia, unspecified Status: Acute Assessment and Plan A/P Anemia/concern for recurrent GI bleed -H/H fairly stable. - continue Protonix -Gastroenterology consulted, appreciate recommendations; plan for EGD today. MILLER on CKD II-III- improved. Hyperkalemia, acute - resolved. Mild hyponatremia -improved. - Monitor renal function A. fib, chronic HTN HLD CHF, not on exacerbation - Will hold Plavix - Continue metoprolol 50 mg, Hold lisinopril and Torsemide due to MILLER -was evaluated by cardiology last admission and was taken off anticoagulation due to GI bleed - Monitor BP trend CAD s/p JÚNIOR stents in Prox LAD and RCA - resumed aspirin- Plavix on hold pending EGD. DVT prophylaxis- SCD's/DIMA's. Holding pharmacologic anticoagulation secondary to GI bleed Discharge Planning when cleared by GI/ awaiting EGD. Brad Castellano MD Jan 02, 2018 08:25
[2018-01-02] MEDS: FERROUS SULFATE 325 MG (65 MG ELEMENTAL IRON) TAB PO SCH ×2 (08:27→21:54)
[2018-01-02] MEDS: GABAPENTIN 300 MG CAP PO SCH (08:27)
[2018-01-02] MEDS: FOLIC ACID 1 MG TAB PO SCH (08:27)
[2018-01-02] MEDS: METOPROLOL TARTRATE 25 MG TAB PO SCH ×2 (08:27→21:55)
[2018-01-02] MEDS: CHOLECALCIFEROL (VIT D3) 1000 UNIT TAB PO SCH (08:27)
[2018-01-02] MEDS: ASPIRIN 81 MG CHEW TAB CHEW SCH (08:27)
[2018-01-02] MEDS: ASCORBIC ACID 500 MG TAB PO SCH (08:27)
[2018-01-02] MEDS: ALLOPURINOL 300 MG TAB PO SCH (08:27)
[2018-01-02] MEDS: SODIUM CHLORIDE 0.9% FLUSH 10 ML FLUSH IV FLUSH SCH ×2 (08:28→21:54)
[2018-01-02] MEDS: THIAMINE HCL 100 MG TAB PO SCH (08:28)
[2018-01-02] MEDS: CYANOCOBALAMIN 1,000 MCG TAB PO SCH (08:28)
[2018-01-02] MEDS ORDERED: CHLORHEXIDINE GLUCONATE 2 % 1 PACK (2 CLOTHS) TOPICAL PRN (11:15)
[2018-01-02] MEDS ORDERED: METOPROLOL TARTRATE 25 MG TAB PO PRN (11:15)
[2018-01-02] MEDS ORDERED: SODIUM CHLORID 0.9% 500 ML IV PRN (11:15)
[2018-01-02] MEDS ORDERED: POVIDONE IODINE 5% (ANTISEPSIS KIT) 4 APPLICATIONS EACH NARE PRN (11:15)
[2018-01-02] MEDS ORDERED: LACTATED RINGER'S 1000 ML IV PRN (11:15)
[2018-01-02] MEDS: PANTOPRAZOLE SODIUM 40 MG VIAL IV PUSH SCH ×2 (11:27→21:55)
[2018-01-02] MEDS ORDERED: PROPOFOL 200 MG/20 ML AMP IV ONE (12:00)
[2018-01-02] MEDS ORDERED: LIDOCAINE HCL 1% PF 5 ML SYRINGE OTHER ONE (12:00)
[2018-01-02 13:01] VITALS: BP 130/62; PULSE 74; RESP 16; TEMP 98.6; O2SAT 97
[2018-01-02 16:36] LABS: HEMATOCRIT 33.1 % (39.0-51.0); HEMOGLOBIN 10.9 GM/DL (13.0-17.0)
--- NOTE | 2018-01-02 18:30 | PD.PROCEDR ---
GI Procedure PROCEDURE PERFORMED EGD with biopsies INDICATION FOR PROCEDURE Anemia, melena, guaiac positive stools PROCEDURE: The procedure, risks and benefits were discussed with Patient/POA and informed consent was obtained. Anesthesia sedated Patient with Diprivan. Patient was placed in the left lateral decubitus position. EGD: The Pentax videoscope was introduced through the oropharynx and advanced to the second portion of the duodenum under direct visualization. Retroflexion was performed in the stomach. FINDINGS: The esophagus there was a long segment of Evans's noted in the distal esophagus measuring 3 cm extending from 37-40 cm from the incisors there were 2 tongues 1 extending to 37 the other extending to about 39 biopsies were taken for further evaluation The stomach there was a small hiatal hernia also noted in the upper gastric body adjacent to the level of the diaphragm or just beneath it was abnormally erythemic gastric mucosa with some friability and superficial ulcerations this is of unclear significance this was biopsied this may represent prior cautery injury or changes secondary to the presence of diaphragm resembling Jareth ulcers the rest of the stomach was basically unremarkable otherwise The duodenum there was an erythemic spot in the duodenal bulb possibly suggestive of an AVM this was removed using biopsy forceps there were also 2 patches of whitish mucosa with reduced vascularity possibly suggestive scar tissue from prior ulcer healing but otherwise the rest of the duodenum was unremarkable ESTIMATED BLOOD LOSS: None SPECIMENS REMOVED: Esophageal, and gastric, and duodenal biopsies COMPLICATIONS: None IMPRESSION: Evans's esophagus, long segment Small hiatal hernia Erosive gastritis upper gastric body possible Jareth ulcer Duodenal AVM Healed duodenal ulcers PLAN: Await biopsies Continue with PPI twice daily Monitor labs and transfuse if needed Okay to resume anticoagulation is necessary Patient follow-up in clinic will most likely need capsule endoscopy EGD in 2 months EGD in 2 years Donovan Arango MD Jan 02, 2018 18:29
[2018-01-02] MEDS ORDERED: DO NOT ADM ANY ANTICOAGULANT DRUGS PRN (18:45)
[2018-01-02] MEDS: DOCUSATE SODIUM 50 MG/SENNA 8.6 MG TAB PO SCH ×2 (19:14→21:54)
[2018-01-02] MEDS: COLESTIPOL HCL 5 GM PACKET PO SCH (19:14)
[2018-01-02 19:59] VITALS: BP 131/69; PULSE 83; RESP 16; TEMP 98.1; O2SAT 98
[2018-01-02] MEDS: PRAVASTATIN SOD 40 MG TAB PO SCH (21:54)
[2018-01-02 23:34] VITALS: BP 115/73; PULSE 77; RESP 17; TEMP 98.4; O2SAT 96
[2018-01-03 04:18] VITALS: BP 109/54; PULSE 57; RESP 16; TEMP 98.7; O2SAT 97
[2018-01-03 05:28] LABS: HEMATOCRIT 29.6 % (39.0-51.0); HEMOGLOBIN 9.7 GM/DL (13.0-17.0); MEAN CORPUSCULAR HEMOGLOBIN 30.1 PG (27.0-34.0); MEAN CORPUSCULAR HGB CONC 32.7 % (32.0-36.0); MEAN PLATELET VOLUME 6.4 FL (7.0-11.0); PLATELET COUNT 174 TH/MM3 (150-450); RED BLOOD COUNT 3.21 MIL/MM3 (4.50-5.90); RED CELL DISTRIBUTION WIDTH 18.3 % (11.6-17.2); WHITE BLOOD COUNT 6.8 TH/MM3 (4.0-11.0)
[2018-01-03] MEDS: DOCUSATE SODIUM 50 MG/SENNA 8.6 MG TAB PO SCH (08:32)
[2018-01-03] MEDS: CHOLECALCIFEROL (VIT D3) 1000 UNIT TAB PO SCH (08:33)
[2018-01-03] MEDS: SODIUM CHLORIDE 0.9% FLUSH 10 ML FLUSH IV FLUSH SCH (08:34)
[2018-01-03] MEDS: ASPIRIN 81 MG CHEW TAB CHEW SCH (08:34)
[2018-01-03] MEDS: ALLOPURINOL 300 MG TAB PO SCH (08:34)
[2018-01-03] MEDS: FOLIC ACID 1 MG TAB PO SCH (08:35)
[2018-01-03] MEDS: FERROUS SULFATE 325 MG (65 MG ELEMENTAL IRON) TAB PO SCH (08:35)
[2018-01-03] MEDS: THIAMINE HCL 100 MG TAB PO SCH (08:35)
[2018-01-03] MEDS: CYANOCOBALAMIN 1,000 MCG TAB PO SCH (08:35)
[2018-01-03] MEDS: GABAPENTIN 300 MG CAP PO SCH (08:36)
[2018-01-03] MEDS: COLESTIPOL HCL 5 GM PACKET PO SCH ×2 (08:37→08:50)
[2018-01-03] MEDS: ASCORBIC ACID 500 MG TAB PO SCH (08:39)
[2018-01-03 08:43] VITALS: BP 133/70; PULSE 73; RESP 14; TEMP 97.8; O2SAT 98
[2018-01-03] MEDS: METOPROLOL TARTRATE 25 MG TAB PO SCH (08:43)
[2018-01-03] MEDS: PANTOPRAZOLE SODIUM 40 MG VIAL IV PUSH SCH (08:43)
[2018-01-03] MEDS ORDERED: LISI10TA3 PO (09:34)
[2018-01-03] MEDS ORDERED: PROT40TA PO (09:34)
--- NOTE | 2018-01-03 09:36 | HHI.DCPOC ---
Discharge Care Plan Diagnosis: (1) GI bleeding (2) Acute kidney injury (3) Anemia Goals to Promote Your Health * To prevent worsening of your condition and complications * To maintain your health at the optimal level Directions to Meet Your Goals Take your medications as prescribed Follow your dietary instruction Follow activity as directed Keep your appointments as scheduled Take your immunizations and boosters as scheduled If your symptoms worsen call your PCP, if no PCP go to Urgent Care Center or Emergency Room Smoking is Dangerous to Your Health. Avoid second hand smoke Call the 24-hour hour crisis hotline for domestic abuse at Haja Taylor DO Jan 03, 2018 09:36
--- NOTE | 2018-01-03 09:44 | HHI.DS ---
Discharge Summary Admission Date Dec 31, 2017 at 16:49 Discharge Date: Jan 03, 2018 Admitting Diagnosis MILLER, Mild Hyperkalemia, GI bleeding (1) Melena ICD Code: K92.1 - Melena Diagnosis: Principal (2) Acute kidney injury ICD Code: N17.9 - Acute kidney failure, unspecified Status: Acute (3) A-fib ICD Code: I48.91 - Unspecified atrial fibrillation (4) HTN (hypertension) ICD Code: I10 - Essential (primary) hypertension Status: Chronic (5) Anemia ICD Code: D64.9 - Anemia, unspecified Diagnosis: Principal Status: Acute Procedures EGD Brief History - From Admission Written by Rohit Dang, acting as scribe for Dr. Prather on 12/31/17 at 17:10. 72-year-old male with past medical history significant for atrial fibrillation, CHF, HTN, CKD, HLD, CAD, COPD, and recurrent GI bleeds. Who presented to the emergency department today with complaints of dark stools. Patient reports that he has had a total of 3 upper endoscopies in the past several months with the last one resulting in cautery of bleeds. He states that due to recurrent GI bleeds as well as taking oral iron he is constantly checking his stools. He states that today he moved his bowels several times and noticed that his stool was especially dark. He is aware that iron will make his stools dark however felt that there was something wrong going on this time. He reports taking both aspirin and Plavix previously. He repots taking ASA BID according to the bottle that he has. He did not realize that he was only suppose to be taking one tablet a day. He denies any nausea, vomiting, chest pain, palpitations, constipation, diarrhea, or abdominal pain. He does repots SOB, but was told that this could be normal. He does have a history of COPD, but does not take any medications for this. Reports that he is constantly peeing about 24hrs a day, he states that the water pill is very strong. CBC/BMP: 01/03/18 0501 01/02/18 0142 Significant Findings Laboratory Tests Test 12/31/17 15:10 01/01/18 05:40 01/01/18 13:00 01/02/18 01:42 Red Blood Count 3.69 MIL/MM3 (4.50-5.90) 3.59 MIL/MM3 (4.50-5.90) 3.43 MIL/MM3 (4.50-5.90) Hemoglobin 11.4 GM/DL (13.0-17.0) 11.0 GM/DL (13.0-17.0) 10.7 GM/DL (13.0-17.0) 10.3 GM/DL (13.0-17.0) Hematocrit 33.6 % (39.0-51.0) 33.0 % (39.0-51.0) 32.1 % (39.0-51.0) 31.3 % (39.0-51.0) Red Cell Distribution Width 18.2 % (11.6-17.2) 18.4 % (11.6-17.2) 18.6 % (11.6-17.2) Mean Platelet Volume 6.5 FL (7.0-11.0) 6.5 FL (7.0-11.0) 6.2 FL (7.0-11.0) Monocytes (%) (Auto) 14.5 % (0.0-8.0) 18.0 % (0.0-8.0) 17.3 % (0.0-8.0) Blood Urea Nitrogen 61 MG/DL (7-18) 50 MG/DL (7-18) 34 MG/DL (7-18) Creatinine 1.69 MG/DL (0.60-1.30) 1.36 MG/DL (0.60-1.30) Total Protein 8.6 GM/DL (6.4-8.2) Sodium Level 132 MEQ/L (136-145) Potassium Level 5.2 MEQ/L (3.5-5.1) Estimat Glomerular Filtration Rate 40 ML/MIN (>89) 51 ML/MIN (>89) 63 ML/MIN (>89) Monocytes # (Auto) 1.0 TH/MM3 (0-0.9) 1.1 TH/MM3 (0-0.9) Test 01/02/18 15:17 01/03/18 05:01 Hemoglobin 10.9 GM/DL (13.0-17.0) 9.7 GM/DL (13.0-17.0) Hematocrit 33.1 % (39.0-51.0) 29.6 % (39.0-51.0) Red Blood Count 3.21 MIL/MM3 (4.50-5.90) Red Cell Distribution Width 18.3 % (11.6-17.2) Mean Platelet Volume 6.4 FL (7.0-11.0) PE at Discharge GENERAL: This is a well-nourished, well-developed patient, in no apparent distress. CARDIOVASCULAR: Regular rate and regular rhythm without murmurs, gallops, or rubs. RESPIRATORY: Clear to auscultation. Breath sounds equal bilaterally. No wheezes , rales, or rhonchi. GASTROINTESTINAL: Abdomen soft, non-tender, nondistended. Normal, active bowel sounds MUSCULOSKELETAL: Extremities without clubbing, cyanosis, or edema. NEURO: Alert & Oriented x4 to person, place, time, situation. Moves all ext x4 Pt update on day of discharge The patient was feeling well. He had a lot of questions about what was going on with his GI bleed. He states he will try to drink less alcohol. He does not take any NSAIDs. He would like to resume his aspirin and Plavix. Discussed with gastroenterology. Hospital Course Anemia H/H fairly stable. He was started on IV Protonix BID. ASA and Plavix were held. Gastroenterology was consulted. EGD revealed: Evans's esophagus, long segment ; Small hiatal hernia; Erosive gastritis upper gastric body; possible Jareth ulcer; Duodenal AVM; Healed duodenal ulcers. The pt will need a repeat EGD and possible video endoscopy as an outpt. He will follow up with GI. He will have a repeat CBC in 3-5 days. He will continue a PPI BID. He will be resumed on ASA an Plavix. He received alcohol cessation instruction. He was told to avoid NSAIDs. MILLER on CKD Lisinopril and torsemide were held. Creatinine improved. The pt's lisinopril dose will be reduced. We will continue to hold torsemide. CAD s/p recent stents/ A. fib/ HTN/ HLD/ CHF, not in exacerbation We will resume ASA and Plavix. He was continued on metoprolol. Lisinopril has been reduced and we are holding torsemide. He will follow up with cardiology as an outpt. Pt Condition on Discharge: Stable Discharge Disposition: Discharge Home Discharge Time: > 30 minutes Discharge Instructions DIET: Follow Instructions for: Heart Healthy Diet Activities you can perform: Regular-No Restrictions Follow up Referrals: Gastroenterology - 1 Week with Donovan Arango MD PCP Follow-up - 1 Week New Orders: CBC NO DIFF - 3-5 Days New Medications: Lisinopril (Lisinopril) 10 Mg Tab 10 MG PO DAILY, #30 TAB 0 Refills Changed Medications: Pantoprazole (Protonix) 40 Mg Tab 40 MG PO BID for Ulcer Prevention, #60 TAB 6 Refills (Changed from: DAILY; 30) Continued Medications: Allopurinol (Allopurinol) 300 Mg Tab 300 MG PO DAILY for Gout, #30 TAB 0 Refills Ascorbic Acid (Ascorbic Acid) 500 Mg Tab 1000 MG PO DAILY, TAB Aspirin (Tgt Aspirin) 81 Mg Chw 81 MG CHEW DAILY for Blood Clot Prevention, #30 EA 0 Refills Cholecalciferol (Vitamin D3) 1,000 Unit Cap 4000 UNITS PO DAILY for Nutritional Supplement, #1 BOTTLE 0 Refills Clopidogrel (Plavix) 75 Mg Tab 75 MG PO DAILY for Blood Clot Prevention, #30 TAB 0 Refills Colestipol (Colestipol) 5 Gm Pkt 5 GM PO DAILY for Cholesterol Management, #30 PKT 0 Refills 1 packet of granules contains 5 gm of colestipol. Cyanocobalamin (B-12) 1,000 Mcg Subl 1000 MCG SL DAILY for Nutritional Supplement, TAB.SL 0 Refills Ferrous Sulfate (Ferrous Sulfate) 325 Mg (65 Mg Iron) Tablet 325 MG PO BID for Nutritional Supplement, #60 TAB 6 Refills Take it with small amount of orange juice. Folic Acid (Folic Acid) 1 Mg Tablet 1 MG PO DAILY Gabapentin (Gabapentin) 300 Mg Cap 300 MG PO DAILY, #60 CAP 0 Refills Ipratropium-Albuterol Neb (Duoneb) 0.5-2.5 Mg/3 Ml Neb 1 NEBULE INH Q6HR NEB PRN for DYSPNEA, #120 NEBULE 0 Refills Magnesium Oxide (Magnesium Oxide) 400 Mg Tab 800 MG PO DAILY for Nutritional Supplement, TAB 0 Refills Metoprolol Tartrate (Metoprolol Tartrate) 50 Mg Tab 25 MG PO BID, #60 TAB 0 Refills Pravastatin (Pravastatin) 40 Mg Tab 40 MG PO HS for Cholesterol Management, #30 TAB 0 Refills Thiamine (Vitamin B-1) 100 Mg Tab 100 MG PO DAILY for Nutritional Supplement, TAB 0 Refills Discontinued Medications: Lisinopril (Lisinopril) 40 Mg Tab 20 MG PO BID for Blood Pressure Management, #30 TAB 0 Refills Torsemide (Torsemide) 10 Mg Tab 10 MG PO BID for Fluid, #60 TAB 0 Refills Haja Taylor DO Jan 03, 2018 09:44
--- NOTE | 2018-01-03 10:32 | HHI.GIFU ---
Subjective Remarks Pt resting in bed, [place] and and lab. No bleeding. (Charisse Abbott) Objective Vitals I&O Vital Signs Date Time Temp Pulse Resp B/P (MAP) Pulse Ox O2 Delivery O2 Flow Rate FiO2 01/03/18 08:43 97.8 73 14 133/70 (91) 98 01/03/18 04:18 98.7 57 16 109/54 (72) 97 01/02/18 23:34 98.4 77 17 115/73 (87) 96 01/02/18 19:59 98.1 83 16 131/69 (89) 98 01/02/18 18:45 97.6 89 18 143/66 (91) 99 Nasal Cannula 2 01/02/18 18:30 90 19 123/63 (83) 98 Nasal Cannula 2 01/02/18 18:23 97.6 112 20 114/77 (89) 96 Nasal Cannula 2 01/02/18 13:01 98.6 74 16 130/62 (84) 97 I/O 01/02/18 01/02/18 01/02/18 01/03/18 01/03/18 01/03/18 07:00 15:00 23:00 07:00 15:00 23:00 Intake Total 265 ml Balance 265 ml Intake Oral 15 ml Other 250 ml Laboratory Laboratory Tests Test 01/02/18 15:17 01/03/18 05:01 Hemoglobin 10.9 9.7 Hematocrit 33.1 29.6 White Blood Count 6.8 Red Blood Count 3.21 Mean Corpuscular Volume 92.0 Mean Corpuscular Hemoglobin 30.1 Mean Corpuscular Hemoglobin Concent 32.7 Red Cell Distribution Width 18.3 Platelet Count 174 Mean Platelet Volume 6.4 Physical Exam HEENT: PERRL; normocephalic; atraumatic; no jaundice. CHEST: CTA CARDIAC: irr HR, + murmur ABDOMEN: Soft, obese, nontender; no hepatosplenomegaly; bowel sounds are present in all four quadrants. EXTREMITIES: No clubbing, cyanosis, or edema. venous stasis changes BLE SKIN: Normal; no rash; no jaundice. [employer]: No focal deficits; alert and oriented times three. (Charisse Abbott) Assessment and Plan Plan Assessment: - Anemia with reports of black stools- FOBT +- Has chronic black stools because he is on iron supplements but states yesterday his stools became loose and he had multiple stools, 3 in the morning and 2 last night. Has not had BM today. Denies nausea, vomiting, abdominal pain, acid reflux, heartburn Extensive history of GIB, has tried multiple anticoagulants for a-fib, previously on Coumadin, then Eliquis, and presently Plavix. Cardiac stents x 2. Seen by our service previously, last EGD in October -->Evans's esophagus, AVM in fundus- multiple cautery, hiatal hernia. H/H stable, currently 08/03 [facility] and states hgb was 11.4 - ETOH abuse- reports daily alcohol consumption Ct abdomen (10/21) The liver is small and shrunken LFTs, platelets and INR WNL. - A-fib, chronic, CAD S/P stent x 2, HTN, HLD, CHF per attending 01/03/18 s/p EG found long segment barretts, smal hiatal hernia, erosive gastritis, poss ashley ulcer, duodenal avm, healed dudodenal ulcers. no obvious bleeding today. mild drop HGB. d/w primary. Plan: ok to restart anticoag if needed Monitor H/H await bx outpt capsule endoscopy PPI f/u with GI after d/c EGD 2 months ok to d/c from GI standpoint Pt has been seen and examined by myself and Dr. Arango and this note is written on his behalf (Charisse Abbott) Physician Comments Patient seen and examined Agree with above Continue with current supportive care Monitor lab (Donovan Arango MD) Charisse Abbott Jan 03, 2018 10:32 Donovan Arango MD Jan 03, 2018 20:33
[2018-01-03 10:58] VITALS: PULSE 72
== END 2018-01-03 11:43 | disposition home or self-care (01) ==
LOC: NEPE 14:06 → NEDA 16:49 → NEPFCDU 20:35
PROVIDERS: ADMIT Hospitalist; ATTEND Hospitalist
DX: K29.01 Acute gastritis with bleeding (principal); K44.9 Diaphragmatic hernia without obstruction or gangrene; K22.70 Barrett's esophagus without dysplasia; D64.9 Anemia, unspecified; N17.9 Acute kidney failure, unspecified; I48.2 Chronic atrial fibrillation; I13.0 Hypertensive heart and chronic kidney disease with heart failure and stage 1 through stage 4 chronic kidney disease, or unspecified chronic kidney disease; N18.2 Chronic kidney disease, stage 2 (mild); I50.9 Heart failure, unspecified; I25.10 Atherosclerotic heart disease of native coronary artery without angina pectoris; E87.5 Hyperkalemia; J44.9 Chronic obstructive pulmonary disease, unspecified; E87.1 Hypo-osmolality and hyponatremia; E78.5 Hyperlipidemia, unspecified; Z79.01 Long term (current) use of anticoagulants; Z79.899 Other long term (current) drug therapy; Z87.11 Personal history of peptic ulcer disease; Z87.891 Personal history of nicotine dependence; Z95.5 Presence of coronary angioplasty implant and graft
CPT/HCPCS: 00731; 43239; 80048; 80053; 85014; 85018; 85025; 85027; 85610; 85730; 88305; 88312; 93005; 94664; 96360; 96361; 97161; 99285; C9113; G0378; G8987; G8988; J7040

== ENCOUNTER → 2018-01-09 | Outpatient (CLI) | payer OTHER ==
[~2018-01-09] MED LIST changes: +LISI10TA3 PO; -LISI40TA PO; -MACR100C2 PO; -NEBULIZER1 MI1; -TORS10TA2 PO
[2018-01-09 10:56] LABS: HEMATOCRIT 28.9 % (39.0-51.0); HEMOGLOBIN 9.6 GM/DL (13.0-17.0); MEAN CELL VOLUME 93.2 FL (80.0-100.0); MEAN CORPUSCULAR HGB CONC 33.2 % (32.0-36.0); MEAN PLATELET VOLUME 6.6 FL (7.0-11.0); PLATELET COUNT 223 TH/MM3 (150-450); RED CELL DISTRIBUTION WIDTH 19.1 % (11.6-17.2)
== END ==
LOC: CLAB 10:28
PROVIDERS: ATTEND Hospitalist
DX: K92.2 Gastrointestinal hemorrhage, unspecified (principal)
CPT/HCPCS: 36415; 85027

== ENCOUNTER 2018-05-12 13:28 | Inpatient (IN) ==
[2018-05-12 14:36] LABS: Baso # (Auto) 0.1 th/mm3 (0.0-0.2); Baso % (Auto) 0.8 % (0.0-2.0); Eos # (Auto) 0.1 th/mm3 (0.0-0.4); Hematocrit 31.7 % (39.0-51.0); Hemoglobin 10.3 gm/dL (13.0-17.0); Lymph # (Auto) 0.8 th/mm3 (1.0-4.8); Lymph % (Auto) 10.6 % (9.0-44.0); Mean Corpuscular HGB Conc 32.4 % (32.0-36.0); Mean Corpuscular Hemoglobin 30.3 pg (27.0-34.0); Mean Corpuscular Volume 93.4 fL (80.0-100.0); Mean Platelet Volume 6.2 fL (7.0-11.0); Mono # (Auto) 0.7 th/mm3 (0.0-0.9); Mono % (Auto) 10.5 % (0.0-8.0); Neut # (Auto) 5.4 th/mm3 (1.8-7.7); Neut % (Auto) 76.1 % (16.0-70.0); Platelet Count 392 th/mm3 (150-450); Red Cell Distribution Width 16.5 % (11.6-17.2); White Blood Count 7.1 th/mm3 (4.0-11.0)
--- NOTE | 2018-05-12 14:53 | XR ---
EXAM DATE: 05/12/2018 2:50 PM EDT AGE/SEX: 72 years / Male INDICATIONS: . Short of breath. CLINICAL DATA: This is the patient's initial encounter. Patient reports that signs and symptoms have been present for 2 weeks and indicates a pain score of 0/10. MEDICAL/SURGICAL HISTORY: . Cardiovascular disease. Hypertension. COPD. . Appendectomy. Lung biopsy. COMPARISON: [facility] [place], CHEST SINGLE AP, 10/20/2017. . FINDINGS: The cardiac silhouette is enlarged in transverse diameter. The aortic knob is prominent with tortuosi ty of the descending thoracic aorta. There is increasing right-sided effusion. There is right lower lobe atelectasis versus pneumonia. The left lung is free of acute parenchymal opacity. CONCLUSION: Increasing right-sided effusion. Etiology is uncertain though this has been chronic in nature. CT sca n is recommended if clinically indicated. Electronically signed by: Adriano Stanley MD 05/12/2018 2:52 PM EDT
[2018-05-12 15:01] LABS: Albumin 2.6 g/dL (3.4-5.0); Anion Gap 9 meq/L (5-15); Blood Urea Nitrogen 14 mg/dL (7-18); Calcium 8.5 mg/dL (8.5-10.1); Carbon Dioxide 25.7 meq/L (21.0-32.0); Chloride 102 meq/L (98-107); Glomerular Filtration Rate 67 mL/min (>89); Glucose,Random 118 mg/dL (74-106); Potassium 4.3 meq/L (3.5-5.1); Sodium 137 meq/L (136-145)
[2018-05-12 15:02] LABS: Activated Partial Thrombo Time 26.6 sec (24.3-30.1); INR 1.2 Ratio; Prothrombin Time 12.2 sec (9.8-11.6)
[2018-05-12 15:03] LABS: D-Dimer 8.7 mg/L FEU (0.00-0.50)
[2018-05-12 15:19] LABS: Alanine Aminotransferase 26 U/L (12-78); Alkaline Phosphatase 226 U/L (45-117); Aspartate Aminotransferase 27 U/L (15-37); Total Protein 7.8 g/dL (6.4-8.2)
[2018-05-12 15:32] LABS: Creatine Kinase 71 U/L (39-308)
--- NOTE | 2018-05-12 15:37 | ED ---
HPI General Chief Complaint: Respiratory Symptoms Stated Complaint: SOB Time Seen by Provider: 05/12/18 13:48 Source: patient Mode of arrival: ambulatory Limitations: no limitations History of Present Illness HPI Narrative: 72-year-old male the presents to the ED from the [facility] for evaluation of shortness of breath with exertion for the past 2 weeks. Per patient he has a significant history of what appears to be fluid on 1 of his lungs. Apparently they were working him up for cancer at the [facility] in [place]. Apparently the date a thoracocentesis from what he was telling me possibly on his right lung but he cannot really tell me which one on 2 weeks ago. Per patient he had the procedure he was told that there was no sign of cancer but was told to recheck in August. Per patient he ever since has been short of breath and has progressively not improved. She denies any history of heart failure were per her medical record she has a history of A. fib, GI bleeds as well as documented CHF. He denies any leg swelling. Per patient the shortness of breath gets worse with ambulation but also with laying down flat. He denies any pain in his chest. He states compliance with his Plavix. He states compliance with his medications. He does state that he takes a diuretic but he is not sure what he takes it on per patient is torsemide. States compliance with his medication as well. Per patient the [facility] told him to come here today to get evaluated. Related Data Allergies Allergy/AdvReac Type Severity Reaction Status Date / Time No Known Allergies Allergy Verified 05/12/18 13:35 Review of Systems ROS: all other systems reviewed are negative [facility] Social History Social History Smoking Status: Former smoker Tobacco Type: Cigarettes How Often Do You Have a Drink Containing Alcohol: Monthly or less Recent Travel in [facility] within the Last 8 Weeks: No Recent Out of Country Travel within the Last 8 Weeks: No Immunization History Tetanus Immunization: Unsure Exam Narrative Exam Narrative: GENERAL: Well-appearing SKIN: Focused skin assessment warm/dry. HEAD: Atraumatic. Normocephalic. EYES: Pupils equal and round. No scleral icterus. No injection or drainage. ENT: No nasal bleeding or discharge. Mucous membranes pink and moist. NECK: Trachea midline. No JVD. CARDIOVASCULAR: Regular rate and rhythm. No murmur appreciated. RESPIRATORY: No accessory muscle use. Rales heard on the right lower lung. Breath sounds equal bilaterally. GASTROINTESTINAL: Abdomen soft, non-tender, nondistended. Hepatic and splenic margins not palpable. MUSCULOSKELETAL: No obvious deformities. No clubbing. No cyanosis. No edema. NEUROLOGICAL: Awake and alert. No obvious cranial nerve deficits. Motor grossly within normal limits. Normal speech. PSYCHIATRIC: Appropriate mood and affect; insight and judgment normal. Course Initial Documented Vital Signs Temperature 97.9 F 05/12/18 13:35 Pulse Rate 95 H 05/12/18 13:35 Respiratory Rate 23 05/12/18 13:35 Blood Pressure 141/63 H 05/12/18 13:35 Pulse Oximetry 96 05/12/18 13:35 Last Documented Vital Signs Temperature 97.9 F 05/12/18 13:35 Pulse Rate 94 H 05/12/18 14:04 Respiratory Rate 23 05/12/18 13:35 Blood Pressure 141/63 H 05/12/18 13:35 Pulse Oximetry 96 05/12/18 14:04 Medical Decision Making [facility] Narrative Medical decision making narrative: 72-year-old male the presents to the ED for evaluation of shortness of breath. Patient was properly examined and was found to have signs and symptoms of unclear etiology with deafly concerning for pleural effusion with CHF exacerbation. I was able to review the patient's medical records. He does have a history of GI bleed but does not appear to be pale. Per patient he has been taking iron in his H&H has improved and he has not noticed any dark stools. Labs and imaging were ordered here. Labs and imaging showed what appears to be significant d-dimer elevation. CTA was ordered. CT showed significant pleural effusion on the right side with possible consolidation. Patient start IV antibiotics to cover for pneumonia. Lasix given. Patient overall looks well but did recommend admission for observation to assess whether patient's fluid and symptoms are improving or if he will need a thoracocentesis again. This was discussed with my attending agrees with plan. Patient was admitted to Dr. Richter who agrees to admission. Case discussed with family and patient Valdez agreement with plan. Medical Screen Exam Complete: Yes Emergency Medical Condition: Yes Differential Diagnosis Differential Diagnosis: Pleural effusion versus PE versus ACS versus CHF exacerbation versus chronic CHF Medical Records Medical records reviewed: Yes I reviewed the patient's medical records. Lab Data Lab results reviewed: Yes I reviewed the patient's lab results. Lab results narrative: troponin negative CK negative BNP in the 200s Result diagrams: 05/12/18 14:25 05/12/18 14:25 Lab Results 05/12/18 05/12/18 05/12/18 Range/Units 14:25 14:25 14:25 WBC 7.1 (4.0-11.0) th/mm3 RBC 3.40 L (4.50-5.90) mil/mm3 Hgb 10.3 L (13.0-17.0) gm/dL Hct 31.7 L (39.0-51.0) % MCV 93.4 (80.0-100.0) fL MCH 30.3 (27.0-34.0) pg MCHC 32.4 (32.0-36.0) % RDW 16.5 (11.6-17.2) % Plt Count 392 (150-450) th/mm3 MPV 6.2 L (7.0-11.0) fL Neut % (Auto) 76.1 H (16.0-70.0) % Lymph % (Auto) 10.6 (9.0-44.0) % [place] % (Auto) 10.5 H (0.0-8.0) % Eos % (Auto) 2.0 (0.0-4.0) % Baso % (Auto) 0.8 (0.0-2.0) % Neut # (Auto) 5.4 (1.8-7.7) th/mm3 Lymph # (Auto) 0.8 L (1.0-4.8) th/mm3 [place] # (Auto) 0.7 (0.0-0.9) th/mm3 Eos # (Auto) 0.1 (0.0-0.4) th/mm3 Baso # (Auto) 0.1 (0.0-0.2) th/mm3 WBC Differential . Differential Comment Auto diff final PT 12.2 H (9.8-11.6) sec INR 1.2 Ratio APTT 26.6 (24.3-30.1) sec D-Dimer Quant (PE/DVT) 8.70 H (0.00-0.50) mg/L FEU Sodium 137 (136-145) meq/L Potassium 4.3 (3.5-5.1) meq/L Chloride 102 (98-107) meq/L Carbon Dioxide 25.7 (21.0-32.0) meq/L Anion Gap 9 (5-15) meq/L BUN 14 (7-18) mg/dL Creatinine 1.08 (0.60-1.30) mg/dL Estimated GFR 67 L (>89) mL/min Random Glucose 118 H (74-106) mg/dL Calcium 8.5 (8.5-10.1) mg/dL Total Bilirubin 0.6 (0.2-1.0) mg/dL AST 27 (15-37) U/L ALT 26 (12-78) U/L Alkaline Phosphatase 226 H (45-117) U/L Total Creatine Kinase 71 (39-308) U/L Troponin I Less than 0.02 L (0.02-0.05) ng/mL B-Natriuretic Peptide (0-100) pg/mL Total Protein 7.8 (6.4-8.2) g/dL Albumin 2.6 L (3.4-5.0) g/dL 05/12/18 Range/Units 14:25 WBC (4.0-11.0) th/mm3 RBC (4.50-5.90) mil/mm3 Hgb (13.0-17.0) gm/dL Hct (39.0-51.0) % MCV (80.0-100.0) fL MCH (27.0-34.0) pg MCHC (32.0-36.0) % RDW (11.6-17.2) % Plt Count (150-450) th/mm3 MPV (7.0-11.0) fL Neut % (Auto) (16.0-70.0) % Lymph % (Auto) (9.0-44.0) % [place] % (Auto) (0.0-8.0) % Eos % (Auto) (0.0-4.0) % Baso % (Auto) (0.0-2.0) % Neut # (Auto) (1.8-7.7) th/mm3 Lymph # (Auto) (1.0-4.8) th/mm3 [place] # (Auto) (0.0-0.9) th/mm3 Eos # (Auto) (0.0-0.4) th/mm3 Baso # (Auto) (0.0-0.2) th/mm3 WBC Differential Differential Comment PT (9.8-11.6) sec INR Ratio APTT (24.3-30.1) sec D-Dimer Quant (PE/DVT) (0.00-0.50) mg/L FEU Sodium (136-145) meq/L Potassium (3.5-5.1) meq/L Chloride (98-107) meq/L Carbon Dioxide (21.0-32.0) meq/L Anion Gap (5-15) meq/L BUN (7-18) mg/dL Creatinine (0.60-1.30) mg/dL Estimated GFR (>89) mL/min Random Glucose (74-106) mg/dL Calcium (8.5-10.1) mg/dL Total Bilirubin (0.2-1.0) mg/dL AST (15-37) U/L ALT (12-78) U/L Alkaline Phosphatase (45-117) U/L Total Creatine Kinase (39-308) U/L Troponin I (0.02-0.05) ng/mL B-Natriuretic Peptide 116 H (0-100) pg/mL Total Protein (6.4-8.2) g/dL Albumin (3.4-5.0) g/dL Imaging Data Attestation: I personally reviewed and interpreted this imaging study as follows : Radiologist's impression: Chest X-Ray 05/12/18 14:04 CONCLUSION: Increasing right-sided effusion. Etiology is uncertain though this has been chronic in nature. CT scan is recommended if clinically indicated. Chest CTA 05/12/18 15:04 CONCLUSION: 1. Large right pleural effusion, right lower lobe atelectasis and consolidation. 2. No evidence for pulmonary embolism. Discharge Plan Discharge Disposition Patient Disposition: 30 Still Patient Discharge Details Diagnosis: CHF exacerbation, Pleural effusion Physicians Team ED Provider: Antonia Gonzalez ED Midlevel Provider: Blaine Dias Primary Care Provider: [facility] Attending Provider: Khari Richter Status ED Status: Admitted Patient
--- NOTE | 2018-05-12 16:24 | CT ---
EXAM DATE: 05/12/2018 4:20 PM EDT AGE/SEX: 72 years / Male INDICATIONS: Shortness of breath for two weeks. CLINICAL DATA: This is the patient's initial encounter. Patient reports that signs and symptoms have been present for 1 day and indicates a pain score of 4/10. MEDICAL/SURGICAL HISTORY: None. None. RADIATION DOSE: 11.20 CTDI (mGy) [place]PAR[place] [facility] [place]&L[place]12/2018. . TECHNIQUE: Volumetric scanning was performed using a multi-row detector CT scanner during bolus infu celia of 75 ml Omnipaque 350 (iohexol) nonionic water-soluble contrast as a single exam dose. The zachariah a was post processed with a variety of visualization algorithms including full volume maximum intensi ty projection and sliding thin slab reformation. Using automated exposure control and adjustment of the mA and/or kV according to patient size, radiation dose was kept as low as reasonably achievable t o obtain optimal diagnostic quality images. DICOM format image data is available electronically for review and comparison. FINDINGS: There is a large right-sided pleural effusion with right lower lobe atelectasis and consolidation. Th ere is no adenopathy. No evidence of pulmonary embolus. No pericardial effusions. Atherosclerotic kailash cifications of the aorta are identified. CONCLUSION: 1. Large right pleural effusion, right lower lobe atelectasis and consolidation. 2. No evidence for pulmonary embolism. Electronically signed by: Claudy Menezes MD 05/12/2018 4:23 PM EDT
[2018-05-12] MEDS ORDERED: Azithromycin Inj 500 MG in Sodium Chlor 0.9% Inj 250 ML IV.SIG ONE ×2 (16:29→19:00)
[2018-05-12] MEDS ORDERED: Bisacodyl 10 MG Supp RECTAL PRN (17:18)
[2018-05-12] MEDS ORDERED: Acetaminophen 325 MG Tablet PO PRN (17:18)
--- NOTE | 2018-05-12 17:47 | P.HP ---
History of Present Illness Primary Care Physician: [facility] Chief Complaint: Shortness of breath. History of Present Illness: This is a pleasant 72-year-old male the presents to the ED from the [facility] for evaluation of shortness of breath with exertion for the past 2 weeks. Per patient he has a significant history of what appears to be fluid on 1 of his lungs. Apparently they were working him up for cancer at the [facility] in [place]. Apparently the date a thoracocentesis from what he was telling me possibly on his right lung but he cannot really tell me which one on 2 weeks ago. Per patient he had the procedure he was told that there was no sign of cancer but was told to recheck in August. Per patient he ever since has been short of breath and has progressively not improved. She denies any history of heart failure were per her medical record she has a history of A. fib, GI bleeds as well as documented CHF. He denies any leg swelling. Per patient the shortness of breath gets worse with ambulation but also with laying down flat. He denies any pain in his chest. He states compliance with his Plavix. He states compliance with his medications. He does state that he takes a diuretic but he is not sure what he takes it on per patient is torsemide. States compliance with his medication as well. Per patient the [facility] told him to come here today to get evaluated. Seen in emergency room, recommended for Thoracentesis but he is taking Plavix and Aspirin secondary to PCI and stent placement last year by Doctor Jones. Review of Systems All other systems reviewed negative except as stated in HPI PMFSH - History History Provided By: Patient - Medical History Medical History: Medical History (Last Updated 05/12/18 @ 20:17 by Khari Richter MD) Atrial fibrillation CHF (congestive heart failure) CKD (chronic kidney disease) COPD (chronic obstructive pulmonary disease) GIB (gastrointestinal bleeding) Hyperlipidemia Hypertension - Surgical History Surgical History: Surgical History (Last Updated 05/12/18 @ 20:17 by Khari Richter MD) History of appendectomy - Family History Family History: Family History (Last Updated 05/12/18 @ 20:18 by Khari Richter MD) Other Family history of hypertension - Tobacco History Smoking Status: Former smoker Tobacco Type: Cigarettes - Alcohol History How Often Do You Have a Drink Containing Alcohol: Monthly or less - Travel History Recent Travel in the [place] Within the Last 8 Weeks: No Recent Travel Out of the Country Within the Last 8 Weeks: No - Immunization History Tetanus Immunization: Unsure Medications and Allergies Active Medications: Active Medications Azithromycin 500 mg/ Sodium (Chloride) 250 mls @ 250 mls/hr IV.SIG ONCE ONE Stop: 05/12/18 17:28 Allergies Allergy/AdvReac Type Severity Reaction Status Date / Time No Known Allergies Allergy Verified 05/12/18 13:35 Exam Vital signs: Vital Signs 05/12/18 13:35 05/12/18 14:04 Temperature 97.9 F Pulse Rate 95 H 94 H Respiratory Rate 23 Blood Pressure 141/63 H Pulse Oximetry 96 96 Intake & Output 05/11/18 05/12/18 05/12/18 18:59 06:59 18:59 Weight 97.069 kg Narrative: GENERAL: Well-appearing SKIN: Focused skin assessment warm/dry. HEAD: Atraumatic. Normocephalic. EYES: Pupils equal and round. No scleral icterus. No injection or drainage. ENT: No nasal bleeding or discharge. Mucous membranes pink and moist. NECK: Trachea midline. No JVD. CARDIOVASCULAR: Regular rate and rhythm. No murmur appreciated. RESPIRATORY: No accessory muscle use. Rales heard on the right lower lung. Breath sounds equal bilaterally. GASTROINTESTINAL: Abdomen soft, non-tender, nondistended. Hepatic and splenic margins not palpable. MUSCULOSKELETAL: No obvious deformities. No clubbing. No cyanosis. No edema. NEUROLOGICAL: Awake and alert. No obvious cranial nerve deficits. Motor grossly within normal limits. Normal speech. PSYCHIATRIC: Appropriate mood and affect; insight and judgment normal. Results - Labs CBC & Chem 7: 05/12/18 14:25 05/12/18 14:25 Labs: Laboratory Results - last 24 hr 05/12/18 05/12/18 05/12/18 14:25 14:25 14:25 WBC 7.1 RBC 3.40 L Hgb 10.3 L Hct 31.7 L MCV 93.4 MCH 30.3 MCHC 32.4 RDW 16.5 Plt Count 392 MPV 6.2 L Neut % (Auto) 76.1 H Lymph % (Auto) 10.6 [place] % (Auto) 10.5 H Eos % (Auto) 2.0 Baso % (Auto) 0.8 Neut # (Auto) 5.4 Lymph # (Auto) 0.8 L [place] # (Auto) 0.7 Eos # (Auto) 0.1 Baso # (Auto) 0.1 WBC Differential . Differential Comment Auto diff final PT 12.2 H INR 1.2 APTT 26.6 D-Dimer Quant (PE/DVT) 8.70 H Sodium 137 Potassium 4.3 Chloride 102 Carbon Dioxide 25.7 Anion Gap 9 BUN 14 Creatinine 1.08 Estimated GFR 67 L Random Glucose 118 H Calcium 8.5 Total Bilirubin 0.6 AST 27 ALT 26 Alkaline Phosphatase 226 H Total Creatine Kinase 71 Troponin I Less than 0.02 L B-Natriuretic Peptide Total Protein 7.8 Albumin 2.6 L 05/12/18 14:25 WBC RBC Hgb Hct MCV MCH MCHC RDW Plt Count MPV Neut % (Auto) Lymph % (Auto) [place] % (Auto) Eos % (Auto) Baso % (Auto) Neut # (Auto) Lymph # (Auto) [place] # (Auto) Eos # (Auto) Baso # (Auto) WBC Differential Differential Comment PT INR APTT D-Dimer Quant (PE/DVT) Sodium Potassium Chloride Carbon Dioxide Anion Gap BUN Creatinine Estimated GFR Random Glucose Calcium Total Bilirubin AST ALT Alkaline Phosphatase Total Creatine Kinase Troponin I B-Natriuretic Peptide 116 H Total Protein Albumin - Imaging Impressions Chest X-Ray 05/12/18 14:04 CONCLUSION: Increasing right-sided effusion. Etiology is uncertain though this has been chronic in nature. CT scan is recommended if clinically indicated. Chest CTA 05/12/18 15:04 CONCLUSION: 1. Large right pleural effusion, right lower lobe atelectasis and consolidation. 2. No evidence for pulmonary embolism. Caprini VTE Risk Assessment Caprini VTE Risk Assessment: Moderate/High Risk (score >= 2) Caprini Risk Assessment Model: Point Value = 1 Point Value = 2 Point Value = 3 Point Value = 5 Age 41-60 Minor surgery BMI > 25 kg/m2 Swollen legs Varicose veins or History of unexplained or recurrent spontaneous Oral contraceptives or hormone replacement Sepsis (< 1 month) Serious lung disease, including pneumonia (< 1 month) Abnormal pulmonary function Acute myocardial infarction Congestive heart failure (< 1 month) History of inflammatory bowel disease Medical patient at bed rest Age 61-74 Arthroscopic surgery Major open surgery (> 45 min) Laparoscopic surgery (> 45 min) Malignancy Confined to bed (> 72 hours) Immobilizing plaster cast Central venous access Age >= 75 History of VTE Family history of VTE Factor V Leiden Prothrombin [id number] Lupus anticoagulant Anticardiolipin antibodies Elevated serum homocysteine Heparin-induced thrombocytopenia Other congenital or acquired thrombophilia Stroke (< 1 month) Elective arthroplasty Hip, pelvis, or leg fracture Acute spinal cord injury (< 1 month) Prophylaxis Regimen: Total Risk Factor Score Risk Level Prophylaxis Regimen 0-1 Low Early ambulation 2 Moderate Order ONE of the following: *Sequential Compression Device (SCD) *Heparin 5000 units SQ BID 3-4 Higher Order ONE of the following medications: *Heparin 5000 units SQ TID *Enoxaparin/Lovenox 40 mg SQ daily (WT < 150 kg, CrCl > 30 mL/min) *Enoxaparin/Lovenox 30 mg SQ daily (WT < 150 kg, CrCl > 10-29 mL/min) *Enoxaparin/Lovenox 30 mg SQ BID (WT < 150 kg, CrCl > 30 mL/min) AND/OR *Sequential Compression Device (SCD) 5 or more Highest Order ONE of the following medications: *Heparin 5000 units SQ TID (Preferred with Epidurals) *Enoxaparin/Lovenox 40 mg SQ daily (WT < 150 kg, CrCl > 30 mL/min) *Enoxaparin/Lovenox 30 mg SQ daily (WT < 150 kg, CrCl > 10-29 mL/min) *Enoxaparin/Lovenox 30 mg SQ BID (WT < 150 kg, CrCl > 30 mL/min) AND *Sequential Compression Device (SCD) Assessment and Plan - Plan 1. Right pleural Effusion asked for orientation & mobility specialist evaluation, Thoracentesis if possible he is in status post PCI and stent placement more than 8 months ago, may have to stop Plavix and Aspirin, to perform Thoracentesis will leave that decision to orientation & mobility specialist 2. Pneumonia consolidation on right Lung with recent admission to [facility] due to the same situation, had Thoracentesis, difficult to obtain medical records from [place]. orientation & mobility specialist consult, Thoracentesis by IR, blood cultures, Cefepime and Azithromycin Bronchodilator, Mucolytic, incentive spirometry, Oxygen as needed, sputum culture. legionella antigen, Pneumococcal antigen. 3. Atrial fibrillation at this time in sinus rhythm, he is on Plavix and Aspirin at home. 4. CHF by history with EF 45-50%, BNP now WNL 5. Hyperlipidemia by history 6. CAD status post PCI and stent to LAD and RCA on Plavix and Aspirin at home 7. Hypertension controlled. 8. COPD non exacerbated. 9. GI bleed history continue Protonix for GI prophylaxis. Not yet reconciled medicines. DVT prophylaxis- SCD's/DIMA's. Holding pharmacologic anticoagulation secondary to GI bleed Code Status: Full Code. Discussed Condition With: Patient and ER physician Discharge Planning: Once cleared by orientation & mobility specialist.
[2018-05-12] MEDS: Sod Chloride 0.9% Inj 1,000 ML IV.CONT SCH (18:28)
[2018-05-12] MEDS: guaiFENesin 600 MG ER Tablet PO SCH (20:39)
[2018-05-12] MEDS: Senna/Docusate Sodium 8.6/50 MG Tablet PO SCH (20:40)
[2018-05-13 08:33] LABS: Baso % (Auto) 0.7 % (0.0-2.0); Eos # (Auto) 0.1 th/mm3 (0.0-0.4); Eos % (Auto) 2.1 % (0.0-4.0); Hematocrit 29.4 % (39.0-51.0); Hemoglobin 9.7 gm/dL (13.0-17.0); Lymph # (Auto) 0.6 th/mm3 (1.0-4.8); Mean Corpuscular HGB Conc 32.9 % (32.0-36.0); Mean Corpuscular Hemoglobin 30.5 pg (27.0-34.0); Mean Corpuscular Volume 92.6 fL (80.0-100.0); Mean Platelet Volume 6.7 fL (7.0-11.0); Mono # (Auto) 0.8 th/mm3 (0.0-0.9); Neut # (Auto) 4.3 th/mm3 (1.8-7.7); Neut % (Auto) 73.2 % (16.0-70.0); Platelet Count 322 th/mm3 (150-450); Red Blood Count 3.17 mil/mm3 (4.50-5.90); Red Cell Distribution Width 16.4 % (11.6-17.2); White Blood Count 5.8 th/mm3 (4.0-11.0)
[2018-05-13 09:12] LABS: Calcium 7.9 mg/dL (8.5-10.1); Potassium 3.9 meq/L (3.5-5.1)
[2018-05-13] MEDS: Sod Chloride 0.9% Inj 1,000 ML IV.CONT SCH (09:44)
[2018-05-13] MEDS: guaiFENesin 600 MG ER Tablet PO SCH ×2 (09:44→21:33)
[2018-05-13] MEDS: Senna/Docusate Sodium 8.6/50 MG Tablet PO SCH ×2 (09:45→21:34)
--- NOTE | 2018-05-13 12:40 | MB ---
cc: Gianna Ely MD, Vincent G DO DATE: 05/13/2018 HISTORY OF PRESENT ILLNESS: Mr. Malik is a 72-year-old white male who presented with shortness of breath. He tells me that several weeks ago, he was referred to the [facility] for pleural effusion. He had that fluid drained and was told he did not have cancer, but he was not told specifically why he had the fluid. He presented today to our ER with shortness of breath, on referral from the [place]. He had a CTA on admission, which revealed a large right pleural effusion, but he also had this pleural effusion on a previous admission in September. There was no evidence of pulmonary embolism. There was some compression, atelectasis, but he has had no symptoms to suggest active pneumonia. No unusual cough or congestion. No purulent sputum. No chest pain or hemoptysis. He has had pneumonia earlier this year, but has had nothing to suggest persistent infection as noted above. He has also had no fever or chills. No sweats. The patient is currently on Plavix and aspirin for a stent that was placed about 6 months ago and I spoke to his commercial lines assistant, Dr. Jones, who said that that should be continued for at least 3 months without interruption or risk clotting the stent. The patient has also had increase in heart rate with some palpitations and he does have chronic atrial fibrillation. He was a former smoker, but only for about 10 years and quit smoking in his early 30s. He also has a heavy beer drinking history, although he has not had any alcohol in 4 months. No known history of cirrhosis. No significant kidney disease. BUN is 12 with a creatinine of 0.88. BNP on presentation was not particularly elevated, only 116. PAST MEDICAL HISTORY: Atrial fibrillation, apparently COPD, although I do not know how well documented that is. He was hospitalized here in September for gastrointestinal bleeding while on warfarin. Since he has been off warfarin there has been no recurrent bleeding and he was not told specifically what he was bleeding from. Hypertension. Pneumonia as noted above. PAST SURGICAL HISTORY: Appendectomy and stent 6 months ago. FAMILY HISTORY: Positive for hypertension. SOCIAL HISTORY: The patient is , lives with his . 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 In particular, no prior exposure to asbestos. Smoking: Probably 10 to no more than 15 pack years. Alcohol: Heavy, but has not drank since December. ALLERGIES: NONE KNOWN. CURRENT MEDICATIONS: Reviewed in the EMR. MEDICATIONS AT HOME have included: 1. Torsemide. 2. Albuterol p.r.n. 3. Pravastatin. 4. Omeprazole. 5. Metoprolol. 6. Lisinopril. 7. Gabapentin. 8. B12. 9. Plavix. 10. Aspirin 162 mg. 11. Vitamin C. 12. Allopurinol. REVIEW OF SYSTEMS: Other than that noted above, he has had no orthopnea or PND. No lower extremity edema. No history of thromboembolic disease. PHYSICAL EXAMINATION: GENERAL: Obese white male, in no distress at rest. VITAL SIGNS: Afebrile, pulse is 180, irregular, respirations are 16, room air saturations 97%, blood pressure 113/70. HEENT: Sclerae are anicteric. NECK: Veins are not distended. CHEST: Diminished on the right with dullness to percussion, but otherwise clear. No rales or wheezes. No congestion. HEART: Irregular heart rhythm. No harsh murmur. ABDOMEN: Obese, but soft, nontender. EXTREMITIES: He has no significant peripheral edema or calf tenderness. LABORATORY DATA: Electrolytes are normal. BUN and creatinine normal. Alkaline phosphatase mildly elevated, but liver functions normal. White count 7100, hemoglobin is 10, platelet count is normal. PT, INR normal. D-dimer elevated at 8.7 with no evidence of thromboembolism on the CTA. DISCUSSION: Mr. Malik presents with a large right pleural effusion, precise etiology unknown, but he had a recent thoracentesis based on his history at the [facility]. We need to obtain those records to see how extensive the review of that fluid was, to see if we can identify an underlying cause. Does not appear to have any underlying liver disease, although he does have an elevated alkaline phosphatase. Liver functions themselves are normal. Albumin slightly low. No obvious kidney disease. He does not appear to be in heart failure. His BNP is nearly normal, although he is in rapid atrial fibrillation. It is not clear to me why his D-dimer is as high as it is, but it is not based on him having thromboembolism, at least pulmonary embolism. We will try to obtain those records from the [facility]. I spoke to Dr. Jones today and he does not feel that his aspirin and Plavix should be stopped at this point. I also spoke to interventional radiology and they require a 5-day hold on Plavix unless the situation is emergent which this clearly is not. Hopefully by reviewing what has been done at the [facility], we can make further recommendations. Those will be based on his ongoing clinical course and the results of these former studies. R. Israel Ely MD RSW/ct , 11:52 AM , 12:02 PM
--- NOTE | 2018-05-13 13:56 | P.PN ---
Subjective Interval history: Follow-up visit right pleural effusion, pneumonia, CAD with PCI/stent placement last year. Patient seen and examined today. at the bedside. Patient states he feels a lot better however he wants the thoracentesis done right away so he can go back home. Discussed with patient that they have to still weigh in on the thoracentesis stopping his aspirin/Plavix versus continuing it knowing that he just recently had a stent placed. Verbalized understanding. Denies pain and discomfort. Denies SOB/ dyspnea. Denies chest pain, palpitations, headaches, dizziness. Denies fevers, chills, n/v/d. Denies dysuria. Physical Exam Vital signs: Vital Signs 05/12/18 14:04 05/12/18 19:58 05/12/18 20:00 Temperature 98.5 F Pulse Rate 94 H 97 H Respiratory Rate 18 Blood Pressure 105/55 L Pulse Oximetry 96 95 95 05/12/18 23:04 05/12/18 23:34 05/13/18 03:37 Temperature 98.7 F 97.7 F Pulse Rate 107 H 106 H 93 H Respiratory Rate 20 18 18 Blood Pressure 122/69 114/60 Pulse Oximetry 98 95 05/13/18 04:28 05/13/18 07:49 05/13/18 08:00 Temperature 97.4 F L Pulse Rate 88 110 H 108 H Respiratory Rate 20 16 16 Blood Pressure 113/67 Pulse Oximetry 97 05/13/18 11:54 Temperature 97.8 F Pulse Rate 117 H Respiratory Rate 14 Blood Pressure 145/65 H Pulse Oximetry 96 Intake & Output 05/12/18 05/13/18 05/13/18 18:59 06:59 18:59 Intake Total 350 / 350 1100 / 1100 Output Total 600 / 600 Balance 350 / 350 500 / 500 Weight 97.7 kg Intake: IV 350 / 350 1100 / 1100 NS Inj 1,000 ML @ 75 mls/hr IV. 1000 / 1000 CONT .[id number] [facility] Rx#:[id number] Azithromycin Inj 500 MG In NS 250 / 250 Inj 250 ML @ 250 mls/hr IV.SIG ONCE ONE Rx#:[id number] Maxipime Inj 1,000 MG In NS Inj 100 / 100 100 / 100 100 ML @ 200 mls/hr IV.SIG Q8H [facility] Rx#:[id number] Output: Urine 600 / 600 Other: Date of Last Bowel Movement 05/12/18 05/12/18 Weight On Admission 97.06 kg Narrative: GENERAL: This is a well-nourished, well-developed patient, in no apparent distress. SKIN: Warm and dry HEENT: Normocephalic. Pupils equal round and reactive. Nose without bleeding. Airway patent. NECK: Trachea midline. Supple. CARDIOVASCULAR: Regular rate and rhythm without murmurs, gallops, or rubs. RESPIRATORY: Diminished bases right greater than the left. No wheezes, rales, or rhonchi. GASTROINTESTINAL: Abdomen soft, non-tender, nondistended. Bowel Sounds normoactive x4. MUSCULOSKELETAL: Extremities without clubbing, cyanosis. Trace BLE edema. NEUROLOGICAL: Awake and alert. Oriented to time, place, person. No focal neuro deficit. Moves all extremities. Normal speech. Results - Labs CBC & Chem 7: 05/13/18 07:20 05/13/18 07:20 Laboratory Results - last 24 hr 05/12/18 05/12/18 05/12/18 14:25 14:25 14:25 WBC 7.1 RBC 3.40 L Hgb 10.3 L Hct 31.7 L MCV 93.4 MCH 30.3 MCHC 32.4 RDW 16.5 Plt Count 392 MPV 6.2 L Neut % (Auto) 76.1 H Lymph % (Auto) 10.6 Putnam % (Auto) 10.5 H Eos % (Auto) 2.0 Baso % (Auto) 0.8 Neut # (Auto) 5.4 Lymph # (Auto) 0.8 L [place] # (Auto) 0.7 Eos # (Auto) 0.1 Baso # (Auto) 0.1 WBC Differential . Differential Comment Auto diff final PT 12.2 H INR 1.2 APTT 26.6 D-Dimer Quant (PE/DVT) 8.70 H Sodium 137 Potassium 4.3 Chloride 102 Carbon Dioxide 25.7 Anion Gap 9 BUN 14 Creatinine 1.08 Estimated GFR 67 L Random Glucose 118 H Calcium 8.5 Total Bilirubin 0.6 AST 27 ALT 26 Alkaline Phosphatase 226 H Total Creatine Kinase 71 Troponin I Less than 0.02 L B-Natriuretic Peptide Total Protein 7.8 Albumin 2.6 L 05/12/18 05/13/18 05/13/18 14:25 07:20 07:20 WBC 5.8 RBC 3.17 L Hgb 9.7 L Hct 29.4 L MCV 92.6 MCH 30.5 MCHC 32.9 RDW 16.4 Plt Count 322 MPV 6.7 L Neut % (Auto) 73.2 H Lymph % (Auto) 11.0 Putnam % (Auto) 13.0 H Eos % (Auto) 2.1 Baso % (Auto) 0.7 Neut # (Auto) 4.3 Lymph # (Auto) 0.6 L [place] # (Auto) 0.8 Eos # (Auto) 0.1 Baso # (Auto) 0.0 WBC Differential . Differential Comment Auto diff final PT INR APTT D-Dimer Quant (PE/DVT) Sodium 135 L Potassium 3.9 Chloride 101 Carbon Dioxide 24.0 Anion Gap 10 BUN 12 Creatinine 0.88 Estimated GFR 85 L Random Glucose 102 Calcium 7.9 L Total Bilirubin AST ALT Alkaline Phosphatase Total Creatine Kinase Troponin I B-Natriuretic Peptide 116 H Total Protein Albumin Microbiology 05/12/18 17:47 Blood - Peripheral Aerobic Blood Culture - Preliminary No growth in 1 day 05/12/18 17:47 Blood - Peripheral Anaerobic Blood Culture - Preliminary No growth in 1 day 05/12/18 17:25 Blood - Peripheral Aerobic Blood Culture - Preliminary gram positive cocci 05/12/18 17:25 Blood - Peripheral Anaerobic Blood Culture - Preliminary No growth in 1 day 05/12/18 18:46 Urine - Clean Catch Urine Streptococcus pneumoniae Antigen ( M - Final Presumptive negative for streptococcus pneumoniae antigen, suggesting no current or recent infection. Infection due to Streptococcus pneumoniae cannot be ruled out since the antigen present in the sample may be below the detection limit of the test. 05/12/18 18:46 Urine - Clean Catch Urine Legionella Antigen - Final Presumptive negative for Legionella pneumophila serogroup 1 antigen in urine, suggesting no recent or recurrent infection. Infection due to Legionella cannot be ruled out since other serogroups and species may cause disease, antigen may not be present in urine in early infection, and the level of antigen present in the urine may be below the detection limit of the test. - Imaging Impressions Chest X-Ray 05/12/18 14:04 CONCLUSION: Increasing right-sided effusion. Etiology is uncertain though this has been chronic in nature. CT scan is recommended if clinically indicated. Chest CTA 05/12/18 15:04 CONCLUSION: 1. Large right pleural effusion, right lower lobe atelectasis and consolidation. 2. No evidence for pulmonary embolism. Assessment and Plan - Plan 72-year-old male the presents to the ED from the [place] for evaluation of shortness of breath with exertion for the past 2 weeks. Right pleural Effusion, increasing -Pulmonology consulted. Appreciate recommendations. Spoke with Dr. Jones thread winder. Wanting to get records from the [place]. Possible no thoracentesis for now. -Front Office Director consulted secondary to use of aspirin/Plavix. As per Dr. Jones needs to continue aspirin Plavix, status post PCI and stent placement more than 8 months ago. -Lasix 40 mg IV twice daily -Monitor BMP Pneumonia consolidation on right Lung with recent admission to [place] hospital Underlying COPD -IV azithromycin started. -Continue duo nebs, Mucinex, incentive spirometry use -Start Symbicort -Negative for Legionella antigen, negative for Streptococcus pneumonia antigen -Blood cultures 1 bottle positive for gram positive cocci possibly contaminated. Other bottles been no growth to date. -O2 nasal cannula as needed Atrial fibrillation, chronic CHF, hx CAD, S/P PCI Stent LAD and RCA -Plavix and Aspirin -ECHO EF 45-50%, BNP wnl HTN HLD -Continue home medication GI bleed history -continue Protonix for GI prophylaxis DVT prop SCD Code Status: Full code Discussed Condition With: Patient, nursing, Dr. Palencia Discharge Planning: Plan to DC home when clinically improved. No thoracentesis to be done. May possibly discharge tomorrow
[2018-05-13] MEDS: Allopurinol 300 MG Tablet PO SCH (15:26)
[2018-05-13] MEDS: Folic Acid 1 MG Tablet PO SCH (15:27)
[2018-05-13] MEDS: Lisinopril 10 MG Tablet PO SCH (15:27)
[2018-05-13] MEDS: Gabapentin 300 MG Capsule PO SCH ×2 (15:28→18:19)
[2018-05-13] MEDS: Ascorbic Acid 500 MG Tablet PO SCH ×2 (15:28→21:33)
[2018-05-13] MEDS: Metoprolol Tartrate 25 MG Tablet PO SCH ×2 (15:29→21:35)
[2018-05-13] MEDS: Ferrous Sulfate 325 MG Tablet PO SCH ×2 (15:29→21:33)
[2018-05-13] MEDS: Magnesium Oxide 400 MG Tablet PO SCH ×2 (15:32→21:33)
[2018-05-13] MEDS ORDERED: Azithromycin Inj 500 MG in Sodium Chlor 0.9% Inj 250 ML IV.SIG ONE (16:00)
[2018-05-13] MEDS ORDERED: Azithromycin Inj 500 MG in Sodium Chlor 0.9% Inj 250 ML IV.SIG SCH (16:00)
--- NOTE | 2018-05-13 16:58 | ECG ---
Date Performed: 05/12/2018 Time Performed: 20:58:23 PTAGE: 72 years EKG: ATRIAL FIBRILLATION WITH ABERRANT CONDUCTION OR VENTRICULAR PREMATURE COMPLEXES ABNORMAL [facility] ECG Since PREVIOUS TRACING , no significant change noted PREVIOUS TRACIN12/31/2017 16.26 DOCTOR: Ramsey Caban Interpretating Date/Time 05/13/2018 16:58:06
--- NOTE | 2018-05-13 21:18 | MB ---
cc: Viviane Jonesadolph Nabil ROMAN DATE: 05/13/2018 REASON FOR CONSULTATION: Antiplatelets with a need with a need for thoracentesis. HISTORY OF PRESENT ILLNESS: Ramsey Malik is a pleasant 72-year-old male, whom I see in the office and was sent to the emergency room due to shortness of breath. He had a similar type episode a few weeks ago while at the [facility] and they sent him for a thoracentesis at the [facility]. This was done on aspirin and Plavix at that time. He was told that cytology was negative for cancer. Apparently, he has recently got more short of breath and was sent to the emergency room from the [facility]. On arrival, a CT was done, which showed a large right pleural effusion with atelectasis and consolidation. He was seen by Dr. Ely, who discussed with me about the case and asked that I see him for further recommendations about his antiplatelets. In seeing him, he is currently hemodynamically stable with no chest pain. PAST MEDICAL HISTORY: 1. Coronary artery disease. 2. Congestive heart failure. 3. Atrial fibrillation. 4. Chronic obstructive pulmonary disease. 5. Chronic kidney disease. 6. History of gastrointestinal bleed (multiple episodes of GI bleed on different combinations of antiplatelet and anticoagulants for his coronary artery disease and atrial fibrillation). 7. Hyperlipidemia. 8. Hypertension. PAST SURGICAL HISTORY: Cardiac catheterization (08/15/2017). Left main is short with no significant disease. LAD has a proximal lesion of 90%. Left circumflex is codominant. OMs are overall small and diffusely diseased. RCA has an 80% mid lesion. PCI of LAD with CSI atherectomy and stented with a drug-eluting stent (3.5 x 26). PCI of RCA with a drug-eluting stent (2.5 x 18). Recent thoracentesis for pleural effusion. PAST SURGICAL HISTORY: Appendectomy. ALLERGIES: NO KNOWN DRUG ALLERGIES. MEDICATIONS: 1. Furosemide 20 mg daily. 2. Albuterol 2 puffs every 6 hours as needed. 3. Ranitidine 300 mg daily. 4. Pravastatin 40 mg daily. 5. Omeprazole 40 mg daily. 6. Metoprolol tartrate 25 mg b.i.d. 7. Magnesium 400 mg b.i.d. 8. Lisinopril 10 mg daily. 9. Gabapentin 300 mg t.i.d. 10. Folic acid 1 mg daily. 11. Iron 324 mg b.i.d. 12. Aspirin 162 mg daily. 13. Ascorbic acid 500 mg b.i.d. 14. Allopurinol 300 mg daily. 15. Thiamine 100 mg daily. 16. Plavix 75 mg daily. FAMILY HISTORY: Denies sudden cardiac within the family. SOCIAL HISTORY: The patient previously smoked, but quit a number of years ago. Denies alcohol or drug abuse. PHYSICAL EXAMINATION: VITAL SIGNS: Temperature 97.4, heart rate 105, blood pressure 113/65, respirations 16, pulse oximetry 97% on room air. GENERAL: The patient appears well, in no acute distress, alert, awake and oriented x3. HEENT: Extraocular muscles intact. Mucous membranes moist. NECK: Supple. No JVD at 45 degrees. No carotid bruits heard bilaterally. Carotid upstroke is brisk in nature. HEART: Irregularly irregular. Positive first and second heart sounds with no noted murmurs, gallops or rubs. LUNGS: Decreased breath sounds on the right lower lobe. ABDOMEN: Soft, nontender, nondistended. No organomegaly noted. EXTREMITIES: Show no clubbing, cyanosis or edema. Femoral and distal pulses are intact bilaterally. NEUROLOGIC: No focal deficits. SKIN: Warm, dry and intact. OSTEOPATHIC: No kyphoscoliosis, lordosis or paraspinal tender points. LABORATORY DATA: Hemoglobin 9.7, hematocrit 29.4, platelets 322. Potassium 3.9, BUN 12, creatinine 0.88. Troponin less than 0.02. Electrocardiogram (05/12/2018 at 20:58): Atrial fibrillation with aberrant conduction, possible inferior myocardial infarction, and no significant ST-T wave changes. ASSESSMENT: 1. Recurrent pleural effusion. 2. Coronary artery disease, status post PCI as above. 3. Shortness of breath due to pleural effusion. 4. Known congestive heart failure. 5. Atrial fibrillation. 6. History of gastrointestinal bleed while on different combinations of anticoagulants and antiplatelet medications. 7. Hyperlipidemia. 8. Hypertension. RECOMMENDATIONS: 1. Mr. Malik presented with a current pleural effusion and he is being evaluated by Dr. Ely as well as interventional radiology for further considerations of a thoracentesis. 2. As his PCI was done less than a year ago, I would recommend that he continue on aspirin and Plavix therapy. Ultimately, there is data that shows that it at 6 months consideration could be there for coming off dual antiplatelet therapy for a short period, but it does put him at a higher risk of stent thrombosis. 3. He previously had a thoracentesis done at the [facility] and this is being looked at by Dr. Ely. 4. Heart rates are mildly elevated at this time, but he has not gotten his medications in greater than 24 hours, but they are scheduled to be given. 5. Further recommendations will be made based on the hospital course. Thank you for allowing me to see Ramsey Malik. If there are any questions, please do not hesitate to call. Manuel Jones DO VGP/sj , 02:10 PM , 02:23 PM
[2018-05-13] MEDS: Budesonide-Formoterol 160/4.5 MCG 6 GM Inhaler INH SCH (21:34)
[2018-05-14 05:47] LABS: Carbon Dioxide 24.2 meq/L (21.0-32.0); Potassium 3.5 meq/L (3.5-5.1)
[2018-05-14] MEDS ORDERED: Vancomycin Inj 1,500 MG in Sodium Chlor 0.9% Inj 500 ML IV.SIG SCH (06:00)
[2018-05-14] MEDS: Folic Acid 1 MG Tablet PO SCH (09:09)
[2018-05-14] MEDS: Allopurinol 300 MG Tablet PO SCH (09:10)
[2018-05-14] MEDS: Lisinopril 10 MG Tablet PO SCH (09:10)
[2018-05-14] MEDS: Ferrous Sulfate 325 MG Tablet PO SCH ×2 (09:10→20:59)
[2018-05-14] MEDS: Ascorbic Acid 500 MG Tablet PO SCH ×2 (09:10→20:59)
[2018-05-14] MEDS: Gabapentin 300 MG Capsule PO SCH ×3 (09:11→17:59)
[2018-05-14] MEDS: Metoprolol Tartrate 25 MG Tablet PO SCH ×2 (09:11→20:59)
[2018-05-14] MEDS: Budesonide-Formoterol 160/4.5 MCG 6 GM Inhaler INH SCH ×2 (09:11→20:59)
[2018-05-14] MEDS: Magnesium Oxide 400 MG Tablet PO SCH ×2 (09:11→20:59)
[2018-05-14] MEDS: guaiFENesin 600 MG ER Tablet PO SCH ×2 (09:11→20:59)
[2018-05-14] MEDS: Senna/Docusate Sodium 8.6/50 MG Tablet PO SCH ×2 (09:11→20:59)
[2018-05-14] MEDS ORDERED: Vancomycin Consult Pharmacy OTHER PRN (09:35)
--- NOTE | 2018-05-14 10:02 | P.PN ---
Subjective Interval history: Follow-up visit right pleural effusion, recent pneumonia, CAD with PCI/stent placement less than a year, bacteremia. Patient seen and examined today. States he is feeling anxious, nervous to go home. Discussed with patient he will not go home today. Discussed plan to do thoracentesis without discontinuation of Plavix or aspirin as per Dr. Jones and Dr. Ely. reports SOB/ Dyspnea on exertion. Denies pain and discomfort. Denies chest pain, palpitations, headaches. Denies fevers, chills, n/v/d. Denies dysuria. Physical Exam Vital signs: Vital Signs 05/13/18 11:54 05/13/18 16:00 05/13/18 20:00 Temperature 97.8 F 97.9 F 97.6 F Pulse Rate 117 H 105 H 97 H Respiratory Rate 14 20 18 Blood Pressure 145/65 H 163/72 H 103/60 Pulse Oximetry 96 96 95 05/13/18 20:50 05/13/18 23:39 05/14/18 03:22 Temperature 98.5 F 98.4 F Pulse Rate 97 H 93 H 89 Respiratory Rate 22 18 Blood Pressure 108/59 L 104/59 L Pulse Oximetry 93 L 95 96 05/14/18 03:29 05/14/18 07:52 05/14/18 08:12 Temperature 97.8 F Pulse Rate 99 H 99 H 70 Respiratory Rate 16 15 20 Blood Pressure 122/60 Pulse Oximetry 96 97 Intake & Output 05/13/18 05/14/18 05/14/18 18:59 06:59 18:59 Intake Total 2450 / 2450 100 / 100 Output Total 800 / 800 Balance 1650 / 1650 100 / 100 Intake: IV 2450 / 2450 100 / 100 NS Inj 1,000 ML @ 75 mls/hr IV. 1999 CONT .[id number] [facility] Rx#:[id number] Azithromycin Inj 500 MG In NS 250 / 250 Inj 250 ML @ 250 mls/hr IV.SIG Q24H [facility] Rx#:[id number] Maxipime Inj 1,000 MG In NS Inj 200 / 200 100 / 100 100 ML @ 200 mls/hr IV.SIG Q8H [facility] Rx#:[id number] Output: Urine 800 / 800 Other: # Voids 8 Date of Last Bowel Movement 05/13/18 Narrative: GENERAL: This is a well-nourished, well-developed patient, in no apparent distress. SKIN: Warm and dry HEENT: Normocephalic. Pupils equal round and reactive. Nose without bleeding. Airway patent. NECK: Trachea midline. Supple. CARDIOVASCULAR: Regular rate and rhythm without murmurs, gallops, or rubs. RESPIRATORY: Diminished bases right greater than the left. No wheezes, rales, or rhonchi. GASTROINTESTINAL: Abdomen soft, non-tender, nondistended. Bowel Sounds normoactive x4. MUSCULOSKELETAL: Extremities without clubbing, cyanosis. No edema. NEUROLOGICAL: Awake and alert. Oriented to time, place, person. No focal neuro deficit. Moves all extremities. Normal speech. Results - Labs CBC & Chem 7: 05/13/18 07:20 05/14/18 04:50 Laboratory Results - last 24 hr 05/14/18 04:50 Sodium 135 L Potassium 3.5 Chloride 98 Carbon Dioxide 24.2 Anion Gap 13 BUN 12 Creatinine 1.03 Estimated GFR 71 L Random Glucose 101 Calcium 8.0 L Microbiology 05/12/18 17:47 Blood - Peripheral Aerobic Blood Culture - Preliminary No growth in 1 day 05/12/18 17:47 Blood - Peripheral Anaerobic Blood Culture - Preliminary gram positive cocci 05/12/18 17:25 Blood - Peripheral Aerobic Blood Culture - Preliminary gram positive cocci 05/12/18 17:25 Blood - Peripheral Anaerobic Blood Culture - Preliminary gram positive cocci 05/12/18 18:46 Urine - Clean Catch Urine Streptococcus pneumoniae Antigen ( M - Final Presumptive negative for streptococcus pneumoniae antigen, suggesting no current or recent infection. Infection due to Streptococcus pneumoniae cannot be ruled out since the antigen present in the sample may be below the detection limit of the test. 05/12/18 18:46 Urine - Clean Catch Urine Legionella Antigen - Final Presumptive negative for Legionella pneumophila serogroup 1 antigen in urine, suggesting no recent or recurrent infection. Infection due to Legionella cannot be ruled out since other serogroups and species may cause disease, antigen may not be present in urine in early infection, and the level of antigen present in the urine may be below the detection limit of the test. Assessment and Plan - Plan 72-year-old male the presents to the ED from the [facility] for evaluation of shortness of breath with exertion for the past 2 weeks. Right pleural Effusion, increasing -Pulmonology consulted. Appreciate recommendations. Spoke with Dr. Jones gear cutting machine set up operator. Wanting to get records from the [facility]. Possible no thoracentesis for now. -Power Ballast Machine Operator consulted secondary to use of aspirin/Plavix. As per Dr. Jones needs to continue aspirin Plavix, status post PCI and stent placement more than 8 months ago. -Lasix 40 mg IV daily -Monitor BMP Bacteremia -Blood cultures positive for gram-positive cocci -Repeat blood cultures, Then start Vanco -Labs with thoracentesis. -Echocardiogram -We will consult infectious disease for further recommendations of the duration of antibiotics Pneumonia consolidation on right Lung with recent admission to [facility] hospital Underlying COPD -Continue duo nebs, Mucinex, incentive spirometry use -Symbicort -Negative for Legionella antigen, negative for Streptococcus pneumonia antigen -Blood cultures now positive for gram positive cocci, Vancomycin now dc azithromycin -O2 nasal cannula as needed -Spoke with Dr. Ely, plan for thoracentesis should proceed today. He will speak with IR for thoracentesis. Discussed cultures for the thoracentesis as well as as blood culture Atrial fibrillation, chronic CHF, hx CAD, S/P PCI Stent LAD and RCA -Plavix and Aspirin -ECHO EF 45-50%, BNP wnl HTN HLD -Continue home medication GI bleed history -continue Protonix for GI prophylaxis DVT prop SCD Code Status: Full Code Discussed Condition With: Patient, Nursing Discharge Planning: Plan to DC home when clinically improved. No thoracentesis to be done. May possibly discharge tomorrow
--- NOTE | 2018-05-14 10:39 | XR ---
EXAM DATE: 05/14/2018 10:28 AM EDT AGE/SEX: 72 years / Male INDICATIONS: . Shortness of breath. CLINICAL DATA: This is the patient's initial encounter. Patient reports that signs and symptoms have been present for 2 weeks and indicates a pain score of 0/10. MEDICAL/SURGICAL HISTORY: Cardiovascular disease. Hypercholesterolemia. Chronic obstructive p ulmonary disease. Appendectomy. Lung Biopsy. COMPARISON: [facility] [place] PUL[place]ARY W CONTRAST W 3D, 05/12/2018. . FINDINGS: There is a large right-sided pleural effusion. Associated atelectasis at the right lung base. Left campbell ng is clear. Heart size normal. Aortic calcification. Smooth syndesmophyte formation throughout the s pine. CONCLUSION: Large right pleural effusion. Electronically signed by: Claudy Menezes MD 05/14/2018 10:38 AM EDT
[2018-05-14] MEDS ORDERED: Vancomycin Inj 1,500 MG in Sodium Chlor 0.9% Inj 500 ML IV.SIG ONE (11:00)
[2018-05-14 11:46] LABS: Bilirubin,Urine Negative (Negative); Clarity,Urine Cloudy (Clear); Color,Urine Yellow (Yellw/Straw); Glucose,Urine (UA) Negative (Negative); Leukocyte Esterase,Urine Large (Negative); Mucus,Urine Few /lpf (Occasional); Nitrite,Urine Negative (Negative); Specific Gravity,Urine 1.012 (1.002-1.035)
--- NOTE | 2018-05-14 12:04 | XR ---
EXAM DATE: 05/14/2018 12:02 PM EDT AGE/SEX: 72 years / Male INDICATIONS: Post right sided thoracentesis CLINICAL DATA: This is the patient's subsequent encounter. Patient reports that signs and symptoms h ave been present for 2 days and indicates a pain score of 0/10. MEDICAL/SURGICAL HISTORY: . Cardiovascular disease. Hypercholesterolemia. Chronic obstructive p ulmonary disease. . Appendectomy. Lung Biopsy. COMPARISON: [facility] [place], CHEST 2V AP&LAT, 05/14/2018. . FINDINGS: There is decrease in size of the right effusion since thoracentesis. There is patchy atelectasis and consolidation in the right medial lung base. Left lung is clear. CONCLUSION: Decrease in right effusion. Electronically signed by: Claudy Menezes MD 05/14/2018 12:03 PM EDT
--- NOTE | 2018-05-14 12:16 | US ---
EXAM DATE: 05/14/2018 11:51 AM EDT AGE/SEX: 72 years / Male INDICATIONS: Pleural effusion. CLINICAL DATA: This is the patient's initial encounter. Patient reports that signs and symptoms have been present for 1 day and indicates a pain score of 5/10. MEDICAL/SURGICAL HISTORY: Congestive heart failure. Chronic renal failure. Chronic obstructiv e pulmonary disease. A-fib. Gastrointestinal bleed. Hyperlipidemia. Hypertension. Appendectomy. COMPARISON: [facility] [place], CHEST EXPIRATION ONLY, 05/14/2018. . FLUID: Total volume of 950 cc of clear, red fluid was removed. Fluid was sent to lab for ordered studies. . . TECHNIQUE: Ultrasound guidance for thoracentesis. Thoracentesis. The risks, benefits, and alternatives to ultrasound guided thoracentesis were explained to the patien t in lay simple terms, including the risk of bleeding and infection. Written and verbal informed con sent was obtained. Appropriate area for right thoracentesis was marked under ultrasound guidance with the patient in the upright position. Overlying skin was prepped and draped in the usual sterile fashion and with local anesthetic, a dermatotomy was made with an 11 blade scalpel. A 6 [place] thoracentesis catheter was placed in the pleural space and fluid was removed. Catheter was then removed and a sterile dressing applied. There were no immediate complications. The patient tolerated the procedure well and the lef t the ultrasound suite in stable condition. Chest radiograph is to be obtained. FINDINGS: Large pleural effusion. Dark brown-colored pleural fluid was removed consistent with old blood produc ts. CONCLUSION: 1. Uncomplicated ultrasound guided right thoracentesis. Electronically signed by: Jaron Mondragon MD 05/14/2018 12:14 PM EDT
--- NOTE | 2018-05-14 13:23 | MB ---
cc: Gianna Ely MD, Alireza MD DATE: 05/14/2018 Mr. Malik is a 72-year-old white male whom I saw yesterday with a large right pleural effusion. He had been recently evaluated at the [facility] in [place] and we were trying to obtain those results. I spoke to Dr. Jones, his delivery person, because he is on aspirin and Plavix for a recent stent and he did not feel that we should discontinue those drugs due to the risk of clotting his stent. Our plan was actually to discharge him, follow up as an outpatient, see with the previous pleural fluid results revealed and then pursue further studies as needed. However, the patient is still short of breath and now he has a positive blood culture with gram-positive cocci. This raises the suspicion of a possible pleural space infection or at a minimum, an underlying pneumonia causing this. I discussed this with Dr. Kirk in interventional radiology, and if the patient agrees, we will proceed with a diagnostic and therapeutic thoracentesis today as it is a semi-emergent situation and we need to exclude infection and also to relieve his dyspnea. The patient understands there is a risk of bleeding, in particular since he is on aspirin and Plavix, and pneumothorax simply based on the procedure itself. Understanding this risk, but also the risk of discontinuing his medication, the patient is agreeable to proceed. Orders have been entered. Gianna Ely MD RSWilfrido/kelli , 09:46 AM , 09:50 AM
--- NOTE | 2018-05-14 14:36 | P.PNCA ---
Subjective Interval history: No events overnight Thoracentesis done Physical Exam Vital signs: Vital Signs 05/13/18 16:00 05/13/18 20:00 05/13/18 20:50 Temperature 97.9 F 97.6 F Pulse Rate 105 H 97 H 97 H Respiratory Rate 20 18 Blood Pressure 163/72 H 103/60 Pulse Oximetry 96 95 93 L 05/13/18 23:39 05/14/18 03:22 05/14/18 03:29 Temperature 98.5 F 98.4 F Pulse Rate 93 H 89 99 H Respiratory Rate 22 18 16 Blood Pressure 108/59 L 104/59 L Pulse Oximetry 95 96 05/14/18 07:52 05/14/18 08:12 05/14/18 11:15 Temperature 97.8 F 98.1 F Pulse Rate 99 H 70 92 H Respiratory Rate 15 20 20 Blood Pressure 122/60 105/62 Pulse Oximetry 96 97 95 05/14/18 11:44 05/14/18 11:59 Temperature Pulse Rate 96 H 92 H Respiratory Rate 20 20 Blood Pressure 108/62 96/54 L Pulse Oximetry 95 96 Intake & Output 05/13/18 05/14/18 05/14/18 18:59 06:59 18:59 Intake Total 2450 / 2450 100 / 100 100 / 100 Output Total 800 / 800 Balance 1650 / 1650 100 / 100 100 / 100 Intake: IV 2450 / 2450 100 / 100 100 / 100 NS Inj 1,000 ML @ 75 mls/hr IV. 1999 CONT .[id number] JULIO Rx#:[id number] Azithromycin Inj 500 MG In NS 250 / 250 Inj 250 ML @ 250 mls/hr IV.SIG Q24H JULIO Rx#:[id number] Maxipime Inj 1,000 MG In NS Inj 200 / 200 100 / 100 100 / 100 100 ML @ 200 mls/hr IV.SIG Q8H JULIO Rx#:[id number] Output: Urine 800 / 800 Other: # Voids 8 Date of Last Bowel Movement 05/13/18 Narrative: GENERAL: This is a well-nourished, well-developed patient, in no apparent distress. SKIN: Warm and dry HEENT: Normocephalic. Pupils equal round and reactive. Nose without bleeding. Airway patent. NECK: Trachea midline. Supple. CARDIOVASCULAR: Regular rate and rhythm without murmurs, gallops, or rubs. RESPIRATORY: Diminished bases right greater than the left. No wheezes, rales, or rhonchi. GASTROINTESTINAL: Abdomen soft, non-tender, nondistended. Bowel Sounds normoactive x4. MUSCULOSKELETAL: Extremities without clubbing, cyanosis. Trace BLE edema. NEUROLOGICAL: Awake and alert. Oriented to time, place, person. No focal neuro deficit. Moves all extremities. Normal speech. Assessment and Plan - Assessment (1) CAD (coronary artery disease) Code(s): I25.10 - Atherosclerotic heart disease of [place] coronary artery without angina pectoris Status: Acute (2) Pleural effusion Code(s): J90 - Pleural effusion, not elsewhere classified Status: Acute (3) SOB (shortness of breath) Code(s): R06.02 - Shortness of breath Status: Acute - Plan 1) Pleural effusion s/p thoracentesis 2) CAD Con't on ASA/Plavix 3) Afib ASA/Plavix Attempted multiple combinations of anti-platelet/anti-coagulants but had GI bleed with all combinations so no anti-coagulants
[2018-05-14 14:54] LABS: Total Protein,Pleural Fluid 4.1 gm/dL
[2018-05-14 15:47] LABS: Lymphocytes,Pleural Fluid 91 %; Monocytes,Pleural Fluid 2 %; Neutrophils,Pleural Fluid 6 %
[2018-05-14 15:49] LABS: RBC,Pleural Fluid 8960 /mm3 (0-0)
[2018-05-15] MEDS: Vancomycin Inj 1,500 MG in Sodium Chlor 0.9% Inj 500 ML IV.SIG SCH ×2 (05:30→21:21)
[2018-05-15 07:43] LABS: Carbon Dioxide 24.4 meq/L (21.0-32.0); Potassium 3.6 meq/L (3.5-5.1)
[2018-05-15 07:44] LABS: Baso % (Auto) 0.5 % (0.0-2.0); Eos # (Auto) 0.2 th/mm3 (0.0-0.4); Eos % (Auto) 2.3 % (0.0-4.0); Hematocrit 29.3 % (39.0-51.0); Hemoglobin 9.6 gm/dL (13.0-17.0); Lymph # (Auto) 0.6 th/mm3 (1.0-4.8); Lymph % (Auto) 7.8 % (9.0-44.0); Mean Corpuscular HGB Conc 32.8 % (32.0-36.0); Mean Corpuscular Volume 91.5 fL (80.0-100.0); Mean Platelet Volume 6.7 fL (7.0-11.0); Mono # (Auto) 0.8 th/mm3 (0.0-0.9); Mono % (Auto) 11.2 % (0.0-8.0); Neut # (Auto) 5.5 th/mm3 (1.8-7.7); Neut % (Auto) 78.2 % (16.0-70.0); Platelet Count 326 th/mm3 (150-450); Red Cell Distribution Width 16.3 % (11.6-17.2); White Blood Count 7.1 th/mm3 (4.0-11.0)
[2018-05-15] MEDS: Gabapentin 300 MG Capsule PO SCH ×3 (08:29→17:21)
[2018-05-15] MEDS: Allopurinol 300 MG Tablet PO SCH (08:29)
[2018-05-15] MEDS: guaiFENesin 600 MG ER Tablet PO SCH ×2 (08:29→21:17)
[2018-05-15] MEDS: Ascorbic Acid 500 MG Tablet PO SCH ×2 (08:30→21:18)
[2018-05-15] MEDS: Lisinopril 10 MG Tablet PO SCH (08:30)
[2018-05-15] MEDS: Senna/Docusate Sodium 8.6/50 MG Tablet PO SCH ×2 (08:30→21:17)
[2018-05-15] MEDS: Ferrous Sulfate 325 MG Tablet PO SCH ×2 (08:31→21:16)
[2018-05-15] MEDS: Metoprolol Tartrate 25 MG Tablet PO SCH ×2 (08:31→21:17)
[2018-05-15] MEDS: Folic Acid 1 MG Tablet PO SCH (08:32)
[2018-05-15] MEDS: Magnesium Oxide 400 MG Tablet PO SCH ×2 (08:32→21:18)
--- NOTE | 2018-05-15 12:58 | P.PNCA ---
Subjective Interval history: No events overnight Breathing better overall Physical Exam Vital signs: Vital Signs 05/14/18 16:00 05/14/18 16:31 05/14/18 19:16 Temperature 97.2 F L Pulse Rate 105 H 118 H 119 H Respiratory Rate 17 18 20 Blood Pressure 107/57 L Pulse Oximetry 97 97 05/14/18 20:00 05/14/18 21:03 05/14/18 23:27 Temperature 97.3 F L Pulse Rate 133 H 118 H 92 H Respiratory Rate 20 16 Blood Pressure 113/59 L Pulse Oximetry 96 92 L 05/15/18 00:00 05/15/18 08:00 05/15/18 10:41 Temperature 97 F L 97.7 F Pulse Rate 113 H 92 H 92 H Respiratory Rate 20 17 16 Blood Pressure 113/77 126/63 Pulse Oximetry 96 95 05/15/18 12:00 05/15/18 12:17 Temperature 97.6 F Pulse Rate 93 H 92 H Respiratory Rate 17 16 Blood Pressure 112/58 L Pulse Oximetry 97 Intake & Output 05/14/18 05/15/18 05/15/18 18:59 06:59 18:59 Intake Total 615 / 615 440 / 440 515 / 515 Balance 615 / 615 440 / 440 515 / 515 Weight 97.7 kg Intake: IV 615 / 615 200 / 200 515 / 515 Maxipime Inj 1,000 MG In NS Inj 100 / 100 200 / 200 100 ML @ 200 mls/hr IV.SIG Q8H JULIO Rx#:[id number] Vancomycin Inj 1,500 MG In NS 515 / 515 515 / 515 Inj 500 ML @ 258.75 mls/hr IV. SIG Q18H JULIO Rx#:[id number] Oral 240 / 240 Other: # Voids 3 Narrative: GENERAL: This is a well-nourished, well-developed patient, in no apparent distress. SKIN: Warm and dry HEENT: Normocephalic. Pupils equal round and reactive. Nose without bleeding. Airway patent. NECK: Trachea midline. Supple. CARDIOVASCULAR: Regular rate and rhythm without murmurs, gallops, or rubs. RESPIRATORY: Diminished bases right greater than the left. No wheezes, rales, or rhonchi. GASTROINTESTINAL: Abdomen soft, non-tender, nondistended. Bowel Sounds normoactive x4. MUSCULOSKELETAL: Extremities without clubbing, cyanosis. No edema. NEUROLOGICAL: Awake and alert. Oriented to time, place, person. No focal neuro deficit. Moves all extremities. Normal speech. Assessment and Plan - Assessment (1) CAD (coronary artery disease) Code(s): I25.10 - Atherosclerotic heart disease of [place] coronary artery without angina pectoris Status: Acute (2) Pleural effusion Code(s): J90 - Pleural effusion, not elsewhere classified Status: Acute (3) SOB (shortness of breath) Code(s): R06.02 - Shortness of breath Status: Acute - Plan 1) Pleural effusion s/p thoracentesis 2) CAD Con't on ASA/Plavix 3) Afib ASA/Plavix Attempted multiple combinations of anti-platelet/anti-coagulants but had GI bleed with all combinations so no anti-coagulants 4) Bacteremia Possible contaminant Per primary team
--- NOTE | 2018-05-15 13:06 | P.PN ---
Subjective Interval history: In the bed. Feesl tired. less sob improved since yesterday. Had thoracentesis, some pain at the thoracentesis side No fever or chills Nonproductive cough at this time Encouraged IS No n/v/d. Has constipation Plan for CT chest with contrast Physical Exam Vital signs: Vital Signs 05/14/18 16:00 05/14/18 16:31 05/14/18 19:16 Temperature 97.2 F L Pulse Rate 105 H 118 H 119 H Respiratory Rate 17 18 20 Blood Pressure 107/57 L Pulse Oximetry 97 97 05/14/18 20:00 05/14/18 21:03 05/14/18 23:27 Temperature 97.3 F L Pulse Rate 133 H 118 H 92 H Respiratory Rate 20 16 Blood Pressure 113/59 L Pulse Oximetry 96 92 L 05/15/18 00:00 05/15/18 08:00 05/15/18 10:41 Temperature 97 F L 97.7 F Pulse Rate 113 H 92 H 92 H Respiratory Rate 20 17 16 Blood Pressure 113/77 126/63 Pulse Oximetry 96 95 05/15/18 12:00 05/15/18 12:17 Temperature 97.6 F Pulse Rate 93 H 92 H Respiratory Rate 17 16 Blood Pressure 112/58 L Pulse Oximetry 97 Intake & Output 05/14/18 05/15/18 05/15/18 18:59 06:59 18:59 Intake Total 615 / 615 440 / 440 515 / 515 Balance 615 / 615 440 / 440 515 / 515 Weight 97.7 kg Intake: IV 615 / 615 200 / 200 515 / 515 Maxipime Inj 1,000 MG In NS Inj 100 / 100 200 / 200 100 ML @ 200 mls/hr IV.SIG Q8H JULIO Rx#:[id number] Vancomycin Inj 1,500 MG In NS 515 / 515 515 / 515 Inj 500 ML @ 258.75 mls/hr IV. SIG Q18H JULIO Rx#:[id number] Oral 240 / 240 Other: # Voids 3 Narrative: GENERAL: This is a pleasant 72yomale, well-nourished, well-developed patient, in no apparent distress. SKIN: Warm and dry HEENT: Normocephalic. Pupils equal round and reactive. Nose without bleeding. Airway patent. NECK: Trachea midline. Supple. CARDIOVASCULAR: Regular rate and rhythm without murmurs, gallops, or rubs. RESPIRATORY: Diminished bases right greater than the left. No wheezes, rales, or rhonchi. GASTROINTESTINAL: Abdomen soft, non-tender, nondistended. Bowel Sounds normoactive x4. MUSCULOSKELETAL: Extremities without clubbing, cyanosis. No edema. NEUROLOGICAL: Awake and alert. Oriented to time, place, person. No focal neuro deficit. Moves all extremities. Normal speech. Results - Labs CBC & Chem 7: 05/15/18 04:21 05/15/18 06:21 Laboratory Results - last 24 hr 05/14/18 05/14/18 05/14/18 11:40 11:40 11:40 WBC RBC Hgb Hct MCV MCH MCHC RDW Plt Count MPV Neut % (Auto) Lymph % (Auto) [place] % (Auto) Eos % (Auto) Baso % (Auto) Neut # (Auto) Lymph # (Auto) [place] # (Auto) Eos # (Auto) Baso # (Auto) WBC Differential Differential Comment Sodium Potassium Chloride Carbon Dioxide Anion Gap BUN Creatinine Estimated GFR Random Glucose Calcium Pleural pH 8.5 Pleural Spec [place] 1.026 Pleural RBC 8960 H Pleural Nuc Cells 620 H Pleural Neutrophils 6 Pleural Lymphocytes 91 Pleural Monocytes 2 Pleural Eosinophils Pleural Basophils Pleural Plasma Cells Pleural Histocytes 1 Pleural Mesothelial Pleural Other Cells Pleural Fluid Comment Pleural Total Protein 4.1 Pleural Albumin 1.8 Cancelled Pleural LDH 711 Pleural Glucose 68 Pleural Amylase 47 05/14/18 05/14/18 05/14/18 11:40 11:40 11:40 WBC RBC Hgb Hct MCV MCH MCHC RDW Plt Count MPV Neut % (Auto) Lymph % (Auto) [place] % (Auto) Eos % (Auto) Baso % (Auto) Neut # (Auto) Lymph # (Auto) [place] # (Auto) Eos # (Auto) Baso # (Auto) WBC Differential Differential Comment Sodium Potassium Chloride Carbon Dioxide Anion Gap BUN Creatinine Estimated GFR Random Glucose Calcium Pleural pH Pleural Spec [place] Pleural RBC Cancelled Pleural Nuc Cells Cancelled Pleural Neutrophils Cancelled Pleural Lymphocytes Cancelled Pleural Monocytes Cancelled Pleural Eosinophils Cancelled Pleural Basophils Cancelled Pleural Plasma Cells Cancelled Pleural Histocytes Cancelled Pleural Mesothelial Cancelled Pleural Other Cells Cancelled Pleural Fluid Comment Cancelled Pleural Total Protein Pleural Albumin Pleural LDH Cancelled Pleural Glucose Pleural Amylase Cancelled 05/14/18 05/14/18 05/15/18 11:40 11:40 04:21 WBC 7.1 RBC 3.20 L Hgb 9.6 L Hct 29.3 L MCV 91.5 MCH 30.0 MCHC 32.8 RDW 16.3 Plt Count 326 MPV 6.7 L Neut % (Auto) 78.2 H Lymph % (Auto) 7.8 L [place] % (Auto) 11.2 H Eos % (Auto) 2.3 Baso % (Auto) 0.5 Neut # (Auto) 5.5 Lymph # (Auto) 0.6 L [place] # (Auto) 0.8 Eos # (Auto) 0.2 Baso # (Auto) 0.0 WBC Differential . Differential Comment Auto diff final Sodium Potassium Chloride Carbon Dioxide Anion Gap BUN Creatinine Estimated GFR Random Glucose Calcium Pleural pH Pleural Spec [place] Cancelled Pleural RBC Pleural Nuc Cells Pleural Neutrophils Pleural Lymphocytes Pleural Monocytes Pleural Eosinophils Pleural Basophils Pleural Plasma Cells Pleural Histocytes Pleural Mesothelial Pleural Other Cells Pleural Fluid Comment Pleural Total Protein Cancelled Pleural Albumin Pleural LDH Pleural Glucose Pleural Amylase 05/15/18 06:21 WBC RBC Hgb Hct MCV MCH MCHC RDW Plt Count MPV Neut % (Auto) Lymph % (Auto) [place] % (Auto) Eos % (Auto) Baso % (Auto) Neut # (Auto) Lymph # (Auto) [place] # (Auto) Eos # (Auto) Baso # (Auto) WBC Differential Differential Comment Sodium 135 L Potassium 3.6 Chloride 100 Carbon Dioxide 24.4 Anion Gap 11 BUN 14 Creatinine 1.07 Estimated GFR 68 L Random Glucose 104 Calcium 8.0 L Pleural pH Pleural Spec [place] Pleural RBC Pleural Nuc Cells Pleural Neutrophils Pleural Lymphocytes Pleural Monocytes Pleural Eosinophils Pleural Basophils Pleural Plasma Cells Pleural Histocytes Pleural Mesothelial Pleural Other Cells Pleural Fluid Comment Pleural Total Protein Pleural Albumin Pleural LDH Pleural Glucose Pleural Amylase Microbiology 05/14/18 10:52 Blood - Peripheral Aerobic Blood Culture - Preliminary No growth in 1 day 05/14/18 10:52 Blood - Peripheral Anaerobic Blood Culture - Preliminary No growth in 1 day 05/14/18 10:52 Blood - Peripheral Aerobic Blood Culture - Preliminary No growth in 1 day 05/14/18 10:52 Blood - Peripheral Anaerobic Blood Culture - Preliminary No growth in 1 day 05/12/18 17:47 Blood - Peripheral Aerobic Blood Culture - Preliminary No growth in 3 days 05/12/18 17:47 Blood - Peripheral Anaerobic Blood Culture - Preliminary Staphylococcus coag negative 05/12/18 17:25 Blood - Peripheral Aerobic Blood Culture - Final Staphylococcus coag negative 05/12/18 17:25 Blood - Peripheral Anaerobic Blood Culture - Final Staphylococcus coag negative 05/14/18 10:50 Clean Catch Urine Urine Culture - Preliminary No growth in 24 hours 05/14/18 Unknown Fluid - Pleural fluid Gram Stain - Final Assessment and Plan - Plan 72-year-old male the presents to the ED from the [facility] for evaluation of shortness of breath with exertion for the past 2 weeks. Right pleural Effusion, increasing -Pulmonology consulted. Appreciate recommendations. Spoke with Dr. Jones corporate trainer. Wanting to get records from the [facility]. Possible no thoracentesis for now. -Assurance Senior Manager consulted secondary to use of aspirin/Plavix. As per Dr. Jones needs to continue aspirin Plavix, status post PCI and stent placement more than 8 months ago. -Lasix 40 mg IV daily -Monitor BMP Bacteremia -Blood cultures positive for gram-positive cocci -Repeat blood cultures, Then start Vanco -Labs with thoracentesis. -Echocardiogram -We will consult infectious disease for further recommendations of the duration of antibiotics Pneumonia consolidation on right Lung with recent admission to [facility] Underlying COPD -Continue duo nebs, Mucinex, incentive spirometry use -Symbicort -Negative for Legionella antigen, negative for Streptococcus pneumonia antigen -Blood cultures now positive for gram positive cocci, Vancomycin now dc azithromycin -O2 nasal cannula as needed -rogelio Be is ff, appreciate recs. S/p thoracentesis. Follow up cultures from fluid s/p thoracentesis as well as as blood culture. -Plan for CT chest with contrast Atrial fibrillation, chronic CHF, hx CAD, S/P PCI Stent LAD and RCA -Plavix and Aspirin -ECHO EF 45-50%, BNP wnl HTN HLD -Continue home medication GI bleed history -continue Protonix for GI prophylaxis DVT prop SCD Code Status: Full Code Discussed Condition With: Patient, Nursing Discharge Planning: Plan to DC home when clinically improved and cleared by consultants. 72 M with Pneumonia consolidation on right Lung with recent admission to [facility] . Underlying COPD. Right pleural effusion S/P thoracentesis Plan for CT chest with contrast per rogelio Green ff.
[2018-05-15] MEDS: Budesonide-Formoterol 160/4.5 MCG 6 GM Inhaler INH SCH ×2 (16:37→21:20)
--- NOTE | 2018-05-15 19:37 | CT ---
EXAM DATE: 05/15/2018 7:31 PM EDT AGE/SEX: 72 years / Male INDICATIONS: Chest pain. Cough. Short of breath. CLINICAL DATA: This is the patient's initial encounter. Patient reports that signs and symptoms have been present for 2 days and indicates a pain score of 3/10. MEDICAL/SURGICAL HISTORY: Chronic obstructive pulmonary disease. Hypertension. Congestive heart f ailure. A-fib. Appendectomy. RADIATION DOSE: 9.59 CTDI (mGy) COMPARISON: [facility], CTA PULMONARY W CONTRAST W 3D, 05/12/2018. . TECHNIQUE: Multiple contiguous axial images were obtained through the chest during bolus infusion of 64 ml Omnipaque 350 (iohexol) nonionic water-soluble contrast as a single exam dose. Images were obtained in suspended respiration using multiple row detector helical technique. Using automated exp osure control and adjustment of the mA and/or kV according to patient size, radiation dose was kept a s low as reasonably achievable to obtain optimal diagnostic quality images. DICOM format image data is available electronically for review and comparison. FINDINGS: Coronary artery calcifications are seen typically seen with coronary artery disease and clinical suresh elation and evaluation is suggested. Area of low attenuation is present in left hepatic lobe probably beam hardening artifact adjacent to the xiphoid process. Large right pleural effusion is present maximum AP thickness of 4.7 cm in right lung base consolidati on. CONCLUSION: Large right pleural effusion and right lung base consolidation not significantly changed. 2 Electronically signed by: Anita Douglas MD 05/15/2018 7:36 PM EDT
--- NOTE | 2018-05-15 19:39 | P.CONID ---
History of Present Illness Service: ID Consult date: 05/15/18 Requesting Physician: Adeline Crocker Reason for Consult: gram positive bacteremia Primary Care Provider: [facility] Family Provider: [facility] Chief Complaint: Shortness of breath. History of Present Illness: 72 yo male with CAD and large R pleural effusion sp thoracocenthesis Fluid removed was Dark brown-colored pleural fluid was removed consistent with old blood products. Cultures not available Pt is afebrile, with normal WBC throught the hospital stay He had blood clx done and 2/4 bottles growing coag neg staph of different morphologies Pt is on vancomycin and cefepime Review of Systems All other systems reviewed negative except as stated in HPI PMFSH - History History Provided By: Patient - Medical History Medical History: Medical History (Last Reviewed 05/16/18 @ 06:34 by Heather Mercado MD) Atrial fibrillation CHF (congestive heart failure) CKD (chronic kidney disease) COPD (chronic obstructive pulmonary disease) GIB (gastrointestinal bleeding) Hyperlipidemia Hypertension - Surgical History Surgical History: Surgical History (Last Reviewed 05/16/18 @ 06:34 by Heather Mercado MD) History of appendectomy - Family History Family History: Family History (Last Reviewed 05/13/18 @ 09:05 by Jacki Balderas) Other Family history of hypertension - Tobacco History Second Hand Smoke Exposure: No Tobacco Use In Past 30 Days: No Smoking Status: Former smoker Tobacco Type: Cigarettes - Alcohol History How Often Do You Have a Drink Containing Alcohol: Monthly or less - Substance Use History Substance History: No History of Abuse - Travel History Recent Travel in the [place] Within the Last 8 Weeks: No Recent Travel Out of the Country Within the Last 8 Weeks: No - Immunization History Tetanus Immunization: Unsure Medications and Allergies Active Medications: Active Medications Acetaminophen (Tylenol) 650 mg PO Q4H PRN PRN Reason: Temp > 100.4 Al Hydroxide/Mg Hydroxide (Milk Of Magnesia Liq) 30 ml PO Q12H PRN PRN Reason: Mild Constipation Albuterol (Duoneb Neb (Alejo)) 1 ampul NEB Q4HR NEB [facility] Last Admin: 05/15/18 16:57 Dose: Not Given Albuterol (Ventolin Hfa Inh) 2 puff INH Q6H PRN PRN Reason: Shortness Of Breath Allopurinol (Zyloprim) 300 mg PO DAILY [facility] Last Admin: 05/15/18 08:29 Dose: 300 mg Ascorbic Acid (Vitamin C) 500 mg PO BID [facility] Last Admin: 05/15/18 08:30 Dose: 500 mg Aspirin (Aspirin Chew) 162 mg PO DAILY [facility] Last Admin: 05/15/18 08:30 Dose: 162 mg Bisacodyl (Dulcolax Supp) 10 mg RECTAL DAILY PRN PRN Reason: SEVERE CONSITIPATION Budesonide/Formoterol Fumarate (Symbicort 160/4.5 Mcg Inh) 2 puff INH BID [facility] Last Admin: 05/15/18 16:37 Dose: Not Given Clopidogrel Bisulfate (Plavix) 75 mg PO DAILY [facility] Last Admin: 05/15/18 08:32 Dose: 75 mg Cyanocobalamin (Vitamin B12) 2,000 mcg PO DAILY [facility] Last Admin: 05/15/18 08:31 Dose: 2,000 mcg Ferrous Sulfate (Ferosul) 325 mg PO BID [facility] Last Admin: 05/15/18 08:31 Dose: 325 mg Folic Acid (Folic Acid) 1 mg PO DAILY [facility] Last Admin: 05/15/18 08:32 Dose: 1 mg Furosemide (Lasix Inj) 40 mg IV.PUSH DAILY [facility] Last Admin: 05/15/18 08:32 Dose: 40 mg Gabapentin (Neurontin) 300 mg PO TID [facility] Last Admin: 05/15/18 17:21 Dose: 300 mg Guaifenesin (Mucinex Er) 600 mg PO BID [facility] Last Admin: 05/15/18 08:29 Dose: 600 mg Cefepime HCl 1,000 mg/ Sodium (Chloride) 100 mls @ 200 mls/hr IV.SIG Q8H [facility] Last Admin: 05/15/18 17:21 Dose: 100 mls/hr Vancomycin HCl 1,500 mg/ (Sodium Chloride) 515 mls @ 258.75 mls/hr IV.SIG Q18H [facility] Last Infusion: 05/15/18 09:04 Dose: Infused Lactulose (Lactulose Liq) 30 ml PO DAILY PRN PRN Reason: SEVERE CONSITIPATION Lisinopril (Prinivil) 10 mg PO DAILY [facility] Last Admin: 05/15/18 08:30 Dose: 10 mg Magnesium Oxide (Mag-Ox) 400 mg PO BID [facility] Last Admin: 05/15/18 08:32 Dose: 400 mg Metoprolol Tartrate (Lopressor) 25 mg PO BID [facility] Last Admin: 05/15/18 08:31 Dose: 25 mg Miscellaneous Information ([facility] Ordered Lab Info) 0 each OTHER ONCE ONE Stop: 05/17/18 09:46 Ondansetron HCl (Zofran Inj) 4 mg IV.PUSH Q6H PRN PRN Reason: NAUSEA OR VOMITING Pantoprazole Sodium (Protonix) 40 mg PO DAILY [facility] Last Admin: 05/15/18 08:29 Dose: 40 mg Pharmacy Profile Note (Vancomycin Consult Pharmacy) 1 each OTHER UNSCH PRN PRN Reason: Pharmacy to dose Pravastatin Sodium (Pravachol) 40 mg PO DAILY [facility] Last Admin: 05/15/18 08:32 Dose: 40 mg Senna/Docusate Sodium (Tonya-Colace) 1 tab PO BID [facility] Last Admin: 05/15/18 08:30 Dose: 1 tab Sennosides (Senokot) 17.2 mg PO Q12H PRN PRN Reason: Moderate Constipation Thiamine HCl (Vitamin B1) 100 mg PO DAILY [facility] Last Admin: 05/15/18 08:30 Dose: 100 mg Vitamin D (Vitamin D3) 4,000 unit PO DAILY [facility] Last Admin: 05/15/18 08:33 Dose: 4,000 unit Allergies Allergy/AdvReac Type Severity Reaction Status Date / Time No Known Allergies Allergy Verified 05/12/18 13:35 Home Medications Medication Instructions Recorded Confirmed Type albuterol sulfate 2 puff INHALATION Q6H PRN 05/12/18 05/12/18 History allopurinol 300 mg PO DAILY 05/12/18 05/12/18 History ascorbic acid (vitamin C) 500 mg PO BID 05/12/18 05/12/18 History aspirin 162 mg PO DAILY 05/12/18 05/12/18 History cholecalciferol (vitamin D3) 4,000 unit PO DAILY 05/12/18 05/12/18 History clopidogrel 75 mg PO DAILY 05/12/18 05/12/18 History cyanocobalamin (vitamin B-12) 2,000 mcg PO DAILY 05/12/18 05/12/18 History ferrous sulfate 324 mg PO BID 05/12/18 05/12/18 History folic acid 1 mg PO DAILY 05/12/18 05/12/18 History gabapentin 300 mg PO TID 05/12/18 05/12/18 History lisinopril 10 mg PO DAILY 05/12/18 05/12/18 History magnesium oxide 400 mg PO BID 05/12/18 05/12/18 History metoprolol tartrate 25 mg PO BID 05/12/18 05/12/18 History omeprazole 40 mg PO DAILY 05/12/18 05/12/18 History pravastatin 40 mg PO DAILY 05/12/18 05/12/18 History ranitidine HCl 300 mg PO DAILY 05/12/18 05/12/18 History thiamine HCl (vitamin B1) 100 mg PO DAILY 05/12/18 05/12/18 History torsemide 20 mg PO DAILY 05/12/18 05/12/18 History Exam Vital signs: Vital Signs 05/14/18 20:00 05/14/18 21:03 05/14/18 23:27 Temperature 97.3 F L Pulse Rate 133 H 118 H 92 H Respiratory Rate 20 16 Blood Pressure 113/59 L Pulse Oximetry 96 92 L 05/15/18 00:00 05/15/18 08:00 05/15/18 10:41 Temperature 97 F L 97.7 F Pulse Rate 113 H 92 H 92 H Respiratory Rate 20 17 16 Blood Pressure 113/77 126/63 Pulse Oximetry 96 95 05/15/18 12:00 05/15/18 12:17 05/15/18 16:00 Temperature 97.6 F 97.8 F Pulse Rate 93 H 92 H 95 H Respiratory Rate 17 16 17 Blood Pressure 112/58 L 119/56 L Pulse Oximetry 97 96 Intake & Output 05/15/18 05/15/18 05/16/18 06:59 18:59 06:59 Intake Total 440 / 440 1914 Balance 440 / 440 1914 Weight 97.7 kg Intake: IV 200 / 200 615 / 615 Maxipime Inj 1,000 MG In NS Inj 200 / 200 100 / 100 100 ML @ 200 mls/hr IV.SIG Q8H [facility] Rx#:[id number] Vancomycin Inj 1,500 MG In NS 515 / 515 Inj 500 ML @ 258.75 mls/hr IV. SIG Q18H [facility] Rx#:[id number] Oral 240 / 240 1300 / 1300 Other: # Voids 3 8 - Constitutional no acute distress, average body habitus - Routine HEENT Exam Head: Present: normocephalic, atraumatic Eye: Present: EOMI, PERRL ENT: Present: mucous membranes moist, oropharynx clear - Routine Neck Exam Present: supple, full ROM - Routine Respiratory Exam Present: decreased breath sounds, CTA bilaterally, rales (scattered) - Routine Cardiovascular Exam Present: S1, S2, irregularly irregular Comments: no murmurs, rubs, gallops - Routine Abdominal Exam Present: soft, normoactive bowel sounds Comments: no hepatosplenmegaly or masses - Routine Extremities Exam Present: full ROM Comments: no cyanosis, clubbing or edema - Routine Skin Exam Present: intact, dry, warm - Routine Neurological Exam Present: alert, oriented X3, CN II-XII intact, moving all extremities, vision grossly intact, hearing grossly intact, normal speech - Routine Psychiatric Exam Present: normal affect, cooperative Results - Labs CBC & Chem 7: 05/15/18 04:21 05/15/18 06:21 Labs: Laboratory Results - last 24 hr 05/15/18 05/15/18 04:21 06:21 WBC 7.1 RBC 3.20 L Hgb 9.6 L Hct 29.3 L MCV 91.5 MCH 30.0 MCHC 32.8 RDW 16.3 Plt Count 326 MPV 6.7 L Neut % (Auto) 78.2 H Lymph % (Auto) 7.8 L [place] % (Auto) 11.2 H Eos % (Auto) 2.3 Baso % (Auto) 0.5 Neut # (Auto) 5.5 Lymph # (Auto) 0.6 L [place] # (Auto) 0.8 Eos # (Auto) 0.2 Baso # (Auto) 0.0 WBC Differential . Differential Comment Auto diff final Sodium 135 L Potassium 3.6 Chloride 100 Carbon Dioxide 24.4 Anion Gap 11 BUN 14 Creatinine 1.07 Estimated GFR 68 L Random Glucose 104 Calcium 8.0 L - Imaging Impressions Chest CT 05/15/18 00:00 CONCLUSION: Large right pleural effusion and right lung base consolidation not significantly changed.2 Assessment and Plan - Plan Large R sided pleural effusion so thoracocenthesis bloody in nature Coag neg staph bacteremia, different morphologies - cw contaminant fu sputum clx fu R pleural effusion studies If PNA/empyema excluded will dc abx plan to [facility]
[2018-05-16] MEDS: Allopurinol 300 MG Tablet PO SCH (09:13)
[2018-05-16] MEDS: Gabapentin 300 MG Capsule PO SCH ×3 (09:14→17:07)
[2018-05-16] MEDS: Folic Acid 1 MG Tablet PO SCH (09:14)
[2018-05-16] MEDS: Magnesium Oxide 400 MG Tablet PO SCH ×2 (09:14→20:32)
[2018-05-16] MEDS: Lisinopril 10 MG Tablet PO SCH (09:14)
[2018-05-16] MEDS: Ferrous Sulfate 325 MG Tablet PO SCH ×2 (09:14→20:32)
[2018-05-16] MEDS: Ascorbic Acid 500 MG Tablet PO SCH ×2 (09:14→20:32)
[2018-05-16] MEDS: guaiFENesin 600 MG ER Tablet PO SCH ×2 (09:14→20:32)
[2018-05-16] MEDS: Metoprolol Tartrate 25 MG Tablet PO SCH ×2 (09:14→20:32)
[2018-05-16] MEDS: Senna/Docusate Sodium 8.6/50 MG Tablet PO SCH ×2 (09:15→20:32)
[2018-05-16] MEDS: Budesonide-Formoterol 160/4.5 MCG 6 GM Inhaler INH SCH ×2 (09:20→20:33)
--- NOTE | 2018-05-16 12:47 | ECHRPT ---
Indication: SEPSIS ENDOCARDITIS CONCLUSIONS Mitral annular calcification is present. Trace mitral valve regurgitation. Mild aortic valve stenosis. Mild thickening of the aortic valve leaflets. Aortic valve mean gradient is 22.8 mmHg. Trace aortic valve regurgitation. The estimated pulmonary arterial pressure is 23 mmHg. The pulmonary valve is not well visualized. Normal left ventricular size and wall thickness. The left ventricular systolic function is normal wi th an estimated ejection fraction in the range of 60-65%. Left ventricular diastolic function parameters a re normal. BP: / HR: Rhythm: MEASUREMENTS (Male / Female) Normal Values Technical Quality: 2D ECHO LV Diastolic Diameter PLAX 4.5 cm 4.2 - 5.9 / 3.9 - 5.3 cm LV Systolic Diameter PLAX 3.2 cm IVS Diastolic Thickness 0.7 cm 0.6 - 1.0 / 0.6 - 0.9 cm LVPW Diastolic Thickness 0.7 cm 0.6 - 1.0 / 0.6 - 0.9 cm LV Relative Wall Thickness 0.3 RV Internal Dim ED PLAX 2.9 cm LVOT Diameter 2.0 cm LA Systolic Diameter LX 4.5 cm 3.0 - 4.0 / 2.7 - 3.8 cm DOPPLER AV Peak Velocity 320.2 cm/s AV Peak Gradient 41.0 mmHg AV Mean Gradient 22.8 mmHg AV Velocity Time Integral 65.2 cm LVOT Peak Velocity 91.1 cm/s LVOT Peak Gradient 3.3 mmHg LVOT Velocity Time Integral 18.1 cm AV Area Cont Eq vti 0.9 cm AV Area Cont Eq pk 0.9 cm Mitral E Point Velocity 107.0 cm/s TR Peak Velocity 214.0 cm/s TR Peak Gradient 18.3 mmHg FINDINGS LEFT VENTRICLE Normal left ventricular size and wall thickness. The left ventricular systolic function is normal wi th an estimated ejection fraction in the range of 60-65%. Left ventricular diastolic function parameters a re normal. RIGHT VENTRICLE Normal right ventricular size and systolic function. LEFT ATRIUM The left atrial size is normal. RIGHT ATRIUM The right atrial size is normal. ATRIAL SEPTUM Normal atrial septal thickness without atrial level shunting by limited color doppler interrogation. AORTA The aortic root and proximal ascending aorta are normal in size on limited imaging. MITRAL VALVE Mitral annular calcification is present. Trace mitral valve regurgitation. AORTIC VALVE Mild aortic valve stenosis. Mild thickening of the aortic valve leaflets. Aortic valve mean gradient is 22.8 mmHg. Trace aortic valve regurgitation. TRICUSPID VALVE The estimated pulmonary arterial pressure is 23 mmHg. PULMONARY VALVE The pulmonary valve is not well visualized. VESSELS The inferior vena cava is normal in size. PERICARDIUM No pericardial effusion. Joseluis López MD, FACC (Electronically Signed) Final Date:16 May 2018 12:46
--- NOTE | 2018-05-16 14:10 | P.PN ---
Subjective Interval history: Follow-up visit right pleural effusion, recent pneumonia, CAD with PCI/stent placement less than a year, bacteremia. Patient seen and examined in bed in no acute distress, reports he is feeling well. He denies any shortness of breath, cough, chest pain, nausea, vomiting, diarrhea or abdominal pain. Physical Exam Vital signs: Vital Signs 05/15/18 16:00 05/15/18 20:00 05/15/18 20:57 Temperature 97.8 F 97.3 F L Pulse Rate 95 H 138 H 120 H Respiratory Rate 17 22 16 Blood Pressure 119/56 L 128/63 Pulse Oximetry 96 95 99 05/16/18 00:00 05/16/18 01:01 05/16/18 04:58 Temperature 98.6 F Pulse Rate 92 H 94 H 95 H Respiratory Rate 22 20 20 Blood Pressure 99/55 L Pulse Oximetry 94 L 05/16/18 07:39 05/16/18 08:00 05/16/18 10:59 Temperature 97.5 F L Pulse Rate 92 H 92 H 68 Respiratory Rate 14 16 16 Blood Pressure 107/61 Pulse Oximetry 94 L 94 L 05/16/18 12:00 Temperature 97.4 F L Pulse Rate 86 Respiratory Rate 16 Blood Pressure 102/54 L Pulse Oximetry 99 Intake & Output 05/15/18 05/16/18 05/16/18 18:59 06:59 18:59 Intake Total 2014 1095 / 1095 100 / 100 Balance 2014 1095 / 1095 100 / 100 Weight 97.7 kg Intake: IV 715 / 715 615 / 615 100 / 100 Maxipime Inj 1,000 MG In NS Inj 200 / 200 100 / 100 100 / 100 100 ML @ 200 mls/hr IV.SIG Q8H [facility] Rx#:[id number] Vancomycin Inj 1,500 MG In NS 515 / 515 515 / 515 Inj 500 ML @ 258.75 mls/hr IV. SIG Q18H [facility] Rx#:[id number] Oral 1300 / 1300 480 / 480 Other: # Voids 8 3 Date of Last Bowel Movement 05/13/18 Narrative: GENERAL: This is a pleasant 72yomale, well-nourished, well-developed in no acute distress. SKIN: Warm and dry HEENT: Normocephalic. Pupils equal round and reactive. Nose without bleeding. Airway patent. NECK: Trachea midline. Supple. CARDIOVASCULAR: Regular rate and rhythm without murmurs, gallops, or rubs. RESPIRATORY: No wheezes, rales, or rhonchi. GASTROINTESTINAL: Abdomen soft, non-tender, nondistended. Bowel Sounds normoactive x4. MUSCULOSKELETAL: Extremities without clubbing, cyanosis. No edema. NEUROLOGICAL: Awake and alert. Oriented to time, place, person. No focal neuro deficit. Moves all extremities. Normal speech. Results - Labs CBC & Chem 7: 05/15/18 04:21 05/15/18 06:21 Microbiology 05/14/18 Unknown Fluid - Pleural fluid Gram Stain - Final 05/14/18 Unknown Fluid - Pleural fluid Body Fluid Culture - Preliminary No growth in 48 hours 05/14/18 10:50 Clean Catch Urine Urine Culture - Final No growth in 48 hours 05/14/18 10:52 Blood - Peripheral Aerobic Blood Culture - Preliminary No growth in 2 days 05/14/18 10:52 Blood - Peripheral Anaerobic Blood Culture - Preliminary No growth in 2 days 05/14/18 10:52 Blood - Peripheral Aerobic Blood Culture - Preliminary No growth in 2 days 05/14/18 10:52 Blood - Peripheral Anaerobic Blood Culture - Preliminary No growth in 2 days 05/12/18 17:47 Blood - Peripheral Aerobic Blood Culture - Preliminary No growth in 4 days 05/12/18 17:47 Blood - Peripheral Anaerobic Blood Culture - Preliminary Staphylococcus coag negative 05/12/18 17:25 Blood - Peripheral Aerobic Blood Culture - Final Staphylococcus coag negative 05/12/18 17:25 Blood - Peripheral Anaerobic Blood Culture - Final Staphylococcus coag negative - Imaging Impressions Chest CT 05/15/18 00:00 CONCLUSION: Large right pleural effusion and right lung base consolidation not significantly changed.2 Assessment and Plan - Plan 72-year-old male the presents to the ED from the [facility] for evaluation of shortness of breath with exertion for the past 2 weeks. Right pleural Effusion, increasing -Pulmonology consulted. Appreciate recommendations. Spoke with Dr. Jones ui designer. Wanting to get records from the [facility]. Possible no thoracentesis for now. -Geophysical Party Chief consulted secondary to use of aspirin/Plavix. As per Dr. Jones needs to continue aspirin Plavix, status post PCI and stent placement more than 8 months ago. -Echo with EF 60-65% -continue Lasix 40 mg IV daily -Monitor BMP Bacteremia -Blood cultures positive for gram-positive cocci -Repeat blood cultures, Then start Vanco -Labs with thoracentesis. -Echocardiogram -We will consult infectious disease for further recommendations of the duration of antibiotics Pneumonia consolidation on right Lung with recent admission to [facility] Underlying COPD -Continue duo nebs, Mucinex, incentive spirometry use -Symbicort -Negative for Legionella antigen, negative for Streptococcus pneumonia antigen -Blood cultures now positive for gram positive cocci, Vancomycin now dc azithromycin -O2 nasal cannula as needed -Dr. [facility], pulm is ff ok to DC from his standpoint, appreciate recs. S/p thoracentesis. -Repeat CT continues to show large right pleural effusion. Follow up cultures from fluid s/p thoracentesis as well as as blood culture. - Discussed with ID, will allow for 72hr of negative cultures, if negative DC Atrial fibrillation, chronic CHF, hx CAD, S/P PCI Stent LAD and RCA -Plavix and Aspirin -EF stable, BNP wnl HTN HLD -Continue home medication GI bleed history -continue Protonix for GI prophylaxis DVT prop SCD Discussed Condition With: Patient, RN, , and Discharge Planning: Likely DC tomorrow once cultures negative for 72 hours per ID.
--- NOTE | 2018-05-16 16:20 | P.PNID ---
Subjective Remarks: pt is doing OK Pleural clx negative @ 48 hrs Gstain with few WBC Urine clx neg afebrile nl WBC Antibiotics: cefepime vancomuycin Allergies/Adverse Reactions: Allergies No Known Allergies Allergy (Verified 05/12/18 13:35) Objective Vital Signs 05/15/18 20:00 05/15/18 20:57 05/16/18 00:00 Temperature 97.3 F L 98.6 F Pulse Rate 138 H 120 H 92 H Respiratory Rate 22 16 22 Blood Pressure 128/63 99/55 L Pulse Oximetry 95 99 94 L 05/16/18 01:01 05/16/18 04:58 05/16/18 07:39 Temperature Pulse Rate 94 H 95 H 92 H Respiratory Rate 20 20 14 Blood Pressure Pulse Oximetry 94 L 05/16/18 08:00 05/16/18 10:59 05/16/18 12:00 Temperature 97.5 F L 97.4 F L Pulse Rate 92 H 68 86 Respiratory Rate 16 16 16 Blood Pressure 107/61 102/54 L Pulse Oximetry 94 L 99 05/16/18 15:45 Temperature Pulse Rate 60 Respiratory Rate 18 Blood Pressure Pulse Oximetry Intake & Output 05/15/18 05/16/18 05/16/18 18:59 06:59 18:59 Intake Total 2014 1095 / 1095 100 / 100 Balance 2014 1095 / 1095 100 / 100 Weight 97.7 kg Intake: IV 715 / 715 615 / 615 100 / 100 Maxipime Inj 1,000 MG In NS Inj 200 / 200 100 / 100 100 / 100 100 ML @ 200 mls/hr IV.SIG Q8H [facility] Rx#:[id number] Vancomycin Inj 1,500 MG In NS 515 / 515 515 / 515 Inj 500 ML @ 258.75 mls/hr IV. SIG Q18H [facility]UL[facility] Rx#:[id number] Oral 1300 / 1300 480 / 480 Other: # Voids 8 3 Date of Last Bowel Movement 05/13/18 05/12/18 17:47 Blood - Peripheral Aerobic Blood Culture - Preliminary No growth in 4 days 05/12/18 17:47 Blood - Peripheral Anaerobic Blood Culture - Preliminary Staphylococcus coag negative 05/14/18 Unknown Fluid - Pleural fluid Gram Stain - Final 05/14/18 Unknown Fluid - Pleural fluid Body Fluid Culture - Preliminary No growth in 48 hours 05/14/18 10:50 Clean Catch Urine Urine Culture - Final No growth in 48 hours 05/14/18 10:52 Blood - Peripheral Aerobic Blood Culture - Preliminary No growth in 2 days 05/14/18 10:52 Blood - Peripheral Anaerobic Blood Culture - Preliminary No growth in 2 days 05/14/18 10:52 Blood - Peripheral Aerobic Blood Culture - Preliminary No growth in 2 days 05/14/18 10:52 Blood - Peripheral Anaerobic Blood Culture - Preliminary No growth in 2 days 05/12/18 17:25 Blood - Peripheral Aerobic Blood Culture - Final Staphylococcus coag negative 05/12/18 17:25 Blood - Peripheral Anaerobic Blood Culture - Final Staphylococcus coag negative 05/14/18 11:40 Other Acid Fast Bacilli Smear - Pending 05/14/18 11:40 Other Mycobacterial Culture - Pending Lab - Hematology Results 05/15/18 04:21 WBC 7.1 RBC 3.20 L Hgb 9.6 L Hct 29.3 L MCV 91.5 MCH 30.0 MCHC 32.8 RDW 16.3 Plt Count 326 MPV 6.7 L Neut % (Auto) 78.2 H Lymph % (Auto) 7.8 L [place] % (Auto) 11.2 H Eos % (Auto) 2.3 Baso % (Auto) 0.5 Neut # (Auto) 5.5 Lymph # (Auto) 0.6 L [place] # (Auto) 0.8 Eos # (Auto) 0.2 Baso # (Auto) 0.0 WBC Differential . Differential Comment Auto diff final Lab - Chemistry Results 05/15/18 06:21 Sodium 135 L Potassium 3.6 Chloride 100 Carbon Dioxide 24.4 Anion Gap 11 BUN 14 Creatinine 1.07 Estimated GFR 68 L Random Glucose 104 Calcium 8.0 L Imaging: ITS Impressions Chest CTA 05/12/18 15:04 CONCLUSION: 1. Large right pleural effusion, right lower lobe atelectasis and consolidation. 2. No evidence for pulmonary embolism. Chest X-Ray 05/14/18 00:00 CONCLUSION: Decrease in right effusion. Thoracentesis Ultrasound 05/14/18 00:00 CONCLUSION: 1. Uncomplicated ultrasound guided right thoracentesis. Chest CT 05/15/18 00:00 CONCLUSION: Large right pleural effusion and right lung base consolidation not significantly changed.2 Physical Exam: GENERAL: NAD SKIN: Warm and dry. HEAD: Atraumatic. Normocephalic. EYES: Pupils equal and round. No scleral icterus. No injection or drainage. ENT: No nasal bleeding or discharge. Mucous membranes pink and moist. NECK: Trachea midline. No JVD. CARDIOVASCULAR: Regular rate and rhythm. RESPIRATORY: No accessory muscle use. Clear to auscultation. Breath sounds equal bilaterally. GASTROINTESTINAL: Abdomen soft, non-tender, nondistended. Hepatic and splenic margins not palpable. MUSCULOSKELETAL: Extremities without clubbing, cyanosis, or edema. No obvious deformities. NEUROLOGICAL: Awake and alert. No obvious cranial nerve deficits. Motor grossly within normal limits. Five out of 5 muscle strength in the arms and legs. Normal speech. PSYCHIATRIC: Appropriate mood and affect; insight and judgment normal. Assessment and Plan - Plan Large R sided pleural effusion so thoracocenthesis bloody in nature, clx negative Coag neg staph bacteremia, different morphologies - cw contaminant Pyuria, no disuria, clx are negative fu sputum clx fu R pleural effusion studies dc vancomycin will dc abx if clx remain negative @ 3 days dw primary team,
[2018-05-16] MEDS: Vancomycin Inj 1,500 MG in Sodium Chlor 0.9% Inj 500 ML IV.SIG SCH (16:42)
--- NOTE | 2018-05-16 18:27 | P.PNCA ---
Subjective Interval history: Feels great, no problems Physical Exam Vital signs: Vital Signs 05/15/18 20:00 05/15/18 20:57 05/16/18 00:00 Temperature 97.3 F L 98.6 F Pulse Rate 138 H 120 H 92 H Respiratory Rate 22 16 22 Blood Pressure 128/63 99/55 L Pulse Oximetry 95 99 94 L 05/16/18 01:01 05/16/18 04:58 05/16/18 07:39 Temperature Pulse Rate 94 H 95 H 92 H Respiratory Rate 20 20 14 Blood Pressure Pulse Oximetry 94 L 05/16/18 08:00 05/16/18 10:59 05/16/18 12:00 Temperature 97.5 F L 97.4 F L Pulse Rate 92 H 68 86 Respiratory Rate 16 16 16 Blood Pressure 107/61 102/54 L Pulse Oximetry 94 L 99 05/16/18 15:45 05/16/18 16:00 Temperature 99.5 F Pulse Rate 60 91 H Respiratory Rate 18 16 Blood Pressure 115/58 L Pulse Oximetry 99 Intake & Output 05/15/18 05/16/18 05/16/18 18:59 06:59 18:59 Intake Total 2014 1095 / 1095 615 / 615 Balance 2014 1095 / 1095 615 / 615 Weight 97.7 kg Intake: IV 715 / 715 615 / 615 615 / 615 Maxipime Inj 1,000 MG In NS Inj 200 / 200 100 / 100 100 / 100 100 ML @ 200 mls/hr IV.SIG Q8H JULIO Rx#:[id number] Vancomycin Inj 1,500 MG In NS 515 / 515 515 / 515 515 / 515 Inj 500 ML @ 258.75 mls/hr IV. SIG Q18H JULIO Rx#:[id number] Oral 1300 / 1300 480 / 480 Other: # Voids 8 3 Date of Last Bowel Movement 05/13/18 Narrative: GENERAL: This is a pleasant 72yomale, well-nourished, well-developed patient, in no apparent distress. SKIN: Warm and dry HEENT: Normocephalic. Pupils equal round and reactive. Nose without bleeding. Airway patent. NECK: Trachea midline. Supple. CARDIOVASCULAR: Regular rate and rhythm without murmurs, gallops, or rubs. RESPIRATORY: No wheezes, rales, or rhonchi. GASTROINTESTINAL: Abdomen soft, non-tender, nondistended. Bowel Sounds normoactive x4. MUSCULOSKELETAL: Extremities without clubbing, cyanosis. No edema. NEUROLOGICAL: Awake and alert. Oriented to time, place, person. No focal neuro deficit. Moves all extremities. Normal speech. Assessment and Plan - Assessment (1) CAD (coronary artery disease) Code(s): I25.10 - Atherosclerotic heart disease of [place] coronary artery without angina pectoris Status: Acute (2) Pleural effusion Code(s): J90 - Pleural effusion, not elsewhere classified Status: Acute (3) SOB (shortness of breath) Code(s): R06.02 - Shortness of breath Status: Acute - Plan 1) Pleural effusion s/p thoracentesis CT still showing effusion? Clinically better 2) CAD Con't on ASA/Plavix 3) Afib ASA/Plavix Attempted multiple combinations of anti-platelet/anti-coagulants but had GI bleed with all combinations so no anti-coagulants 4) Bacteremia Possible contaminant Per primary team
--- NOTE | 2018-05-16 18:49 | P.PNADD ---
Addendum to Inpatient Note Additional information: della Ely dc abx OK to dc pt fu fluid culture untill final
--- NOTE | 2018-05-17 00:05 | MD ---
cc: Gianna Ely MD DATE OF DISCHARGE: HOSPITAL COURSE: Mr. Malik is a 72-year-old white male who was seen at the [facility] the day of admission and advised to come to the emergency room for increasing shortness of breath and probable recurrent effusion. On presentation, he was short of breath and initial chest x-ray revealed a large pleural effusion. A CTA was performed which revealed a large effusion, compressive atelectasis, but no evidence for pulmonary embolism. The patient is on Plavix and aspirin at this point for a stent having been placed about 6 months ago. I consulted Dr. Jones and he advised not to take the aspirin and Plavix off due to the risk of clotting the stent. Recognizing that there was an increased risk of bleeding, the patient did agree to proceed with a diagnostic and therapeutic thoracentesis. That was performed by Interventional Radiology and the fluid reports were consistent with an exudate. He had an LDH that was quite high 711, total protein of 4.1, and a normal glucose. Cytology is pending. Culture on the fluid was negative at 48 hours with acid fast pending. The patient had initial blood cultures on presentation, which revealed Staph coag negative, but followups were negative. The patient had an uncomplicated course, felt much better with less shortness of breath post-drainage, and has had no fever, no elevation of white count. A CT scan was performed after the fluid was drained, which revealed residual fluid with some thickening of the pleura anterolaterally. No suggestion of an active infiltrate such as pneumonia. Nothing to really suggest underlying malignancy. The patient's pathology report is still pending. The patient also had a thoracentesis diagnostic at the [facility] in [place] several weeks ago and apparently that cytology was negative. We have not yet been able to get those reports. The patient is awake, alert, and comfortable. O2 saturations 95% to 98% on room air and he is ready for discharge. I have explained to him that he is going to need a followup scan in 1 month, unless his symptoms recur prior to that, in which case, he should report either to the [facility] or back to the emergency room. He understands that at this point, we have no definitive explanation for this fluid, but we know that it has been there for months based on previous CTs. Follow up in my office [address] scan. He will call if problems arise prior to that and also [facility] will [facility]. As I have explained to him, there is no guarantee that [facility] will [facility] since [facility]. R. MD JAMIE Cabrales/hung/do , 03:44 PM , 03:52 PM
[2018-05-17] MEDS: Gabapentin 300 MG Capsule PO SCH (08:38)
[2018-05-17] MEDS: Ferrous Sulfate 325 MG Tablet PO SCH (08:38)
[2018-05-17] MEDS: Allopurinol 300 MG Tablet PO SCH (08:38)
[2018-05-17] MEDS: Magnesium Oxide 400 MG Tablet PO SCH (08:38)
[2018-05-17] MEDS: Folic Acid 1 MG Tablet PO SCH (08:38)
[2018-05-17] MEDS: guaiFENesin 600 MG ER Tablet PO SCH (08:39)
[2018-05-17] MEDS: Ascorbic Acid 500 MG Tablet PO SCH (08:39)
[2018-05-17] MEDS: Lisinopril 10 MG Tablet PO SCH (08:39)
[2018-05-17] MEDS: Senna/Docusate Sodium 8.6/50 MG Tablet PO SCH (08:39)
[2018-05-17] MEDS: Metoprolol Tartrate 25 MG Tablet PO SCH (08:39)
[2018-05-17] MEDS: Budesonide-Formoterol 160/4.5 MCG 6 GM Inhaler INH SCH (08:40)
[2018-05-17] MEDS ORDERED: Pharmacy Ordered Lab Info OTHER ONE (09:45)
[2018-05-17 09:56] VITALS: BP 118/73; PULSE 98; RESP 17; TEMP 98; O2SAT 93
--- NOTE | 2018-05-17 10:04 | P.DS ---
Date of admission: 05/12/18 17:18 Primary care physician: [facility] Attending physician on discharge: Gregor Robins Anticipated date of discharge: 05/17/18 Brief History from admission: This is a pleasant 72-year-old male the presents to the ED from the [facility] for evaluation of shortness of breath with exertion for the past 2 weeks. Per patient he has a significant history of what appears to be fluid on 1 of his lungs. Apparently they were working him up for cancer at the [facility] in [place]. Apparently the date a thoracocentesis from what he was telling me possibly on his right lung but he cannot really tell me which one on 2 weeks ago. Per patient he had the procedure he was told that there was no sign of cancer but was told to recheck in August. Per patient he ever since has been short of breath and has progressively not improved. She denies any history of heart failure were per her medical record she has a history of A. fib, GI bleeds as well as documented CHF. He denies any leg swelling. Per patient the shortness of breath gets worse with ambulation but also with laying down flat. He denies any pain in his chest. He states compliance with his Plavix. He states compliance with his medications. He does state that he takes a diuretic but he is not sure what he takes it on per patient is torsemide. States compliance with his medication as well. Per patient the [facility] told him to come here today to get evaluated. Seen in emergency room, recommended for Thoracentesis but he is taking Plavix and Aspirin secondary to PCI and stent placement last year by Doctor Jones. DS: Medications - Discharge Medications Prescriptions: furosemide [Lasix] 40 mg PO DAILY #30 tab ipratropium-albuterol 3 ml INHALATION Q4-6H PRN #1 box PRN Reason: Shortness Of Breath Or Wheezing lisinopril 10 mg PO DAILY #30 tab DS: Summary Hospital Course: 72-year-old male the presents to the ED on 05/12 from the [facility] for evaluation of shortness of breath with exertion for the past 2 weeks. Right pleural Effusion, increasing -Pulmonology consulted. Appreciate recommendations. S -Scrap Preparer consulted secondary to use of aspirin/Plavix. As per Dr. Jones needs to continue aspirin Plavix, status post PCI and stent placement more than 8 months ago. -Echo with EF 60-65% -transitioned from IV Lasix to p.o Bacteremia -Blood cultures positive for staphylococcus epidermidis -ID consulted and followed patient during his stay, received IV Cefepime and Vancomycin. Antibiotics later DC per ID. Pneumonia consolidation on right Lung with recent admission to [facility] Underlying COPD -Continue Symbicort -Negative for Legionella antigen, negative for Streptococcus pneumonia antigen -not requiring O2 -Dr. Ely, pulm is ff ok to DC from his standpoint, appreciate recs. S/p thoracentesis. -Repeat CT continues to show large right pleural effusion. Follow up cultures from fluid s/p thoracentesis as well as as blood culture. - Will need to follow up with with CT in 1 month and [facility] Atrial fibrillation, chronic CHF, hx CAD, S/P PCI Stent LAD and RCA -Plavix and Aspirin -EF stable, BNP wnl HTN HLD -Continue home medication Patient was seen and examined this morning sitting on side of the bed with RN present. He is having a coughing spell as he was just eating and talking at the same time per nurse. Patient is able to cough, denies any shortness of breath at rest. Continues to report intermittent shortness of breath especially with activity although does note an improvement following thoracentesis. He denies any nausea, vomiting, diarrhea, headache, dizziness or chest pain. Patient understands that he will need to follow-up with CT scan in [address] Ely as well as follow-up with the [facility]. If he should have any progressive worsening of shortness of breath he is to return to the emergency department. Patient also reports that this was explained by Dr. Ely to him. - Time Spent with Patient Total time spent providing and/or coordinating discharge services: Less than 30 minutes - Quality: VTE Deep Vein Thrombosis/Pulmonary Embolism Present on Admission: No Exam Vital signs: Vital Signs 05/16/18 10:59 05/16/18 12:00 05/16/18 15:45 Temperature 97.4 F L Pulse Rate 68 86 60 Respiratory Rate 16 16 18 Blood Pressure 102/54 L Pulse Oximetry 99 05/16/18 16:00 05/16/18 20:00 05/17/18 00:00 Temperature 99.5 F 97.1 F L 98.4 F Pulse Rate 91 H 95 H 76 Respiratory Rate 16 18 18 Blood Pressure 115/58 L 117/57 L 117/61 Pulse Oximetry 99 93 L 92 L Intake & Output 05/16/18 05/17/18 05/17/18 18:59 06:59 18:59 Intake Total 2615 / 2615 Balance 2615 / 2615 Weight 104.5 kg Intake: IV 615 / 615 Maxipime Inj 1,000 MG In NS Inj 100 / 100 100 ML @ 200 mls/hr IV.SIG Q8H JULIO Rx#:[id number] Vancomycin Inj 1,500 MG In NS 515 / 515 Inj 500 ML @ 258.75 mls/hr IV. SIG Q18H JULIO Rx#:[id number] Oral 1999 Other: # Voids 5 2 Date of Last Bowel Movement 05/13/18 05/13/18 # Bowel Movements 1 2 Narrative: GENERAL: This is a pleasant 72yomale, well-nourished, well-developed in no acute distress. SKIN: Warm and dry HEENT: Normocephalic. Pupils equal round and reactive. Nose without bleeding. Airway patent. NECK: Trachea midline. Supple. CARDIOVASCULAR: Regular rate and rhythm without murmurs, gallops, or rubs. RESPIRATORY: No wheezes, rales, or rhonchi. GASTROINTESTINAL: Abdomen soft, non-tender, nondistended. Bowel Sounds normoactive x4. MUSCULOSKELETAL: Extremities without clubbing, cyanosis. No edema. NEUROLOGICAL: Awake and alert. Oriented to time, place, person. No focal neuro deficit. Moves all extremities. Normal speech. Results Procedures completed during hospitalization: Thoracentesis 05/14/18 Labs on day of discharge: Preliminary micro results at discharge 05/12/18 17:47 Aerobic Blood Culture - Preliminary Blood - Peripheral No growth in 4 days Anaerobic Blood Culture - Preliminary Staphylococcus coag negative 05/14/18 10:52 Aerobic Blood Culture - Preliminary Blood - Peripheral No growth in 2 days Anaerobic Blood Culture - Preliminary No growth in 2 days 05/14/18 10:52 Aerobic Blood Culture - Preliminary Blood - Peripheral No growth in 2 days Anaerobic Blood Culture - Preliminary No growth in 2 days - Impressions ITS Impressions Chest CTA 05/12/18 15:04 CONCLUSION: 1. Large right pleural effusion, right lower lobe atelectasis and consolidation. 2. No evidence for pulmonary embolism. Chest X-Ray 05/14/18 00:00 CONCLUSION: Decrease in right effusion. Thoracentesis Ultrasound 05/14/18 00:00 CONCLUSION: 1. Uncomplicated ultrasound guided right thoracentesis. Chest CT 05/15/18 00:00 CONCLUSION: Large right pleural effusion and right lung base consolidation not significantly changed.2 Discharge Plan - Discharge Disposition Patient Disposition: 01 Discharge Home - Discharge Condition Condition: Fair - Discharge Order Discharge Orders: Discharge Order (Routine); Ordered 05/17/18 Ordered By: Rohit Dang - Physicians Team Primary Care Provider: [facility] Attending Provider: Gregor Robins Other Providers: Israel Ely MD ; Manuel Jones DO ; Heather Mercado MD
== END 2018-05-17 13:31 | disposition home or self-care (01) ==
LOC: NEPC 13:28 → NEDA 17:18 → NEPGCP 18:26 → N07 05-14 15:49
PROVIDERS: ADMIT Hospitalist; ATTEND Hospitalist
DX: R74.8 Abnormal levels of other serum enzymes; I13.0 Hypertensive heart and chronic kidney disease with heart failure and stage 1 through stage 4 chronic kidney disease, or unspecified chronic kidney disease; Z87.891 Personal history of nicotine dependence; Z95.5 Presence of coronary angioplasty implant and graft; E78.5 Hyperlipidemia, unspecified; J90 Pleural effusion, not elsewhere classified; J98.11 Atelectasis; I25.10 Atherosclerotic heart disease of native coronary artery without angina pectoris; Z82.49 Family history of ischemic heart disease and other diseases of the circulatory system; N18.9 Chronic kidney disease, unspecified; K59.00 Constipation, unspecified; J44.0 Chronic obstructive pulmonary disease with (acute) lower respiratory infection; I48.2 Chronic atrial fibrillation; I50.9 Heart failure, unspecified; J18.9 Pneumonia, unspecified organism